=== PATIENT | male | born 1940 | race Caucasian/White ===

== ENCOUNTER → 2020-01-04 08:55 | Outpatient (CLI) | payer MEDICARE, SELFPAY ==
[2019-12-29 08:46] VITALS: BMI 27.0
[2020-01-04 12:45] LABS: Absolute Lymphocyte Count 1.16 X10^3/uL (0.83-4.51); Absolute Neutrophil Count 4.5 X10^3/uL (2.0-7.7); Basophil# 0.03 X10^3/uL; Basophil% 0.5 % (0-1); Eosinophil# 0.12 X10^3/uL; Eosinophils% 1.9 % (0-5); Hematocrit 47.7 % (40-54); Lymphocyte # 1.16 X10^3/ul (4.0); Lymphocyte % 18.2 % (19-41); Mean Corp Hgb Conc 31.4 g/dL (32-36); Mean Corpuscular Hgb 27.9 pg (27.0-32.0); Mean Corpuscular Volume 88.8 fL (80-94); Mean Platelet Vol. 11.7 fl (6.2-12.0); Monocyte# 0.51 X10^3/uL; NRBC Flagged by Analyzer 0 % (0-5); Neutrophil # 4.53 X10^3/uL (2.7-7.7); Neutrophil % 71.1 % (47-70); Platelet Count 256 K/mm3 (150-450); RBC Distribution Width CV 13.6 % (11.6-14.6); RBC Distribution Width SD 44.1 fl (35.1-43.9); Red Blood Count 5.37 M/mm3 (4.6-6.2); White Blood Count 6.4 K/mm3 (4.4-11.0)
[2020-01-04 12:51] LABS: ALB/GLOB Ratio 0.9 RATIO (0.9-2.4); AST(SGOT) 18 U/L (15-37); Alanine Aminotransfer ALT/SGPT 23 U/L (16-61); Albumin, Serum 3.6 g/dL (3.2-5.0); Alkaline Phosphatase 81 U/L (45-117); Anion Gap 5 (5-15); BUN 13 mg/dL (7-18); BUN/Creat Ratio 13.4 RATIO (10-20); Calcium,Total 8.7 mg/dL (8.5-10.1); Chloride 108 mmol/L (98-107); Cholesterol 130 mg/dL (200); Creatinine, Serum 0.97 mg/dL (0.70-1.30); EST Glomerular Filtration Rate 79 mL/min (>60); Est Glom Filt Rate - Afr Amer 95 mL/min (>60); Globulin 3.8 g/dL (2.2-4.2); Glucose 115 mg/dL (74-106); High Density Lipoprotein 47 mg/dL; PSA,Total - Annual Screen 5.97 ng/mL (0.00-4.00); Potassium 4.1 mmol/L (3.5-5.1); Protein, Total 7.4 g/dL (6.4-8.2); Sodium Level 142 mmol/L (136-145); Triglycerides 122 mg/dL; Very Low Density Lipoprotein 24 mg/dL (5-40)
[2020-01-04 13:03] LABS: Hemoglobin A1c 6.4 % (3.8-5.6)
== END ==
PROVIDERS: PCP Internal Medicine; Referring Provider Internal Medicine; Visit Provider Internal Medicine
DX: E11.9 Type 2 diabetes mellitus without complications (principal); K21.9 Gastro-esophageal reflux disease without esophagitis; R06.00 Dyspnea, unspecified; E78.5 Hyperlipidemia, unspecified; R39.9 Unspecified symptoms and signs involving the genitourinary system; Z12.5 Encounter for screening for malignant neoplasm of prostate
CPT/HCPCS: 36415; 80053; 80061; 83036; 84153; 85025; G0103

== ENCOUNTER → 2020-01-26 06:46 | Outpatient (CLI) | payer MEDICARE, SELFPAY ==
[2020-01-19 09:07] VITALS: BMI 31.1
--- NOTE | 2020-01-26 06:48 | CT_ITS ---
STUDY: CT CHEST WITHOUT CONTRAST REASON FOR EXAM: Male, 79 years old. Follow up lung nodule RADIATION DOSAGE (If Supplied By Facility): CTDIvol = ( 12.09 ) mGy, DLP = ( 483.36 ) mGycm TECHNIQUE: Transaxial imaging was performed without the administration of intravenous contrast material. Individualized dose optimization techniques were used for this CT. COMPARISON: None. FINDINGS: There is hyperinflation and emphysema of the lungs consistent with chronic obstructive lung disease (COPD). Irregular opacities are seen in the right upper lobe and right lower lobe are consistent with scarring from old lesions likely old pneumonia. There is no demonstrated pleural abnormality. Normal heart and pericardium. Normal mediastinum. Normal hilar regions. Normal unenhanced pulmonary arteries. Normal aorta arch and descending thoracic aorta. There are multi-level degenerative changes of the thoracic spine. There is no demonstrated abnormality of the visualized upper abdomen. CT/Chest without Contrast IMPRESSION: COPD and emphysema in both lungs more prominent in the upper lobes. Irregular opacities are seen in the right upper lobe and right lower lobe are consistent with scarring. Electronically Signed: Ryan Flores, at 8:12 EST Tel , Service support ,
== END ==
PROVIDERS: PCP Internal Medicine; Referring Provider Internal Medicine Critical Care Medicine; Visit Provider Internal Medicine Critical Care Medicine
DX: R91.1 Solitary pulmonary nodule (principal); R31.29 Other microscopic hematuria
CPT/HCPCS: 71250

== ENCOUNTER → 2020-01-31 09:16 | Outpatient (CLI) | payer MEDICARE, SELFPAY ==
[2020-01-19 09:07] VITALS: BMI 31.1
--- NOTE | 2020-01-31 14:57 | PFTCOMP_ITS ---
COMPLETE PULMONARY FUNCTION TEST INTERPRETATION Brief HPI: Patient is an 79 year old male, currently under the care of myself, who presents to [facility] for complete pulmonary function tests secondary to diagnosis of COPD. Respiratory therapist reports good effort and reproducible results. Interpretation: Forced expiration spirometry shows a mild large airways obstructive ventilatory defect with an FEV1 of 70% predicted. There is no significant bronchodilator response by strict ATS criteria. Spirograms are of good quality and plateau slowly, indicating slowly emptying areas of the lungs. The respiratory flow volume loop shows decreased expiratory flow rates at all lung volumes consistent with airway obstruction. Lung volumes by body plethysmography show an elevated total lung capacity at 8.2 L, 129% predicted. All other lung volumes are increased symmetrically. Diffusion capacity by carbon monoxide is at the lower limit of normal at 71% predicted. The airway resistance is elevated. No previous pulmonary function tests were available for review. Impression: Irreversible mild large airways obstructive ventilatory defect with a symmetric reduction diffusing capacity
== END ==
PROVIDERS: PCP Internal Medicine; Referring Provider Internal Medicine Critical Care Medicine; Visit Provider Internal Medicine Critical Care Medicine
DX: J44.9 Chronic obstructive pulmonary disease, unspecified (principal)
CPT/HCPCS: 94060; 94726; 94729

== ENCOUNTER → 2020-02-03 09:19 | Outpatient (CLI) | payer MEDICARE, SELFPAY ==
[2020-01-19 09:07] VITALS: BMI 31.1
[2020-02-03 09:55] VITALS: PULSE 101; PULSE 107; PULSE 108; PULSE 77; PULSE 82; PULSE 96; PULSE 98; O2SAT 89; O2SAT 91; O2SAT 92; O2SAT 95
--- NOTE | 2020-02-03 10:00 | CPS ---
Mr. Casillas came in with no O2 on but wears 2LPM at home all the time. Starting walking with no O2 on but had to put on at 3 mins and it took 2 mins to return to normal. He wore the oxygen rest of the test.
--- NOTE | 2020-02-04 14:57 | PCM.PSN.6M ---
PSN 6 Minute Walk Test - 6 Minute Walk Test 6 Minute Walk Test: 6 Minute Walk Test PSN:6-Minute Walk Test Start: 02/03/20 09:55 Freq: Status: Active Protocol: [id number].6MINW Document 02/03/20 09:55 FR (Rec: 02/03/20 10:05 FR [id number]) 6 Minute Walk Test Date Performed 02/03/20 Time Performed 09:45 Height 5 ft 11 in Weight: 194 lb Weight in Pounds 194.[address]: Nba Man Assistive device used: None Pre-test Oxygen Delivery Method Room Air Pulse Ox (%) 91 Pulse Rate (60-100 beats/min) 82 Dyspnea Eddy Scale (0-10) 5 Exertion Eddy Scale (6-20) 10 1st minute Oxygen Delivery Method Room Air Pulse Ox (%) 91 Pulse Rate (60-100 beats/min) 101 H 2nd minute Oxygen Delivery Method Room Air Pulse Ox (%) 89 Pulse Rate (60-100 beats/min) 107 H Reported Symptoms Increased Work of Breathing 3rd minute Oxygen Delivery Method Room Air Pulse Ox (%) 95 Pulse Rate (60-100 beats/min) 108 H Number of Rests Taken 1 Reported Symptoms Increased Work of Breathing 4th minute Oxygen Flow Rate (L/min) (L/min) 2 Oxygen Delivery Method Nasal Cannula Pulse Ox (%) 92 Pulse Rate (60-100 beats/min) 96 5th minute Oxygen Flow Rate (L/min) (L/min) 2 Oxygen Delivery Method Nasal Cannula Pulse Ox (%) 91 Pulse Rate (60-100 beats/min) 98 6th minute Oxygen Flow Rate (L/min) (L/min) 2 Oxygen Delivery Method Nasal Cannula Pulse Ox (%) 89 Pulse Rate (60-100 beats/min) 101 H Dyspnea Eddy Scale (0-10) 4 Exertion Eddy Scale (6-20) 10 Post-test Oxygen Flow Rate (L/min) (L/min) 2 Oxygen Delivery Method Nasal Cannula Pulse Ox (%) 92 Pulse Rate (60-100 beats/min) 77 Full Laps Walked 10 Partial Lap, Number of Tiles Walked 28 Total Distance Walked (ft) 618 02/03/20 10:00 Cardiopulmonary Services by Naina Pratt Mr. Casillas came in with no O2 on but wears 2LPM at home all the time. Starting walking with no O2 on but had to put on at 3 mins and it took 2 mins to return to normal. He wore the oxygen rest of the test. Initialized on 02/03/20 10:00 - END OF NOTE - Interpretation Interpretation: The patient ambulated 618 feet over the course of 6 minutes beginning on room air without assistive devices or breaks. Pretesting oxygen saturation was noted to be 91% on room air. With ambulation, the xu oxygen saturation was 85%. 2 L/min of supplemental oxygen was applied and the patient was able to complete the remainder of the test while maintaining appropriate oxygen saturations. - Recommendations Recommendations: 2 L/min of supplemental oxygen should be utilized with exertion.
== END ==
PROVIDERS: PCP Internal Medicine; Referring Provider Internal Medicine Critical Care Medicine; Visit Provider Internal Medicine Critical Care Medicine
DX: J44.9 Chronic obstructive pulmonary disease, unspecified (principal)
CPT/HCPCS: 94618

== ENCOUNTER → 2020-06-28 10:52 | Outpatient (CLI) | payer MEDICARE, SELFPAY ==
[2020-06-28 10:06] VITALS: BMI 27.7
[2020-06-28 12:06] LABS: Absolute Lymphocyte Count 1.56 X10^3/uL (0.83-4.51); Absolute Neutrophil Count 4.8 X10^3/uL (2.0-7.7); Basophil# 0.05 X10^3/uL; Basophil% 0.7 % (0-1); Eosinophil# 0.13 X10^3/uL; Eosinophils% 1.8 % (0-5); Hematocrit 45.8 % (40-54); Hemoglobin 14.5 g/dL (13.0-16.5); Lymphocyte # 1.56 X10^3/ul (0.83-4.51); Lymphocyte % 21.4 % (19-41); Mean Corp Hgb Conc 31.7 g/dL (32-36); Mean Corpuscular Hgb 28.9 pg (27.0-32.0); Mean Corpuscular Volume 91.2 fL (80-94); Mean Platelet Vol. 11.2 fl (6.2-12.0); Monocyte# 0.72 X10^3/uL; Monocyte% 9.9 % (0-10); NRBC Flagged by Analyzer 0 % (0-5); Neutrophil # 4.82 X10^3/uL (2.7-7.7); Neutrophil % 65.9 % (47-70); Platelet Count 291 K/mm3 (150-450); RBC Distribution Width CV 13.6 % (11.6-14.6); RBC Distribution Width SD 45.3 fl (35.1-43.9); Red Blood Count 5.02 M/mm3 (4.6-6.2); White Blood Count 7.3 K/mm3 (4.4-11.0)
[2020-06-28 12:33] LABS: BUN 15 mg/dL (7-18); Creatinine, Serum 0.99 mg/dL (0.70-1.30); Glucose 98 mg/dL (74-106)
[2020-06-28 12:34] LABS: ALB/GLOB Ratio 1.1 RATIO (0.9-2.4); AST(SGOT) 15 U/L (15-37); Alanine Aminotransfer ALT/SGPT 23 U/L (16-61); Albumin, Serum 3.9 g/dL (3.2-5.0); Alkaline Phosphatase 76 U/L (45-117); Anion Gap 3 (5-15); BUN/Creat Ratio 15.1 RATIO (10-20); Calcium,Total 8.9 mg/dL (8.5-10.1); Chloride 108 mmol/L (98-107); EST Glomerular Filtration Rate 77 mL/min (>60); Est Glom Filt Rate - Afr Amer 93 mL/min (>60); Globulin 3.7 g/dL (2.2-4.2); PSA,Total- Diagnostic 4.59 ng/mL (0.0-4.0); Potassium 4.2 mmol/L (3.5-5.1); Protein, Total 7.6 g/dL (6.4-8.2); Sodium Level 140 mmol/L (136-145)
[2020-06-28 13:09] LABS: Vitamin D,25 Hydroxy 38.1 ng/mL
== END ==
PROVIDERS: PCP Internal Medicine; Referring Provider Internal Medicine; Visit Provider Internal Medicine
DX: R97.20 Elevated prostate specific antigen [PSA] (principal); J44.9 Chronic obstructive pulmonary disease, unspecified; R05 Cough; E11.9 Type 2 diabetes mellitus without complications; E55.9 Vitamin D deficiency, unspecified
CPT/HCPCS: 36415; 80053; 82306; 84153; 85025

== ENCOUNTER → 2020-12-08 07:42 | Outpatient (CLI) | payer MEDICARE, SELFPAY ==
--- NOTE | 2020-12-08 07:51 | CT_ITS ---
INDICATION: follow up right lung nodule EXAMINATION: CT CHEST WITHOUT CONTRAST - CT Chest W/O Contrast Injection TECHNIQUE: Helically acquired images were obtained of the chest. A radiation dose optimization technique was used for this scan. IV Contrast dosage and agent: None. COMPARISON: None. FINDINGS: LUNGS, PLEURA AND LARGE AIRWAYS: 1.7 x 1.2 cm soft tissue density visualized along the posterior inferior lateral right upper lobe seen on axial series 4 image 74 demonstrates decrease in size in comparison to the prior study, adjacent 0.5 cm satellite lesions are visualized that was seen on the prior study, however there is significant decrease in the stranding of the adjacent soft tissues most notable along the right middle lobe bronchial level visualized on the prior study on coronal CT is series 602 image 144 and near completely resolved on the current study. 2.7 x 2.2 cm spiculated density visualized along the inferolateral aspect of the right middle lobe demonstrating spiculated margins and irregular contours best visualized on axial series 4 image 98, this was not seen on the prior study. 2.2 x 2.0 cm density visualized in the inferomedial right lower lobe seen on axial series 4 image 2102 demonstrates no significant change in comparison to the prior study, interspersed the bronchioles visualized within this lesion. Thickening of the left pleural reflections/fissures seen. Extensive emphysematous lung disease visualized in bilateral lung douglas with parenchymal lung scarring, irregularity of the bronchioles with bronchial wall thickening is visualized most prominent in the proximity of the above the above-mentioned areas of soft tissue density/masses. No evidence of pneumothorax or pleural effusion. THYROID: No thyroid lesions. HEART AND PERICARDIUM: Heart size is normal. No pericardial effusion. VESSELS: Scattered atherosclerotic calcifications visualized in the aortic arch, no evidence of aneurysmal dilatation or arterial dissection is seen. MEDIASTINUM AND MANUELA: Scattered subtle hilar mediastinal and hilar lymph nodes are seen.. Esophagus is unremarkable. No hiatal hernia. UPPER ABDOMEN: Scattered subtle lymph nodes visualized in the midabdomen. BONES: Degenerative bone changes. No suspicious lytic or blastic abnormality. CT/Chest without Contrast IMPRESSION: Previously visualized soft tissue density/mass in the right upper lobe demonstrate slight decrease in size in comparison to the prior study. Two new soft tissue densities/consolidation/spiculated masses visualized in the right middle and lower lobes that were not seen on the prior study. Electronically Signed: Darnell Paez MD at 10:44 EDT Tel , Service support ,
== END ==
PROVIDERS: PCP Internal Medicine; Referring Provider Internal Medicine Critical Care Medicine; Visit Provider Internal Medicine Critical Care Medicine
DX: R91.1 Solitary pulmonary nodule (principal); J44.9 Chronic obstructive pulmonary disease, unspecified; J96.11 Chronic respiratory failure with hypoxia
CPT/HCPCS: 71250

== ENCOUNTER → 2020-12-13 12:35 | Outpatient (CLI) | payer MEDICARE, SELFPAY ==
[2020-09-11 13:50] VITALS: BMI 27.7
--- NOTE | 2020-12-13 15:07 | PFTCOMP ---
COMPLETE PULMONARY FUNCTION TEST INTERPRETATION Brief HPI: Patient is an 80 year old male, currently under the care of myself, who presents to [facility] for complete pulmonary function tests secondary to diagnosis of COPD. Respiratory therapist reports good effort and reproducible results. Interpretation: Forced expiration spirometry shows a moderate large airways obstructive ventilatory defect with an FEV1 of 66% predicted. There is no significant bronchodilator response by strict ATS criteria. Spirograms are of good quality and plateau slowly, indicating slowly emptying areas of the lungs. The respiratory flow volume loop shows decreased expiratory flow rates at all lung volumes consistent with airway obstruction. Lung volumes by body plethysmography show an elevated total lung capacity at 8.4 L, 133% predicted. All other lung volumes are increased symmetrically. Diffusion capacity by carbon monoxide is decreased at 62% predicted. The airway resistance is normal. Compared to previous pulmonary function tests from 01/31/2020, there has been no significant change. Impression: Irreversible moderate large airways obstructive ventilatory defect with a symmetric reduction in diffusion capacity
== END ==
PROVIDERS: PCP Internal Medicine; Referring Provider Internal Medicine Critical Care Medicine; Visit Provider Internal Medicine Critical Care Medicine
DX: J44.9 Chronic obstructive pulmonary disease, unspecified (principal); R91.1 Solitary pulmonary nodule; J96.11 Chronic respiratory failure with hypoxia
CPT/HCPCS: 94060; 94726; 94729

== ENCOUNTER → 2021-01-01 09:02 | Outpatient (CLI) | payer MEDICARE, SELFPAY ==
[2021-01-01 11:59] LABS: Absolute Lymphocyte Count 1.54 X10^3/uL (0.83-4.51); Absolute Neutrophil Count 6.5 X10^3/uL (2.0-7.7); Basophil# 0.05 X10^3/uL; Basophil% 0.5 % (0-1); Eosinophil# 0.24 X10^3/uL; Eosinophils% 2.6 % (0-5); Hematocrit 45.1 % (40-54); Hemoglobin 14.2 g/dL (13.0-16.5); Lymphocyte # 1.54 X10^3/ul (0.83-4.51); Lymphocyte % 16.9 % (19-41); Mean Corp Hgb Conc 31.5 g/dL (32-36); Mean Corpuscular Hgb 28.2 pg (27.0-32.0); Mean Corpuscular Volume 89.7 fL (80-94); Mean Platelet Vol. 11.7 fl (6.2-12.0); Monocyte# 0.75 X10^3/uL; Monocyte% 8.2 % (0-10); NRBC Flagged by Analyzer 0 % (0-5); Neutrophil # 6.51 X10^3/uL (2.7-7.7); Neutrophil % 71.4 % (47-70); Platelet Count 236 K/mm3 (150-450); RBC Distribution Width CV 13.9 % (11.6-14.6); RBC Distribution Width SD 44.9 fl (35.1-43.9); Red Blood Count 5.03 M/mm3 (4.6-6.2); White Blood Count 9.1 K/mm3 (4.4-11.0)
[2021-01-01 12:11] LABS: Vitamin D,25 Hydroxy 60.1 ng/mL
[2021-01-01 12:16] LABS: Hemoglobin A1c 6.3 % (3.8-5.6)
[2021-01-01 12:22] LABS: ALB/GLOB Ratio 0.9 RATIO (0.9-2.4); AST(SGOT) 18 U/L (15-37); Alanine Aminotransfer ALT/SGPT 25 U/L (16-61); Albumin, Serum 3.5 g/dL (3.2-5.0); Alkaline Phosphatase 74 U/L (45-117); Anion Gap 5 (5-15); BUN 14 mg/dL (7-18); BUN/Creat Ratio 13.3 RATIO (10-20); Calcium,Total 8.6 mg/dL (8.5-10.1); Chloride 107 mmol/L (98-107); Cholesterol 126 mg/dL (200); Creatinine, Serum 1.05 mg/dL (0.70-1.30); EST Glomerular Filtration Rate 72 mL/min (>60); Est Glom Filt Rate - Afr Amer 87 mL/min (>60); Glucose 119 mg/dL (74-106); High Density Lipoprotein 45 mg/dL; PSA,Total- Diagnostic 6.04 ng/mL (0.0-4.0); Potassium 4.2 mmol/L (3.5-5.1); Protein, Total 7.5 g/dL (6.4-8.2); Sodium Level 141 mmol/L (136-145); Thyroid Stim Hormone (TSH) 1.55 uIU/mL (0.358-3.74); Triglycerides 117 mg/dL; Very Low Density Lipoprotein 23 mg/dL (5-40)
== END ==
PROVIDERS: PCP Internal Medicine; Referring Provider Internal Medicine; Visit Provider Internal Medicine
DX: R97.20 Elevated prostate specific antigen [PSA] (principal); K21.9 Gastro-esophageal reflux disease without esophagitis; E11.9 Type 2 diabetes mellitus without complications; J43.9 Emphysema, unspecified; E55.9 Vitamin D deficiency, unspecified
CPT/HCPCS: 36415; 80053; 80061; 82306; 83036; 84153; 84443; 85025

== ENCOUNTER 2021-03-15 14:17 | Outpatient (CLI) | payer MEDICARE, SELFPAY ==
--- NOTE | 2021-03-15 14:26 | CT_ITS ---
STUDY: CT CHEST WITHOUT CONTRAST REASON FOR EXAM: Male, 80 years old. New RML nodule. The patient smoked 1 pack per day for 40 years. RADIATION DOSAGE (If Supplied By Facility): CTDIvol = ( 17.9 ) mGy, DLP = ( 781.38 ) mGycm TECHNIQUE: Transaxial imaging was performed without the administration of intravenous contrast material. Multiplanar coronal and sagittal images were reformatted. Individualized dose optimization techniques were used for this CT. COMPARISON: Comparison is made with prior study dated 12/08/2020. FINDINGS: Small benign-appearing bilateral axillary lymph nodes. There is a 5.8 mm calcified granuloma in the right lower lobe. Hyperinflation. Emphysematous changes. Stable linear scarring in the left upper lobe. Stable scarring in the right lower lobe. The previously seen 2 cm x 1 cm spiculated nodule in the anterior aspect of the right middle lobe has resolved. Minimal residual scarring is seen at that site. The previously seen 1.7 cm x 1.2 cm peripheral based nodule in the right upper lobe adjacent to the minor fissure has cleared. There are calcifications of the coronary arteries. There are multiple small lymph nodes within the mediastinum, which are normal in size and morphology most compatible with reactive lymph hyperplasia. Normal hilar regions. Normal unenhanced pulmonary arteries. There is atherosclerotic calcification of the aortic arch with tortuosity and elongation of the aortic arch and descending thoracic aorta. There are multi-level degenerative changes of the thoracic spine. There is no demonstrated abnormality of the visualized upper abdomen. CT/Chest without Contrast IMPRESSION: Interval clearing of the previously seen nodules in the right upper lobe and right middle lobe with the persistent scarring and emphysematous changes in both lungs. Electronically Signed: Montrell Huddleston MD at 14:59 EST , Service support ,
== END 2021-03-15 23:59 | disposition short-term general hospital (02) ==
LOC: CT 14:19
PROVIDERS: PCP Internal Medicine; Referring Provider Internal Medicine Critical Care Medicine; Visit Provider Internal Medicine Critical Care Medicine
DX: R91.1 Solitary pulmonary nodule (principal)
CPT/HCPCS: 71250

== ENCOUNTER 2021-05-08 11:30 | Outpatient (CLI) | payer MEDICARE, SELFPAY ==
[2021-05-08 12:25] LABS: Absolute Lymphocyte Count 1.23 X10^3/uL (0.83-4.51); Absolute Neutrophil Count 5.7 X10^3/uL (2.0-7.7); Basophil# 0.04 X10^3/uL; Basophil% 0.5 % (0-1); Eosinophil# 0.15 X10^3/uL; Eosinophils% 1.9 % (0-5); Hematocrit 34.6 % (40-54); Hemoglobin 10.8 g/dL (13.0-16.5); Lymphocyte # 1.23 X10^3/ul (0.83-4.51); Lymphocyte % 15.8 % (19-41); Mean Corp Hgb Conc 31.2 g/dL (32-36); Mean Corpuscular Hgb 29.3 pg (27.0-32.0); Mean Corpuscular Volume 93.8 fL (80-94); Mean Platelet Vol. 10.9 fl (6.2-12.0); Monocyte# 0.67 X10^3/uL; Monocyte% 8.6 % (0-10); NRBC Flagged by Analyzer 0 % (0-5); Neutrophil # 5.68 X10^3/uL (2.7-7.7); Neutrophil % 72.8 % (47-70); Platelet Count 280 K/mm3 (150-450); RBC Distribution Width CV 13.9 % (11.6-14.6); RBC Distribution Width SD 47.8 fl (35.1-43.9); Red Blood Count 3.69 M/mm3 (4.6-6.2); White Blood Count 7.8 K/mm3 (4.4-11.0)
[2021-05-08 13:05] LABS: Vitamin D,25 Hydroxy 47.4 ng/mL
[2021-05-08 13:08] LABS: BNP,B-Type NATRIURETIC PEPTIDE 92.1 pg/mL (0-100)
[2021-05-08 13:36] LABS: ALB/GLOB Ratio 1.1 RATIO (0.9-2.4); AST(SGOT) 17 U/L (15-37); Alanine Aminotransfer ALT/SGPT 21 U/L (16-61); Albumin, Serum 3.6 g/dL (3.2-5.0); Alkaline Phosphatase 63 U/L (45-117); Anion Gap 6 (5-15); BUN 14 mg/dL (7-18); BUN/Creat Ratio 13.3 RATIO (10-20); Calcium,Total 8.9 mg/dL (8.5-10.1); Chloride 110 mmol/L (98-107); Cholesterol 113 mg/dL (200); Creatinine, Serum 1.05 mg/dL (0.70-1.30); EST Glomerular Filtration Rate 72 mL/min (>60); Est Glom Filt Rate - Afr Amer 87 mL/min (>60); Globulin 3.4 g/dL (2.2-4.2); Glucose 85 mg/dL (74-106); High Density Lipoprotein 43 mg/dL; Potassium 4.2 mmol/L (3.5-5.1); Sodium Level 142 mmol/L (136-145); Thyroid Stim Hormone (TSH) 1.62 uIU/mL (0.358-3.74); Triglycerides 139 mg/dL; Very Low Density Lipoprotein 28 mg/dL (5-40)
== END 2021-05-08 23:59 | disposition home or self-care (01) ==
LOC: BIMLAB 11:30
PROVIDERS: PCP Internal Medicine; Referring Provider Internal Medicine; Visit Provider Internal Medicine
DX: R06.00 Dyspnea, unspecified (principal); J43.9 Emphysema, unspecified; J96.11 Chronic respiratory failure with hypoxia; E11.9 Type 2 diabetes mellitus without complications; R07.89 Other chest pain; R55 Syncope and collapse; E55.9 Vitamin D deficiency, unspecified
CPT/HCPCS: 36415; 80053; 80061; 82306; 83880; 84443; 85025

== ENCOUNTER 2021-05-09 11:09 | Outpatient (CLI) | payer MEDICARE, SELFPAY ==
--- NOTE | 2021-05-09 11:12 | RAD_ITS ---
HISTORY: Near syncope, chest tightness, history of emphysema. TECHNIQUE: XR Chest 2 Views. # of images incl. paperwork: 3. COMPARISON: CT 03/15/2021. FINDINGS: CARDIOMEDIASTINAL STRUCTURES: Cardiac silhouette not enlarged. Mediastinal contour unremarkable with calcification of the aortic knob. LUNGS: Scattered bilateral scarring with hyperinflation. PLEURA: No pleural effusion or pneumothorax. OSSEOUS STRUCTURES: Degenerative change. RAD/Chest PA and Lateral IMPRESSION: No radiographic evidence of acute cardiopulmonary disease. COPD and scarring. at 1139 Reported and signed by: Yasmeen Singleton MD Electronically Signed: Yasmeen Singleton MD at 11:38 EST ,
== END 2021-05-09 23:59 | disposition home or self-care (01) ==
LOC: RAD 11:11
PROVIDERS: PCP Internal Medicine; Referring Provider Internal Medicine; Visit Provider Internal Medicine
DX: R55 Syncope and collapse (principal); J43.9 Emphysema, unspecified; R07.89 Other chest pain
CPT/HCPCS: 71046

== ENCOUNTER → 2021-05-30 09:35 | Outpatient (CLI) | payer MEDICARE, SELFPAY ==
--- NOTE | 2021-05-30 09:39 | STEWCON_ITS ---
Reason For Study: CHEST PAIN Stress Results Protocol: Dobutamine Stress Echo With Definiity Maximum Predicted HR: 138 bpm Target HR: 117 bpm % Maximum Predicted HR: 91 % DurationHeart Rate Stage (mm:ss) (bpm) BP Dose Comment BASELINE 87 129/86 5 CC DEFINITY FOR TEST STAGE 1 3:20 99 149/7210.00 STAGE 2 2:30 126 125/7720.00 RECOVERY 90 130/88 Stress Duration: 5:50 mm:ss Maximum Stress HR: 126 bpm Baseline Echocardiogram Findings The estimated ejection fraction is 60 %. Ejection fraction at peak dobutamine infusion is 75%. Stress Echo Wall motion Data Resting WM Intermediate WM Stress WM Resting Wall Motion Wall Motion Int. Wall Motion Stress No regional wall motion No regional wall motion No regional wall motion abnormalities noted. abnormalities noted. abnormalities noted. Stress Results The patient did not exhibit any symptoms during drug infusion. EKG Data The baseline ECG displays normal sinus rhythm. During stress, there were no ST or T wave changes noted to suggest ischemia. Symptoms with Stress The patient experinced no chest pain . ECHO/Stress Test Echo W/Contrast Interpretation Summary The estimated ejection fraction is 60 %. Dobutamine stress echocardiogram is negative for dobutamine induced chest pain or EKG or echocardiographic changes of ischemia Ordering Physician: Carmina Zaidi Referring Physician: Carmina Zaidi M.D. Performed By: Luis Beavers RCS
== END ==
PROVIDERS: PCP Internal Medicine; Visit Provider Internal Medicine
DX: R55 Syncope and collapse (principal); J43.9 Emphysema, unspecified; R07.89 Other chest pain
CPT/HCPCS: 93017; 93350; J7040; Q9957; A4216; C8928

== ENCOUNTER 2021-06-20 10:24 | Outpatient (CLI) | payer MEDICARE, SELFPAY ==
[2021-06-20 12:01] LABS: Absolute Lymphocyte Count 0.86 X10^3/uL (0.83-4.51); Absolute Neutrophil Count 4.2 X10^3/uL (2.0-7.7); Basophil# 0.03 X10^3/uL; Basophil% 0.5 % (0-1); Eosinophil# 0.21 X10^3/uL; Eosinophils% 3.5 % (0-5); Hematocrit 37.3 % (40-54); Hemoglobin 11.2 g/dL (13.0-16.5); Lymphocyte # 0.86 X10^3/ul (0.83-4.51); Lymphocyte % 14.4 % (19-41); Mean Corpuscular Hgb 26.7 pg (27.0-32.0); Mean Platelet Vol. 11.6 fl (6.2-12.0); Monocyte# 0.66 X10^3/uL; NRBC Flagged by Analyzer 0 % (0-5); Neutrophil % 70.3 % (47-70); Platelet Count 269 K/mm3 (150-450); RBC Distribution Width CV 13.7 % (11.6-14.6); RBC Distribution Width SD 44.8 fl (35.1-43.9); Red Blood Count 4.19 M/mm3 (4.6-6.2)
[2021-06-20 12:24] LABS: ALB/GLOB Ratio 0.9 RATIO (0.9-2.4); AST(SGOT) 141 U/L (15-37); Alanine Aminotransfer ALT/SGPT 206 U/L (16-61); Albumin, Serum 3.5 g/dL (3.2-5.0); Alkaline Phosphatase 140 U/L (45-117); Anion Gap 7 (5-15); BUN 11 mg/dL (7-18); Calcium,Total 8.3 mg/dL (8.5-10.1); Chloride 105 mmol/L (98-107); Creatinine, Serum 1.22 mg/dL (0.70-1.30); EST Glomerular Filtration Rate 60 mL/min (>60); Est Glom Filt Rate - Afr Amer 73 mL/min (>60); Globulin 3.9 g/dL (2.2-4.2); Glucose 111 mg/dL (74-106); Protein, Total 7.4 g/dL (6.4-8.2); Sodium Level 139 mmol/L (136-145)
== END 2021-06-20 23:59 | disposition home or self-care (01) ==
LOC: BIMLAB 10:25
PROVIDERS: PCP Internal Medicine; Referring Provider Internal Medicine; Visit Provider Internal Medicine
DX: J43.9 Emphysema, unspecified (principal); J44.9 Chronic obstructive pulmonary disease, unspecified; J96.11 Chronic respiratory failure with hypoxia; E11.9 Type 2 diabetes mellitus without complications; Z99.81 Dependence on supplemental oxygen
CPT/HCPCS: 36415; 80053; 85025

== ENCOUNTER → 2021-06-27 | Outpatient (CLI) | payer MEDICARE, SELFPAY ==
--- NOTE | 2021-06-27 09:43 | ECHOD_ITS ---
Reason For Study: CHEST PAINS Procedure This was a 2D Doppler, Color Flow transthoracic echocardiogram. The study was technically difficult. Exam performed in department. Left Ventricle Normal LV size. Left ventricular systolic function is normal. The estimated ejection fraction is 55 %. There is evidence of diastolic dysfunction. No regional wall motion abnormalities noted. Right Ventricle Normal RV size. Normal systolic function. Atria The left atrium is mildly enlarged. Normal right atrium. No doppler evidence for ASD. Mitral Valve There is mild to moderate mitral annular calcification. Tension of the mitral annular calcification onto the mitral valve leaflets. Trivial mitral valve insufficiency. Tricuspid Valve Normal tricuspid valve. Trivial tricuspid valve insufficiency. Right ventricular systolic pressure estimated to be 25 mmHg. Aortic Valve Trisinus/trileaflet aortic valve. Mild diffuse aortic valve calcification. Trivial aortic valve insufficiency. Pulmonic Valve The pulmonic valve is not well visualized. Trivial pulmonic valve insufficiency. Great Vessels Normal sized aortic root. Pericardium/Pleural No pericardial effusion. MMode/2D Measurements & Calculations LVIDd: 3.9 cm IVSd: 1.3 cm Ao root diam: 3.6 cm LVIDs: 2.0 cm LVPWd: 0.90 cm FS: 49.8 % LAV(MOD-sp4): 71.2 ml LVAd ap4: 30.4 cm2 LVAd ap2: 31.8 cm2 LVLd ap4: 7.9 cm LVLd ap2: 8.2 cm EDV(MOD-sp4): 98.5 ml EDV(MOD-sp2): 109.8 ml EDV(sp4-el): 99.3 ml EDV(sp2-el): 104.2 ml LVAs ap4: 17.2 cm2 LVAs ap2: 19.1 cm2 LVLs ap4: 6.1 cm LVLs ap2: 7.2 cm ESV(MOD-sp4): 42.7 ml ESV(MOD-sp2): 48.8 ml ESV(sp4-el): 41.0 ml ESV(sp2-el): 43.0 ml EF(MOD-sp4): 56.7 % EF(MOD-sp2): 55.5 % EF(sp4-el): 58.7 % SV(MOD-sp4): 55.8 ml SV(MOD-sp2): 61.0 ml SV(sp4-el): 58.3 ml LA dimension(2D): 4.1 cm LA A4 area: 21.7 cm2 Doppler Measurements & Calculations MV E max tunde: 105.5 cm/sec Lat Peak E' Tunde: 5.8 cm/sec Med Peak E' Tunde: 6.1 cm/sec MV A max tunde: 117.6 cm/sec E/E' lat: 18.1 E/E' med: 17.2 MV E/A: 0.90 Ao V2 max: 108.4 cm/sec LV V1 max: 86.7 cm/sec PA V2 max: 120.8 cm/sec Ao max P.7 mmHg LV V1 max P.0 mmHg TR max tunde: 233.5 cm/sec TR max P.8 mmHg ECHO/Echo Complete Interpretation Summary The study was technically difficult. Left ventricular systolic function is normal. The estimated ejection fraction is 55 %. The left atrium is mildly enlarged. There is mild to moderate mitral annular calcification. Tension of the mitral annular calcification onto the mitral valve leaflets. Trivial mitral valve insufficiency. Trivial tricuspid valve insufficiency. Mild diffuse aortic valve calcification. Trivial aortic valve insufficiency. Trivial pulmonic valve insufficiency. Right ventricular systolic pressure estimated to be 25 mmHg. There is evidence of diastolic dysfunction. Ordering Physician: Geoffrey Dasilva Referring Physician: Geoffrey Dasilva Performed By: Bessy Solis RCS
--- NOTE | 2021-06-27 09:43 | CDU_ITS ---
Reason For Study: Carotid Bruit Rt. Velocities/BP Lt. Velocities/BP Prox CCA 119/24 cm/sec. Prox CCA 131/24 cm/sec. Mid CCA 85/15 cm/sec. Mid CCA 85/18 cm/sec. Dist CCA 99/11 cm/sec. Dist CCA 64/11 cm/sec. Prox ICA 53/12 cm/sec. Prox ICA 50/10 cm/sec. Mid ICA 45/13 cm/sec. Mid ICA 128/41 cm/sec. Dist ICA 66/20 cm/sec. Dist ICA 120/34 cm/sec. Rt. ICA/CCA = 0.8. Lt. ICA/CCA = 1.5. Prox ECA 76/6 cm/sec. Prox ECA 114/12 cm/sec. Rt. Vert. 47/13 cm/sec. Lt. Vert. 60/15 cm/sec. Right Extracranial There is intimal thickening but no significant atherosclerotic plaque noted in the right common carotid artery. There is heterogeneous, irregular atherosclerotic plaque noted in the right internal carotid artery. There is intimal thickening but no significant atherosclerotic plaque noted in the right external carotid artery. Antegrade flow is noted in the right vertebral artery. Left Extracranial There is heterogeneous, irregular atherosclerotic plaque noted in the left common carotid artery. There is intimal thickening but no significant atherosclerotic plaque noted in the left internal carotid artery. The left internal carotid artery is very tortuous. There is intimal thickening but no significant atherosclerotic plaque noted in the left external carotid artery. Antegrade flow is noted in the left vertebral artery. Procedure Carotid Duplex [id number]. This is a Carotid Duplex examination using B-mode, color flow and specral Doppler. Exam performed in department. VL/Carotid Duplex Ultrasound Interpretation Summary Mild (<50%) stenosis right extracranial internal carotid. Mild (<50%) stenosis left extracranial internal carotid. Flow within the vertebral arteries is antegrade bilaterally. Ordering Physician: Geoffrey Dasilva Referring Physician: Carmina Zaidi Performed By: Radha Loyd, KATHY, RVT
== END | disposition home or self-care (01) ==
LOC: CVS 09:41
PROVIDERS: PCP Internal Medicine; Referring Provider Internal Medicine Cardiovascular Disease; Visit Provider Internal Medicine Cardiovascular Disease
DX: R09.89 Other specified symptoms and signs involving the circulatory and respiratory systems (principal); J44.9 Chronic obstructive pulmonary disease, unspecified; R55 Syncope and collapse; R07.89 Other chest pain
CPT/HCPCS: 93225; 93226; 93306; 93880

== ENCOUNTER → 2021-06-28 | Outpatient (CLI) | payer MEDICARE, SELFPAY ==
--- NOTE | 2021-06-28 09:16 | US_ITS ---
STUDY: ABDOMINAL ULTRASOUND - RIGHT UPPER QUADRANT REASON FOR VISIT: Male, 80 years old Elevated LFTs, alk phos TECHNIQUE: Ultrasound evaluation of the right upper quadrant was performed with real-time and static gonzalez-scale imaging. TECHNICAL QUALITY: Adequate. COMPARISON: None. FINDINGS: Liver: The liver measures 16.7 cm. There is increased echogenicity consistent with fatty infiltration. The bile ducts are within normal limits. There is hepatic color flow. The direction of portal flow is hepatopetal. There is a 1.8 cm x 1.4 cm x 1.8 cm hypoechoic nodule in the dome of the right lobe of the liver. The study typical cyst. Correlation with a CT scan is recommended. Gallbladder: Normal distended gallbladder. The gallbladder wall is slightly thickened and measures 3.3 mm. There is a negative sonographic Peterson''s sign. There is no pericholecystic fluid. There are no gallstones. Common Bile Duct (C.B.D.): The common bile duct measures 3.9 mm. Pancreas: Normal size of the head, body of the pancreas. The tibial portion is obscured due to overlying bowel gas. There is normal echogenicity of the pancreas. There is no demonstrated pancreatic mass or cyst. Right Kidney: Normal size of the right kidney. The right kidney measures 12.4 cm x 4.6 cm x 5.6 cm. Normal renal cortex. The right cortex measures 1.2 cm. There is a 9 mm x 8 mm x 8 mm cyst. There is no right hydronephrosis. US/Abdomen Limited IMPRESSION: Fatty infiltration of the liver. There is a 1.8 cm x 1.4 cm x 1.8 cm hypoechoic nodule in the dome of the right lobe of the liver. Correlation with a CT scan is recommended. Mild thickening of the gallbladder wall. Electronically Signed: Montrell Huddleston MD at 10:20 EDT ,
== END | disposition home or self-care (01) ==
LOC: US 09:16
PROVIDERS: PCP Internal Medicine; Referring Provider Internal Medicine; Visit Provider Internal Medicine
DX: R79.89 Other specified abnormal findings of blood chemistry (principal)
CPT/HCPCS: 76705

== ENCOUNTER → 2021-07-11 | Outpatient (CLI) | payer MEDICARE, SELFPAY ==
--- NOTE | 2021-07-11 13:42 | CT_ITS ---
STUDY: CT ABDOMEN WITH AND WITHOUT CONTRAST REASON FOR EXAM: Male, 80 years old. Abnormal liver ultrasound RADIATION DOSAGE (If Supplied By Facility): CTDIvol = ( 20.30 ) mGy, DLP = ( 1822.57 ) mGycm TECHNIQUE: Transaxial images were obtained pre and post I.V. administration of IV 100mL [id number], and without oral contrast. Sagittal and coronal images were reconstructed. Individualized dose optimization techniques were used for this CT. COMPARISON: Comparison is made with prior sonogram dated 06/28/2021. FINDINGS: There is a 2.2 cm x 2 cm nodular density in the posterior medial segment of the right lower lobe. This is unchanged as compared to prior CT scan dated 03/15/2021. Adjacent increased markings are seen suggestive of atelectasis. Follow-up is recommended. Coronary artery calcification. Normal liver. No abnormal nodule is seen in the liver on the examination. Normal gallbladder and extrahepatic biliary system. Normal spleen. Normal pancreas. Normal bilateral adrenal glands. 1.2 cm cyst in the medial upper pole of the right kidney. Normal left kidney. Normal visualized stomach. Normal small intestine. Normal colon. The appendix is visualized and appears normal. There is scattered atherosclerotic calcification of the abdominal aorta, without a demonstrated aneurysm. Normal inferior vena cava. Normal retroperitoneum. Normal abdominal wall. Normal osseous structures. CT/Abdomen W/WO IV Contrast IMPRESSION: No hepatic abnormality is seen at this time. A repeat sonogram is recommended. Electronically Signed: Montrell Huddleston MD at 14:18 EDT ,
== END | disposition home or self-care (01) ==
LOC: CT 13:40
PROVIDERS: PCP Internal Medicine; Referring Provider Internal Medicine; Visit Provider Internal Medicine
DX: R93.2 Abnormal findings on diagnostic imaging of liver and biliary tract (principal)
CPT/HCPCS: 74170; Q9967

== ENCOUNTER → 2021-08-10 | Outpatient (CLI) | payer MEDICARE, SELFPAY ==
--- NOTE | 2021-08-10 15:25 | RAD_ITS ---
STUDY: XR Chest 2 Views 08/10/2021 3:26 PM REASON FOR EXAM: Male, 80 years old. CHEST PAIN cough, shortness of breath COMPARISON: 3.9.22 TECHNIQUE: XR Chest 2 Views FINDINGS: There is no demonstrated pleural abnormality. The lung douglas are hyperexpanded. Normal heart size. Normal mediastinum. Normal anu. Prominent appearing increased interstitial lung markings. Normal visualized pulmonary arteries. There is atherosclerotic calcification of the aortic arch with tortuosity. There are diffuse degenerative changes of the visualized thoracic spine. There is degenerative osteoarthritis of the bilateral shoulders. There is no demonstrated abnormality of the visualized soft tissue structures of the upper abdomen. RAD/Chest PA and Lateral IMPRESSION: There are no acute findings. Electronically Signed: Palmer Dillon MD at 16:46 EDT ,
== END | disposition home or self-care (01) ==
LOC: RAD 15:20
PROVIDERS: PCP Internal Medicine; Referring Provider Physician Assistant; Visit Provider Physician Assistant
DX: J43.9 Emphysema, unspecified (principal); R05.9 Cough, unspecified
CPT/HCPCS: 71046

== ENCOUNTER → 2021-10-18 | Outpatient (CLI) | payer MEDICARE, SELFPAY ==
--- NOTE | 2021-10-18 08:16 | US_ITS ---
STUDY: ABDOMINAL ULTRASOUND - RIGHT UPPER QUADRANT REASON FOR VISIT: Male, 81 years old abnl findings -- abnl labs TECHNIQUE: Ultrasound evaluation of the right upper quadrant was performed with real-time and static gonzalez-scale imaging. TECHNICAL QUALITY: Adequate. COMPARISON: Comparison is made with prior study dated 06/28/2021. FINDINGS: Liver: The liver measures 15 cm. There is increased echogenicity consistent with fatty infiltration. The bile ducts are within normal limits. There is hepatic color flow. The direction of portal flow is hepatopetal. Persistent 1.6 cm x 1.7 cm x 1.2 cm hypoechoic solid nodule in the right lobe. Gallbladder: Normal distended gallbladder. The gallbladder wall measures 2.5 mm. There is a negative sonographic Peterson''s sign. There is no pericholecystic fluid. There are no gallstones. Common Bile Duct (C.B.D.): The common bile duct measures 5.3 mm. Pancreas: Normal size of the head, body and tail of the pancreas. There is normal echogenicity of the pancreas. There is no demonstrated pancreatic mass or cyst. Right Kidney: Normal size of the right kidney. The right kidney measures 11.3 cm x 4.7 cm x 6.7 cm. Normal renal cortex. The right cortex measures 2.0 cm. There is no demonstrated renal mass or cyst. There is no right hydronephrosis. US/Abdomen Limited IMPRESSION: Stable 1.6 cm x 1.7 cm x 1.2 cm hypoechoic solid nodule in the right lobe of the liver. Electronically Signed: Montrell Huddleston MD at 10:15 EDT ,
[2021-10-18 11:05] LABS: AST(SGOT) 7 U/L (15-37); Alanine Aminotransfer ALT/SGPT 23 U/L (16-61); Albumin, Serum 3.3 g/dL (3.2-5.0); Alkaline Phosphatase 49 U/L (45-117); Bilirubin, Direct 0.12 mg/dL (0.00-0.30); Globulin 3.1 g/dL (2.2-4.2); Protein, Total 6.4 g/dL (6.4-8.2)
[2021-10-18 11:33] LABS: Hepatitis B Surface Antigen Non-Reactive (Nonreactive); Hepatitis C Antibody Non-Reactive (Nonreactive)
[2021-10-19 06:08] LABS: Hepatitis B Core Ab Total Negative (Negative)
[2021-10-19 11:25] LABS: Hepatitis A IgM Antibody Negative (Negative)
== END | disposition home or self-care (01) ==
PROVIDERS: PCP Internal Medicine; Referring Provider Internal Medicine Gastroenterology; Visit Provider Internal Medicine Gastroenterology
DX: R93.3 Abnormal findings on diagnostic imaging of other parts of digestive tract (principal); R74.8 Abnormal levels of other serum enzymes
CPT/HCPCS: 36415; 76705; 80076; 86704; 86709; 86803; 87340

== ENCOUNTER → 2021-10-22 | Outpatient (CLI) | payer MEDICARE, SELFPAY ==
[2021-10-24 13:20] LABS: AFP, Tumor Marker 1.3 ng/mL (0.0-6.4); Carbohydrate AG 19-9 < 2 U/mL (0-35); Carcinoembryonic Antigen 6.3 ng/mL (0.0-4.7)
== END | disposition home or self-care (01) ==
PROVIDERS: PCP Internal Medicine; Referring Provider Internal Medicine Gastroenterology; Visit Provider Internal Medicine Gastroenterology
DX: R93.3 Abnormal findings on diagnostic imaging of other parts of digestive tract (principal); R74.8 Abnormal levels of other serum enzymes
CPT/HCPCS: 36415; 82105; 82378; 86301

== ENCOUNTER → 2021-11-15 | Outpatient (CLI) | payer MEDICARE, SELFPAY ==
--- NOTE | 2021-11-15 11:20 | RAD_ITS ---
STUDY: XR Chest 2 Views 11/15/2021 11:21 AM REASON FOR EXAM: Male, 81 years old. CHEST PAIN copd ex COMPARISON: 05.09.21 TECHNIQUE: XR Chest 2 Views FINDINGS: There is no demonstrated pleural abnormality. The lung douglas are hyperexpanded. Normal heart size. Normal mediastinum. Normal anu. Prominent appearing increased interstitial lung markings. Normal visualized pulmonary arteries. There is atherosclerotic calcification of the aortic arch with tortuosity. There are diffuse degenerative changes of the visualized thoracic spine. There is degenerative osteoarthritis of the bilateral shoulders. There is no demonstrated abnormality of the visualized soft tissue structures of the upper abdomen. RAD/Chest PA and Lateral IMPRESSION: There are no acute findings. Electronically Signed: Palmer Dillon MD at 17:17 EDT ,
== END | disposition home or self-care (01) ==
LOC: RAD 11:13
PROVIDERS: PCP Internal Medicine; Visit Provider Internal Medicine
DX: J44.1 Chronic obstructive pulmonary disease with (acute) exacerbation (principal)
CPT/HCPCS: 71046; 87635; U0003; U0005

== ENCOUNTER → 2022-01-09 | Outpatient (CLI) | payer MEDICARE, SELFPAY ==
[2022-01-11 15:34] LABS: Carcinoembryonic Antigen 5.9 ng/mL (0.0-4.7)
== END | disposition home or self-care (01) ==
LOC: LAB 13:14
PROVIDERS: PCP Internal Medicine; Referring Provider Internal Medicine Gastroenterology; Visit Provider Internal Medicine Gastroenterology
DX: R74.8 Abnormal levels of other serum enzymes (principal); R79.89 Other specified abnormal findings of blood chemistry
CPT/HCPCS: 36415; 82378

== ENCOUNTER 2022-02-12 15:31 | Inpatient (IN) | payer MEDICARE, SELFPAY ==
[2022-02-12] VITALS (14 sets, daily range): BP systolic 103–169; BP diastolic 47–89; PULSE 80–129; RESP 15–30; TEMP 36.6–39.3; O2SAT 93–96; BMI 27.2; BMI 27.3
--- NOTE | 2022-02-12 16:23 | EX.ED.DYSGE1 ---
HPI History of Present Illness Chief Complaint: General Illness Detail of Chief Complaint: Generalized weakness and cough Informant: patient and family Narrative Narrative: Patient presents the emergency department complaint not feeling well today. Patient woke up from a nap and he was making some odd noises while breathing and was too weak to walk. He had chills and sweats. Patient has been coughing for several days and occasionally brings up some yellow phlegm. He denies chest pain. He denies abdominal pain. Patient normally on 3 L of home O2 due to history of COPD. He denies recent travel or surgery. Patient has had the [employer] booster. [facility] Medical History Anemia Arthritis Bruit of left carotid artery COPD (chronic obstructive pulmonary disease) Diabetes mellitus Diverticulitis Dupuytrens contracture GERD (gastroesophageal reflux disease) H/O inguinal hernia H/O: pneumonia History of pulmonary aspiration Neuropathy Type 2 diabetes mellitus Type 2 diabetes mellitus without complications Home Medications OXYGEN CONCENTRATOR inhalation 12/29/19 [History Last Taken Unknown] ferrous sulfate 325 mg (65 mg iron) tablet 325 mg PO DAILY 12/29/19 [History Last Taken Unknown] ipratropium 18 mcg-albuterol 103 mcg/actuation aerosol inhaler spray inhalation 12/29/19 [History Last Taken Unknown] loratadine 10 mg tablet (Claritin) 10 mg PO DAILY 06/28/20 [History Last Taken Unknown] blood sugar diagnostic (Blood Glucose Test strips) #100 ea 07/04/20 [Rx Last Taken Unknown] lancets 28 gauge (FreeStyle Lancets) #100 ea 07/04/20 [Rx Last Taken Unknown] fluticasone furoate 27.5 mcg/actuation nasal spray,suspension (Flonase Sensimist) 2 spray intranasal DAILY 09/11/20 [History Last Taken Unknown] aspirin 81 mg tablet,delayed release (Adult Low Dose Aspirin) 81 mg PO DAILY 06/07/21 [History Last Taken Unknown] cholecalciferol (vitamin D3) 25 mcg (1,000 unit) tablet 25 mcg PO DAILY 06/07/21 [History Last Taken Unknown] pantoprazole 40 mg tablet,delayed release 80 mg PO DAILY 06/07/21 [History Last Taken Unknown] apixaban 5 mg tablet (Eliquis) 5 mg PO BID #60 tabs 07/02/21 [Rx Last Taken Unknown] metoprolol tartrate 25 mg tablet 25 mg PO BID #60 tabs 07/02/21 [Rx Last Taken Unknown] metformin 500 mg tablet 500 mg PO BID #180 tabs 08/29/21 [Rx Last Taken Unknown] gabapentin 100 mg capsule 100 mg PO TID #270 caps 09/20/21 [Rx Last Taken Unknown] doxycycline hyclate 100 mg tablet 100 mg PO BID #20 tabs 10/09/21 [Rx Last Taken Unknown] fluticasone fur. 200 mcg-umeclid 62.5 mcg-vilant 25 mcg inhalat.powder (Trelegy Ellipta) 1 inh inhalation DAILY #3 ea 10/09/21 [Rx Last Taken Unknown] prednisone 10 mg tablet 10 mg PO QDAY #30 tabs 11/15/21 [Rx Last Taken Unknown] simvastatin 40 mg tablet 40 mg PO DAILY #90 tabs 12/13/21 [Rx Last Taken Unknown] prednisone 10 mg tablet 10 mg PO DAILY #30 tabs 01/15/22 [Rx Last Taken Unknown] albuterol sulfate 2.5 mg/3 mL (0.083 %) solution for nebulization 2.5 mg (3 mL) inhalation Q4H PRN shortness of breath or wheezing #180 mL 01/23/22 [Rx Last Taken Unknown] albuterol sulfate 90 mcg/actuation aerosol inhaler 2 puff inhalation Q6H PRN shortness of breath or wheezing #3 device 01/23/22 [Rx Last Taken Unknown] Allergy/AdvReac Type Severity Reaction Status Date / Time erythromycin base Allergy Severe Nausea/Vom/ Verified 02/12/22 15:32 Diarrhea Penicillins Allergy Severe Hives Verified 02/12/22 15:32 Family History Father Cancer Brother Parkinsons disease Mother Diverticulitis Surgical History History of carpal tunnel release Social History Smoking Status: Former smoker Tobacco: How many years used: 40 Electronic Cigarette Use: not used how long ago did patient quit smokin second hand exposure: Yes alcohol intake: never substance use type: does not use caffeine: Yes Type: coffee Number of servings: 1 what type of physical activity do you participate in: none ROS ROS ED Review of Systems ROS Unobtainable: other Constitutional Constitutional ED: Reports fever(s) and lethargy; Denies chills, sweats or weight loss Eyes Eyes: Denies blurry vision, change in vision or diplopia ENT ENT ED: Denies rhinorrhea or sore throat Cardiovascular Cardiovascular: Denies chest pain, orthopnea or racing heartbeat Respiratory/Chest Respiratory/Chest: Reports cough, dyspnea and dyspnea on exertion; Denies orthopnea or sputum Gastrointestinal Gastrointestinal: Denies abdominal pain, diarrhea, nausea or vomiting Genitourinary Genitourinary ED: Denies dysuria, hematuria or urinary frequency Musculoskeletal Musculoskeletal: Denies arthralgias, back pain, myalgias or neck pain Integumentary Denies abscess, Abrasions or rash Neurologic Neurologic: Reports weakness; Denies headache(s) Psychiatric Psychiatric: Denies anxiety, depression or suicidal thoughts Endocrine Endocrinology: Denies polydipsia, polyphagia or polyuria Hematologic/Lymphatic Hematologic/Lymphatic: Denies easy bleeding, easy bruising or lymphadenopathy Allergic/Immunologic Allergic/Immunologic ED: Denies mouth swelling, tongue swelling or urticaria EXAM Physical Exam Const Vital Signs: 02/12/22 15:32 02/12/22 16:37 02/12/22 16:37 Temperature 99.9 F H 102.8 F H Temperature Source Temporal Oral Pulse Rate 80 108 H Respiratory Rate 15 25 H Respiratory Effort Short of Breath Labored Respiratory Pattern Blood Pressure 169/79 H 128/89 H Blood Pressure Mean 109 102 Pulse Ox 94 95 Oxygen Delivery Method Nasal Cannula Nasal Cannula Oxygen Flow Rate (L/min) 4 3 02/12/22 16:30 02/12/22 17:30 02/12/22 18:00 Temperature 102.8 F H 102 F H Temperature Source Oral Temporal Pulse Rate 129 H 109 H 106 H Respiratory Rate 24 H 30 H 18 Respiratory Effort Respiratory Pattern Hyperpnea Blood Pressure 117/71 112/47 L Blood Pressure Mean 86 68 Pulse Ox 94 95 Oxygen Delivery Method Nasal Cannula Nasal Cannula Oxygen Flow Rate (L/min) 3 4 02/12/22 18:00 Temperature Temperature Source Pulse Rate 105 H Respiratory Rate 18 Respiratory Effort Respiratory Pattern Blood Pressure 112/47 L Blood Pressure Mean 68 Pulse Ox 96 Oxygen Delivery Method Nasal Cannula Oxygen Flow Rate (L/min) Positive well nourished and well developed General Appearance ED: well developed and NAD HEENT Reports TM's clear and moist mucous membranes normocephalic and atraumatic; Negative for trauma or tenderness Tympanic Membrane ED: Yes TM's clear Eyes PERRL and EOMs intact bilaterally General Eye ED: Negative for pale conjunctiva or scleral icterus Neck no lymphadenopathy, supple and no JVD General: Negative for tenderness Chest Wall inspection of chest normal and palpation of chest normal Chest: Negative for tenderness Resp clear to auscultation bilaterally Resp Narrative: Mild tachypnea on arrival. Patient has some coarse breath sounds bilaterally with some faint expiratory wheezes. No sensory muscle use or retractions. Effort and Inspection: Negative for respiratory distress or pain with movement Auscultation: Negative for rhonchi, wheezes or diminished lung sounds Cardio regular rate, regular rhythm, S1 normal heart sound, S2 normal heart sound and no murmurs Peripheral Pulses: pulses 2+ throughout GI normal to inspection, nondistended, normoactive bowel sounds, soft to palpation, non-tender, non-distended and no masses Back/Spine no CVA tenderness and no thoracic nor lumbar tenderness Extremity normal to inspection General Extremety ED: Negative for edema General Extremity: Negative for edema Neuro oriented x3, CN's II-XII intact bilaterally, no sensory deficits noted and gait normal Sensorium / Orientation: awake, alert, oriented to person, oriented to place and oriented to time Motor Exam: strength 5/5 throughout and strength abnormal Psych mental status grossly normal Skin no rashes or lesions noted and no wounds MDM MDM MDM Narrative Medical decision making narrative: IV line established. Patient placed on a motor and generator brush cutter. Blood cultures ordered. CBC with differential obtained showed an elevated white count of 15.0. Hemoglobin is 8.4. Chemistries unremarkable. Lactate was normal 1.6. Chest x-ray showed increased markings right lower lobe consistent and concerning for pneumonia. Patient was started on Levaquin IV. COVID and influenza were negative. Case will be discussed with hospitalist evaluate patient for admission. Lab Data Attestation: I reviewed the patient's lab results. Labs: Laboratory Results - last 24 hr 02/12/22 02/12/22 02/12/22 16:45 16:45 16:45 WBC 15.0 H RBC 3.48 L Hgb 8.4 L Hct 30.1 L MCV 86.5 MCH 24.1 L MCHC 27.9 L RDW Std Deviation 51.8 H RDW Coeff of Demetrius 16.5 H Plt Count 274 MPV 11.2 Immature Gran % (Auto) 0.700 Neut % (Auto) 89.0 H Lymph % (Auto) 5.2 L Coffey % (Auto) 4.8 Eos % (Auto) 0.1 Baso % (Auto) 0.2 Absolute Neuts (auto) 13.3 H Absolute Lymphs (auto) 0.78 L Nucleated RBC % 0 Sodium 141 Potassium 3.8 Chloride 108 H Carbon Dioxide 28.0 Anion Gap 5 BUN 15 Creatinine 1.13 Estim Creat Clear Calc 51.14 Est GFR (MDRD) Af Amer 80 Est GFR (MDRD) Non-Af 66 BUN/Creatinine Ratio 13.3 Glucose 143 H Lactic Acid 1.6 Calcium 8.6 Troponin I High Sens 15 Urine Color Urine Clarity Urine pH Ur Specific Lillian Urine Protein Urine Glucose (UA) Urine Ketones Urine Occult Blood Urine Nitrite Urine Bilirubin Urine Urobilinogen Ur Leukocyte Esterase Urine RBC Urine WBC Ur Squamous Epith Cells Urine Bacteria Urine Mucus 02/12/22 17:13 WBC RBC Hgb Hct MCV MCH MCHC RDW Std Deviation RDW Coeff of Demetrius Plt Count MPV Immature Gran % (Auto) Neut % (Auto) Lymph % (Auto) Coffey % (Auto) Eos % (Auto) Baso % (Auto) Absolute Neuts (auto) Absolute Lymphs (auto) Nucleated RBC % Sodium Potassium Chloride Carbon Dioxide Anion Gap BUN Creatinine Estim Creat Clear Calc Est GFR (MDRD) Af Amer Est GFR (MDRD) Non-Af BUN/Creatinine Ratio Glucose Lactic Acid Calcium Troponin I High Sens Urine Color Yellow Urine Clarity Clear Urine pH 6.0 Ur Specific Lillian 1.010 Urine Protein Negative Urine Glucose (UA) Normal Urine Ketones 5 H Urine Occult Blood 10 H Urine Nitrite Negative Urine Bilirubin Negative Urine Urobilinogen Normal Ur Leukocyte Esterase Negative Urine RBC 0 SEEN Urine WBC 0 SEEN Ur Squamous Epith Cells 0 SEEN Urine Bacteria 0 SEEN Urine Mucus 0 SEEN Radiography Chest X-Ray - ED: 1 View Diagnostic Testing: Clinical Impression(s) from Imaging Studies Chest X-Ray 02/12/22 17:00 IMPRESSION: Patchy/streaky opacities in the right lung base with right hilar enlargement, more conspicuous when compared to most recent prior on 11/15/2021. This could represent right lower lobe pneumonia, however, cannot rule out malignancy. No prior CT images are available for comparison. Recommend chest CT with contrast for further evaluation. Electronically Signed: Darian Agustin MD at 18:00 EST , 1 view chest x-ray obtained interpreted by myself as increased markings right lower lobe concerning for pneumonia. Radiology in agreement. Discharge Plan Triage Chief Complaint: General Illness ED Provider: Stevenson Randle Dx/Rx/DC Orders Clinical Impression: Pneumonia, Leukocytosis, Weakness, Inability to walk Prescriptions: No Action ferrous sulfate 325 mg (65 mg iron) tablet 325 mg PO DAILY ipratropium 18 mcg-albuterol 103 mcg/actuation aerosol inhaler 18-103 mcg/actuation aerosol INHALATION OXYGEN CONCENTRATOR INHALATION Rx Instructions: 2 L pantoprazole 40 mg tablet,delayed release (DR/EC) 80 mg PO DAILY loratadine [Claritin] 10 mg tablet 10 mg PO DAILY Flonase Sensimist 27.5 mcg/actuation spray,suspension 2 spray intranasal DAILY Rx Instructions: into each nostril aspirin [Adult Low Dose Aspirin] 81 mg tablet,delayed release (DR/EC) 81 mg PO DAILY cholecalciferol (vitamin D3) 25 mcg (1,000 unit) tablet 25 mcg PO DAILY Trelegy Ellipta 200-62.5-25 mcg blister with device 1 inh inhalation DAILY Qty: 3 3RF doxycycline hyclate 100 mg tablet 100 mg PO BID Qty: 20 0RF prednisone 10 mg tablet 10 mg PO DAILY Qty: 30 0RF Rx Instructions: Take 4 tabs PO daily for 3 days, then 3 tabs daily for 3 days, then 2 tabs daily for 3 days, then 1 tab daily for 3 days prednisone 10 mg tablet 10 mg PO QDAY Qty: 30 0RF Rx Instructions: take 4 tabs for three days, then 3 tabs for three days, then 2 tabs for three days, then 1 tab for 3 days (DME) lancets [FreeStyle Lancets] 28 gauge misc See Rx Instructions .ROUTE .MEDSUPPLY Qty: 100 5RF Rx Instructions: Use to test blood sugar as needed. (DME) Blood Glucose Test Strip See Rx Instructions .ROUTE .MEDSUPPLY Qty: 100 5RF Rx Instructions: Free Style Lite test strips - Use to check blood glucose 3-4 times a day and PRN Eliquis 5 mg tablet 5 mg PO BID Qty: 60 12RF metoprolol tartrate 25 mg tablet 25 mg PO BID Qty: 60 12RF metformin 500 mg tablet 500 mg PO BID Qty: 180 3RF gabapentin 100 mg capsule 100 mg PO TID Qty: 270 1RF simvastatin 40 mg tablet 40 mg PO DAILY Qty: 90 3RF albuterol sulfate 90 mcg/actuation HFA aerosol inhaler 2 puff inhalation Q6H PRN (Reason: shortness of breath or wheezing) Qty: 3 1RF albuterol sulfate 2.5 mg /3 mL (0.083 %) solution for nebulization 2.5 mg inhalation Q4H PRN (Reason: shortness of breath or wheezing) Qty: 180 12RF Primary Care Provider: Carmina Zaidi Referrals: Carmina Zaidi MD [Primary Care Provider] - Disposition Disposition: Acute Care Hospital [facility]
[2022-02-12] MEDS: Ipratropium/Albuterol Sulfate 3 ML AMPUL.NEB INHALATION ×2 (16:30→22:04)
[2022-02-12] MEDS: 0.9% Normal Saline 1,000 ML 150 ML IV (16:47)
--- NOTE | 2022-02-12 17:00 | RAD_ITS ---
INDICATION: dypsnea EXAMINATION/TECHNIQUE: X-RAY - XR Chest 1 View COMPARISON: 11/15/2021. FINDINGS: Patchy/streaky opacities in the right lung base. Tortuous and calcified thoracic aorta. The heart is not enlarged. There is right hilar enlargement. No pleural effusion or pneumothorax. Degenerative changes of the thoracic spine. RAD/Chest 1 View (Portable) IMPRESSION: Patchy/streaky opacities in the right lung base with right hilar enlargement, more conspicuous when compared to most recent prior on 11/15/2021. This could represent right lower lobe pneumonia, however, cannot rule out malignancy. No prior CT images are available for comparison. Recommend chest CT with contrast for further evaluation. Electronically Signed: Darian Agustin MD at 18:00 EST ,
[2022-02-12 17:01] LABS: Absolute Lymphocyte Count 0.78 X10^3/uL (0.83-4.51); Absolute Neutrophil Count 13.3 X10^3/uL (2.0-7.7); Basophil# 0.03 X10^3/uL; Basophil% 0.2 % (0-1); Eosinophil# 0.02 X10^3/uL; Eosinophils% 0.1 % (0-5); Hematocrit 30.1 % (40-54); Hemoglobin 8.4 g/dL (13.0-16.5); Lymphocyte # 0.78 X10^3/ul (0.83-4.51); Lymphocyte % 5.2 % (19-41); Mean Corp Hgb Conc 27.9 g/dL (32-36); Mean Corpuscular Hgb 24.1 pg (27.0-32.0); Mean Corpuscular Volume 86.5 fL (80-94); Mean Platelet Vol. 11.2 fl (6.2-12.0); Monocyte# 0.72 X10^3/uL; Monocyte% 4.8 % (0-10); NRBC Flagged by Analyzer 0 % (0-5); Neutrophil # 13.31 X10^3/uL (2.7-7.7); Platelet Count 274 K/mm3 (150-450); RBC Distribution Width CV 16.5 % (11.6-14.6); RBC Distribution Width SD 51.8 fl (35.1-43.9); Red Blood Count 3.48 M/mm3 (4.6-6.2)
[2022-02-12] MEDS: Acetaminophen 500 MG Tablet 1000 MG PO (17:14)
[2022-02-12 17:26] LABS: Bacteria 0 SEEN /hpf (None Seen); Mucous, Urine 0 SEEN /hpf (<or=2+); Red Blood Cells-Urine 0 SEEN /hpf (0-5); Squamous Epithelial Cells - UA 0 SEEN /hpf (0-5); White Blood Cells 0 SEEN /hpf (0-5)
[2022-02-12 17:31] LABS: Anion Gap 5 (5-15); BUN 15 mg/dL (7-18); BUN/Creat Ratio 13.3 RATIO (10-20); Calcium,Total 8.6 mg/dL (8.5-10.1); Chloride 108 mmol/L (98-107); Creatinine, Serum 1.13 mg/dL (0.70-1.30); EST Glomerular Filtration Rate 66 mL/min (>60); Est Glom Filt Rate - Afr Amer 80 mL/min (>60); Estimated Creatinine Clearance 51.14 ml/min; Glucose 143 mg/dL (74-106); Potassium 3.8 mmol/L (3.5-5.1); Sodium Level 141 mmol/L (136-145); Troponin-I HS 15 pg/mL (3.0-78.0)
[2022-02-12 17:36] LABS: Color, Urine Yellow (Yellow); Glucose, Dipstick Normal (Normal); Ketone-Dipstick 5 mg/dl (Negative); Leukocyte Esterase-Dipstick Negative /ul (Negative); Nitrite-Dipstick Negative (Negative); Occult Blood-Urine 10 /ul (Negative); Protein-Dipstick Negative (Negative); Urine Bilirubin Dipstick Negative (Negative); Urine Clarity Clear (Clear); Urine Urobilinogen Normal (Normal)
[2022-02-12 17:39] LABS: Lactic Acid 1.6 mmol/L (0.4-1.9)
--- NOTE | 2022-02-12 18:22 | CT_ITS ---
ACR Level 3 findings have been noted. An addendum which confirms receipt of the report will follow. EXAM: CT CHEST WITHOUT INTRAVENOUS CONTRAST CLINICAL INDICATION: abnormal cxr TECHNIQUE: Helically acquired images were obtained of the chest without intravenous contrast. This CT exam was performed using one or more of the following dose reduction techniques: automated exposure control, adjustment of the mA and/or kV according to patient size, and/or use of iterative reconstruction technique. This report was created using [employer] report generation technology. COMPARISON: 03/15/2021. FINDINGS: LUNGS AND PLEURAL SPACES: Calcified granuloma in the right lower lobe. Masslike consolidation in the right lower lobe, significantly increased compared to the prior study. 1.1 cm spiculated nodule in the left lower lobe, new compared to the prior study. Moderate and centrilobular emphysema, greatest in the upper lobes. No pleural effusion or thickening. No pneumothorax. HEART: Unremarkable. Heart size is normal. No pericardial effusion. No significant coronary artery calcifications. MEDIASTINUM: Shotty mediastinal adenopathy. Prevascular node measures up to 0.7 cm in short axis. Precarinal node measures 1.1 cm in short axis. Subcarinal adenopathy measures 1 cm in short axis. No hilar adenopathy. THYROID: Unremarkable. No thyroid lesions. BONES/JOINTS: Unremarkable. No suspicious lytic or blastic abnormality. VASCULATURE: Unremarkable. Thoracic aorta is non-dilated. CT/Chest without Contrast IMPRESSION: 1. Spiculated left lower lobe nodule suspicious for malignancy. 2. Masslike consolidation in the right lower lobe. If there is clinical evidence for pneumonia, follow-up is recommended after acute symptoms have resolved. Otherwise, consider PET scan or tissue diagnosis. 3. COPD. Electronically Signed: Isabel Hernández MD at 19:25 EST Reading Location ID and State: [id number] / Tel , Service support ,
[2022-02-12] MEDS: levoFLOXacin IV 750 MG/150 ML BAG 100 MG IV (18:59)
--- NOTE | 2022-02-12 19:36 | PCM.HP.STD ---
HPI - General General Date of Admission: 02/12/22 Date of Service: 02/12/22 Chief Complaint: His weakness/cough HPI Narrative ANDREA DELUCA, is a 81 M who presented to the emergency department at [facility] on 01/13/2022 with a chief complaint of generalized weakness and cough. Patient reports that he woke up from a nap earlier today and heard some adventitious respiratory sounds and was way too weak to walk. He reports that he had some chills and sweating but no documented fever. The patient indicates he had had some nasal congestion and coughing for several days and brings up some intermittent yellow phlegm. He states that there is sputum production is no different than his baseline. He does wear oxygen for COPD and is on 2 to 3 L at home. He follows with Dr. Man as an outpatient for pulmonary medicine. He has been compliant with his inhalers. His indicates she is also been ill recently and has nasal congestion. The patient really denies any other associated complaints including headache, nasal congestion or drainage, pharyngitis, or sneezing. He no longer smokes and does not drink heavily any longer. Vital signs on presentation the emergency department show a temperature of 99.9 with a T-max of 102.8, heart rate of 10 1-1 29, blood pressure of 169/79, respiratory rate of 15, oxygen saturations were 94% on 4 L nasal cannula. He was weaned to 3 L nasal cannula while I was in the emergency department and his sats were maintained at 95% on 3 L. CBC shows a leukocytosis with a white count of 15 and a left shift with an 89% neutrophilia. He has a chronic anemia and it appears his baseline is around 10 however he is currently 8.4 with no signs of bleeding and his platelet count was normal. Chemistry was overall unremarkable. His lactic acid was 1.6. High-sensitivity troponin was 15. EKG shows normal sinus rhythm with right bundle branch block and no ST-T wave changes consistent with acute ischemia. His chest x-ray demonstrated a patchy/streaky opacities in the right lung base with right hilar fullness. Given these abnormal findings I ordered a CT of his chest which demonstrated a spiculated left lower lobe lesion suspicious for malignancy as well as a masslike consolidation in the right lower lobe. In the emergency department he was started on antibiotics with Levaquin given nebulizers and IV fluids. Request for admission was made. [facility] Medical History Anemia Arthritis Bruit of left carotid artery COPD (chronic obstructive pulmonary disease) Diabetes mellitus Diverticulitis Dupuytrens contracture GERD (gastroesophageal reflux disease) H/O inguinal hernia H/O: pneumonia History of pulmonary aspiration Neuropathy Type 2 diabetes mellitus Type 2 diabetes mellitus without complications Home Medications OXYGEN CONCENTRATOR inhalation 12/29/19 [History Last Taken Unknown] ferrous sulfate 325 mg (65 mg iron) tablet 325 mg PO DAILY 12/29/19 [History Last Taken Unknown] ipratropium 18 mcg-albuterol 103 mcg/actuation aerosol inhaler spray inhalation 12/29/19 [History Last Taken Unknown] loratadine 10 mg tablet (Claritin) 10 mg PO DAILY 06/28/20 [History Last Taken Unknown] blood sugar diagnostic (Blood Glucose Test strips) #100 ea 07/04/20 [Rx Last Taken Unknown] lancets 28 gauge (FreeStyle Lancets) #100 ea 07/04/20 [Rx Last Taken Unknown] fluticasone furoate 27.5 mcg/actuation nasal spray,suspension (Flonase Sensimist) 2 spray intranasal DAILY 09/11/20 [History Last Taken Unknown] cholecalciferol (vitamin D3) 25 mcg (1,000 unit) tablet 25 mcg PO DAILY 06/07/21 [History Last Taken Unknown] pantoprazole 40 mg tablet,delayed release 80 mg PO DAILY 06/07/21 [History Last Taken Unknown] apixaban 5 mg tablet (Eliquis) 5 mg PO BID #60 tabs 07/02/21 [Rx Last Taken Unknown] metoprolol tartrate 25 mg tablet 25 mg PO BID #60 tabs 07/02/21 [Rx Last Taken Unknown] metformin 500 mg tablet 500 mg PO BID #180 tabs 08/29/21 [Rx Last Taken Unknown] gabapentin 100 mg capsule 100 mg PO TID #270 caps 09/20/21 [Rx Last Taken Unknown] doxycycline hyclate 100 mg tablet 100 mg PO BID #20 tabs 10/09/21 [Rx Last Taken Unknown] fluticasone fur. 200 mcg-umeclid 62.5 mcg-vilant 25 mcg inhalat.powder (Trelegy Ellipta) 1 inh inhalation DAILY #3 ea 10/09/21 [Rx Last Taken Unknown] prednisone 10 mg tablet 10 mg PO QDAY #30 tabs 11/15/21 [Rx Last Taken Unknown] simvastatin 40 mg tablet 40 mg PO DAILY #90 tabs 12/13/21 [Rx Last Taken Unknown] prednisone 10 mg tablet 10 mg PO DAILY #30 tabs 01/15/22 [Rx Last Taken Unknown] albuterol sulfate 2.5 mg/3 mL (0.083 %) solution for nebulization 2.5 mg (3 mL) inhalation Q4H PRN shortness of breath or wheezing #180 mL 01/23/22 [Rx Last Taken Unknown] albuterol sulfate 90 mcg/actuation aerosol inhaler 2 puff inhalation Q6H PRN shortness of breath or wheezing #3 device 01/23/22 [Rx Last Taken Unknown] Allergy/AdvReac Type Severity Reaction Status Date / Time erythromycin base Allergy Severe Nausea/Vom/ Verified 02/12/22 15:32 Diarrhea Penicillins Allergy Severe Hives Verified 02/12/22 15:32 Family History Father Cancer Brother Parkinsons disease Mother Diverticulitis Surgical History History of carpal tunnel release Social History Smoking Status: Former smoker Tobacco: How many years used: 40 Electronic Cigarette Use: not used how long ago did patient quit smokin second hand exposure: Yes alcohol intake: never substance use type: does not use caffeine: Yes Type: coffee Number of servings: 1 what type of physical activity do you participate in: none ROS Constitutional Constitutional: Reports chills, fatigue, malaise and weakness; Denies anorexia, change in weight, fever(s), night sweats or other Eyes Eyes: Denies blurry vision, change in eye color, change in vision, discharge from eye(s), double vision, erythema, eye pain, loss of vision or other ENT HEENT: Reports abnormal hearing and hearing loss; Denies dysphagia, ear pain, epistaxis, headache(s), nasal congestion, nasal discharge, post nasal drip, sinus pressure, sore throat or other Cardiovascular Cardiovascular: Reports dyspnea on exertion; Denies chest pain, claudication, edema, lightheadedness, orthopnea, palpitations, paroxysmal nocturnal dyspnea, rapid heart rate, syncope or other Respiratory/Chest Respiratory/Chest: Reports cough, productive cough, shortness of breath at rest and shortness of breath with exertion; Denies dyspnea, excessive phlegm production, hemoptysis, wheezing or other Gastrointestinal Gastrointestinal: Denies abdominal pain, coffee ground emesis, constipation, diarrhea, dyspepsia, hematemesis, hematochezia, loose stools, melena, nausea, vomiting or other Genitourinary Genitourinary: Denies burning urination, difficulty urinating, dysuria, hematuria, nocturia, urinary frequency, urinary hesitancy, urinary incontinence, urinary urgency or other Musculoskeletal Musculoskeletal: Denies arthralgias, back pain, joint pain, joint stiffness, joint swelling, myalgias, neck pain or other Neurologic Neurologic: Reports confusion; Denies abnormal gait, abnormal speech, disequilibrium, dizziness, focal weakness, headache(s), numbness, paresthesias, seizure-like activity, seizures, syncope, tingling, tremor(s) or other Psychiatric Psychiatric: Denies anxiety, depression, homicidal ideation, suicidal ideation or other Endocrine Endocrinology: Denies change in body appearance, cold intolerance, excessive sweating, heat intolerance, polydipsia, polyuria or other Hematologic/Lymphatic Hematologic/Lymphatic: Denies anemia, easy bleeding, easy bruising, lymphadenopathy or other Allergic/Immunologic Allergic/Immunologic: Denies rhinitis, hives, eczemia, asthma or other Vital Signs Vital Signs Vital Signs: 02/12/22 15:32 02/12/22 16:37 02/12/22 16:37 Temperature 99.9 F H 102.8 F H Temperature Source Temporal Oral Pulse Rate 80 108 H Respiratory Rate 15 25 H Respiratory Effort Short of Breath Labored Respiratory Pattern Blood Pressure 169/79 H 128/89 H Blood Pressure Mean 109 102 Pulse Ox 94 95 Oxygen Delivery Method Nasal Cannula Nasal Cannula Oxygen Flow Rate (L/min) 4 3 02/12/22 16:30 02/12/22 17:30 02/12/22 18:00 Temperature 102.8 F H 102 F H Temperature Source Oral Temporal Pulse Rate 129 H 109 H 106 H Respiratory Rate 24 H 30 H 18 Respiratory Effort Respiratory Pattern Hyperpnea Blood Pressure 117/71 112/47 L Blood Pressure Mean 86 68 Pulse Ox 94 95 Oxygen Delivery Method Nasal Cannula Nasal Cannula Oxygen Flow Rate (L/min) 3 4 02/12/22 18:00 02/12/22 18:21 02/12/22 18:21 Temperature 101.8 F H Temperature Source Temporal Pulse Rate 105 H 101 H 104 H Respiratory Rate 18 22 H 22 H Respiratory Effort Respiratory Pattern Blood Pressure 112/47 L 126/49 H 126/49 H Blood Pressure Mean 68 74 74 Pulse Ox 96 96 95 Oxygen Delivery Method Nasal Cannula Nasal Cannula Nasal Cannula Oxygen Flow Rate (L/min) 4 02/12/22 18:41 02/12/22 18:41 02/12/22 19:00 Temperature 101.8 F H 100.2 F H Temperature Source Temporal Temporal Pulse Rate 100 100 100 Respiratory Rate 22 H 22 H 22 H Respiratory Effort Respiratory Pattern Blood Pressure 120/50 L 120/50 L 120/68 Blood Pressure Mean 73 73 85 Pulse Ox 96 95 95 Oxygen Delivery Method Nasal Cannula Nasal Cannula Nasal Cannula Oxygen Flow Rate (L/min) 4 3 Weight Weight: 86.183 kg Body Mass Index (BMI) 27.2 Physical Exam Const alert, oriented x3 and no apparent distress Constitutional Narrative: Elderly white male sitting up in bed, family at bedside, patient feels ill but nontoxic, no dyspnea with conversation, currently on 4 L nasal cannula but weaned 3 L and maintaining oxygen saturations General Appearance: cooperative HEENT normocephalic, head/scalp atraumatic and moist oral mucous membranes HEENT Narrative: Moderate hearing loss, Mallampati is 2, dentures in place, no thrush Eyes PERRL and EOMs intact bilaterally Eyes Narrative: Pale conjunctiva bilaterally, no scleral icterus Neck no lymphadenopathy, supple and No no carotid bruits Neck Narrative: Trachea midline, no thyroid enlargement, left carotid bruit Resp No normal respiratory effort, no retractions, no use of accessory muscles and No clear to auscultation bilaterally Resp Narrative: Adventitious sounds with crackles in the right base and right middle lobe, left side diminished but clear, slight tachypnea Auscultation: crackles; Negative for rhonchi or wheezes Cardio regular rate, regular rhythm, S2 normal heart sound, no murmurs, no rub, no gallops and no clicks GI normal to inspection, nondistended, normoactive bowel sounds, soft to palpation and non-tender Extremity no clubbing, cyanosis or edema Extremity Narrative: 2+ pedal pulses Skin no rashes or lesions noted, no wounds, skin turgor normal, no jaundice, no petechiae and no mottling Neuro oriented x3, CN's II-XII intact bilaterally, moves all extremities and no focal motor deficits Neuro Narrative: Marked generalized weakness Speech: speech normal Psych affect normal Psych Narrative: Very pleasant and poorly interactive Results Lab / Micro Data Attestation: I reviewed the patient's lab results. Result Diagrams: 02/12/22 16:45 02/12/22 16:45 Labs: Laboratory Results - last 24 hr 02/12/22 16:45: WBC 15.0 H, RBC 3.48 L, Hgb 8.4 L, Hct 30.1 L, MCV 86.5, MCH 24.1 L, MCHC 27.9 L, RDW Std Deviation 51.8 H, RDW Coeff of Demetrius 16.5 H, Plt Count 274, MPV 11.2, Immature Gran % (Auto) 0.700, Neut % (Auto) 89.0 H, Lymph % (Auto) 5.2 L, [place] % (Auto) 4.8, Eos % (Auto) 0.1, Baso % (Auto) 0.2, Absolute Neuts (auto) 13.3 H, Absolute Lymphs (auto) 0.78 L, Nucleated RBC % 0 02/12/22 16:45: Sodium 141, Potassium 3.8, Chloride 108 H, Carbon Dioxide 28.0, Anion Gap 5, BUN 15, Creatinine 1.13, Estim Creat Clear Calc 51.14, Est GFR (MDRD) Af Amer 80, Est GFR (MDRD) Non-Af 66, BUN/Creatinine Ratio 13.3, Glucose 143 H, Calcium 8.6, Troponin I High Sens 15 02/12/22 16:45: Lactic Acid 1.6 02/12/22 17:13: Urine Color Yellow, Urine Clarity Clear, Urine pH 6.0, Ur Specific [place] 1.010, Urine Protein Negative, Urine Glucose (UA) Normal, Urine Ketones 5 H, Urine Occult Blood 10 H, Urine Nitrite Negative, Urine Bilirubin Negative, Urine Urobilinogen Normal, Ur Leukocyte Esterase Negative, Urine RBC 0 SEEN, Urine WBC 0 SEEN, Ur Squamous Epith Cells 0 SEEN, Urine Bacteria 0 SEEN, Urine Mucus 0 SEEN Micro: Microbiology 02/12/22 16:35 Nasal Secretion SARS-CoV-2 & FLU Antigen (Rapid) - Final Radiology Impression Chest X-Ray 02/12/22 17:00 IMPRESSION: Patchy/streaky opacities in the right lung base with right hilar enlargement, more conspicuous when compared to most recent prior on 11/15/2021. This could represent right lower lobe pneumonia, however, cannot rule out malignancy. No prior CT images are available for comparison. Recommend chest CT with contrast for further evaluation. Electronically Signed: Darian Agustin MD at 18:00 EST , Chest CT 02/12/22 18:22 IMPRESSION: 1. Spiculated left lower lobe nodule suspicious for malignancy. 2. Masslike consolidation in the right lower lobe. If there is clinical evidence for pneumonia, follow-up is recommended after acute symptoms have resolved. Otherwise, consider PET scan or tissue diagnosis. 3. COPD. Electronically Signed: Isabel Hernández MD at 19:25 EST Reading Location ID and State: [id number] / Tel , Service support , Assessment & Plan Assessment/Plan (1) Pneumonia: (2) Leukocytosis: (3) Weakness: (4) Inability to walk: (5) Lung mass: (6) Fever: PLAN: Plan Acute pneumonia -No recent hospitalizations or ECF stays -May be postobstructive -We will treat with Levaquin right now -Chest x-ray showed patchy/streaky opacities in the right lung base with hilar enlargement -CT ordered secondary to hilar enlargement CT demonstrates a spiculated left lower lobe nodule as well as a masslike consolidation in the right lower lobe -Sputum culture -Respiratory viral PCR -Mucinex -I-S -Acapella 10 times every 2 hours while awake -Nebulizers -Prednisone 40 mg daily Right lung mass -Hold Eliquis -Consult pulmonary medicine--> patient follows with Dr. Man as an outpatient -May be able biopsy through CT-guided biopsy versus EBUS -Highly suspicious for lung malignancy Generalized weakness/inability to walk -PT/OT consultation -Doubt require placement but suspect may need home health at discharge depending on progress -Likely related to acute illness Leukocytosis -Secondary to the above -See above work-up Chronic hypoxic respiratory failure secondary to COPD stage III -FEV1 was 65% of predicted -Baseline oxygen is 2 to 3 L per family -Has been stable on 3 to 4 L in the emergency department -Wean to baseline as able -Aerosols as above -We will utilize prednisone -Hold home inhalers Chronic anemia -Counts are slightly lower than previous -Watch for stability -If drops further may need to consider further work-up DM-2 -Hold home metformin -Sliding scale insulin -Accu-Cheks -Cardiac carb controlled diet GERD -Continue home PPI once dosing is verified Hyperlipidemia -Continue home simvastatin Paroxysmal atrial fibrillation -currently in normal sinus rhythm -Home Eliquis is on hold secondary to need for biopsy -Continue home metoprolol Diabetic neuropathy -Continue home gabapentin DVT prophylaxis -Lovenox 40 daily -SCDs -Home Eliquis on hold CODE STATUS -Full code is verified prior to admission Charges/Coding Visit Charges Inpatient E&M: 88476 Init Hosp L3
[2022-02-12] MEDS: Metoprolol Tartrate 25 MG Tablet PO (21:50)
[2022-02-12] MEDS: guaiFENesin 1,200 MG Tablet 1200 MG PO (21:51)
[2022-02-12 22:00] LABS: Bedside Glucose 141 mg/dL (74-106)
[2022-02-12 23:32] LABS: M R Staph aureus DNA By PCR Negative (Negative); Probe Check PASS; Specimen Processing Control PASS
[2022-02-13] VITALS (12 sets, daily range): BP systolic 110–124; BP diastolic 56–62; PULSE 81–103; RESP 18–22; TEMP 36.4–37.8; O2SAT 94–97
[2022-02-13 06:26] LABS: Bedside Glucose 112 mg/dL (74-106)
[2022-02-13] MEDS: Ipratropium/Albuterol Sulfate 3 ML AMPUL.NEB INHALATION ×3 (07:30→19:50)
[2022-02-13 07:51] LABS: Absolute Lymphocyte Count 0.98 X10^3/uL (0.83-4.51); Absolute Neutrophil Count 12.9 X10^3/uL (2.0-7.7); Basophil# 0.03 X10^3/uL; Basophil% 0.2 % (0-1); Eosinophil# 0.02 X10^3/uL; Eosinophils% 0.1 % (0-5); Hematocrit 28.2 % (40-54); Lymphocyte # 0.98 X10^3/ul (0.83-4.51); Lymphocyte % 6.5 % (19-41); Mean Corp Hgb Conc 28.4 g/dL (32-36); Mean Corpuscular Volume 84.4 fL (80-94); Mean Platelet Vol. 11.8 fl (6.2-12.0); Monocyte# 0.92 X10^3/uL; Monocyte% 6.1 % (0-10); NRBC Flagged by Analyzer 0 % (0-5); Neutrophil # 12.88 X10^3/uL (2.7-7.7); Neutrophil % 86.2 % (47-70); Platelet Count 264 K/mm3 (150-450); RBC Distribution Width CV 16.4 % (11.6-14.6); Red Blood Count 3.34 M/mm3 (4.6-6.2)
[2022-02-13] MEDS: Aspirin E.C. 81 MG Tablet PO (08:30)
[2022-02-13] MEDS: guaiFENesin 1,200 MG Tablet 1200 MG PO ×2 (08:30→21:09)
[2022-02-13] MEDS: Metoprolol Tartrate 25 MG Tablet PO ×2 (08:30→21:09)
[2022-02-13] MEDS: predniSONE 20 MG Tablet 40 MG PO (08:30)
[2022-02-13] MEDS: Cholecalciferol (VIT D3) 25 MCG TABLET (1,000 UNITS) PO (08:30)
[2022-02-13] MEDS: Atorvastatin Calcium 20 MG Tablet PO (08:30)
[2022-02-13] MEDS: Enoxaparin 40 MG/0.4 ML Syringe SC (08:30)
[2022-02-13 08:32] LABS: AST(SGOT) 17 U/L (15-37); Alanine Aminotransfer ALT/SGPT 16 U/L (16-61); Albumin, Serum 3.1 g/dL (3.2-5.0); Alkaline Phosphatase 53 U/L (45-117); Anion Gap 8 (5-15); BUN 11 mg/dL (7-18); BUN/Creat Ratio 11.1 RATIO (10-20); Calcium,Total 8.5 mg/dL (8.5-10.1); Chloride 109 mmol/L (98-107); Creatinine, Serum 0.99 mg/dL (0.70-1.30); EST Glomerular Filtration Rate 76 mL/min (>60); Est Glom Filt Rate - Afr Amer 92 mL/min (>60); Estimated Creatinine Clearance 58.38 ml/min; Globulin 3.1 g/dL (2.2-4.2); Glucose 114 mg/dL (74-106); Magnesium 1.7 mg/dL (1.6-2.6); Potassium 3.7 mmol/L (3.5-5.1); Protein, Total 6.2 g/dL (6.4-8.2); Sodium Level 139 mmol/L (136-145); Thyroid Stim Hormone (TSH) 0.61 uIU/mL (0.358-3.74)
--- NOTE | 2022-02-13 09:40 | EX.PCM.CONCC ---
Assessment & Plan Assessment/Plan (1) Stage 3 severe COPD by GOLD classification: PLAN: Plan RECOMMENDATIONS: 1. Supplemental oxygen to maintain saturations at or above 90%. 2. Continue antimicrobials to complete 7-day treatment course. 3. Continue scheduled bronchodilators and steroids. 4. Encourage incentive spirometer use and mobilize patient as tolerated. 5. Recommend follow-up CT chest in 6 to 8 weeks after completion of antibiotic treatment course. IMPRESSIONS: 1. COPD with exacerbation secondary to continued acquired pneumonia The patient appears to be in a state of exacerbation related to underlying pneumonia. He is on appropriate antimicrobial therapy along with bronchodilators and prednisone. Oxygenation status is stable. The patient does have a baseline requirement of 2 to 3 L/min. Recommend continuing to wean supplemental oxygen as tolerated. Encourage incentive spirometer use and mobilize patient as tolerated. 2. Abnormal CT imaging of the chest CT imaging of the chest did reveal a masslike consolidation in the right lower lobe along with a left lower lobe nodule, which was not present on prior chest imaging. At this particular time, I would recommend that the patient complete an antibiotic treatment course of 7 days, with tentative plans to obtain follow-up chest imaging 6 weeks after his completion of his treatment course. The patient should follow-up with Dr. Man in the pulmonary medicine clinic, at that time, to review his chest imaging and formulate a plan, depending on what residual radiographic findings are still present. Ultimately, the patient may require a percutaneous CT-guided lung biopsy. 3. Chronic anemia/GERD/paroxysmal atrial fibrillation/hyperlipidemia Complicates care, management, recovery and prognosis. Continue home medications as indicated. This note was generated with [employer] dictation software. It may contain incorrect words, spelling, and punctuation that were not noted in checking the note before signing. HPI Consult Data Date of Consult: 02/13/22 HPI Narrative Reason for Consultation: Lung mass HPI Narrative: The patient is an 81-year-old male, with a history as outlined below, who presented to the emergency department via EMS on February 12 with generalized weakness and cough. The patient has a known history of advanced stage COPD and chronic hypoxemic respiratory failure. He is currently followed by Dr. Man in the pulmonary medicine clinic, having last been seen in January 2022. The patient does have a baseline 2 L/min supplemental oxygen requirement. On presentation to the emergency department, the patient was noted to be febrile, tachycardic and tachypneic. Initial laboratory evaluation revealed a white blood cell count of 15,000. Chemistry profile was unrevealing. Lactate was within normal limits. Urine analysis was unremarkable. MRSA screen was negative. Rapid COVID and influenza testing was negative. Respiratory viral panel was unremarkable. Chest x-ray demonstrated findings concerning for right hilar enlargement. Therefore, a dedicated chest CT was obtained. That imaging study demonstrated a masslike consolidation of the right lower lobe, along with a 1.1 cm spiculated nodule in the left lower lobe upon a background of emphysema. This morning, the patient remains on Levaquin, along with scheduled bronchodilators and prednisone. The patient does continue to report a great deal of generalized weakness and exertional shortness of breath. FORMERLY [facility], [facility] Medical History Anemia Arthritis Bruit of left carotid artery COPD (chronic obstructive pulmonary disease) Diabetes mellitus Diverticulitis Dupuytrens contracture GERD (gastroesophageal reflux disease) H/O inguinal hernia H/O: pneumonia History of pulmonary aspiration Neuropathy Type 2 diabetes mellitus Type 2 diabetes mellitus without complications Home Medications OXYGEN CONCENTRATOR inhalation 12/29/19 [History Last Taken Unknown] ferrous sulfate 325 mg (65 mg iron) tablet 325 mg PO DAILY 12/29/19 [History Last Taken Unknown] ipratropium 18 mcg-albuterol 103 mcg/actuation aerosol inhaler spray inhalation 12/29/19 [History Last Taken Unknown] loratadine 10 mg tablet (Claritin) 10 mg PO DAILY 06/28/20 [History Last Taken Unknown] blood sugar diagnostic (Blood Glucose Test strips) #100 ea 07/04/20 [Rx Last Taken Unknown] lancets 28 gauge (FreeStyle Lancets) #100 ea 07/04/20 [Rx Last Taken Unknown] fluticasone furoate 27.5 mcg/actuation nasal spray,suspension (Flonase Sensimist) 2 spray intranasal DAILY 09/11/20 [History Last Taken Unknown] cholecalciferol (vitamin D3) 25 mcg (1,000 unit) tablet 25 mcg PO DAILY 06/07/21 [History Last Taken Unknown] pantoprazole 40 mg tablet,delayed release 80 mg PO DAILY 06/07/21 [History Last Taken Unknown] apixaban 5 mg tablet (Eliquis) 5 mg PO BID #60 tabs 07/02/21 [Rx Last Taken 02/12/22] metoprolol tartrate 25 mg tablet 25 mg PO BID #60 tabs 07/02/21 [Rx Last Taken Unknown] metformin 500 mg tablet 500 mg PO BID #180 tabs 08/29/21 [Rx Last Taken Unknown] gabapentin 100 mg capsule 100 mg PO TID #270 caps 09/20/21 [Rx Last Taken Unknown] doxycycline hyclate 100 mg tablet 100 mg PO BID #20 tabs 10/09/21 [Rx Last Taken Unknown] fluticasone fur. 200 mcg-umeclid 62.5 mcg-vilant 25 mcg inhalat.powder (Trelegy Ellipta) 1 inh inhalation DAILY #3 ea 10/09/21 [Rx Last Taken Unknown] prednisone 10 mg tablet 10 mg PO QDAY #30 tabs 11/15/21 [Rx Last Taken Unknown] simvastatin 40 mg tablet 40 mg PO DAILY #90 tabs 12/13/21 [Rx Last Taken Unknown] prednisone 10 mg tablet 10 mg PO DAILY #30 tabs 01/15/22 [Rx Last Taken Unknown] albuterol sulfate 2.5 mg/3 mL (0.083 %) solution for nebulization 2.5 mg (3 mL) inhalation Q4H PRN shortness of breath or wheezing #180 mL 01/23/22 [Rx Last Taken 02/11/22] albuterol sulfate 90 mcg/actuation aerosol inhaler 2 puff inhalation Q6H PRN shortness of breath or wheezing #3 device 01/23/22 [Rx Last Taken 02/11/22] Allergy/AdvReac Type Severity Reaction Status Date / Time Penicillins Allergy Severe Hives Verified 02/12/22 15:32 erythromycin base AdvReac Severe Nausea/Vom/ Verified 02/13/22 12:07 Diarrhea Family History Father Cancer Brother Parkinsons disease Mother Diverticulitis Surgical History History of carpal tunnel release Social History Smoking Status: Former smoker Tobacco: How many years used: 40 Electronic Cigarette Use: not used how long ago did patient quit smokin second hand exposure: Yes alcohol intake: never substance use type: does not use caffeine: Yes Type: coffee Number of servings: 1 what type of physical activity do you participate in: none ROS ROS Narrative 10 systems were reviewed with pertinent positives as noted in the HPI above. Physical Exam Const alert and no apparent distress Constitutional Narrative: Fatigued in appearance. General Appearance: cooperative HEENT normocephalic, head/scalp atraumatic and moist oral mucous membranes Eyes PERRL, EOMs intact bilaterally and conjunctivae normal Neck supple General: trachea midline Chest inspection of chest normal Resp no use of accessory muscles Auscultation: rales and diminished lung sounds Cardio regular rate and regular rhythm GI normal to inspection, nondistended, normoactive bowel sounds Extremity no clubbing, cyanosis or edema Skin no rashes or lesions noted Neuro oriented x3, CN's II-XII intact bilaterally and moves all extremities Psych cooperative and affect normal Lab / Micro Data Result Diagrams: 02/13/22 06:40 02/13/22 06:40 Labs: Laboratory Results - last 24 hr 02/12/22 16:45: WBC 15.0 H, RBC 3.48 L, Hgb 8.4 L, Hct 30.1 L, MCV 86.5, MCH 24.1 L, MCHC 27.9 L, RDW Std Deviation 51.8 H, RDW Coeff of Demetrius 16.5 H, Plt Count 274, MPV 11.2, Immature Gran % (Auto) 0.700, Neut % (Auto) 89.0 H, Lymph % (Auto) 5.2 L, Ogle % (Auto) 4.8, Eos % (Auto) 0.1, Baso % (Auto) 0.2, Absolute Neuts (auto) 13.3 H, Absolute Lymphs (auto) 0.78 L, Nucleated RBC % 0 02/12/22 16:45: Sodium 141, Potassium 3.8, Chloride 108 H, Carbon Dioxide 28.0, Anion Gap 5, BUN 15, Creatinine 1.13, Estim Creat Clear Calc 51.14, Est GFR (MDRD) Af Amer 80, Est GFR (MDRD) Non-Af 66, BUN/Creatinine Ratio 13.3, Glucose 143 H, Calcium 8.6, Troponin I High Sens 15 02/12/22 16:45: Lactic Acid 1.6 02/12/22 17:13: Urine Color Yellow, Urine Clarity Clear, Urine pH 6.0, Ur Specific [place] 1.010, Urine Protein Negative, Urine Glucose (UA) Normal, Urine Ketones 5 H, Urine Occult Blood 10 H, Urine Nitrite Negative, Urine Bilirubin Negative, Urine Urobilinogen Normal, Ur Leukocyte Esterase Negative, Urine RBC 0 SEEN, Urine WBC 0 SEEN, Ur Squamous Epith Cells 0 SEEN, Urine Bacteria 0 SEEN, Urine Mucus 0 SEEN 02/12/22 21:30: MRSA (PCR) Negative 02/12/22 21:38: POC Glucose 141 H 02/13/22 05:50: POC Glucose 112 H 02/13/22 06:40: WBC 15.0 H, RBC 3.34 L, Hgb 8.0 L, Hct 28.2 L, MCV 84.4, MCH 24.0 L, MCHC 28.4 L, RDW Std Deviation 50.0 H, RDW Coeff of Demetrius 16.4 H, Plt Count 264, MPV 11.8, Immature Gran % (Auto) 0.900, Neut % (Auto) 86.2 H, Lymph % (Auto) 6.5 L, Ogle % (Auto) 6.1, Eos % (Auto) 0.1, Baso % (Auto) 0.2, Absolute Neuts (auto) 12.9 H, Absolute Lymphs (auto) 0.98, Nucleated RBC % 0 02/13/22 06:40: Sodium 139, Potassium 3.7, Chloride 109 H, Carbon Dioxide 22.0, Anion Gap 8, BUN 11, Creatinine 0.99, Estim Creat Clear Calc 58.38, Est GFR (MDRD) Af Amer 92, Est GFR (MDRD) Non-Af 76, BUN/Creatinine Ratio 11.1, Glucose 114 H, Calcium 8.5, Phosphorus 3.0, Magnesium 1.7, Total Bilirubin 0.60, AST 17, ALT 16, Alkaline Phosphatase 53, Total Protein 6.2 L, Albumin 3.1 L, Globulin 3.1, Albumin/Globulin Ratio 1.0, TSH 0.61 Micro: Microbiology 02/12/22 21:59 Mucosa - Nasopharyngeal Respiratory Panel (PCR) - Final 02/12/22 16:35 Nasal Secretion SARS-CoV-2 & FLU Antigen (Rapid) - Final Radiology Impression Chest X-Ray 02/12/22 17:00 IMPRESSION: Patchy/streaky opacities in the right lung base with right hilar enlargement, more conspicuous when compared to most recent prior on 11/15/2021. This could represent right lower lobe pneumonia, however, cannot rule out malignancy. No prior CT images are available for comparison. Recommend chest CT with contrast for further evaluation. Electronically Signed: Darian Agustin MD at 18:00 EST , Chest CT 02/12/22 18:22 IMPRESSION: 1. Spiculated left lower lobe nodule suspicious for malignancy. 2. Masslike consolidation in the right lower lobe. If there is clinical evidence for pneumonia, follow-up is recommended after acute symptoms have resolved. Otherwise, consider PET scan or tissue diagnosis. 3. COPD. Electronically Signed: Isabel Hernández MD at 19:25 EST Reading Location ID and State: [id number] / Tel , Service support , ADDENDUM: 02/12/22 193 IMPRESSION: 1. Spiculated left lower lobe nodule suspicious for malignancy. 2. Masslike consolidation in the right lower lobe. If there is clinical evidence for pneumonia, follow-up is recommended after acute symptoms have resolved. Otherwise, consider PET scan or tissue diagnosis. 3. COPD. N.B. : Maria Luisa Dailey RN, confirmed on 02/12/2022 19:32:31 (ET) that the healthcare facility has received the radiology report. Electronically Signed: Isabel Hernández MD at 19:25 EST Reading Location ID and State: [place] / Tel , Service support , Charges/Coding Visit Charges Inpatient E&M: 85317 Init Hosp L3
[2022-02-13] MEDS: Ferrous Sulfate 325 MG Tablet PO (11:39)
--- NOTE | 2022-02-13 11:40 | CASEMGMT ---
Addendum entered by Miley Galeano 02/13/22 12:01: TC to pt dtr Lulu Parra, she states she is staying with pt and they will never leave her alone. She states her son is on his way to pick them up and they will be in to visit. Original Note: REINA BENTLEY Assessment: Face to Face with pt for initial transition planning/care coordination assessment. REINA BENTLEY introduced self and role at [facility], pt voices understanding and consents to assessment. Pt is A/O x4 and answers all questions appropriately at this time. Pt sitting up in chair with oxygen on in no distress. Care providers, pharmacy, and demographics verified/updated. Admitting Dx: pneumonia PCP:Dyan Specialists:dalton Man; JAMIA, cardio Preferred Pharmacy:[facility] Insurance: [facility] [facility] Prescription Benefit: yes LNOK: Catrina Casillas, ; Fernie Casillas, son Living Arrangements: Pt lives with in a single story house with no steps to enter. Pt reports he is typically I in ADL's. Pt states for the last 2 days he has had weakness. Pt reports has dementia at home and he hopes she is doing ok. He is not sure if his dtr is staying with her. Transportation: Pt drives self and denies concerns with transportation. DME/HHC/SNF: Pt has oxygen through [facility]. He states he wears 2-3 L cont and has a portable tank that family can bring in at dc. Pt does not check blood sugars. He has a cane and walker but states he does not use. Pt denies hx of HHC or SNF stays. Pt states no concerns with going home at time of dc. Pt denies need for any therapy currently stating he is feeling much better than when he came in. Pt states no further concerns/needs. CM to follow. Advised pt to ask CM if any further question/concerns/needs arise, voices understanding. Pt Goal: Home Plan: Home
[2022-02-13 12:00] LABS: Bedside Glucose 166 mg/dL (74-106)
--- NOTE | 2022-02-13 12:29 | PN.HOSP_ITS ---
Subjective Subjective Patient seen and examined. He is complaining of feeling very weak and tired. He denies feeling short of breath, though he wears 2L of oxygen. He admits to an occasional cough, but denies any fever, chills, chest pain, palpitations, dizziness, nausea, vomiting or diarrhea. Review of systems is otherwise negative. Objective Data Objective Data Vital Signs: Vital Signs Temp Pulse Resp BP Pulse Ox O2 Del Method O2 Flow Rate 98.3 F 103 H 18 124/57 H 94 Nasal Cannula 3 02/13/22 11:44 02/13/22 11:44 02/13/22 11:44 02/13/22 11:44 02/13/22 11:44 02/13/22 11:44 02/13/22 11:44 Oxygen Flow Rate (L/min) 3 Oxygen Delivery Method Nasal Cannula Weight: 190 lb 14.725 oz Body Mass Index (BMI) 27.3 Intake & Output: Intake and Output for Last 24 Hours 02/11/22 02/12/22 02/13/22 23:59 23:59 23:59 Intake Total 837.5 / 837.5 Output Total 875 / 875 Balance 837.5 / 837.5 -875 / -875 Lab / Micro Data Result Diagrams: 02/13/22 06:40 02/13/22 06:40 Labs: Laboratory Results - last 24 hr 02/12/22 16:45: WBC 15.0 H, RBC 3.48 L, Hgb 8.4 L, Hct 30.1 L, MCV 86.5, MCH 24.1 L, MCHC 27.9 L, RDW Std Deviation 51.8 H, RDW Coeff of Demetrius 16.5 H, Plt Count 274, MPV 11.2, Immature Gran % (Auto) 0.700, Neut % (Auto) 89.0 H, Lymph % (Auto) 5.2 L, [place] % (Auto) 4.8, Eos % (Auto) 0.1, Baso % (Auto) 0.2, Absolute Neuts (auto) 13.3 H, Absolute Lymphs (auto) 0.78 L, Nucleated RBC % 0 02/12/22 16:45: Sodium 141, Potassium 3.8, Chloride 108 H, Carbon Dioxide 28.0, Anion Gap 5, BUN 15, Creatinine 1.13, Estim Creat Clear Calc 51.14, Est GFR (MDRD) Af Amer 80, Est GFR (MDRD) Non-Af 66, BUN/Creatinine Ratio 13.3, Glucose 143 H, Calcium 8.6, Troponin I High Sens 15 02/12/22 16:45: Lactic Acid 1.6 02/12/22 17:13: Urine Color Yellow, Urine Clarity Clear, Urine pH 6.0, Ur Specific [place] 1.010, Urine Protein Negative, Urine Glucose (UA) Normal, Urine Ketones 5 H, Urine Occult Blood 10 H, Urine Nitrite Negative, Urine Bilirubin Negative, Urine Urobilinogen Normal, Ur Leukocyte Esterase Negative, Urine RBC 0 SEEN, Urine WBC 0 SEEN, Ur Squamous Epith Cells 0 SEEN, Urine Bacteria 0 SEEN, Urine Mucus 0 SEEN 02/12/22 21:30: MRSA (PCR) Negative 02/12/22 21:38: POC Glucose 141 H 02/13/22 05:50: POC Glucose 112 H 02/13/22 06:40: WBC 15.0 H, RBC 3.34 L, Hgb 8.0 L, Hct 28.2 L, MCV 84.4, MCH 24.0 L, MCHC 28.4 L, RDW Std Deviation 50.0 H, RDW Coeff of Demetrius 16.4 H, Plt Count 264, MPV 11.8, Immature Gran % (Auto) 0.900, Neut % (Auto) 86.2 H, Lymph % (Auto) 6.5 L, Ramsey % (Auto) 6.1, Eos % (Auto) 0.1, Baso % (Auto) 0.2, Absolute Neuts (auto) 12.9 H, Absolute Lymphs (auto) 0.98, Nucleated RBC % 0 02/13/22 06:40: Sodium 139, Potassium 3.7, Chloride 109 H, Carbon Dioxide 22.0, Anion Gap 8, BUN 11, Creatinine 0.99, Estim Creat Clear Calc 58.38, Est GFR (MDRD) Af Amer 92, Est GFR (MDRD) Non-Af 76, BUN/Creatinine Ratio 11.1, Glucose 114 H, Calcium 8.5, Phosphorus 3.0, Magnesium 1.7, Total Bilirubin 0.60, AST 17, ALT 16, Alkaline Phosphatase 53, Total Protein 6.2 L, Albumin 3.1 L, Globulin 3.1, Albumin/Globulin Ratio 1.0, TSH 0.61 02/13/22 11:35: POC Glucose 166 H Micro: Microbiology 02/12/22 17:13 Urine, Clean Catch Legionella Antigen - Final 02/12/22 17:13 Urine, Clean Catch Streptococcus pneumoniae Antigen (M - Final 02/12/22 21:59 Mucosa - Nasopharyngeal Respiratory Panel (PCR) - Final 02/12/22 16:35 Nasal Secretion SARS-CoV-2 & FLU Antigen (Rapid) - Final Radiography Diagnostic Testing: Radiology Impression Chest X-Ray 02/12/22 17:00 IMPRESSION: Patchy/streaky opacities in the right lung base with right hilar enlargement, more conspicuous when compared to most recent prior on 11/15/2021. This could represent right lower lobe pneumonia, however, cannot rule out malignancy. No prior CT images are available for comparison. Recommend chest CT with contrast for further evaluation. Electronically Signed: Darian Agustin MD at 18:00 EST , Chest CT 02/12/22 18:22 IMPRESSION: 1. Spiculated left lower lobe nodule suspicious for malignancy. 2. Masslike consolidation in the right lower lobe. If there is clinical evidence for pneumonia, follow-up is recommended after acute symptoms have resolved. Otherwise, consider PET scan or tissue diagnosis. 3. COPD. Electronically Signed: Isabel Hernández MD at 19:25 EST Reading Location ID and State: [id number] / Tel , Service support , ADDENDUM: 02/12/22 1939 IMPRESSION: 1. Spiculated left lower lobe nodule suspicious for malignancy. 2. Masslike consolidation in the right lower lobe. If there is clinical evidence for pneumonia, follow-up is recommended after acute symptoms have resolved. Otherwise, consider PET scan or tissue diagnosis. 3. COPD. N.B. : Maria Luisa Dailey RN, confirmed on 02/12/2022 19:32:31 (ET) that the healthcare facility has received the radiology report. Electronically Signed: Isabel Hernández MD at 19:25 EST Reading Location ID and State: [id number] / Tel , Service support , Physical Exam Const alert, oriented x3 and no apparent distress HEENT head/scalp atraumatic and oropharynx normal Head and Scalp: normocephalic Eyes PERRL, EOMs intact bilaterally and conjunctivae normal Neck no lymphadenopathy and supple Resp Resp Narrative: mildly diminished breath sounds bibasally, no wheezes or crackles. On 3L of oxygen, which is his baseline. Cardio regular rate, regular rhythm, S1 normal heart sound, S2 normal heart sound and no murmurs GI normal to inspection, nondistended, normoactive bowel sounds, soft to palpation, non-tender and non-distended Extremity normal to inspection, full ROM and no clubbing, cyanosis or edema Neuro oriented x3, CN's II-XII intact bilaterally, moves all extremities and no focal motor deficits Sensorium / Orientation: awake and alert Motor Exam: strength 5/5 throughout Psych affect normal Assessment & Plan Assessment/Plan (1) Fever: (2) Lung mass: (3) Pneumonia: PLAN: Plan #Community acquired pneumonia * still complains of feeling weak * CT chest showed left lower lobe spiculated nodule and mass like consolidation in right lower lobe * on IV levaquin * sputum culture pending; respiratory panel pending * on prednisone PO * breathing treatment with bronchodilators * titrate oxygen to maintain sats >90% * #Right lung mass * as per CT * pulmonology consulted * suspicious for lung malignancy. may need biopsy * pumnology recommends follow up CT chest in 6-8 weeks to evaluate lung mass after completion of antibiotic treatment course. * #Debility due to generalised weakness * PT/OT on board * fall precautions * #Chronic hypoxic respiratory failure due to COPD * wears 3-4L of oxygen * titrate oxygen to maintain sats >90% * breathing treatment with bronchodilators * #Type 2 diabetes mellitus: on ISS. accuchecks ACHS. metformin on hold. #GERD; on PPI #Hyperlipidemia: on sattin #Paroxysmal afib: on metoprolol. Eliquis held due to possibility of biopsy. resume eliquis as he wont have biopsy DVT prophylaxis; lovenox; dc and resume eliquis Charges/Coding Visit Charges Inpatient E&M: 85697 Subs Hosp L2
--- NOTE | 2022-02-13 13:26 | CASEMGMT ---
Social Work? ? SW in to pt room to verify advance directives. Pt confirmed has AD and named Catrina Casillas, , as agent. SW made pt aware documents are not on file and if pt would like to bring these documents in the documents can be dropped off at the Medical Records department. Pt voiced understanding.?? ? KVNG James?
[2022-02-13 17:05] LABS: Bedside Glucose 215 mg/dL (74-106)
[2022-02-13] MEDS: APIXABAN 5 MG TABLET PO (21:09)
[2022-02-13] MEDS: 0.9% Saline Lock 10 ML Syringe IV (21:16)
[2022-02-13] MEDS: levoFLOXacin IV 750 MG/150 ML BAG 100 MG IV (21:16)
[2022-02-14] VITALS (9 sets, daily range): BP systolic 125–136; BP diastolic 66–69; PULSE 68–93; RESP 18–20; TEMP 36.8–37.1; O2SAT 92–98
[2022-02-14 06:31] LABS: Bedside Glucose 124 mg/dL (74-106)
[2022-02-14] MEDS: Ipratropium/Albuterol Sulfate 3 ML AMPUL.NEB INHALATION ×2 (06:40→11:51)
[2022-02-14 07:17] LABS: Absolute Lymphocyte Count 1.11 X10^3/uL (0.83-4.51); Absolute Neutrophil Count 7.1 X10^3/uL (2.0-7.7); Basophil# 0.02 X10^3/uL; Basophil% 0.2 % (0-1); Eosinophil# 0.03 X10^3/uL; Eosinophils% 0.3 % (0-5); Hematocrit 27.2 % (40-54); Hemoglobin 7.7 g/dL (13.0-16.5); Lymphocyte # 1.11 X10^3/ul (0.83-4.51); Lymphocyte % 12.4 % (19-41); Mean Corp Hgb Conc 28.3 g/dL (32-36); Mean Corpuscular Hgb 23.9 pg (27.0-32.0); Mean Corpuscular Volume 84.5 fL (80-94); Monocyte# 0.64 X10^3/uL; Monocyte% 7.2 % (0-10); NRBC Flagged by Analyzer 0 % (0-5); Neutrophil # 7.07 X10^3/uL (2.7-7.7); Platelet Count 251 K/mm3 (150-450); RBC Distribution Width CV 16.3 % (11.6-14.6); RBC Distribution Width SD 49.7 fl (35.1-43.9); Red Blood Count 3.22 M/mm3 (4.6-6.2)
[2022-02-14 07:52] LABS: Anion Gap 8 (5-15); BUN 18 mg/dL (7-18); BUN/Creat Ratio 18.7 RATIO (10-20); Calcium,Total 8.8 mg/dL (8.5-10.1); Chloride 111 mmol/L (98-107); Creatinine, Serum 0.96 mg/dL (0.70-1.30); EST Glomerular Filtration Rate 79 mL/min (>60); Est Glom Filt Rate - Afr Amer 96 mL/min (>60); Glucose 155 mg/dL (74-106); Potassium 3.4 mmol/L (3.5-5.1); Sodium Level 141 mmol/L (136-145)
[2022-02-14 08:01] LABS: Ferritin 38 ng/mL (26-388); Iron 11 ug/dL (65-175); Iron Binding Capacity,Total 426 ug/dL (250-450); PERCENT IRON SATURATION 2.6 % (15.0-55.0)
[2022-02-14] MEDS: predniSONE 20 MG Tablet 40 MG PO (08:12)
[2022-02-14] MEDS: Aspirin E.C. 81 MG Tablet PO (08:12)
[2022-02-14] MEDS: guaiFENesin 1,200 MG Tablet 1200 MG PO (08:12)
[2022-02-14] MEDS: APIXABAN 5 MG TABLET PO (08:13)
[2022-02-14] MEDS: Metoprolol Tartrate 25 MG Tablet PO (08:13)
[2022-02-14] MEDS: Cholecalciferol (VIT D3) 25 MCG TABLET (1,000 UNITS) PO (08:13)
[2022-02-14] MEDS: Atorvastatin Calcium 20 MG Tablet PO (08:17)
[2022-02-14] MEDS: Ferrous Sulfate 325 MG Tablet PO (11:28)
[2022-02-14 12:06] LABS: Bedside Glucose 138 mg/dL (74-106)
--- NOTE | 2022-02-14 12:24 | PN.HOSP_ITS ---
Subjective Subjective Patient seen and examined. He has GlucoBoost review feels he is feeling a bit better. He is wondering when he can be discharged because he is worried about his who has dementia and he wants to go back home and take care of her. Review of systems otherwise negative. He has remained hemodynamically stable an d remains on his baseline 2 L of oxygen. Objective Data Objective Data Vital Signs: Vital Signs Temp Pulse Resp BP Pulse Ox O2 Del Method O2 Flow Rate 98.8 F 77 20 H 136/66 H 94 Room Air 3 02/14/22 09:47 02/14/22 11:51 02/14/22 11:51 02/14/22 09:47 02/14/22 09:47 02/14/22 09:47 02/14/22 09:16 Oxygen Flow Rate (L/min) 3 Oxygen Delivery Method Room Air Weight: 190 lb 14.725 oz Body Mass Index (BMI) 27.3 Intake & Output: Intake and Output for Last 24 Hours 02/12/22 02/13/22 02/14/22 23:59 23:59 23:59 Intake Total 837.5 / 837.5 150 / 150 Output Total 875 / 875 Balance 837.5 / 837.5 -725 / -725 Lab / Micro Data Result Diagrams: 02/14/22 06:50 02/14/22 06:50 Labs: Laboratory Results - last 24 hr 02/13/22 16:41: POC Glucose 215 H 02/14/22 06:12: POC Glucose 124 H 02/14/22 06:50: WBC 9.0, RBC 3.22 L, Hgb 7.7 L, Hct 27.2 L, MCV 84.5, MCH 23.9 L , MCHC 28.3 L, RDW Std Deviation 49.7 H, RDW Coeff of Demetrius 16.3 H, Plt Count 251, MPV 11.0, Immature Gran % (Auto) 0.900, Neut % (Auto) 79.0 H, Lymph % (Auto) 12.4 L, [place] % (Auto) 7.2, Eos % (Auto) 0.3, Baso % (Auto) 0.2, Absolute Neuts (auto) 7.1, Absolute Lymphs (auto) 1.11, Nucleated RBC % 0 02/14/22 06:50: Sodium 141, Potassium 3.4 L, Chloride 111 H, Carbon Dioxide 22.0, Anion Gap 8, BUN 18, Creatinine 0.96, Estim Creat Clear Calc 60.20, Est GF R (MDRD) Af Amer 96, Est GFR (MDRD) Non-Af 79, BUN/Creatinine Ratio 18.7, Glucose 155 H, Calcium 8.8 02/14/22 06:50: Iron 11 L, TIBC 426, Iron Saturation 2.6 L, Ferritin 38 02/14/22 11:22: POC Glucose 138 H Micro: Microbiology 02/12/22 17:13 Urine, Clean Catch Legionella Antigen - Final 02/12/22 17:13 Urine, Clean Catch Streptococcus pneumoniae Antigen (M - Final 02/12/22 21:59 Mucosa - Nasopharyngeal Respiratory Panel (PCR) - Final 02/12/22 16:35 Nasal Secretion SARS-CoV-2 & FLU Antigen (Rapid) - Final Physical Exam Const alert, oriented x3 and no apparent distress General Appearance: cooperative HEENT normocephalic, head/scalp atraumatic, moist oral mucous membranes and oropharynx normal Head and Scalp: normocephalic Mouth: oral and palatal mucosa normal Eyes PERRL, EOMs intact bilaterally and conjunctivae normal Neck no lymphadenopathy, supple and No no carotid bruits Resp No normal respiratory effort, no retractions, no use of accessory muscles and No clear to auscultation bilaterally Resp Narrative: mildly diminished breath sounds bibasally, no wheezes or crackles. On 3L of oxygen, which is his baseline. Auscultation: crackles; Negative for rhonchi or wheezes Cardio regular rate, regular rhythm, S1 normal heart sound, S2 normal heart sound, no murmurs, no rub, no gallops and no clicks GI normal to inspection, nondistended, normoactive bowel sounds, soft to palpation, non-tender and non-distended Extremity normal to inspection, full ROM and no clubbing, cyanosis or edema Extremity Narrative: 2+ pedal pulses Skin no rashes or lesions noted, no wounds, skin turgor normal, no jaundice, no pet echiae and no mottling Neuro oriented x3, CN's II-XII intact bilaterally, moves all extremities and no focal motor deficits Neuro Narrative: Marked generalized weakness Sensorium / Orientation: awake and alert Speech: speech normal Motor Exam: strength 5/5 throughout Psych affect normal Assessment & Plan Assessment/Plan (1) Fever: (2) Lung mass: (3) Pneumonia: PLAN: Plan #Community acquired pneumonia * feeling a bit better toay * CT chest showed left lower lobe spiculated nodule and mass like consolidation in right lower lobe * on IV levaquin * sputum culture pending; respiratory panel negative * on prednisone PO * breathing treatment with bronchodilators * titrate oxygen to maintain sats >90% * #Right lung mass * as per CT * pulmonology on board * suspicious for lung malignancy. * pulmonology recommends follow up CT chest in 6-8 weeks to evaluate lung mass after completion of antibiotic treatment course. * #Debility due to generalised weakness * PT/OT on board * fall precautions * #Chronic hypoxic respiratory failure due to COPD * wears 3-4L of oxygen * titrate oxygen to maintain sats >90% * breathing treatment with bronchodilators * #Type 2 diabetes mellitus: on ISS. accuchecks ACHS. metformin on hold. #GERD; on PPI #Hyperlipidemia: on statin #Paroxysmal afib: on metoprolol. on eliquis DVT prophylaxis;on eliquis Charges/Coding Visit Charges Inpatient E&M: 71820 Subs Hosp L2
--- NOTE | 2022-02-14 12:40 | PCM.PN.INT ---
Assessment & Plan Assessment/Plan (1) Stage 3 severe COPD by GOLD classification: PLAN: Plan RECOMMENDATIONS: 1. Supplemental oxygen, if needed, to maintain saturations at or above 90%. 2. Continue antimicrobials to complete 7-day treatment course. 3. Continue scheduled bronchodilators and steroids. 4. Encourage incentive spirometer use and mobilize patient as tolerated. 5. Recommend follow-up CT chest in 6 to 8 weeks after completion of antibiotic treatment course. 6. The patient should follow-up in the pulmonary medicine clinic 2 weeks after discharge. IMPRESSIONS: 1. COPD with exacerbation secondary to continued acquired pneumonia The patient appears to be in a state of exacerbation related to underlying pneumonia. He is on appropriate antimicrobial therapy along with bronchodilators and prednisone. Oxygenation status is stable. The patient does have a baseline requirement of 2 to 3 L/min. Recommend continuing to wean supplemental oxygen as tolerated. Encourage incentive spirometer use and mobilize patient as tolerated. 2. Abnormal CT imaging of the chest CT imaging of the chest did reveal a masslike consolidation in the right lower lobe along with a left lower lobe nodule, which was not present on prior chest imaging. At this particular time, I would recommend that the patient complete an antibiotic treatment course of 7 days, with tentative plans to obtain follow-up chest imaging 6 weeks after his completion of his treatment course. The patient should follow-up with Dr. Man in the pulmonary medicine clinic, at that time, to review his chest imaging and formulate a plan, depending on what residual radiographic findings are still present. Ultimately, the patient may require a percutaneous CT-guided lung biopsy. 3. Chronic anemia/GERD/paroxysmal atrial fibrillation/hyperlipidemia Complicates care, management, recovery and prognosis. Continue home medications as indicated. This note was generated with [employer] dictation software. It may contain incorrect words, spelling, and punctuation that were not noted in checking the note before signing. Subjective Subjective The patient was seen and examined at the bedside this morning. Events from the last 24 hours have been reviewed. The patient is currently afebrile, hemodynamically stable and maintaining appropriate oxygen saturations on room air. Potassium is low at 3.4. The patient reports that he feels well overall and is anxious to be discharged home. Objective Data Objective Data The patient's most recent lab work, culture data and imaging studies have all been personally reviewed. Infectious work-up has been unrevealing to date. Vital Signs: Vital Signs Temp Pulse Resp BP Pulse Ox O2 Del Method O2 Flow Rate 98.8 F 77 20 H 136/66 H 94 Room Air 3 02/14/22 09:47 02/14/22 11:51 02/14/22 11:51 02/14/22 09:47 02/14/22 09:47 02/14/22 09:47 02/14/22 09:16 Oxygen Flow Rate (L/min) 3 Oxygen Delivery Method Room Air Weight: 190 lb 14.725 oz Body Mass Index (BMI) 27.3 Intake & Output: Intake and Output for Last 24 Hours 02/12/22 02/13/22 02/14/22 23:59 23:59 23:59 Intake Total 837.5 / 837.5 150 / 150 Output Total 875 / 875 Balance 837.5 / 837.5 -725 / -725 Lab / Micro Data Attestation: I reviewed the patient's lab results. Result Diagrams: 02/14/22 06:50 02/14/22 06:50 Labs: Laboratory Results - last 24 hr 02/13/22 16:41: POC Glucose 215 H 02/14/22 06:12: POC Glucose 124 H 02/14/22 06:50: WBC 9.0, RBC 3.22 L, Hgb 7.7 L, Hct 27.2 L, MCV 84.5, MCH 23.9 L, MCHC 28.3 L, RDW Std Deviation 49.7 H, RDW Coeff of Demetrius 16.3 H, Plt Count 251, MPV 11.0, Immature Gran % (Auto) 0.900, Neut % (Auto) 79.0 H, Lymph % (Auto) 12.4 L, [place] % (Auto) 7.2, Eos % (Auto) 0.3, Baso % (Auto) 0.2, Absolute Neuts (auto) 7.1, Absolute Lymphs (auto) 1.11, Nucleated RBC % 0 02/14/22 06:50: Sodium 141, Potassium 3.4 L, Chloride 111 H, Carbon Dioxide 22.0, Anion Gap 8, BUN 18, Creatinine 0.96, Estim Creat Clear Calc 60.20, Est GFR (MDRD) Af Amer 96, Est GFR (MDRD) Non-Af 79, BUN/Creatinine Ratio 18.7, Glucose 155 H, Calcium 8.8 02/14/22 06:50: Iron 11 L, TIBC 426, Iron Saturation 2.6 L, Ferritin 38 02/14/22 11:22: POC Glucose 138 H Micro: Microbiology 02/12/22 17:13 Urine, Clean Catch Legionella Antigen - Final 02/12/22 17:13 Urine, Clean Catch Streptococcus pneumoniae Antigen (M - Final 02/12/22 21:59 Mucosa - Nasopharyngeal Respiratory Panel (PCR) - Final 02/12/22 16:35 Nasal Secretion SARS-CoV-2 & FLU Antigen (Rapid) - Final Physical Exam Const alert and no apparent distress Constitutional Narrative: Upright ambulating in room with family at the bedside. General Appearance: cooperative HEENT normocephalic, head/scalp atraumatic and moist oral mucous membranes Eyes PERRL, EOMs intact bilaterally and conjunctivae normal Neck supple General: trachea midline Chest inspection of chest normal Resp no use of accessory muscles Auscultation: rales and diminished lung sounds Cardio regular rate and regular rhythm GI normal to inspection, nondistended, normoactive bowel sounds Extremity no clubbing, cyanosis or edema Skin no rashes or lesions noted Neuro oriented x3, CN's II-XII intact bilaterally and moves all extremities Psych cooperative and affect normal Charges/Coding Visit Charges Inpatient E&M: 76886 Subs Hosp L2
--- NOTE | 2022-02-14 14:13 | DS.PCM_ITS ---
Providers Date of Admission: 02/12/22 Date of Discharge: 02/14/22 Primary Care Physician: Dr. Carmina Zaidi MD Consultations 02/12/22 21:06 Consult: Catalyst Operator Chief / Pulmonary Medicine Routine Consulting Provider: Kurt Thacker Reason for Consult: Lung mass EMERGENT Consult: No MD Notified: Yes Date Notified: 02/13/22 Time Notified: 06:19 Method of Notification: Text Reason For Visit: PNEUMONIA Diagnosis Discharge Diagnosis (1) Stage 3 severe COPD by GOLD classification: Status: Chronic Code(s): J44.9 - Chronic obstructive pulmonary disease, unspecified Plan #Community acquired pneumonia * feeling a bit better toay * CT chest showed left lower lobe spiculated nodule and mass like consolidation in right lower lobe * on IV levaquin * sputum culture pending; respiratory panel negative * on prednisone PO * breathing treatment with bronchodilators * titrate oxygen to maintain sats >90% * #Right lung mass * as per CT * pulmonology on board * suspicious for lung malignancy. * pulmonology recommends follow up CT chest in 6-8 weeks to evaluate lung mass after completion of antibiotic treatment course. * #Debility due to generalised weakness * PT/OT on board * fall precautions * #Chronic hypoxic respiratory failure due to COPD * wears 3-4L of oxygen * titrate oxygen to maintain sats >90% * breathing treatment with bronchodilators * #Type 2 diabetes mellitus: on ISS. accuchecks ACHS. metformin on hold. #GERD; on PPI #Hyperlipidemia: on statin #Paroxysmal afib: on metoprolol. on eliquis DVT prophylaxis;on eliquis Medications at Discharge Home Medications OXYGEN CONCENTRATOR inhalation 12/29/19 ferrous sulfate 325 mg (65 mg iron) tablet 325 mg PO DAILY 12/29/19 ipratropium 18 mcg-albuterol 103 mcg/actuation aerosol inhaler spray inhalation 12/29/19 loratadine 10 mg tablet (Claritin) 10 mg PO DAILY 06/28/20 blood sugar diagnostic (Blood Glucose Test strips) #100 ea 07/04/20 lancets 28 gauge (FreeStyle Lancets) #100 ea 07/04/20 fluticasone furoate 27.5 mcg/actuation nasal spray,suspension (Flonase Sensimist) 2 spray intranasal DAILY 09/11/20 cholecalciferol (vitamin D3) 25 mcg (1,000 unit) tablet 25 mcg PO DAILY 06/07/21 metoprolol tartrate 25 mg tablet 25 mg PO BID #60 tabs 07/02/21 metformin 500 mg tablet 500 mg PO BID #180 tabs 08/29/21 gabapentin 100 mg capsule 100 mg PO TID #270 caps 09/20/21 fluticasone fur. 200 mcg-umeclid 62.5 mcg-vilant 25 mcg inhalat.powder (Trelegy Ellipta) 1 inh inhalation DAILY #3 ea 10/09/21 simvastatin 40 mg tablet 40 mg PO DAILY #90 tabs 12/13/21 albuterol sulfate 2.5 mg/3 mL (0.083 %) solution for nebulization 2.5 mg (3 mL) inhalation Q4H PRN shortness of breath or wheezing #180 mL 01/23/22 albuterol sulfate 90 mcg/actuation aerosol inhaler 2 puff inhalation Q6H PRN shortness of breath or wheezing #3 device 01/23/22 apixaban 5 mg tablet (Eliquis) 5 mg PO BID #60 tabs 02/14/22 levofloxacin 500 mg tablet 500 mg PO DAILY #5 tabs 02/14/22 pantoprazole 40 mg tablet,delayed release 80 mg PO DAILY #30 tabs 02/14/22 Hospital Course Operations None Procedures None Summary of Care Provided Minutes Spent on Discharge: 42 Hospital Course: Patient is an 81-year-old male with a past medical history as outlined including chronic respiratory failure due to COPD, on 2 L of oxygen. He was admitted through the ED on 01/13/2022 with complaint of generalized weakness and cough with assisted chills and sweating but no fever. He also has some nasal congestion and coughing for several days prior to admission. Cough was productive of some yellowish phlegm. He had been following up with pulmonology on outpatient basis and has been compliant with his medication. On admission patient had a fever with temperature maximum of 102.8 as well as elevated heart rate. He was saturating at 94% on 4 L of oxygen but was weaned down to his baseline 3 L of oxygen. WBC was elevated at 15. Chest x-ray showed patchy versus streaky opacities in the right lung base with right hilar fullness. Chest CT showed a spiculated left lower lobe lesion suspicious for malignancy as well as masslike consolidation of the right lower lobe. Was admitted and managed for community-acquired pneumonia. He was started on IV Levaquin. Patient's symptoms resolved and he felt much better. Pulmonology was consulted. Pulmonology recommended follow-up on outpatient basis in 4 to [address] scan to evaluate the spiculated lung lesion to see if its possible malignancy. Patient felt much better he was discharged home on 02/14/2022 on p.o. Levaquin for 5 days. He is follow-up with his primary care doctor and follow-up with pulmonology on outpatient basis. Patient seen and examined prior to discharge. He had no complaints and felt much better and was willing to be discharged home. Review of stems otherwise negative. Labs and vitals reviewed. Home medication reviewed and reconciled. Physical Exam Const alert, oriented x3 and no apparent distress General Appearance: cooperative, comfortable and well kempt Orientation / Consciousness: awake Exam Limitations: no limitations HEENT normocephalic, head/scalp atraumatic, hearing grossly normal bilaterally, moist oral mucous membranes and oropharynx normal Mouth: oral and palatal mucosa normal Eyes PERRL, EOMs intact bilaterally and conjunctivae normal Neck no lymphadenopathy, supple and No no carotid bruits Resp No normal respiratory effort, no retractions, no use of accessory muscles and No clear to auscultation bilaterally Resp Narrative: mildly diminished breath sounds bibasally, no wheezes or crackles. On 3L of oxygen, which is his baseline. Auscultation: Negative for rhonchi or wheezes Cardio regular rate, regular rhythm, S1 normal heart sound, S2 normal heart sound, no murmurs, no rub, no gallops and no clicks GI normal to inspection, nondistended, normoactive bowel sounds, soft to palpation, non-tender and non-distended Extremity normal to inspection, full ROM and no clubbing, cyanosis or edema Skin no rashes or lesions noted, no wounds, skin turgor normal, no jaundice, no petechiae and no mottling Neuro oriented x3, CN's II-XII intact bilaterally, moves all extremities and no focal motor deficits Sensorium / Orientation: awake and alert Speech: speech normal Motor Exam: strength 5/5 throughout Psych affect normal Weight / BMI Weight Weight: 190 lb 14.725 oz Body Mass Index (BMI) 27.3 ABG / Lab / Microbiology Data Result Diagrams: 02/14/22 06:50 02/14/22 06:50 Laboratory: Laboratory Results - last 24 hr 02/13/22 16:41: POC Glucose 215 H 02/14/22 06:12: POC Glucose 124 H 02/14/22 06:50: WBC 9.0, RBC 3.22 L, Hgb 7.7 L, Hct 27.2 L, MCV 84.5, MCH 23.9 L , MCHC 28.3 L, RDW Std Deviation 49.7 H, RDW Coeff of Demetrius 16.3 H, Plt Count 251, MPV 11.0, Immature Gran % (Auto) 0.900, Neut % (Auto) 79.0 H, Lymph % (Auto) 12.4 L, [place] % (Auto) 7.2, Eos % (Auto) 0.3, Baso % (Auto) 0.2, Absolute Neuts (auto) 7.1, Absolute Lymphs (auto) 1.11, Nucleated RBC % 0 02/14/22 06:50: Sodium 141, Potassium 3.4 L, Chloride 111 H, Carbon Dioxide 22.0, Anion Gap 8, BUN 18, Creatinine 0.96, Estim Creat Clear Calc 60.20, Est GFR (MDRD) Af Amer 96, Est GFR (MDRD) Non-Af 79, BUN/Creatinine Ratio 18.7, Glucose 155 H, Calcium 8.8 02/14/22 06:50: Iron 11 L, TIBC 426, Iron Saturation 2.6 L, Ferritin 38 02/14/22 11:22: POC Glucose 138 H Microbiology: Microbiology 02/12/22 17:13 Urine, Clean Catch Legionella Antigen - Final 02/12/22 17:13 Urine, Clean Catch Streptococcus pneumoniae Antigen (M - Final 02/12/22 21:59 Mucosa - Nasopharyngeal Respiratory Panel (PCR) - Final 02/12/22 16:35 Nasal Secretion SARS-CoV-2 & FLU Antigen (Rapid) - Final D/C Instructions Discharge Diet: Low fat / Low cholesterol Discharge Activity: Return to Normal Activity Weight Bearing Status: Weight bearing as tolerated Call your doctor if you observe: Fever of 101 or Higher, Shortness of breath, Dizziness and Increased palpitations (irregular heartbeat) Meaningful Use Info Meaningful Use Diagnoses (Choose all that apply): None applicable Discharge Plan Admission Admit Date/Time: 02/12/22 18:25 Primary Reason for Your Visit: pneumonia Attending Provider: Sharri Zamudio Primary Care Provider: Carmina Zaidi Consulting Providers: Kurt Thacker ; Susan Guzman Instructions Patient Instructions: Pneumonia Discharge Orders/Prescriptions Prescriptions: New levofloxacin 500 mg tablet 500 mg PO DAILY Qty: 5 0RF Eliquis 5 mg Tablet 5 mg PO BID Qty: 60 1RF Continued ferrous sulfate 325 mg (65 mg iron) tablet 325 mg PO DAILY ipratropium 18 mcg-albuterol 103 mcg/actuation aerosol inhaler 18-103 mcg/actuation aerosol INHALATION OXYGEN CONCENTRATOR INHALATION Rx Instructions: 2 L loratadine [Claritin] 10 mg tablet 10 mg PO DAILY Flonase Sensimist 27.5 mcg/actuation spray,suspension 2 spray intranasal DAILY Rx Instructions: into each nostril cholecalciferol (vitamin D3) 25 mcg (1,000 unit) tablet 25 mcg PO DAILY Trelegy Ellipta 200-62.5-25 mcg blister with device 1 inh inhalation DAILY Qty: 3 3RF pantoprazole 40 mg tablet,delayed release (DR/EC) 80 mg PO DAILY Qty: 30 1RF (DME) lancets [FreeStyle Lancets] 28 gauge misc See Rx Instructions .ROUTE .MEDSUPPLY Qty: 100 5RF Rx Instructions: Use to test blood sugar as needed. (DME) Blood Glucose Test Strip See Rx Instructions .ROUTE .MEDSUPPLY Qty: 100 5RF Rx Instructions: Free Style Lite test strips - Use to check blood glucose 3-4 times a day and PRN metoprolol tartrate 25 mg tablet 25 mg PO BID Qty: 60 12RF metformin 500 mg tablet 500 mg PO BID Qty: 180 3RF gabapentin 100 mg capsule 100 mg PO TID Qty: 270 1RF simvastatin 40 mg tablet 40 mg PO DAILY Qty: 90 3RF albuterol sulfate 90 mcg/actuation HFA aerosol inhaler 2 puff inhalation Q6H PRN (Reason: shortness of breath or wheezing) Qty: 3 1RF albuterol sulfate 2.5 mg /3 mL (0.083 %) solution for nebulization 2.5 mg inhalation Q4H PRN (Reason: shortness of breath or wheezing) Qty: 180 12RF Discontinued doxycycline hyclate 100 mg tablet 100 mg PO BID Qty: 20 0RF prednisone 10 mg tablet 10 mg PO DAILY Qty: 30 0RF Rx Instructions: Take 4 tabs PO daily for 3 days, then 3 tabs daily for 3 days, then 2 tabs daily for 3 days, then 1 tab daily for 3 days prednisone 10 mg tablet 10 mg PO QDAY Qty: 30 0RF Rx Instructions: take 4 tabs for three days, then 3 tabs for three days, then 2 tabs for three days, then 1 tab for 3 days Eliquis 5 mg tablet 5 mg PO BID Qty: 60 12RF Referrals / Follow Up: Kurt Thacker DO [Med Staff - Active Staff] - Within 1 Month Carmina Zaidi MD [Primary Care Provider] - Within 2 Weeks Disposition Disposition (needs filled in before D/C Order can be placed): Home, Self Care Charges/Coding Visit Charges Inpatient E&M: 54288 Disch Hosp
--- NOTE | 2022-02-14 14:30 | CASEMGMT ---
Addendum entered by Miley Galeano 02/14/22 14:38: Pt did not qualify for increased oxygen rx. Original Note: RN CM in to pt room, pt and dtr present at well. Pt denies any homegoing needs. Pt does not want any therapy services.
== END 2022-02-14 16:10 | disposition home or self-care (01) | DRG 194 ==
LOC: ED 18:31 → MS3 19:23
PROVIDERS: Admitting Provider Internal Medicine; Emergency Provider Emergency Medicine; PCP Internal Medicine; Visit Provider Student in an Organized Health Care Education/Training Program
DX: J18.9 Pneumonia, unspecified organism (principal); J44.0 Chronic obstructive pulmonary disease with (acute) lower respiratory infection; J96.11 Chronic respiratory failure with hypoxia; J44.1 Chronic obstructive pulmonary disease with (acute) exacerbation; E11.40 Type 2 diabetes mellitus with diabetic neuropathy, unspecified; E78.5 Hyperlipidemia, unspecified; D64.9 Anemia, unspecified; I48.0 Paroxysmal atrial fibrillation; K21.9 Gastro-esophageal reflux disease without esophagitis; R26.2 Difficulty in walking, not elsewhere classified; Z87.891 Personal history of nicotine dependence; R53.1 Weakness; R91.8 Other nonspecific abnormal finding of lung field; Z79.01 Long term (current) use of anticoagulants; R53.81 Other malaise
CPT/HCPCS: 36415; 71045; 71250; 80048; 80053; 81001; 82728; 82962; 83540; 83550; 83605; 83735; 84100; 84443; 84484; 85025; 87040; 87070; 87205; 87428; 87449; 87633; 87641; 94640; 94667; 94668; 97162; 97530; 99251; 99285; J7030; A4216; G0463

== ENCOUNTER 2022-03-07 13:38 | Emergency (ER) | payer MEDICARE, SELFPAY ==
[2022-03-07 13:39] VITALS: BP 132/56; PULSE 77; RESP 16; RESP 18; TEMP 36.3; O2SAT 96; BMI 28.4
--- NOTE | 2022-03-07 14:30 | RAD_ITS ---
STUDY: X-RAY - UNILATERAL RIBS ( RIGHT ) WITH CHEST REASON FOR EXAM: Male, 81 years old. INJURY TECHNIQUE - RIBS: 4 view(s) of the ribs. TECHNIQUE - CHEST: Single PA view of the chest. COMPARISON: Comparison is made with prior chest radiograph dated 02/12/2022. FINDINGS - RIBS: Normal visualized ribs without a demonstrated fracture. FINDINGS - CHEST: There is hyperinflation of the lungs consistent with chronic obstructive lung disease (COPD). Stable scarring at the lung bases worse on the right side. There is no demonstrated pleural abnormality. Normal size heart. Normal mediastinum and anu. Normal visualized pulmonary arteries. There is atherosclerotic calcification of the aortic arch with tortuosity. There are diffuse degenerative changes of the visualized thoracic spine. Normal visualized ribs, clavicles, and shoulders. There is no demonstrated abnormality of the visualized soft tissue structures of the upper abdomen. RAD/Ribs Uni Min 3V w/PA Chest IMPRESSION: RIBS: Normal x-ray examination of the ribs. CHEST: Hyperinflation. Stable bibasilar scarring worse on the right side. Electronically Signed: Montrell Huddleston MD at 14:47 EST ,
--- NOTE | 2022-03-07 14:48 | EDS_ITS ---
HPI History of Present Illness Chief Complaint: Chest Other Detail of Chief Complaint: Right lower rib cage and right upper quadrant abdominal pain status post fa Informant: patient and spouse/S.O. Onset/Context/Timing Onset: Days Mechanism/Context: Blunt Injury and Fall (From standing position) Location: Midclavicular line to posterior axillary line right side ribs 7 10/09/09 & RU Current Severity: Mild Maximum Severity: Severe Worsened by: Movement Relieved by: Nothing Associated Symptoms Associated Symptoms: Negative for Parasthesias, Weakness, Loss of function, Inability to ambulate, Loss of consciousness or Amnesia Narrative Narrative: Patient is a 81-year-old male who tripped several days ago. He landed on his oxygen concentrator. He was then was pinned between furniture. He presents because of right sided chest/upper abdominal pain. He is on anticoagulant. He is on anticoagulant for paroxysmal atrial fibrillation. He denies pain referred to his right shoulder. He denies orthostatic symptoms. He denies hemoptysis. He does report pain with movement and breathing. He denies blood in his urine. He denies urologic symptoms. He denied head trauma, amnesia or loss conscious. He denies neck pain. He denies paresthesia, or motor weakness presently or time of injury. Tetanus Immunization: 5-10 years Prior similar symptoms: No Recent Illness/Hospitalization: [facility] Medical History Anemia Arthritis Bruit of left carotid artery COPD (chronic obstructive pulmonary disease) Diabetes mellitus Diverticulitis Dupuytrens contracture GERD (gastroesophageal reflux disease) H/O inguinal hernia H/O: pneumonia History of pulmonary aspiration Lung mass Neuropathy Stage 3 severe COPD by GOLD classification Type 2 diabetes mellitus Type 2 diabetes mellitus without complications Home Medications OXYGEN CONCENTRATOR inhalation 12/29/19 [History Last Taken Unknown] ferrous sulfate 325 mg (65 mg iron) tablet 325 mg PO DAILY 12/29/19 [History Last Taken Unknown] ipratropium 18 mcg-albuterol 103 mcg/actuation aerosol inhaler spray inhalation 12/29/19 [History Last Taken Unknown] loratadine 10 mg tablet (Claritin) 10 mg PO DAILY 06/28/20 [History Last Taken Unknown] blood sugar diagnostic (Blood Glucose Test strips) #100 ea 07/04/20 [Rx Last Taken Unknown] lancets 28 gauge (FreeStyle Lancets) #100 ea 07/04/20 [Rx Last Taken Unknown] fluticasone furoate 27.5 mcg/actuation nasal spray,suspension (Flonase Sensimist) 2 spray intranasal DAILY 09/11/20 [History Last Taken Unknown] cholecalciferol (vitamin D3) 25 mcg (1,000 unit) tablet 25 mcg PO DAILY 06/07/21 [History Last Taken Unknown] metoprolol tartrate 25 mg tablet 25 mg PO BID #60 tabs 07/02/21 [Rx Last Taken Unknown] metformin 500 mg tablet 500 mg PO BID #180 tabs 08/29/21 [Rx Last Taken Unknown] gabapentin 100 mg capsule 100 mg PO TID #270 caps 09/20/21 [Rx Last Taken Unknown] simvastatin 40 mg tablet 40 mg PO DAILY #90 tabs 12/13/21 [Rx Last Taken Unknown] albuterol sulfate 2.5 mg/3 mL (0.083 %) solution for nebulization 2.5 mg (3 mL) inhalation Q4H PRN shortness of breath or wheezing #180 mL 01/23/22 [Rx Last Taken 02/11/22] albuterol sulfate 90 mcg/actuation aerosol inhaler 2 puff inhalation Q6H PRN shortness of breath or wheezing #3 device 01/23/22 [Rx Last Taken 02/11/22] apixaban 5 mg tablet (Eliquis) 5 mg PO BID #60 tabs 02/14/22 [Rx Last Taken Unknown] pantoprazole 40 mg tablet,delayed release 80 mg PO DAILY #30 tabs 02/14/22 [Rx Last Taken Unknown] Handicap placard #1 ea 02/21/22 [Rx Last Taken Unknown] fluticasone fur. 200 mcg-umeclid 62.5 mcg-vilant 25 mcg inhalat.powder (Trelegy Ellipta) 1 inh inhalation DAILY #3 ea 02/21/22 [Rx Last Taken Unknown] levofloxacin 500 mg tablet 500 mg PO DAILY #7 tabs 03/07/22 [Rx Last Taken Unknown] Allergy/AdvReac Type Severity Reaction Status Date / Time Penicillins Allergy Severe Hives Verified 03/07/22 13:43 erythromycin base AdvReac Severe Nausea/Vom/ Verified 03/07/22 13:43 Diarrhea Family History Father Cancer Brother Parkinsons disease Mother Diverticulitis Surgical History History of carpal tunnel release Social History (Updated 03/07/22 @ 15:[address] Gerry Allan MD) household members: spouse Smoking Status: Former smoker Tobacco: How many years used: 40 Electronic Cigarette Use: not used how long ago did patient quit smokin second hand exposure: Yes alcohol intake: never substance use type: does not use caffeine: Yes Type: coffee Number of servings: 1 what type of physical activity do you participate in: none ROS ROS ED Constitutional Constitutional ED: Denies chills, fever(s), subjective, sweats or weight loss Eyes Eyes: Denies blurry vision or change in vision ENT ENT ED: Denies ear pain, rhinorrhea or sore throat Cardiovascular Cardiovascular: Reports chest pain; Denies palpitations or racing heartbeat Respiratory/Chest Respiratory/Chest: Denies cough, dyspnea or dyspnea on exertion Gastrointestinal Gastrointestinal: Reports abdominal pain; Denies constipation, diarrhea, melena, nausea or vomiting Genitourinary Genitourinary ED: Denies dysuria, hematuria or urinary frequency Musculoskeletal Musculoskeletal: Denies arthralgias, back pain, myalgias or neck pain Integumentary Denies Abrasions or rash Neurologic Neurologic: Denies headache(s) Hematologic/Lymphatic Hematologic/Lymphatic: Reports easy bruising; Denies easy bleeding EXAM Physical Exam Const Vital Signs: 03/07/22 13:39 03/07/22 13:39 Temperature 97.4 F L Temperature Source Temporal Pulse Rate 77 77 Respiratory Rate 18 16 Blood Pressure 132/56 H 132/56 H Blood Pressure Mean 81 81 Pulse Ox 96 96 Oxygen Delivery Method Nasal Cannula Nasal Cannula Positive well nourished and well developed Constitutional Narrative: Patient is on continuous oxygen. He appears in no respiratory distress. General Appearance ED: well developed HEENT HEENT Narrative: Head is normocephalic. Ears normal. Nares patent. No septal deviation hematoma. No dental trauma. Mucosas moist. atraumatic Eyes PERRL and EOMs intact bilaterally Neck full ROM Neck Narrative: There is no pain the patient of the cervical spine. Chest Wall inspection of chest normal and palpation of chest normal Chest Narrative: Patient has tenderness over the right eighth, ninth and 10th rib. There is no crepitus or subcutaneous air. Resp normal respiratory effort and clear to auscultation bilaterally Effort and Inspection: pain with movement RUE Auscultation: rales bilateral base Cardio regular rhythm, S1 normal heart sound, S2 normal heart sound and no murmurs Rate: regular rate GI normal to inspection, nondistended, normoactive bowel sounds, non-distended and no masses; Negative for non-tender GI Narrative: Patient has significant tenderness to the right costal margin and over the liver. There is no bruising noted. Palpation: tender RUQ and guarding RUQ Back/Spine normal to inspection and no thoracic nor lumbar tenderness Extremity normal to inspection and full ROM Neuro oriented x3, CN's II-XII intact bilaterally and moves all extremities Psych mental status grossly normal and thought process normal Skin no rashes or lesions noted, no wounds, skin turgor normal and No no jaundice MDM MDM MDM Narrative Medical decision making narrative: X-ray was obtained per nurse protocol. There was no evidence of fracture. How after evaluating patient and the fact that he is on anticoagulant with significant right upper quadrant pain need to rule out hepatic injury. CT of the abdomen with IV contrast was ordered. Since patient had creatinine obtained February 14, 2022 and normal this was not repeated. Patient was medicated for his pain. C-spine was cleared per Nexus criteria. Since there is no evidence of head trauma and he denies head trauma even though he is on Eliquis based on the [place] CT head rule imaging is not required. Patient has evidence of a right lower lobe infiltrate. Will place on course of levofloxacin. Patient and family been made aware of results. Radiography Diagnostic Testing: Clinical Impression(s) from Imaging Studies Ribs w/Chest X-Ray 03/07/22 14:30 IMPRESSION: RIBS: Normal x-ray examination of the ribs. CHEST: Hyperinflation. Stable bibasilar scarring worse on the right side. Electronically Signed: Montrell Huddleston MD at 14:47 EST , Abdomen CT 03/07/22 14:56 IMPRESSION: Right lower lobe atelectasis or infiltrate and old granulomatous disease. Bilateral renal cysts which will not require additional imaging.. Electronically Signed: Chun Hall MD at 16:14 EST Reading Location ID and State: [address] [place] [address] , Service support , 4 view rib details were obtained and interpreted by me as negative for fracture, pneumothorax or hemothorax. There is chronic changes due to pulmonary fibrosis in all likelihood. Cardiac silhouette and size normal. Perihilar region normal . This is independent reviewed interpreted by me at 1448 CT reveals no evidence of hepatic injury. There appears to be an infiltrate right lower lobe. Will wait for formal read by radiologist. Discharge Plan Triage Chief Complaint: Chest Other ED Provider: Gerry Allan Dx/Rx/DC Orders Clinical Impression: Right lower lobe pneumonia, Oxygen dependent, Contusion of ribs, Contusion of abdominal wall, initial encounter, COPD (chronic obstructive pulmonary disease), Anticoagulant long-term use Instructions: ED Pneumonia (Adult), ED Bruise, Rib Prescriptions: New levofloxacin [levofloxacin] 500 mg tablet 500 mg PO DAILY Qty: 7 0RF No Action ferrous sulfate 325 mg (65 mg iron) tablet 325 mg PO DAILY ipratropium 18 mcg-albuterol 103 mcg/actuation aerosol inhaler 18-103 mcg/actuation aerosol INHALATION OXYGEN CONCENTRATOR INHALATION Rx Instructions: 2 L loratadine [Claritin] 10 mg tablet 10 mg PO DAILY Flonase Sensimist 27.5 mcg/actuation spray,suspension 2 spray intranasal DAILY Rx Instructions: into each nostril cholecalciferol (vitamin D3) 25 mcg (1,000 unit) tablet 25 mcg PO DAILY (DME) Handicap placard See Rx Instructions .Route .MEDSUPPLY Qty: 1 0RF Rx Instructions: 5 year RX 02/21/22-02/21/27 Trelegy Ellipta 200-62.5-25 mcg blister with device 1 inh inhalation DAILY Qty: 3 3RF Eliquis 5 mg Tablet 5 mg PO BID Qty: 60 1RF pantoprazole 40 mg tablet,delayed release (DR/EC) 80 mg PO DAILY Qty: 30 1RF (DME) lancets [FreeStyle Lancets] 28 gauge misc See Rx Instructions .ROUTE .MEDSUPPLY Qty: 100 5RF Rx Instructions: Use to test blood sugar as needed. (DME) Blood Glucose Test Strip See Rx Instructions .ROUTE .MEDSUPPLY Qty: 100 5RF Rx Instructions: Free Style Lite test strips - Use to check blood glucose 3-4 times a day and PRN metoprolol tartrate 25 mg tablet 25 mg PO BID Qty: 60 12RF metformin 500 mg tablet 500 mg PO BID Qty: 180 3RF gabapentin 100 mg capsule 100 mg PO TID Qty: 270 1RF simvastatin 40 mg tablet 40 mg PO DAILY Qty: 90 3RF albuterol sulfate 90 mcg/actuation HFA aerosol inhaler 2 puff inhalation Q6H PRN (Reason: shortness of breath or wheezing) Qty: 3 1RF albuterol sulfate 2.5 mg /3 mL (0.083 %) solution for nebulization 2.5 mg inhalation Q4H PRN (Reason: shortness of breath or wheezing) Qty: 180 12RF Primary Care Provider: Carmina Zaidi Referrals: Carmina Zaidi MD [Primary Care Provider] - 3-5 Days Disposition Disposition: Home, Self Care
--- NOTE | 2022-03-07 14:56 | CT_ITS ---
INDICATION: Evaluate hepatic injury, on Eliquis EXAMINATION: CT ABDOMEN WITH IV CONTRAST CT Abdomen W/ Contrast Injection TECHNIQUE: Helically acquired images were obtained of the abdomen following IV contrast. A radiation dose optimization technique was used for this scan. IV Contrast dosage and agent: Oral contrast: None. COMPARISON: None. FINDINGS: LOWER CHEST: There is subsegmental atelectasis or infiltrate in the right lower lobe. There is small calcified granuloma in the right lung base. No cardiomegaly or pericardial effusion. LIVER: Homogeneous. No focal mass. GALLBLADDER AND BILIARY TREE: No calcified gallstones. No gallbladder distension or wall edema. No intra- or extrahepatic biliary ductal dilation. PANCREAS: No focal cystic or solid mass. SPLEEN: Normal size without focal cystic or solid mass. ADRENAL GLANDS: No nodules. KIDNEYS AND URETERS: Normal renal size and position. No hydronephrosis. There are 2 simple cysts in the left kidney one in the right which will not require additional imaging PERITONEUM: No ascites or free air. No other fluid collection. BOWEL: No evidence of acute appendicitis. No stomach or bowel distension. No focal inflammatory change. LYMPH NODES: No enlarged mesenteric or retroperitoneal lymph nodes. VESSELS: Atherosclerotic changes of the aorta without evidence for aneurysm ABDOMINAL WALL: No discrete abdominal wall hernia. BONES: Bony structures are severely osteopenic. Cannot definitively exclude pathologic lytic lesions. No evidence for acute fracture CT/Abdomen WITH IV Contrast IMPRESSION: Right lower lobe atelectasis or infiltrate and old granulomatous disease. Bilateral renal cysts which will not require additional imaging.. Electronically Signed: Chun Hall MD at 16:14 EST ,
[2022-03-07] MEDS: Morphine 4 MG/ML Syringe IV (15:10)
[2022-03-07] MEDS: Ondansetron 4 MG/2 ML Vial IV (15:10)
[2022-03-07] MEDS: levoFLOXacin 750 MG Tablet PO (17:01)
[2022-03-07 17:05] VITALS: PULSE 78; RESP 18; O2SAT 98
== END 2022-03-07 17:06 | disposition home or self-care (01) ==
PROVIDERS: Emergency Provider Emergency Medicine; PCP Internal Medicine; Visit Provider Emergency Medicine
DX: J18.9 Pneumonia, unspecified organism (principal); J44.0 Chronic obstructive pulmonary disease with (acute) lower respiratory infection; E11.40 Type 2 diabetes mellitus with diabetic neuropathy, unspecified; I48.0 Paroxysmal atrial fibrillation; S30.1XXA Contusion of abdominal wall, initial encounter; S20.219A Contusion of unspecified front wall of thorax, initial encounter; Z87.891 Personal history of nicotine dependence; Z99.81 Dependence on supplemental oxygen; Z79.01 Long term (current) use of anticoagulants; W01.198A Fall on same level from slipping, tripping and stumbling with subsequent striking against other object, initial encounter
CPT/HCPCS: 71101; 74160; 96374; 96375; 99283; J7030; Q9967; A4216; J2405

== ENCOUNTER → 2022-04-16 | Outpatient (CLI) | payer MEDICARE, SELFPAY ==
--- NOTE | 2022-04-16 07:16 | CT_ITS ---
STUDY: CT CHEST WITH CONTRAST REASON FOR EXAM: Male, 81 years old. New left lung nodule RADIATION DOSAGE (If Supplied By Facility): CTDIvol = ( 11.25 ) mGy, DLP = ( 365.29 ) mGycm TECHNIQUE: Transaxial imaging was performed following intravenous administration of IV 100mL Isovue-300. Multiplanar coronal and sagittal images were reformatted. Individualized dose optimization techniques were used for this CT. COMPARISON: Comparison is made with prior study dated 02/12/2022. FINDINGS: CHEST Small benign-appearing bilateral axillary lymph nodes. Mild degree of emphysematous changes. Stable linear scarring in the lingular segment of the left upper lobe. Irregular infiltrate in the posterior medial segment of the right lower lobe. There is been mild improvement as compared to prior study. There is a persistent 2.4 cm x 1.8 cm mass. Correlation with a PET scan is recommended. The previously seen spiculated nodule in the posterior aspect of the left lower lobe is not visualized at this time. There are calcifications of the coronary arteries. Normal mediastinum. Normal hilar regions. Normal unenhanced pulmonary arteries. There is atherosclerotic calcification of the aortic arch with tortuosity and elongation of the aortic arch and descending thoracic aorta. There are multi-level degenerative changes of the thoracic spine. There is no demonstrated abnormality of the visualized upper abdomen. CT/Chest WITH Contrast IMPRESSION: Persistent nodular density posterior segment of the right lower lobe suggestive of possible carcinoma. Correlation with PET scan is recommended. The previously seen spiculated nodule in the left lower lobe has cleared. Electronically Signed: Montrell Huddleston MD at 14:42 EST ,
--- NOTE | 2022-04-16 07:17 | US_ITS ---
STUDY: ABDOMINAL ULTRASOUND - RIGHT UPPER QUADRANT REASON FOR VISIT: Male, 81 years old ruq pain TECHNIQUE: Ultrasound evaluation of the right upper quadrant was performed with real-time and static gonzalez-scale imaging. TECHNICAL QUALITY: Adequate. COMPARISON: Comparison is made with prior study dated 10/18/2021. FINDINGS: Liver: The liver measures 14.6 cm. There is increased echogenicity consistent with fatty infiltration. The bile ducts are within normal limits. There is hepatic color flow. The direction of portal flow is hepatopetal. There is no demonstrated mass lesion. Gallbladder: Normal distended gallbladder. The gallbladder wall measures 1.5 mm. There is a negative sonographic Peterson''s sign. There is no pericholecystic fluid. There are no gallstones. Common Bile Duct (C.B.D.): The common bile duct measures 2 mm. Pancreas: Normal size of the head, body of the pancreas. The tail portion is obscured due to overlying bowel gas. There is normal echogenicity of the pancreas. There is no demonstrated pancreatic mass or cyst. Right Kidney: Normal size of the right kidney. The right kidney measures 10.8 cm x 5.5 cm x 6 cm. Normal renal cortex. The right cortex measures 1.6 cm. There is no demonstrated renal mass or cyst. There is no right hydronephrosis. US/Abdomen Limited IMPRESSION: Fatty infiltration of the liver. Electronically Signed: Montrell Huddleston MD at 13:43 EST ,
[2022-04-16 13:55] LABS: CREATININE FINGERSTICK < 0.9 mg/dL (0.70-1.30); EGFR FINGERSTICK > 60.0000 mL/min (>60)
== END | disposition home or self-care (01) ==
LOC: US 07:11
PROVIDERS: PCP Internal Medicine; Referring Provider Internal Medicine Gastroenterology; Visit Provider Internal Medicine Gastroenterology
DX: R93.3 Abnormal findings on diagnostic imaging of other parts of digestive tract (principal)
CPT/HCPCS: 71260; 76705; Q9967

== ENCOUNTER → 2022-05-09 | Outpatient (CLI) | payer MEDICARE, SELFPAY ==
[2022-05-09] VITALS (11 sets, daily range): BP systolic 115–159; BP diastolic 56–87; PULSE 56–87; RESP 12–19; TEMP 36.6; O2SAT 92–99; BMI 27.8
--- NOTE | 2022-05-09 07:58 | CT_ITS ---
PROCEDURE: CT GUIDED CORE NEEDLE BIOPSY OF A right lower lobe LUNG LESION INDICATION: Male, 81 years old. Right lower lobe mass -- on [facility] PHYSICIAN: Dr. Karo Trinidad CONSENT: Written informed consent was obtained having explained the risks, benefits and alternatives in detail with the patient who accepted the risks and agreed to proceed. Laboratory review and clinical assessment was performed. CONSCIOUS SEDATION PROTOCOL: The Drugs used were: 2 mg Versed, IV., and 50 mcg Fentanyl, IV. The sedation time was: 24 minutes. Conscious sedation was started at 8:59 AM and terminated at 9:23 AM. The conscious sedation protocol was independently monitored. RADIATION DOSAGE (If Supplied By Facility): CTDIvol = ( 16 ) mGy, DLP = ( 655.05 ) mGycm Individualized dose optimization techniques were used for this CT. TECHNIQUE: The patient was placed in the prone position. A noncontrast CT was performed to localize the lesion in the posterior medial segment of the right lower lobe . The skin surface was prepped and draped in a sterile fashion. 1% lidocaine was used for local anesthesia. Using CT guidance, a 20-gauge coaxial biopsy device was advanced to the periphery of the lesion. A total of 5 core specimens were obtained. The specimens were placed in a formalin solution. A post procedure CT demonstrated no adverse sequelae or pneumothorax. The patient tolerated the procedure well without adverse event. A negative biopsy does not exclude malignancy. Further imaging or clinical followup based on patient condition and degree of clinical suspicion for malignancy. Suggest rebiopsy, if biopsy results do not match with clinical scenario. CT/Biopsy/Inj or Needle Placement IMPRESSION: 1. CT directed core needle biopsy of the nodular density in the posterior medial segment of the right lower lobe using CT image guidance with image documentation as described. Pathology results are pending. 2. Conscious Sedation protocol utilized with independent monitoring. Electronically Signed: Montrell Huddleston MD at 9:53 EST ,
[2022-05-09 07:59] LABS: Platelet Count 382 K/mm3 (150-450)
[2022-05-09 08:23] LABS: International Normalized Ratio 1.1; Prothrombin Time (Protime)PT. 13.9 SECONDS (11.7-14.9)
[2022-05-09 08:24] LABS: Partial Thromboplast Time 36.9 Seconds (24.1-36.2)
[2022-05-09] MEDS: Midazolam 2 MG/2 ML Syringe IV (08:58)
[2022-05-09] MEDS: fentaNYL 100 MCG/2 ML Ampul IV (08:59)
--- NOTE | 2022-05-09 09:00 | ASPIGT_PTH ---
PATIENT: ANDREA DELUCA LOC: CT U#:[id number] AGE/SX: 81/M ROOM: RE05/09/[address]: STACEY Arce : 1940 BED: DIS: 05/09/2022 SPEC #: [id number] RECD: 05/09/22 09:58 STATUS: MARSHALL REMadi #: [id number] MONIQUE: 05/09/22 09:[address]: Park Ng NP DEPT: SURGICAL PATHOLOGY RECD BY: Saige Dickinson ENTERED: 05/09/22 09:58 SP TYPE: ASP RAD OT DR: Dr. Carmina Zaidi MD Tissues: Lung, NOS Procedures: FNA Specimen Adequacy Special Stain Group II Surgery Specimen Level IV Imprint (control) HEADER OPERATION: CT-guided right lung biopsy PRE-OP DIAGNOSIS: Right lung mass TISSUE SUBMITTED: Right lung mass 20-gauge x5 MICROSCOPIC DIAGNOSIS Right lung mass, CT-guided core biopsy: Lung parenchymal and bronchial tissue with interstitial fibrosis, acute and chronic inflammation and marked pneumocyte-2 hyperplasia. Negative for malignancy. See comment. SHANTA:shelbi 05/10/2022 COMMENT The specimen is evaluated at the time of biopsy by Dr. Dillon. Immediate Evaluation = Negative for malignant cells. Correlation with clinical, radiologic findings and appropriate follow up are necessary. MICROSCOPIC DESCRIPTION Slides are reviewed. GROSS DESCRIPTION Received in fixative is one container labeled with the patient's name and designated right lung biopsy. The specimen consists of multiple irregular fragments of whiting soft tissue that in aggregate measure 1.5 x 0.1 x <0.1 cm. The specimen is totally submitted in one cassette. Three touch imprints are prepared at the time of core biopsy. / SHANTA:shelbi 05/09/2022 TC:3 CPT: 50414, 57949
[2022-05-09] MEDS: Lidocaine 2% (20 ml mdv) 20 ML Vial INFILT (09:25)
--- NOTE | 2022-05-09 09:33 | RAD_ITS ---
STUDY: X-RAY CHEST REASON FOR EXAM: Male, 81 years old. Lung biopsy -- Immediately post lung biopsy TECHNIQUE: AP inspiration and expiration views. COMPARISON: Comparison is made with prior study dated February 12, 2022. FINDINGS: Immediate post left lung biopsy radiographs. No evidence of pneumothorax. RAD/Chest Insp/Exp 2 View IMPRESSION: No evidence of pneumothorax on the immediate post left lung biopsy radiographs. Electronically Signed: Monterll Huddleston MD at 10:47 EST ,
--- NOTE | 2022-05-09 11:20 | RAD_ITS ---
STUDY: X-RAY CHEST REASON FOR EXAM: Male, 81 years old. Lung biopsy -- 2 hours post lung biopsy TECHNIQUE: AP inspiration and expiration views 2 hours following the left lung biopsy. COMPARISON: Comparison is made with prior study done earlier today. FINDINGS: No evidence of pneumothorax on the 2 hour post left lung biopsy radiographs. RAD/Chest Insp/Exp 2 View IMPRESSION: No evidence of pneumothorax on the 2 hour post left lung biopsy radiographs. Electronically Signed: Montrell Huddleston MD at 12:19 EST ,
== END | disposition home or self-care (01) ==
LOC: CT 07:47
PROVIDERS: PCP Internal Medicine; Referring Provider Nurse Practitioner Acute Care; Visit Provider Nurse Practitioner Acute Care
DX: R06.00 Dyspnea, unspecified (principal); I48.91 Unspecified atrial fibrillation; R91.8 Other nonspecific abnormal finding of lung field
CPT/HCPCS: 32408; 36415; 71046; 77012; 85049; 85610; 85730; 88172; 88305; 88313; 99156; J7050; A4216; C2613

== ENCOUNTER 2022-05-11 10:10 | Emergency (ER) | payer MEDICARE, SELFPAY ==
[2022-05-11 10:10] VITALS: BP 153/71; PULSE 78; RESP 17; TEMP 36.3; O2SAT 95; BMI 26.5
[2022-05-11 10:18] VITALS: O2SAT 94
--- NOTE | 2022-05-11 10:39 | RAD_ITS ---
INDICATION: [Of breath EXAMINATION/TECHNIQUE: X-RAY - XR Chest 1 View COMPARISON: 05/09/2022. FINDINGS: LINES/DEVICES: None. LUNGS: Increased atelectatic changes in the right lung base. Small right pleural effusion. No evidence of pneumothorax. MEDIASTINUM AND CARDIOVASCULAR STRUCTURES: Cardiac silhouette not enlarged. Central airways and mediastinal contour are unremarkable. BONES AND SOFT TISSUES: Stable osseous structures. RAD/Chest 1 View (Portable) IMPRESSION: Atelectatic changes in the right lung base. No evidence of pneumothorax. Electronically Signed: Frandy Augustine MD at 11:29 EST ,
--- NOTE | 2022-05-11 10:45 | EDS_ITS ---
HPI History of Present Illness Chief Complaint: Cough Informant: patient, spouse/S.O. and family Narrative Narrative: Presents by EMS from home increasing hemoptysis since his lung biopsy 2 days ago. History of COPD chronic 2 L of oxygen. States mild increasing shortness of breath when he coughs, spouse turn up his oxygen 3 L. Biopsy for enlarging nodule right lower lung. He is followed by Dr. Man. He does have history of paroxysmal atrial fibrillation on Eliquis, this was held prebiopsy, it was restarted yesterday evening, none taken today. Reporting intermittent clots. Reports pain into his shoulder at times with chest discomfort. From instruc tions postprocedure if worsening symptoms to go to the ED. He has not contacted his pulmonary team. Prior similar symptoms: No PFSH PFSH Medical History Anemia Arthritis Bruit of left carotid artery COPD (chronic obstructive pulmonary disease) Diabetes mellitus Diverticulitis Dupuytrens contracture GERD (gastroesophageal reflux disease) H/O inguinal hernia H/O: pneumonia History of pulmonary aspiration Lung mass Neuropathy Stage 3 severe COPD by GOLD classification Type 2 diabetes mellitus Type 2 diabetes mellitus without complications Home Medications OXYGEN CONCENTRATOR inhalation 12/29/19 [History Last Taken Unknown] ferrous sulfate 325 mg (65 mg iron) tablet 325 mg PO DAILY 12/29/19 [History Last Taken Unknown] ipratropium 18 mcg-albuterol 103 mcg/actuation aerosol inhaler spray inhalation 12/29/19 [History Last Taken Unknown] blood sugar diagnostic (Blood Glucose Test strips) #100 ea 07/04/20 [Rx Last Taken Unknown] lancets 28 gauge (FreeStyle Lancets) #100 ea 07/04/20 [Rx Last Taken Unknown] metformin 500 mg tablet 500 mg PO BID #180 tabs 08/29/21 [Rx Last Taken Unknown] gabapentin 100 mg capsule 100 mg PO TID #270 caps 09/20/21 [Rx Last Taken Unknown] simvastatin 40 mg tablet 40 mg PO DAILY #90 tabs 12/13/21 [Rx Last Taken Unknown] albuterol sulfate 2.5 mg/3 mL (0.083 %) solution for nebulization 2.5 mg (3 mL) inhalation Q4H PRN shortness of breath or wheezing #180 mL 11/23/22 [Rx Last Taken 02/11/22] albuterol sulfate 90 mcg/actuation aerosol inhaler 2 puff inhalation Q6H PRN shortness of breath or wheezing #3 device 01/23/22 [Rx Last Taken 02/11/22] pantoprazole 40 mg tablet,delayed release 80 mg PO DAILY #30 tabs 02/14/22 [Rx Last Taken Unknown] Handicap placard #1 ea 02/21/22 [Rx Last Taken Unknown] fluticasone fur. 200 mcg-umeclid 62.5 mcg-vilant 25 mcg inhalat.powder (Trelegy Ellipta) 1 inh inhalation DAILY #3 ea 02/21/22 [Rx Last Taken Unknown] metoprolol tartrate 25 mg tablet 12.5 mg PO BID #60 tabs 03/14/22 [Rx Last Taken Unknown] guaifenesin 1,200 mg tablet, extended release 12 hr 1,200 mg PO Q12H #60 tabs 04/24/22 [Rx Last Taken Unknown] apixaban 5 mg tablet (Eliquis) 5 mg PO BID #180 tabs 04/25/22 [Rx Last Taken 05/07/22 09:00] nirmatrelvir 300 mg (150 mg x2)-ritonavir 100 mg tablet,dose pack(EUA) (Paxlovid) See Rx Instructions PO .COMPLEX #30 tabs 05/11/22 [Rx Last Taken Unknown] ondansetron 4 mg disintegrating tablet 4 mg PO Q8H PRN PRN Nausea #10 tabs 05/11/22 [Rx Last Taken Unknown] Allergy/AdvReac Type Severity Reaction Status Date / Time Penicillins Allergy Severe Hives Verified 05/11/22 10:15 erythromycin base AdvReac Severe Nausea/Vom/ Verified 05/11/22 10:15 Diarrhea Family History Father Cancer Brother Parkinsons disease Mother Diverticulitis Surgical History History of carpal tunnel release Social History household members: spouse Smoking Status: Former smoker Tobacco: How many years used: 40 Electronic Cigarette Use: not used how long ago did patient quit smokin second hand exposure: Yes alcohol intake: never substance use type: does not use caffeine: Yes Type: coffee Number of servings: 1 what type of physical activity do you participate in: none ROS ROS ED Constitutional Constitutional ED: Denies chills, fever(s) or sweats Eyes Eyes: Denies change in vision ENT ENT ED: Denies dysphagia or sore throat Cardiovascular Cardiovascular: Denies chest pain, leg edema, palpitations or racing heartbeat Respiratory/Chest Respiratory/Chest: Reports cough, dyspnea and other Details: Hemoptysis ; Denies dyspnea on exertion Gastrointestinal Gastrointestinal: Denies abdominal pain, diarrhea, nausea or vomiting Genitourinary Genitourinary ED: Denies dysuria, hematuria or urinary frequency Musculoskeletal Musculoskeletal: Denies back pain, extremity pain or neck pain Integumentary Denies rash or wounds Neurologic Neurologic: Denies headache(s), paresthesias or weakness EXAM Physical Exam Const Vital Signs: 05/11/22 10:10 05/11/22 10:18 05/11/22 10:48 Temperature 97.4 F L Temperature Source Temporal Pulse Rate 78 Respiratory Rate 17 Respiratory Effort Short of Breath Respiratory Pattern Tachypnea Blood Pressure 153/71 H Blood Pressure Mean 98 Pulse Ox 95 95 Oxygen Delivery Method Nasal Cannula Nasal Cannula Nasal Cannula Oxygen Flow Rate (L/min) 2 2 2 05/11/22 12:27 Temperature Temperature Source Pulse Rate 88 Respiratory Rate 18 Respiratory Effort Respiratory Pattern Blood Pressure Blood Pressure Mean Pulse Ox 96 Oxygen Delivery Method Oxygen Flow Rate (L/min) Positive well nourished and well developed Constitutional Narrative: 2 L nasal cannula, no respiratory distress General Appearance ED: well developed and NAD HEENT Reports moist mucous membranes normocephalic and atraumatic Eyes PERRL, EOMs intact bilaterally and conjunctivae normal General Eye ED: Yes normal appearance of both eyes Neck no lymphadenopathy and supple General: Negative for tenderness Chest Wall Chest: Negative for tenderness Resp normal respiratory effort and normal air movement Resp Narrative: Symmetric breath sounds Effort and Inspection: symmetric chest movement; Negative for respiratory distress Cardio regular rate, regular rhythm and no murmurs Peripheral Pulses: pulses 2+ throughout GI normal to inspection, nondistended, normoactive bowel sounds and non-tender Palpation: Negative for guarding or rebound tenderness present Back/Spine no CVA tenderness and no thoracic nor lumbar tenderness Back/Spine Narrative: Small dressing right lower thoracic with dry blood. Extremity normal to inspection General Extremety ED: Negative for edema or tenderness General Extremity: Negative for edema Neuro oriented x3, CN's II-XII intact bilaterally and no sensory deficits noted Sensorium / Orientation: awake and alert Skin no rashes or lesions noted and no wounds MDM MDM MDM Narrative Medical decision making narrative: Interventions / MDM: Differential diagnosis: Postbiopsy hemoptysis, pulmonary embolism Diagnosis considered but do not suspect: Pneumothorax, however symmetric breath sounds bilaterally. My EKG interpretation: Sinus rhythm first-degree AV block rate of 67, no ST or T wave changes. Imaging independently reviewed and interpreted by myself: 1 view chest x-ray no pneumothorax External documents reviewed: Reviewed the patient's CT biopsy report, noted there was 5 core biopsies obtained right lower lobe. There was 2 chest x-rays postprocedure negative for pneumothorax. Test considered but not ordered:N/A ED course: Patient currently has 2 L oxygen no respiratory distress. Reporting hemoptysis post biopsy of his lungs he restarted his Eliquis yesterday with increasing hemoptysis. Chest x-ray negative for any pneumothorax with his dyspnea, hemoglobin 7.8 however was 7.73 months ago this is stable. With his dyspnea complaints COVID testing returned positive. He is vaccinated with the booster no COVID infections in the past no other symptoms of for slight dyspnea currently on day 2 since his biopsy. He is followed by pulmonology reached out to Dr. Thacker covering for Dr. Man, discussed patient's presentation and history. Agrees that he needs to hold his Eliquis. He will monitor symptoms. Discussed does not need monitor in the hospital as he would just be monitored, patient agrees with offering treatment for COVID. I discussed this with patient and family with side effects agree with starting medications. Meds to bed with Paxlovid along with Zofran for potential side effects. He will hold his Eliquis. He will call the office on Friday to get rechecked blood work if needed and symptoms to restart his Eliquis. Return precautions discussed. All questions were answered. Re-evaluation: stable Disposition discussed with patient/family/significant other: Patient and family Case discussed with consulting clinician: Pulmonology Dr. Thacker Lab Data Attestation: I reviewed the patient's lab results. Labs: Laboratory Results - last 24 hr 05/11/22 05/11/22 05/11/22 10:35 10:35 10:35 WBC 6.5 RBC 3.65 L Hgb 7.8 L Hct 28.9 L MCV 79.2 L MCH 21.4 L MCHC 27.0 L RDW Std Deviation 44.7 H RDW Coeff of Demetrius 15.6 H Plt Count 359 MPV 11.5 Immature Gran % (Auto) 0.300 Neut % (Auto) 73.6 H Lymph % (Auto) 14.9 L Ceiba % (Auto) 8.2 Eos % (Auto) 2.5 Baso % (Auto) 0.5 Absolute Neuts (auto) 4.8 Absolute Lymphs (auto) 0.97 Nucleated RBC % 0 PT 16.4 H INR 1.4 APTT 41.5 H Sodium 143 Potassium 4.0 Chloride 110 H Carbon Dioxide 26.0 Anion Gap 7 BUN 10 Creatinine 0.86 Estim Creat Clear Calc 67.20 Est GFR (MDRD) Af Amer 109 Est GFR (MDRD) Non-Af 90 BUN/Creatinine Ratio 11.6 Glucose 117 H Calcium 8.7 Troponin I High Sens 10 Radiography Diagnostic Testing: Clinical Impression(s) from Imaging Studies Chest X-Ray 05/11/22 10:39 IMPRESSION: Atelectatic changes in the right lung base. No evidence of pneumothorax. Electronically Signed: Frandy Augustine MD at 11:29 EST , Discharge Plan Triage Chief Complaint: Cough Other Complaint: Shortness of Breath ED Provider: Aki Ambrocio Dx/Rx/DC Orders Clinical Impression: Cough with hemoptysis, Stage 3 severe COPD by GOLD classification, Paroxysmal atrial fibrillation, COVID-19, Anemia Instructions: Coronavirus Disease 2019 (COVID-19): Caring for Yourself or Oth ers, ED Hemoptysis Prescriptions: New Paxlovid (EUA) 300 mg (150 mg x 2)-100 mg tablets,dose pack See Rx Instructions .ROUTE .COMPLEX Qty: 30 0RF Rx Instructions: take TWO 150 mg tablets of nirmatrelvir with ONE 100 mg tablet of ritonavir twice daily for 5 days ondansetron [ondansetron] 4 mg tablet,disintegrating 4 mg PO Q8H PRN PRN (Reason: Nausea) Qty: 10 0RF No Action ferrous sulfate 325 mg (65 mg iron) tablet 325 mg PO DAILY ipratropium 18 mcg-albuterol 103 mcg/actuation aerosol inhaler 18-103 mcg/actuation aerosol INHALATION OXYGEN CONCENTRATOR INHALATION Rx Instructions: 2 L guaifenesin 1,200 mg tablet extended release 12hr 1,200 mg PO Q12H Qty: 60 6RF (DME) Handicap placard See Rx Instructions .Route .MEDSUPPLY Qty: 1 0RF Rx Instructions: 5 year RX 02/21/22-02/21/27 Trelegy Ellipta 200-62.5-25 mcg blister with device 1 inh inhalation DAILY Qty: 3 3RF metoprolol tartrate 25 mg tablet 12.5 mg PO BID Qty: 60 12RF pantoprazole 40 mg tablet,delayed release (DR/EC) 80 mg PO DAILY Qty: 30 1RF (DME) lancets [FreeStyle Lancets] 28 gauge misc See Rx Instructions .ROUTE .MEDSUPPLY Qty: 100 5RF Rx Instructions: Use to test blood sugar as needed. (DME) Blood Glucose Test Strip See Rx Instructions .ROUTE .MEDSUPPLY Qty: 100 5RF Rx Instructions: Free Style Lite test strips - Use to check blood glucose 3-4 times a day and PRN metformin 500 mg tablet 500 mg PO BID Qty: 180 3RF gabapentin 100 mg capsule 100 mg PO TID Qty: 270 1RF simvastatin 40 mg tablet 40 mg PO DAILY Qty: 90 3RF albuterol sulfate 90 mcg/actuation HFA aerosol inhaler 2 puff inhalation Q6H PRN (Reason: shortness of breath or wheezing) Qty: 3 1RF albuterol sulfate 2.5 mg /3 mL (0.083 %) solution for nebulization 2.5 mg inhalation Q4H PRN (Reason: shortness of breath or wheezing) Qty: 180 12RF Eliquis 5 mg tablet 5 mg PO BID Qty: 180 3RF Primary Care Provider: Carmina Zaidi Referrals: Nba Man MD [Med Staff - Active Staff] - 2 Days Carmina Zaidi MD [Primary Care Provider] - Activity Restrictions/Additional Instructions: Hold your Eliquis until hemoptysis resolved. Likely from postbiopsy causes. You had [address] Man's office on Friday to get rechecked blood work and symptoms. I discussed with Dr. Thacker. Take Paxlovid as prescribed. If you are on simvastatin at home please hold this while you are on this medication. Monitor symptoms. Return if anything worsens. Disposition Disposition: Home, Self Care Discharge Date/Time: 05/11/22 12:28
[2022-05-11 10:48] VITALS: O2SAT 95
[2022-05-11 11:08] LABS: Absolute Lymphocyte Count 0.97 X10^3/uL (0.83-4.51); Absolute Neutrophil Count 4.8 X10^3/uL (2.0-7.7); Basophil# 0.03 X10^3/uL; Basophil% 0.5 % (0-1); Eosinophil# 0.16 X10^3/uL; Eosinophils% 2.5 % (0-5); Hematocrit 28.9 % (40-54); Hemoglobin 7.8 g/dL (13.0-16.5); Lymphocyte # 0.97 X10^3/ul (0.83-4.51); Lymphocyte % 14.9 % (19-41); Mean Corpuscular Hgb 21.4 pg (27.0-32.0); Mean Corpuscular Volume 79.2 fL (80-94); Mean Platelet Vol. 11.5 fl (6.2-12.0); Monocyte# 0.53 X10^3/uL; Monocyte% 8.2 % (0-10); NRBC Flagged by Analyzer 0 % (0-5); Neutrophil # 4.78 X10^3/uL (2.7-7.7); Neutrophil % 73.6 % (47-70); Platelet Count 359 K/mm3 (150-450); RBC Distribution Width CV 15.6 % (11.6-14.6); RBC Distribution Width SD 44.7 fl (35.1-43.9); Red Blood Count 3.65 M/mm3 (4.6-6.2); White Blood Count 6.5 K/mm3 (4.4-11.0)
[2022-05-11 11:18] LABS: International Normalized Ratio 1.4; Prothrombin Time (Protime)PT. 16.4 SECONDS (11.7-14.9)
[2022-05-11 11:20] LABS: Anion Gap 7 (5-15); BUN 10 mg/dL (7-18); BUN/Creat Ratio 11.6 RATIO (10-20); Calcium,Total 8.7 mg/dL (8.5-10.1); Chloride 110 mmol/L (98-107); Creatinine, Serum 0.86 mg/dL (0.70-1.30); EST Glomerular Filtration Rate 90 mL/min (>60); Est Glom Filt Rate - Afr Amer 109 mL/min (>60); Glucose 117 mg/dL (74-106); Partial Thromboplast Time 41.5 Seconds (24.1-36.2); Sodium Level 143 mmol/L (136-145); Troponin-I HS 10 pg/mL (3.0-78.0)
[2022-05-11 12:27] VITALS: PULSE 88; RESP 18; O2SAT 96
== END 2022-05-11 12:28 | disposition home or self-care (01) ==
PROVIDERS: Emergency Provider Emergency Medicine; PCP Internal Medicine; Visit Provider Emergency Medicine
DX: R05.9 Cough, unspecified (principal); J44.9 Chronic obstructive pulmonary disease, unspecified; E11.40 Type 2 diabetes mellitus with diabetic neuropathy, unspecified; I48.0 Paroxysmal atrial fibrillation; R04.2 Hemoptysis; K21.9 Gastro-esophageal reflux disease without esophagitis; Z79.01 Long term (current) use of anticoagulants; Z79.899 Other long term (current) drug therapy; Z79.84 Long term (current) use of oral hypoglycemic drugs; Z99.81 Dependence on supplemental oxygen; Z87.891 Personal history of nicotine dependence
CPT/HCPCS: 71045; 80048; 84484; 85025; 85610; 85730; 87811; 93005; 99285; A4216

== ENCOUNTER → 2022-05-24 | Outpatient (CLI) | payer MEDICARE, SELFPAY ==
[2022-05-24 15:54] LABS: Hemoglobin 9.3 g/dL (13.0-16.5); Mean Corp Hgb Conc 26.6 g/dL (32-36); Mean Corpuscular Hgb 21.2 pg (27.0-32.0); Mean Corpuscular Volume 79.7 fL (80-94); Mean Platelet Vol. 9.8 fl (6.2-12.0); Platelet Count 529 K/mm3 (150-450); RBC Distribution Width SD 48.7 fl (35.1-43.9); Red Blood Count 4.39 M/mm3 (4.6-6.2); White Blood Count 9.9 K/mm3 (4.4-11.0)
== END | disposition home or self-care (01) ==
LOC: LAB 15:26
PROVIDERS: PCP Internal Medicine; Referring Provider Nurse Practitioner Acute Care; Visit Provider Nurse Practitioner Acute Care
DX: R06.00 Dyspnea, unspecified (principal)
CPT/HCPCS: 36415; 85027

== ENCOUNTER → 2022-09-11 | Outpatient (CLI) | payer MEDICARE, SELFPAY ==
[2022-09-11 12:51] LABS: Absolute Lymphocyte Count 1.52 X10^3/uL (0.83-4.51); Absolute Neutrophil Count 6.6 X10^3/uL (2.0-7.7); Basophil# 0.06 X10^3/uL; Basophil% 0.7 % (0-1); Eosinophil# 0.14 X10^3/uL; Eosinophils% 1.5 % (0-5); Hematocrit 28.7 % (40-54); Lymphocyte # 1.52 X10^3/ul (0.83-4.51); Lymphocyte % 16.7 % (19-41); Mean Corp Hgb Conc 27.9 g/dL (32-36); Mean Corpuscular Hgb 22.2 pg (27.0-32.0); Mean Corpuscular Volume 79.7 fL (80-94); Mean Platelet Vol. 10.8 fl (6.2-12.0); Monocyte# 0.74 X10^3/uL; Monocyte% 8.1 % (0-10); NRBC Flagged by Analyzer 0 % (0-5); Neutrophil # 6.62 X10^3/uL (2.7-7.7); Neutrophil % 72.6 % (47-70); Platelet Count 356 K/mm3 (150-450); RBC Distribution Width CV 14.9 % (11.6-14.6); White Blood Count 9.1 K/mm3 (4.4-11.0)
[2022-09-11 13:17] LABS: Vitamin D,25 Hydroxy 67.8 ng/mL
[2022-09-11 13:45] LABS: ALB/GLOB Ratio 0.9 RATIO (0.9-2.4); AST(SGOT) 13 U/L (15-37); Alanine Aminotransfer ALT/SGPT 13 U/L (16-61); Albumin, Serum 3.3 g/dL (3.2-5.0); Alkaline Phosphatase 69 U/L (45-117); Anion Gap 5 (5-15); BUN 13 mg/dL (7-18); BUN/Creat Ratio 14.3 RATIO (10-20); Calcium,Total 8.4 mg/dL (8.5-10.1); Chloride 112 mmol/L (98-107); Cholesterol 101 mg/dL (200); Creatinine, Serum 0.91 mg/dL (0.70-1.30); EST Glomerular Filtration Rate 84 mL/min (>60); Est Glom Filt Rate - Afr Amer 102 mL/min (>60); Globulin 3.5 g/dL (2.2-4.2); Glucose 85 mg/dL (74-106); High Density Lipoprotein 45 mg/dL; Iron 194 ug/dL (65-175); Iron Binding Capacity,Total 482 ug/dL (250-450); PERCENT IRON SATURATION 40.2 % (15.0-55.0); PSA,Total - Annual Screen 5.05 ng/mL (0.00-4.00); Potassium 3.9 mmol/L (3.5-5.1); Protein, Total 6.8 g/dL (6.4-8.2); Sodium Level 144 mmol/L (136-145); Thyroid Stim Hormone (TSH) 1.58 uIU/mL (0.358-3.74); Triglycerides 92 mg/dL; Very Low Density Lipoprotein 18 mg/dL (5-40)
[2022-09-12 08:59] LABS: Platelet Count 379 K/mm3 (150-450); RET-HE 18.8 pg (30-35); Reticulocyte Count 2.71 % (0.5-1.5)
== END | disposition home or self-care (01) ==
PROVIDERS: PCP Internal Medicine; Referring Provider Internal Medicine; Visit Provider Internal Medicine
DX: R55 Syncope and collapse (principal); J44.9 Chronic obstructive pulmonary disease, unspecified; I48.0 Paroxysmal atrial fibrillation; E11.9 Type 2 diabetes mellitus without complications; R39.9 Unspecified symptoms and signs involving the genitourinary system; R79.89 Other specified abnormal findings of blood chemistry; E55.9 Vitamin D deficiency, unspecified; Z12.5 Encounter for screening for malignant neoplasm of prostate
CPT/HCPCS: 36415; 80053; 80061; 82306; 83540; 83550; 84153; 84443; 85025; 85045; G0103

== ENCOUNTER → 2022-10-15 | Outpatient (CLI) | payer MEDICARE, SELFPAY ==
[2022-10-15 08:46] VITALS: PULSE 111; PULSE 119; PULSE 125; PULSE 129; PULSE 89; PULSE 97; PULSE 98; O2SAT 86; O2SAT 90; O2SAT 92; O2SAT 93; O2SAT 94; O2SAT 95; O2SAT 96
--- NOTE | 2022-10-16 08:22 | PCM.PSN.6M ---
PSN 6 Minute Walk Test 6 Minute Walk Test 6 Minute Walk Test: 6 Minute Walk Test PSN:6-Minute Walk Test Start: 10/15/22 08:46 Freq: Status: Active Protocol: [id number] Document 10/15/22 08:46 EW (Rec: 10/15/22 08:52 EW [id number]) 6 Minute Walk Test Date Performed 10/15/22 Time Performed 08:15 Height 5 ft 11 in Weight: 182 lb Weight in Pounds 182.[address]: Nba Man Assistive device used: None Pre-test Oxygen Delivery Method Room Air Pulse Ox 92 Pulse Rate (60-100) 89 Dyspnea Eddy Scale (0-10) 2 Exertion Eddy Scale (6-20) 13 1st minute Oxygen Delivery Method Room Air Pulse Ox 86 Pulse Rate (60-100) 119 H 2nd minute Oxygen Flow Rate (L/min) 3 Oxygen Delivery Method Nasal Cannula Pulse Ox 94 Pulse Rate (60-100) 97 3rd minute Oxygen Flow Rate (L/min) 3 Oxygen Delivery Method Nasal Cannula Pulse Ox 90 Pulse Rate (60-100) 119 H 4th minute Oxygen Flow Rate (L/min) 3 Oxygen Delivery Method Nasal Cannula Pulse Ox 90 Pulse Rate (60-100) 129 H Number of Rests Taken 1 Reported Symptoms Increased Work of Breathing 5th minute Oxygen Flow Rate (L/min) 3 Oxygen Delivery Method Nasal Cannula Pulse Ox 93 Pulse Rate (60-100) 125 H Number of Rests Taken 1 Reported Symptoms Increased Work of Breathing 6th minute Oxygen Flow Rate (L/min) 3 Oxygen Delivery Method Nasal Cannula Pulse Ox 96 Pulse Rate (60-100) 98 Post-test Oxygen Flow Rate (L/min) 3 Oxygen Delivery Method Nasal Cannula Pulse Ox 95 Pulse Rate (60-100) 111 H Dyspnea Eddy Scale (0-10) 4 Exertion Eddy Scale (6-20) 15 Reported Symptoms Increased Work of Breathing Full Laps Walked 9 Partial Lap, Number of Tiles Walked 0 Total Distance Walked (ft) 531 Interpretation Interpretation: The patient ambulated 531 feet over the course of 6 minutes beginning on room air without assistive devices. Pretesting oxygen saturation was noted to be 92% on room air. With ambulation, the xu oxygen saturation was 86%. 3 L/min of supplemental oxygen was applied, and the patient was able to complete the remainder of the test while maintaining appropriate oxygen saturations. Recommendations Recommendations: 3 L/min of supplemental oxygen should be utilized with exertion.
== END | disposition home or self-care (01) ==
LOC: PSN 07:47
PROVIDERS: PCP Internal Medicine; Referring Provider Internal Medicine Critical Care Medicine; Visit Provider Internal Medicine Critical Care Medicine
DX: J44.9 Chronic obstructive pulmonary disease, unspecified (principal)
CPT/HCPCS: 94618

== ENCOUNTER 2022-11-12 19:20 | Inpatient (IN) | payer MEDICARE, SELFPAY ==
[2022-11-12] VITALS (11 sets, daily range): BP systolic 100–163; BP diastolic 39–111; PULSE 87–166; RESP 17–32; TEMP 36.5–39.2; O2SAT 93–97; BMI 27.1
--- NOTE | 2022-11-12 19:57 | EX.ED.DYSGE1 ---
HPI History of Present Illness Chief Complaint: Weakness Informant: patient, spouse/S.O. and family Narrative Narrative: 82-year-old male with a history of COPD requiring supplemental oxygen and atrial fibrillation presenting to the emergency room with fever and confusion. Patient notes a chronic cough which family states is unchanged but he states is worse. He notes occasional sputum production which is not abnormal. He notes shortness of breath but family states that is chronic. Family notes that he has had more frequent urination recently. They note the occasional emesis. They do report fever over the last 4 days. Today they noticed confusion exhibited by speaking to himself incoherently. Patient states he has been eating and drinking. He has been taking Tylenol twice a day today he did have a dose but is unclear of exactly when his there is a discrepancy between what he states in the family. No reported syncope. He is on apixaban reportedly for atrial fibrillation. [facility] Medical History Anemia Arthritis Bruit of left carotid artery COPD (chronic obstructive pulmonary disease) Diabetes mellitus Diverticulitis Dupuytrens contracture GERD (gastroesophageal reflux disease) H/O inguinal hernia H/O: pneumonia History of pulmonary aspiration Lung mass Neuropathy Stage 3 severe COPD by GOLD classification Type 2 diabetes mellitus without complications Home Medications ferrous sulfate 325 mg (65 mg iron) tablet 325 mg PO DAILY 12/29/19 [History Last Taken Unknown] ipratropium 18 mcg-albuterol 103 mcg/actuation aerosol inhaler 1 spray inhalation DAILY PRN 12/29/19 [History Last Taken Unknown] blood sugar diagnostic (Blood Glucose Test strips) #100 ea 07/04/20 [Rx Last Taken Unknown] lancets 28 gauge (FreeStyle Lancets) #100 ea 07/04/20 [Rx Last Taken Unknown] albuterol sulfate 2.5 mg/3 mL (0.083 %) solution for nebulization 2.5 mg (3 mL) inhalation Q4H PRN shortness of breath or wheezing #180 mL 01/23/22 [Rx Last Taken 02/11/22] albuterol sulfate 90 mcg/actuation aerosol inhaler 2 puff inhalation Q6H PRN shortness of breath or wheezing #3 device 01/23/22 [Rx Last Taken 02/11/22] pantoprazole 40 mg tablet,delayed release 80 mg (2 x 40 mg) PO DAILY #30 tabs 02/14/22 [Rx Last Taken Unknown] gabapentin 100 mg capsule 100 mg PO TID #270 caps 05/15/22 [Rx Last Taken Unknown] simvastatin 40 mg tablet 40 mg PO DAILY #90 tabs 06/27/22 [Rx Last Taken Unknown] fluticasone fur. 200 mcg-umeclid 62.5 mcg-vilant 25 mcg inhalat.powder (Trelegy Ellipta) 1 inh inhalation DAILY #3 ea 07/15/22 [Rx Last Taken Unknown] tamsulosin 0.4 mg capsule 0.4 mg PO QHS #90 caps 09/11/22 [Rx Last Taken Unknown] Handicap placard #1 ea 10/24/22 [Rx Last Taken Unknown] apixaban 5 mg tablet (Eliquis) 5 mg PO BID #180 tabs 10/31/22 [Rx Last Taken Unknown] metformin 500 mg tablet See Rx Instructions .Route .COMPLEX #180 tabs 10/31/22 [Rx Last Taken Unknown] metoprolol tartrate 25 mg tablet 12.5 mg (1/2 x 25 mg) PO BID #90 tabs 10/31/22 [Rx Last Taken Unknown] oxycodone 10 mg tablet 10 mg PO DAILY PRN 11/12/22 [History Last Taken Unknown] Allergy/AdvReac Type Severity Reaction Status Date / Time Penicillins Allergy Severe Hives Verified 11/12/22 20:42 erythromycin base AdvReac Severe Nausea/Vom/ Verified 11/12/22 20:42 Diarrhea Family History Father Cancer Brother Parkinsons disease Mother Diverticulitis Surgical History History of carpal tunnel release Social History household members: spouse Smoking Status: Former smoker Tobacco: How many years used: 40 Electronic Cigarette Use: not used how long ago did patient quit smokin second hand exposure: Yes alcohol intake: never substance use type: does not use caffeine: Yes Type: coffee Number of servings: 1 what type of physical activity do you participate in: none ROS ROS ED Constitutional Constitutional ED: Reports chills, fever(s) and sweats; Denies weight loss Eyes Eyes: Denies blurry vision, change in vision or diplopia ENT ENT ED: Denies ear pain, rhinorrhea or sore throat Cardiovascular Cardiovascular: Denies chest pain, orthopnea, palpitations or racing heartbeat Respiratory/Chest Respiratory/Chest: Reports cough, dyspnea and dyspnea on exertion; Denies orthopnea Gastrointestinal Gastrointestinal: Reports nausea and vomiting; Denies abdominal pain or diarrhea Genitourinary Genitourinary ED: Reports urinary frequency; Denies dysuria or hematuria Musculoskeletal Musculoskeletal: Denies arthralgias, back pain, myalgias or neck pain Integumentary Denies abscess or rash Neurologic Neurologic: Reports headache(s); Denies weakness Psychiatric Psychiatric: Denies anxiety, depression, suicidal ideation or suicidal thoughts Endocrine Endocrinology: Denies polydipsia, polyphagia or polyuria Allergic/Immunologic Allergic/Immunologic ED: Denies mouth swelling, tongue swelling or urticaria EXAM Physical Exam Const Vital Signs: 11/12/22 19:21 11/12/22 19:26 11/12/22 19:26 Temperature 98.7 F 98.5 F Temperature Source Oral Oral Pulse Rate 105 H 105 H Respiratory Rate 20 H 20 H Respiratory Effort Normal Respiratory Pattern Normal Blood Pressure 156/106 H 156/106 H Blood Pressure Mean 122 122 Pulse Ox 94 95 Oxygen Delivery Method Nasal Cannula Nasal Cannula Oxygen Flow Rate (L/min) 4 4 11/12/22 20:26 11/12/22 20:26 11/12/22 20:26 Temperature 102.6 F H 102.6 F H Temperature Source Oral Oral Pulse Rate 166 H 157 H Respiratory Rate 28 H 24 H Respiratory Effort Respiratory Pattern Blood Pressure 148/111 H 163/89 H Blood Pressure Mean 123 113 Pulse Ox 94 95 Oxygen Delivery Method Nasal Cannula Nasal Cannula Nasal Cannula Oxygen Flow Rate (L/min) 4 4 4 11/12/22 20:38 Temperature Temperature Source Pulse Rate 144 H Respiratory Rate 32 H Respiratory Effort Respiratory Pattern Tachypnea Blood Pressure Blood Pressure Mean Pulse Ox Oxygen Delivery Method Oxygen Flow Rate (L/min) Positive well nourished and well developed General Appearance ED: well developed HEENT Reports normocephalic, head/scalp atraumatic and moist mucous membranes Eyes PERRL and EOMs intact bilaterally Neck no lymphadenopathy, supple and no JVD Resp Resp Narrative: Patient appears to Neck Auscultation: rhonchi Cardio regular rate, regular rhythm and no murmurs Rate: tachycardic GI normal to inspection, nondistended, normoactive bowel sounds and non-tender Palpation: soft Back/Spine no CVA tenderness and normal ROM Extremity normal to inspection General Extremety ED: Negative for edema General Extremity: Negative for edema Neuro CN's II-XII intact bilaterally Neuro Narrative: Patient is confused and has difficulty with fine motor skills. Sensorium / Orientation: alert and orientation impaired Motor Exam: general weakness Psych Psych Narrative: Patient appears confused with poor coordination. Requires assistance to walk from end of bed to the middle of bed. Mood & Affect: Negative for depressed or tearful Skin no rashes or lesions noted and no wounds Skin Narrative: Patient's skin appears mottled of the lower extremities. Nailbeds appear a slight dusky blue. Sepsis Attestation Sepsis Attestation: Agree w/Sepsis Date exam was performed: 11/12/22 Time exam was performed: 21:22 Possible Source of Sepsis: Pulmonary Sepsis Organ Dysfunction Criteria Present: New/Unexplained change in mental status Sepsis Note Date exam was performed: 11/12/22 Time exam was performed: 21:24 Sepsis Attestation: Sepsis re-evaluation was performed MDM MDM MDM Narrative Medical decision making narrative: In sitting across from the patient's room I do hear quite a bit of coughing and labored breathing. Interpretation of the chest x-ray is right lower lobe right middle lobe infiltrate. White count returns at 12.2 with a hemoglobin of 6.7. The patient has a history of anemia and has not had an obvious source found for it. He has been taking iron supplementation and he has declined colonoscopy. He has not had to have blood transfusions in the past. His EKG shows A-fib with RVR. He is acutely febrile at 102.6. He received Tylenol IV fluids as well as Levaquin due to allergies. The patient received a DuoNeb and supplemental oxygen increased from 2 L to 4 L. Urinalysis does not show any overt infection. His lactic acid is normal. I did speak with the and daughter regarding transfusion risk benefits. They are in agreement that this would benefit him. Our plan will be hospitalization. Lab Data Attestation: I reviewed the patient's lab results. Labs: Laboratory Results - last 24 hr 11/12/22 11/12/22 11/12/22 19:25 20:15 20:24 WBC 12.2 H RBC 3.24 L Hgb 6.7 L Hct 25.5 L MCV 78.7 L MCH 20.7 L MCHC 26.3 L RDW Std Deviation 45.2 H RDW Coeff of Demetrius 16.2 H Plt Count 432 MPV 11.4 Immature Gran % (Auto) 0.700 Neut % (Auto) 84.2 H Lymph % (Auto) 6.8 L [place] % (Auto) 7.0 Eos % (Auto) 0.7 Baso % (Auto) 0.6 Absolute Neuts (auto) 10.2 H Absolute Lymphs (auto) 0.83 Nucleated RBC % 0 PT 18.2 H INR 1.5 APTT 53.1 H Sodium 143 Potassium 3.6 Chloride 112 H Carbon Dioxide 26.0 Anion Gap 5 BUN 12 Creatinine 0.91 Estim Creat Clear Calc 60.43 Est GFR (MDRD) Af Amer 102 Est GFR (MDRD) Non-Af 84 BUN/Creatinine Ratio 13.2 Glucose 145 H Lactic Acid 1.5 Calcium 7.9 L Total Bilirubin 0.30 AST 9 L ALT 12 L Alkaline Phosphatase 71 Troponin I High Sens 14 Total Protein 6.5 Albumin 3.0 L Globulin 3.5 Albumin/Globulin Ratio 0.9 Urine Color Yellow Urine Clarity Sl. Cloudy Urine pH 5.0 Ur Specific [place] 1.015 Urine Protein 15 H Urine Glucose (UA) Normal Urine Ketones Negative Urine Occult Blood 25 H Urine Nitrite Negative Urine Bilirubin Negative Urine Urobilinogen 1 H Ur Leukocyte Esterase Negative Urine RBC 0-5 SEEN Urine WBC 0 SEEN Ur Squamous Epith Cells 0-5 SEEN Amorphous Sediment 1+ URATE Urine Bacteria 0 SEEN Urine Mucus 0 SEEN Blood Type A POSITIVE Antibody Screen NEGATIVE Radiography Diagnostic Testing: Clinical Impression(s) from Imaging Studies Chest X-Ray 11/12/22 20:12 IMPRESSION: 1. Consolidative pulmonary opacities in the right lower lobe and perhaps the right middle lobe indicating pneumonia, new when compared to the prior examination. 2. COPD. Electronically Signed: Gurmeet Amaral DO at 20:25 EDT , EKG Initial EKG: Attestation: I personally reviewed and interpreted this EKG as follows: Comments: Atrial fibrillation with rapid ventricular response. Ventricular rate of 161 bpm. Baseline is making interpretation difficult due to the patient's shaking. Management Discussion w/another healthcare provider: Hospitalist Discharge Plan Dx/Rx/DC Orders Clinical Impression: Type 2 diabetes mellitus, Paroxysmal atrial fibrillation, Stage 3 severe COPD by GOLD classification, Anemia requiring transfusions, Acute encephalopathy, Pneumonia, Sepsis Disposition Disposition: Acute Care Hospital [facility]
[2022-11-12 20:05] LABS: Absolute Lymphocyte Count 0.83 X10^3/uL (0.83-4.51); Absolute Neutrophil Count 10.2 X10^3/uL (2.0-7.7); Basophil# 0.07 X10^3/uL; Basophil% 0.6 % (0-1); Eosinophil# 0.09 X10^3/uL; Eosinophils% 0.7 % (0-5); Hematocrit 25.5 % (40-54); Hemoglobin 6.7 g/dL (13.0-16.5); Lymphocyte # 0.83 X10^3/ul (0.83-4.51); Lymphocyte % 6.8 % (19-41); Mean Corp Hgb Conc 26.3 g/dL (32-36); Mean Corpuscular Hgb 20.7 pg (27.0-32.0); Mean Corpuscular Volume 78.7 fL (80-94); Mean Platelet Vol. 11.4 fl (6.2-12.0); Monocyte# 0.85 X10^3/uL; NRBC Flagged by Analyzer 0 % (0-5); Neutrophil # 10.24 X10^3/uL (2.7-7.7); Neutrophil % 84.2 % (47-70); Platelet Count 432 K/mm3 (150-450); RBC Distribution Width CV 16.2 % (11.6-14.6); RBC Distribution Width SD 45.2 fl (35.1-43.9); Red Blood Count 3.24 M/mm3 (4.6-6.2); White Blood Count 12.2 K/mm3 (4.4-11.0)
[2022-11-12] MEDS: Acetaminophen 500 MG Tablet 1000 MG PO (20:06)
[2022-11-12] MEDS: 0.9% Normal Saline (1000mL) 1,000 ML 999 ML IV (20:06)
--- NOTE | 2022-11-12 20:12 | RAD_ITS ---
EXAM: XR CHEST, 1 VIEW CLINICAL INDICATION: fever cough copd TECHNIQUE: Frontal view of the chest. COMPARISON: 05/11/2022 FINDINGS: LUNGS AND PLEURAL SPACES: Consolidative pulmonary opacities in the right lower lobe and perhaps the right middle lobe indicating pneumonia, new when compared to the prior examination. Hyperinflated lungs with diffuse interstitial prominence secondary to COPD. No pneumothorax. No effusion. HEART: No significant abnormality. Cardiac silhouette not enlarged. MEDIASTINUM: Central airways and mediastinal contour are unremarkable. BONES/JOINTS: No significant abnormality. SOFT TISSUES: No significant abnormality. VASCULATURE: Atherosclerosis. RAD/Chest 1 View (Portable) IMPRESSION: 1. Consolidative pulmonary opacities in the right lower lobe and perhaps the right middle lobe indicating pneumonia, new when compared to the prior examination. 2. COPD. Electronically Signed: Gurmeet Amaral DO at 20:25 EDT ,
[2022-11-12 20:16] LABS: International Normalized Ratio 1.5; Prothrombin Time (Protime)PT. 18.2 SECONDS (11.7-14.9)
[2022-11-12 20:18] LABS: Partial Thromboplast Time 53.1 Seconds (24.1-36.2)
[2022-11-12 20:23] LABS: Lactic Acid 1.5 mmol/L (0.4-1.9)
[2022-11-12 20:24] LABS: Bacteria 0 SEEN /hpf (None Seen); Mucous, Urine 0 SEEN /hpf (<or=2+); White Blood Cells 0 SEEN /hpf (0-5)
[2022-11-12 20:24] LABS: ALB/GLOB Ratio 0.9 RATIO (0.9-2.4); AST(SGOT) 9 U/L (15-37); Alanine Aminotransfer ALT/SGPT 12 U/L (16-61); Alkaline Phosphatase 71 U/L (45-117); Anion Gap 5 (5-15); BUN 12 mg/dL (7-18); BUN/Creat Ratio 13.2 RATIO (10-20); Calcium,Total 7.9 mg/dL (8.5-10.1); Chloride 112 mmol/L (98-107); Creatinine, Serum 0.91 mg/dL (0.70-1.30); EST Glomerular Filtration Rate 84 mL/min (>60); Est Glom Filt Rate - Afr Amer 102 mL/min (>60); Estimated Creatinine Clearance 60.43 ml/min; Globulin 3.5 g/dL (2.2-4.2); Glucose 145 mg/dL (74-106); Potassium 3.6 mmol/L (3.5-5.1); Protein, Total 6.5 g/dL (6.4-8.2); Sodium Level 143 mmol/L (136-145); Troponin-I HS 14 pg/mL (3.0-78.0)
[2022-11-12 20:26] LABS: Color, Urine Yellow (Yellow); Glucose, Dipstick Normal (Normal); Ketone-Dipstick Negative (Negative); Leukocyte Esterase-Dipstick Negative /ul (Negative); Nitrite-Dipstick Negative (Negative); Occult Blood-Urine 25 /ul (Negative); Protein-Dipstick 15 mg/dl (Negative); Specific Gravity, Urine 1.015 (1.002-1.030); Urine Bilirubin Dipstick Negative (Negative); Urine Clarity Sl. Cloudy (Clear); Urine Urobilinogen 1 mg/dl (Normal)
[2022-11-12 20:34] LABS: Amorphous Sediment 1+ URATE; Red Blood Cells-Urine 0-5 SEEN /hpf (0-5); Squamous Epithelial Cells - UA 0-5 SEEN /hpf (0-5)
[2022-11-12] MEDS: Ipratropium/Albuterol Sulfate 3 ML AMPUL.NEB INHALATION (20:38)
[2022-11-12] MEDS: levoFLOXacin IV 750 MG/150 ML BAG 100 MG IV (21:14)
[2022-11-12] MEDS: 0.9% Normal Saline (1000mL) 1,000 ML 250 ML IV (21:14)
--- NOTE | 2022-11-12 22:13 | HP.PCM.HOS_ITS ---
HPI - General General Date of Admission: 11/12/22 Date of Service: 11/12/22 Chief Complaint: Dyspnea HPI Narrative ANDREA DELUCA, is a 82 M significant history of chronic anemia on iron supplements; COPD on 3 L nasal cannula oxygen and diabetes mellitus who presents emergency department with 5-day history of on and off dyspnea. Associated with his symptoms is fever, chills, headache and confusion. Further the patient has been having increased frequency of urination. Also he has been having a dry cough. [facility] Medical History Anemia Arthritis Bruit of left carotid artery COPD (chronic obstructive pulmonary disease) Diabetes mellitus Diverticulitis Dupuytrens contracture GERD (gastroesophageal reflux disease) H/O inguinal hernia H/O: pneumonia History of pulmonary aspiration Lung mass Neuropathy Stage 3 severe COPD by GOLD classification Type 2 diabetes mellitus without complications Home Medications ferrous sulfate 325 mg (65 mg iron) tablet 325 mg PO DAILY 12/29/19 [History Last Taken Unknown] ipratropium 18 mcg-albuterol 103 mcg/actuation aerosol inhaler 1 spray inhalation DAILY PRN 12/29/19 [History Last Taken Unknown] blood sugar diagnostic (Blood Glucose Test strips) #100 ea 07/04/20 [Rx Last Taken Unknown] lancets 28 gauge (FreeStyle Lancets) #100 ea 07/04/20 [Rx Last Taken Unknown] albuterol sulfate 2.5 mg/3 mL (0.083 %) solution for nebulization 2.5 mg (3 mL) inhalation Q4H PRN shortness of breath or wheezing #180 mL 01/23/22 [Rx Last Taken 02/11/22] albuterol sulfate 90 mcg/actuation aerosol inhaler 2 puff inhalation Q6H PRN shortness of breath or wheezing #3 device 01/23/22 [Rx Last Taken 02/11/22] pantoprazole 40 mg tablet,delayed release 80 mg (2 x 40 mg) PO DAILY #30 tabs 02/14/22 [Rx Last Taken Unknown] gabapentin 100 mg capsule 100 mg PO TID #270 caps 05/15/22 [Rx Last Taken Unknown] simvastatin 40 mg tablet 40 mg PO DAILY #90 tabs 06/27/22 [Rx Last Taken Unknown] fluticasone fur. 200 mcg-umeclid 62.5 mcg-vilant 25 mcg inhalat.powder (Trelegy Ellipta) 1 inh inhalation DAILY #3 ea 07/15/22 [Rx Last Taken Unknown] tamsulosin 0.4 mg capsule 0.4 mg PO QHS #90 caps 09/11/22 [Rx Last Taken Unknown] Handicap placard #1 ea 10/24/22 [Rx Last Taken Unknown] apixaban 5 mg tablet (Eliquis) 5 mg PO BID #180 tabs 10/31/22 [Rx Last Taken Un known] metformin 500 mg tablet See Rx Instructions .Route .COMPLEX #180 tabs 10/31/22 [Rx Last Taken Unknown] metoprolol tartrate 25 mg tablet 12.5 mg (1/2 x 25 mg) PO BID #90 tabs 10/31/22 [Rx Last Taken Unknown] oxycodone 10 mg tablet 10 mg PO DAILY PRN 11/12/22 [History Last Taken Unknown] Allergy/AdvReac Type Severity Reaction Status Date / Time Penicillins Allergy Severe Hives Verified 11/12/22 20:42 erythromycin base AdvReac Severe Nausea/Vom/ Verified 11/12/22 20:42 Diarrhea Family History Father Cancer Brother Parkinsons disease Mother Diverticulitis Surgical History History of carpal tunnel release Social History household members: spouse Smoking Status: Former smoker Tobacco: How many years used: 40 Electronic Cigarette Use: not used how long ago did patient quit smokin second hand exposure: Yes alcohol intake: never substance use type: does not use caffeine: Yes Type: coffee Number of servings: 1 what type of physical activity do you participate in: none ROS ROS Narrative Pertinent positives and pertinent negatives as noted in HPI. All other systems were reviewed and are negative Vital Signs Vital Signs Vital Signs: 11/12/22 19:21 11/12/22 19:26 11/12/22 19:26 Temperature 98.7 F 98.5 F Temperature Source Oral Oral Pulse Rate 105 H 105 H Respiratory Rate 20 H 20 H Respiratory Effort Normal Respiratory Pattern Normal Blood Pressure 156/106 H 156/106 H Blood Pressure Mean 122 122 Blood Pressure Source Blood Pressure Position Blood Pressure Location Pulse Ox 94 95 Oxygen Delivery Method Nasal Cannula Nasal Cannula Oxygen Flow Rate (L/min) 4 4 11/12/22 20:26 11/12/22 20:26 11/12/22 20:26 Temperature 102.6 F H 102.6 F H Temperature Source Oral Oral Pulse Rate 166 H 157 H Respiratory Rate 28 H 24 H Respiratory Effort Respiratory Pattern Blood Pressure 148/111 H 163/89 H Blood Pressure Mean 123 113 Blood Pressure Source Blood Pressure Position Blood Pressure Location Pulse Ox 94 95 Oxygen Delivery Method Nasal Cannula Nasal Cannula Nasal Cannula Oxygen Flow Rate (L/min) 4 4 4 11/12/22 20:38 11/12/22 21:53 11/12/22 21:57 Temperature 99.3 F H 99.3 F H Temperature Source Oral Oral Pulse Rate 144 H 129 H 129 H Respiratory Rate 32 H 28 H 28 H Respiratory Effort Respiratory Pattern Tachypnea Blood Pressure 133/49 H 133/78 H Blood Pressure Mean 77 96 Blood Pressure Source Monitor Blood Pressure Position Sitting Blood Pressure Location Left Arm Pulse Ox 96 95 Oxygen Delivery Method Nasal Cannula Nasal Cannula Oxygen Flow Rate (L/min) 4 4 11/12/22 21:57 Temperature 99.3 F H Temperature Source Oral Pulse Rate 129 H Respiratory Rate 28 H Respiratory Effort Respiratory Pattern Blood Pressure 133/78 H Blood Pressure Mean 96 Blood Pressure Source Blood Pressure Position Blood Pressure Location Pulse Ox 96 Oxygen Delivery Method Nasal Cannula Oxygen Flow Rate (L/min) 4 Weight Weight: 83.5 kg Body Mass Index (BMI) 27.1 Physical Exam Narrative Physical exam: General: Well-nourished, well-developed. Head: Normocephalic, atraumatic, no tenderness Eyes: Vision is grossly intact. EOMI ENT, no trauma, moist mucous membranes, no rhinorrhea Neck: Nontender, No thyromegaly. CVS: Tachycardia. Irregularly irregular.. S1-S2 present. No murmur, gallop or rub. Respiratory : Tachypnea; diminished breath sounds right base. Abdomen: Soft, nontender, nondistended, normal bowel sounds, no masses : Deferred Back: Nontender, no CVA tenderness, no midline spinal tenderness, deformities, step-offs Extremities: Nontender full range of motion, no trauma Skin: Normal color, no trauma, abrasions Neuro: Alert, oriented, cranial nerves II through XII grossly intact. Psychiatry: Normal mood. Normal affect. Not depressed. Not anxious. Results Lab / Micro Data 11/12/22 19:25 11/12/22 19:25 Labs: Laboratory Results - last 24 hr 11/12/22 19:25: WBC 12.2 H, RBC 3.24 L, Hgb 6.7 L, Hct 25.5 L, MCV 78.7 L, MCH 20.7 L, MCHC 26.3 L, RDW Std Deviation 45.2 H, RDW Coeff of Demetrius 16.2 H, Plt Count 432, MPV 11.4, Immature Gran % (Auto) 0.700, Neut % (Auto) 84.2 H, Lymph % (Auto) 6.8 L, [place] % (Auto) 7.0, Eos % (Auto) 0.7, Baso % (Auto) 0.6, Absolute Neuts (auto) 10.2 H, Absolute Lymphs (auto) 0.83, Nucleated RBC % 0, PT 18.2 H, INR 1.5, APTT 53.1 H, Sodium 143, Potassium 3.6, Chloride 112 H, Carbon Dioxide 26.0, Anion Gap 5, BUN 12, Creatinine 0.91, Estim Creat Clear Calc 60.43, Est GFR (MDRD) Af Amer 102, Est GFR (MDRD) Non-Af 84, BUN/Creatinine Ratio 13.2, Glucose 145 H, Lactic Acid 1.5, Calcium 7.9 L, Total Bilirubin 0.30, AST 9 L, ALT 12 L, Alkaline Phosphatase 71, Troponin I High Sens 14, Total Protein 6.5, Albumin 3.0 L, Globulin 3.5, Albumin/Globulin Ratio 0.9 11/12/22 20:15: Urine Color Yellow, Urine Clarity Sl. Cloudy, Urine pH 5.0, Ur Specific [place] 1.015, Urine Protein 15 H, Urine Glucose (UA) Normal, Urine Ketones Negative, Urine Occult Blood 25 H, Urine Nitrite Negative, Urine Bilirubin Negative, Urine Urobilinogen 1 H, Ur Leukocyte Esterase Negative, Urine RBC 0-5 SEEN, Urine WBC 0 SEEN, Ur Squamous Epith Cells 0-5 SEEN, Amorphous Sediment 1+ URATE, Urine Bacteria 0 SEEN, Urine Mucus 0 SEEN 11/12/22 20:24: Blood Type A POSITIVE, Antibody Screen NEGATIVE, Crossmatch See Detail Micro: Microbiology 11/12/22 20:10 Nasal Secretion SARS-CoV-2 & FLU Antigen (Rapid) - Final Radiology Impression Chest X-Ray 11/12/22 20:12 IMPRESSION: 1. Consolidative pulmonary opacities in the right lower lobe and perhaps the right middle lobe indicating pneumonia, new when compared to the prior examination. 2. COPD. Electronically Signed: Gurmeet Amaral, at 20:25 EDT , Assessment & Plan Assessment/Plan (1) Pneumonia: QUALIFIERS: Pneumonia type: due to unspecified organism Laterality: right Lung location: unspecified part of lung Qualified Code(s): J18.9 - Pneumonia, unspecified organism (2) SIRS (systemic inflammatory response syndrome): (3) Paroxysmal atrial fibrillation: PLAN: Plan Pneumonia with SIRS Tachycardia, tachypnea, white count of more than 12. Source of infection. However no organ dysfunction. Sepsis ruled out. Allergic to penicillins. Levaquin IV in azithromycin ordered Blood culture ?2 is pending Impression of chest x-ray by radiology: 1. Consolidative pulmonary opacities in the right lower lobe and perhaps the right middle lobe indicating pneumonia, new when compared to the prior examination. 2. COPD. Antibiotics []1. Consolidative pulmonary opacities in the right lower lobe and perhaps the right middle lobe indicating pneumonia, new when compared to the prior examination. Chest x-ray image was independently interpreted, I agree radiologist interpretation above. IV hydration. Legionella antigen screen and Strep antigen ordered Sepsis ruled out as there is no organ dysfunction A-fib RVR On metoprolol and p.o. Eliquis continued. IV metoprolol given. DVT prophylaxis: Not indicated as patient is on Eliquis and Eliquis has been continued. Time spent in the patient's overall evaluation,decision-making process, review of diagnostic data, adjustment of management, discussion with other providers, nursing nursing and ancillary staff involved in patient's care documentation, 70 MINUTES Charges/Coding Visit Charges Inpatient E&M: 24985 Init Hosp L3
[2022-11-12] MEDS: Metoprolol Tartrate 5 MG/5 ML Vial IV ×2 (22:48→23:02)
[2022-11-13] VITALS (21 sets, daily range): BP systolic 105–125; BP diastolic 48–75; PULSE 83–130; RESP 16–28; TEMP 36.5–37.1; O2SAT 85–97; BMI 29.8
[2022-11-13] MEDS: dilTIAZem 25 MG/5 ML Vial 10 MG IV BOLUS (04:42)
--- NOTE | 2022-11-13 05:07 | CT_ITS ---
EXAM: CT ANGIOGRAPHY CHEST WITHOUT AND WITH INTRAVENOUS CONTRAST CLINICAL INDICATION: PE PE. Shortness of breath. Fever. Confusion. Elevated white blood cell count. TECHNIQUE: Helically acquired angiography images were obtained of the chest without and with intravenous contrast. This CT exam was performed using one or more of the following dose reduction techniques: automated exposure control, adjustment of the mA and/or kV according to patient size, and/or use of iterative reconstruction technique. MIP reconstructed images were created and reviewed. CONTRAST: IV 100mL Isovue-370 RADIATION DOSE: CTDIvol = 13.66 mGy, DLP = 516.83 mGy-cm COMPARISON: Chest x-ray 11/12/2022. CT scan chest 04/16/2022. FINDINGS: PULMONARY ARTERIES: Unremarkable. Normal in caliber. No evidence of pulmonary embolism. AORTA: There is atherosclerotic calcification of the thoracic aorta. Normal in caliber. No evidence of dissection. GREAT VESSELS OF AORTIC ARCH: Unremarkable. Normal in caliber. No evidence of dissection. LUNGS AND PLEURAL SPACES: There are dense pulmonary airspace infiltrates in the right lower lobe and right middle lobe which are markedly worsened from previous study. There is a small patchy airspace infiltrate in the left lower lobe. There is mild atelectasis or infiltration in the posterior left upper lobe. There is bilateral bronchial wall thickening, which is worsened from previous study. The lungs are generally hyperexpanded, consistent with COPD. There are small bilateral pleural effusions. No mass. HEART: There are coronary artery calcifications. Heart size is normal. No pericardial effusion. MEDIASTINUM: There are enlarged mediastinal lymph nodes with short axis diameters ranging up to 1.2 cm in AP window, 1.5 cm in the pretracheal and precarinal region and 1.6 cm in subcarinal region. These lymph nodes are new or larger when compared with previous CT scan. There are enlarged right hilar lymph nodes, with short axis diameters ranging up to 1.6 cm, which is also increased in size and number from previous study. Esophagus is unremarkable. No hiatal hernia. THYROID: Unremarkable. No thyroid lesions. BONES/JOINTS: There are multilevel degenerative changes in the visualized spine. No suspicious lytic or blastic abnormality. CT/CTA Chest W/WO Contrast IMPRESSION: 1. No evidence for pulmonary embolism, aortic aneurysm, or aortic dissection. 2. Right lower lobe and right middle lobe pneumonia are substantially worsened from previous study. New finding of a minimal left lower lobe pneumonia. New finding of small bilateral pleural effusions. 3. Markedly worsening bronchial wall thickening bilaterally, consistent with inflammation and/or infection. 4. Worsening enlargement of mediastinal and right hilar lymph nodes, probably representing reactive nodes. 5. Suggestion of COPD. Electronically Signed: Ed Stapleton MD at 7:21 EDT Reading Location ID and State: [facility] / [place] , Service support ,
--- NOTE | 2022-11-13 05:07 | CPS ---
Attempted Bipap with pt. He did not tolerate bipap at all. RT worked with pt with different settings from high to low. He could not continue to with bipap at all. RT was able to switch pt to AIRVO 45L and 50% with humidity.. Pt tolerated AIRVO well.
[2022-11-13] MEDS: 0.9% Saline Lock 10 ML Syringe IV ×2 (06:05→06:37)
[2022-11-13] MEDS: LORazepam 2 MG/ML Syringe IV (06:05)
--- NOTE | 2022-11-13 08:25 | PN.HOSP_ITS ---
Reason for Visit Reason for Visit: Shortness of breath Subjective Subjective Mr. Casillas is an 82-year-old white male who presented to the emergency department [facility] on 11/13/2022 who presented to emergency department at [facility] with generalized weakness. He evidently also had fever and confusion. He has a chronic cough which family states stated that it was unchanged but worse overall. He noted that he had occasional sputum production which was not abnormal for him. He did complain of shortness of breath which is chronic. They also noted that he had increased urination and an occasional emesis. They did indicate that he had a fever of the last 4 days and noticed that his confusion was exhibited by him speaking out incoherently. He has been eating and drinking well. He been taking Tylenol twice a day and did have a dose on the day of presentation but timing was unclear. He has chronic atrial fibrillation and is on apixaban. On presentation his temperature was 98.7 but had a Tmax in the emergency department 102.6, heart rate was 105, blood pressure was 156/106, respiratory was 20 and oxygen saturations were 94% on 4 L nasal cannula. Room air oxygen saturation has not been documented. The patient does meet criteria for sepsis. CBC on presentation showed a white count of 12.2, hemoglobin of 6.7 down from baseline of 8-9 which is microcytic in nature and normal platelet count. Coags were elevated based on his use of apixaban at baseline. His chemistry panel was overall unremarkable other than hyperglycemia with a blood glucose of 145. Lactic acid was normal at 1.5. His UA is not consistent with infection. Chest x-ray showed consolidative pulmonary opacities in the right lower lobe and right middle lobe indicative of pneumonia and COPD. CTA of the chest was performed which was negative for pulmonary embolism, aortic aneurysm or aortic dissection but did show a right lower lobe and right middle lobe pneumonia as well as some minimal infiltration of the left lower lobe and small bilateral pleural effusions as well as mediastinal and right hilar lymph node enlargement and worsening bronchial wall thickening bilaterally. He was ordered 2 units of packed red blood cells in the emergency department and placed on broad-spectrum antibiotics with aztreonam. It does not appear that he has any recent hospitalizations. States that he is feeling a little bit better today. Family indicates that steroids had helped him significantly in the past when he has had pneumonias in the past. He has had 2 previous pneumonias but nothing recently. He has not been hospitalized recently per the family or himself. He states he is not really coughing up anything however while I was at the bedside he was able to cough up a large amount of sputum which we did send for culture. Objective Data Objective Data Vital Signs: Vital Signs Temp Pulse Resp BP Pulse Ox O2 Del Method O2 Flow Rate 98.8 F 90 18 124/57 H 94 Airvo 45 11/13/22 06:55 11/13/22 07:38 11/13/22 07:38 11/13/22 06:55 11/13/22 07:38 11/13/22 07:38 11/13/22 07:38 FiO2 45 11/13/22 07:38 Oxygen Flow Rate (L/min) 45 Oxygen Delivery Method Airvo Weight: 83.8 kg Body Mass Index (BMI) 29.8 Intake & Output: Intake and Output for Last 24 Hours 11/11/22 11/12/22 11/13/22 23:59 23:59 23:59 Intake Total 1150 / 1150 850 / 850 Output Total 300 / 300 Balance 1150 / 1150 550 / 550 Lab / Micro Data 11/12/22 19:25 11/12/22 19:25 Labs: Laboratory Results - last 24 hr 11/12/22 19:25: WBC 12.2 H, RBC 3.24 L, Hgb 6.7 L, Hct 25.5 L, MCV 78.7 L, MCH 20.7 L, MCHC 26.3 L, RDW Std Deviation 45.2 H, RDW Coeff of Demetrius 16.2 H, Plt Count 432, MPV 11.4, Immature Gran % (Auto) 0.700, Neut % (Auto) 84.2 H, Lymph % (Auto) 6.8 L, [place] % (Auto) 7.0, Eos % (Auto) 0.7, Baso % (Auto) 0.6, Absolute Neuts (auto) 10.2 H, Absolute Lymphs (auto) 0.83, Nucleated RBC % 0, PT 18.2 H, INR 1.5, APTT 53.1 H, Sodium 143, Potassium 3.6, Chloride 112 H, Carbon Dioxide 26.0, Anion Gap 5, BUN 12, Creatinine 0.91, Estim Creat Clear Calc 60.43, Est GFR (MDRD) Af Amer 102, Est GFR (MDRD) Non-Af 84, BUN/Creatinine Ratio 13.2, Glucose 145 H, Lactic Acid 1.5, Calcium 7.9 L, Total Bilirubin 0.30, AST 9 L, ALT 12 L, Alkaline Phosphatase 71, Troponin I High Sens 14, Total Protein 6.5, Albumin 3.0 L, Globulin 3.5, Albumin/Globulin Ratio 0.9 11/12/22 20:15: Urine Color Yellow, Urine Clarity Sl. Cloudy, Urine pH 5.0, Ur Specific Warren 1.015, Urine Protein 15 H, Urine Glucose (UA) Normal, Urine Ketones Negative, Urine Occult Blood 25 H, Urine Nitrite Negative, Urine Bilirubin Negative, Urine Urobilinogen 1 H, Ur Leukocyte Esterase Negative, Urine RBC 0-5 SEEN, Urine WBC 0 SEEN, Ur Squamous Epith Cells 0-5 SEEN, Amorphous Sediment 1+ URATE, Urine Bacteria 0 SEEN, Urine Mucus 0 SEEN 11/12/22 20:24: Blood Type A POSITIVE, Antibody Screen NEGATIVE, Crossmatch See Detail Micro: Microbiology 11/12/22 20:15 Urine, Clean Catch Legionella Antigen - Final 11/12/22 20:15 Urine, Clean Catch Streptococcus pneumoniae Antigen (M - Final 11/12/22 20:10 Nasal Secretion SARS-CoV-2 & FLU Antigen (Rapid) - Final Radiography Diagnostic Testing: Radiology Impression Chest X-Ray 11/12/22 20:12 IMPRESSION: 1. Consolidative pulmonary opacities in the right lower lobe and perhaps the right middle lobe indicating pneumonia, new when compared to the prior examination. 2. COPD. Electronically Signed: Gurmeet Amaral DO at 20:25 EDT , Chest CTA 11/13/22 05:07 IMPRESSION: 1. No evidence for pulmonary embolism, aortic aneurysm, or aortic dissection. 2. Right lower lobe and right middle lobe pneumonia are substantially worsened from previous study. New finding of a minimal left lower lobe pneumonia. New finding of small bilateral pleural effusions. 3. Markedly worsening bronchial wall thickening bilaterally, consistent with inflammation and/or infection. 4. Worsening enlargement of mediastinal and right hilar lymph nodes, probably representing reactive nodes. 5. Suggestion of COPD. Electronically Signed: Ed Stapleton MD at 7:21 EDT Reading Location ID and State: [facility] / [place] , Service support , Physical Exam Const alert, oriented x3, no apparent distress and well nourished; Negative for average body habitus or healthy appearing Constitutional Narrative: Overweight, elderly, ill-appearing, white male, lying in bed, appears comfortable at this time, currently on Airvo, appears significantly fatigued HEENT head/scalp atraumatic, moist oral mucous membranes and oropharynx normal HEENT Narrative: Dentition is poor, Mallampati is 1, no thrush Head and Scalp: normocephalic Eyes PERRL and EOMs intact bilaterally Eyes Narrative: Scleral icterus oral icterus, conjunctiva are pale bilaterally Neck no lymphadenopathy and supple Neck Narrative: Trachea midline, no thyroid Resp no retractions and no use of accessory muscles Resp Narrative: Mild rhonchorous sounds bilateral lungs, with rhonchorous sounding cough and sputum production was at the bedside, currently on Airvo, significantly diminished diffusely as well Auscultation: rhonchi; Negative for rales or wheezes Cardio regular rate, regular rhythm, S1 normal heart sound, S2 normal heart sound, no murmurs, no rub, no gallops and no clicks GI normal to inspection, nondistended, normoactive bowel sounds, soft to palpation and non-tender Extremity no clubbing, cyanosis or edema Extremity Narrative: Pedal pulses are 2+ Skin no rashes or lesions noted, no wounds, skin turgor normal, no jaundice, no p etechiae and no mottling Skin Narrative: Skin is pale Neuro oriented x3, CN's II-XII intact bilaterally, moves all extremities and no focal motor deficits Neuro Narrative: Significant generalized weakness but no focal deficits Speech: speech normal Psych Psych Narrative: Affect is flattened patient appears fatigued which is appropriate for his current medical condition Assessment & Plan Assessment/Plan (1) Pneumonia: QUALIFIERS: Laterality: right Lung location: unspecified part of lung Pneumonia type: due to unspecified organism Qualified Code(s): J18.9 - Pneumonia, unspecified organism (2) Acute anemia: (3) Chronic atrial fibrillation with RVR: (4) Paroxysmal atrial fibrillation with RVR: (5) Toxic metabolic encephalopathy: PLAN: Plan Pneumonia -Patient does not meet sepsis criteria based on sep 3 guidelines -He does meet SIRS criteria with a source on presentation CT and x-ray are consistent with right middle and lower lobe pneumonia as well as possible left lower lobe pneumonia -Strep pneumo and Legionella antigens are negative -COVID and flu are negative -Blood, sputum, and urine cultures are pending -Thus far have been unable to collect sputum culture -Add incentive spirometry and Pep therapy with Acapella -Add steroids with history of significant COPD--> Solu-Medrol 40 every 8 -Baseline oxygen requirement is 3 L and patient is currently requiring Airvo at 45% and flow rate of 45 L/min -Wean as able -Continue aztreonam and continue Levaquin -Add vancomycin for now -Check MRSA PCR Acute on chronic anemia -Hemoglobin on presentation was 6.7 -Baseline hemoglobin over the last several months appears to be between 8 and 9 -Patient transfused 2 units packed red blood cells on presentation -Iron studies unable to be obtained because he was transfused prior to these being able to be drawn -Continue home iron supplementation -Check guaiac stool -Hold apixaban -Consult GI Toxic/metabolic encephalopathy -Resolved -Likely related to the above Paroxysmal atrial fibrillation with RVR -Patient is now converted back to normal sinus rhythm -Likely related to pneumonia -Hold Eliquis due to severe anemia on presentation -Continue metoprolol 12.5 mg p.o. he -Continue to monitor on telemetry DM-2 -Hold metformin -SSI -Accu-Cheks as ordered -Cardiac/carb controlled diet Diabetic neuropathy -Continue home gabapentin Chronic hypoxic respiratory failure secondary to stage III COPD -Patient wears 3 L of oxygen at baseline -We will attempt to titrate back to this prior to discharge -Aerosols as above -Prednisone as above -Hold home inhalers -Last PFTs showed an FEV1 of 65% predicted -Follows with Dr. Donovan SMITH -Continue home Protonix DVT prophylaxis -SCDs -Hold home Eliquis due to severe anemia on presentation CODE STATUS -Full code Charges/Coding Visit Charges Inpatient E&M: 12068 Subs Hosp L2
--- NOTE | 2022-11-13 11:20 | CASEMGMT ---
RN MC Face to Face with patient for initial transition planning/care coordination assessment. RN CM introduced self and role at [facility]. Patient lying in bed, alert and oriented. Patient willing to participate in assessment and is able to answer all questions appropriately. Care providers, pharmacy, and demographics verified. Patient wishes to discharge home, will monitor progress with therapy and course of treatment. Patient states he has no further needs or concerns at this time. CM to follow for discharge planning needs that may arise. PCP: Dyan Specialists: none Preferred Pharmacy: [facility] Insurance: [employer] [facility] Prescription Benefit: yes Living Will/HPOA: yes, and daughter LNOK: , daughter, son Living Arrangements: Patient lives with in a single story home with 1-2 steps to enter. has beginning stages of dementia, daughter with . Patient states he was independent at home prior to hospitalization Transportation: self, daughter DME/HHC: Patient has raised toilet, cane, walker, nebulizer, and home oxygen through [facility] with portability. No previous HHC or SNF Disposition Plan: TBD, anticipate HHC vs SNF pending progress with therapy and course of treatment. Darleen TILLMAN, RN, CM
[2022-11-13] MEDS: Vancomycin HCl 2,000 MG in 0.9% Normal Saline (500mL Bag) 500 ML 250 MG IV (11:52)
[2022-11-13] MEDS: Pantoprazole Sodium 40 MG Tablet 80 MG PO (11:53)
[2022-11-13] MEDS: Metoprolol Tartrate 25 MG Tablet 12.5 MG PO ×2 (11:53→22:35)
[2022-11-13] MEDS: Ferrous Sulfate 325 MG Tablet PO (11:54)
[2022-11-13] MEDS: Atorvastatin Calcium 20 MG Tablet PO (11:54)
[2022-11-13] MEDS: guaiFENesin 600 MG Tablet PO ×2 (11:56→22:34)
--- NOTE | 2022-11-13 12:29 | PCM.RX.CS ---
Consult Antibiotic Management Pharmacy has been consulted to manage selected antiobiotic: Vancomycin Type of Intervention Type of Consult: New start Suspected Infection Suspected Infection: Pneumonia Prior Doses of Antibiotics Prior Doses of Antibiotics Received/Current Regimen: Loading dose of 2000mg iv x 1. Labs Labs: Sodium 143 mmol/L (136-145) 11/12/22 19:25 Potassium 3.6 mmol/L (3.5-5.1) 11/12/22 19:25 Chloride 112 mmol/L (98-107) H 11/12/22 19:25 Carbon Dioxide 26.0 mmol/L (21.0-32.0) 11/12/22 19:25 Anion Gap 5 (5-15) 11/12/22 19:25 BUN 12 mg/dL (7-18) 11/12/22 19:25 Creatinine 0.91 mg/dL (0.70-1.30) 11/12/22 19:25 Est GFR (MDRD) Af Amer 102 mL/min (>60) 11/12/22 19:25 Est GFR (MDRD) Non-Af 84 mL/min (>60) 11/12/22 19:25 BUN/Creatinine Ratio 13.2 RATIO (10-20) 11/12/22 19:25 Glucose 145 mg/dL (74-106) H 11/12/22 19:25 Microbiology Microbiology: Microbiology 11/12/22 20:15 Urine, Clean Catch Legionella Antigen - Final 11/12/22 20:15 Urine, Clean Catch Streptococcus pneumoniae Antigen (M - Final 11/12/22 20:10 Nasal Secretion SARS-CoV-2 & FLU Antigen (Rapid) - Final Dosing Weight Weight used for dosin.8 kg Estimated Creatinine Clearance Estimated Creatinine Clearance: 61 ml/min Goal Trough Goal Trough: 15-20 mcg/mL Pharmacy Plan for Drug Dosing Pharmacy Plan for Drug Dosing: Renal CrCl ~61ml/min using calculated adj. BW of 71.5kg. Recommend starting dose of 1000mg iv q12 beginning 12hrs after loading dose with Trough level before 4th total dose. Pharmacy Service will continue to monitor and adjust dosing as required. Follow-Up Labs Follow-Up Labs: Trough: Vancomycin (11.14.22 @2330)
[2022-11-13 12:30] LABS: Bedside Glucose 106 mg/dL (74-106)
[2022-11-13] MEDS: Ipratropium/Albuterol Sulfate 3 ML AMPUL.NEB INHALATION ×2 (14:05→20:02)
[2022-11-13] MEDS: Gabapentin 100 MG Capsule PO ×2 (14:25→22:40)
[2022-11-13] MEDS: Acetaminophen 500 MG Tablet 1000 MG PO (14:25)
[2022-11-13] MEDS: Methylprednisolone Sod Succ 40 MG/ML VIAL IV ×2 (14:25→22:30)
[2022-11-13] MEDS: levoFLOXacin IV 750 MG/150 ML BAG 100 MG IV (14:25)
[2022-11-13 15:00] LABS: Absolute Lymphocyte Count 1.39 X10^3/uL (0.83-4.51); Absolute Neutrophil Count 8.6 X10^3/uL (2.0-7.7); Basophil# 0.04 X10^3/uL; Basophil% 0.4 % (0-1); Eosinophil# 0.09 X10^3/uL; Eosinophils% 0.8 % (0-5); Hematocrit 29.6 % (40-54); Hemoglobin 8.3 g/dL (13.0-16.5); Lymphocyte # 1.39 X10^3/ul (0.83-4.51); Lymphocyte % 12.3 % (19-41); Mean Corpuscular Hgb 22.6 pg (27.0-32.0); Mean Corpuscular Volume 80.7 fL (80-94); Mean Platelet Vol. 11.2 fl (6.2-12.0); Monocyte# 1.18 X10^3/uL; Monocyte% 10.4 % (0-10); NRBC Flagged by Analyzer 0.2 % (0-5); Neutrophil # 8.56 X10^3/uL (2.7-7.7); Neutrophil % 75.4 % (47-70); Platelet Count 377 K/mm3 (150-450); RBC Distribution Width CV 16.7 % (11.6-14.6); RBC Distribution Width SD 47.7 fl (35.1-43.9); Red Blood Count 3.67 M/mm3 (4.6-6.2); White Blood Count 11.3 K/mm3 (4.4-11.0)
--- NOTE | 2022-11-13 15:31 | CASEMGMT ---
REINA CM called to verify oxygen orders with [facility]. REINA BENTLEY informed by [facility] that patient only has a nebulizer through them but no oxygen. Ginna JENSENN, RN, CM
[2022-11-13 17:53] LABS: Bedside Glucose 186 mg/dL (74-106)
--- NOTE | 2022-11-13 18:46 | CON.PCM.GI_ITS ---
HPI Consult Data Date of Consult: 11/13/22 HPI Narrative Reason for Consultation: GI bleed HPI Narrative: CODY DELUCA, is a 82 M who presents with worsening shortness of breath. He also has a past medical history of chronic anemia on iron supplements; COPD on 3 L nasal cannula oxygen and diabetes mellitus who presents emergency department with 5-day history of on and off dyspnea. Associated with his symptoms is fever, chills, headache and confusion. Further the patient has been having increased frequency of urination. Also he has been having a dry cough. His family says that he has been having emesis. They also report fever over the last 4 days. Today they noticed confusion exhibited by speaking to himself incoherently. Patient states he has been eating and drinking. He has been taking Tylenol twice a day today he did have a dose but is unclear of exactly when his there is a discrepancy between what he states in the family. No reported syncope. He is on apixaban reportedly for atrial fibrillation. [facility] Medical History Anemia Arthritis Bruit of left carotid artery COPD (chronic obstructive pulmonary disease) Diabetes mellitus Diverticulitis Dupuytrens contracture GERD (gastroesophageal reflux disease) H/O inguinal hernia H/O: pneumonia History of pulmonary aspiration Lung mass Neuropathy Stage 3 severe COPD by GOLD classification Type 2 diabetes mellitus without complications Home Medications ferrous sulfate 325 mg (65 mg iron) tablet 325 mg PO DAILY 12/29/19 [History Last Taken Unknown] ipratropium 18 mcg-albuterol 103 mcg/actuation aerosol inhaler 1 spray inhalation DAILY PRN 12/29/19 [History Last Taken Unknown] blood sugar diagnostic (Blood Glucose Test strips) #100 ea 07/04/20 [Rx Last Taken Unknown] lancets 28 gauge (FreeStyle Lancets) #100 ea 07/04/20 [Rx Last Taken Unknown] albuterol sulfate 2.5 mg/3 mL (0.083 %) solution for nebulization 2.5 mg (3 mL) inhalation Q4H PRN shortness of breath or wheezing #180 mL 01/23/22 [Rx Last Taken 02/11/22] albuterol sulfate 90 mcg/actuation aerosol inhaler 2 puff inhalation Q6H PRN shortness of breath or wheezing #3 device 01/23/22 [Rx Last Taken 02/11/22] pantoprazole 40 mg tablet,delayed release 80 mg (2 x 40 mg) PO DAILY #30 tabs 02/14/22 [Rx Last Taken Unknown] gabapentin 100 mg capsule 100 mg PO TID #270 caps 05/15/22 [Rx Last Taken Unknown] simvastatin 40 mg tablet 40 mg PO DAILY #90 tabs 06/27/22 [Rx Last Taken Unknown] fluticasone fur. 200 mcg-umeclid 62.5 mcg-vilant 25 mcg inhalat.powder (Trelegy Ellipta) 1 inh inhalation DAILY #3 ea 07/15/22 [Rx Last Taken Unknown] tamsulosin 0.4 mg capsule 0.4 mg PO QHS #90 caps 09/11/22 [Rx Last Taken Unknown] Handicap placard #1 ea 10/24/22 [Rx Last Taken Unknown] apixaban 5 mg tablet (Eliquis) 5 mg PO BID #180 tabs 10/31/22 [Rx Last Taken Unknown] metformin 500 mg tablet See Rx Instructions .Route .COMPLEX #180 tabs 10/31/22 [Rx Last Taken Unknown] metoprolol tartrate 25 mg tablet 12.5 mg (1/2 x 25 mg) PO BID #90 tabs 10/31/22 [Rx Last Taken Unknown] oxycodone 10 mg tablet 10 mg PO DAILY PRN 11/12/22 [History Last Taken Unknown] Allergy/AdvReac Type Severity Reaction Status Date / Time Penicillins Allergy Severe Hives Verified 11/12/22 20:42 erythromycin base AdvReac Severe Nausea/Vom/ Verified 11/12/22 20:42 Diarrhea Family History Father Cancer Brother Parkinsons disease Mother Diverticulitis Surgical History History of carpal tunnel release Social History household members: spouse Smoking Status: Former smoker Tobacco: How many years used: 40 Electronic Cigarette Use: not used how long ago did patient quit smokin second hand exposure: Yes alcohol intake: never substance use type: does not use caffeine: Yes Type: coffee Number of servings: 1 what type of physical activity do you participate in: none ROS ROS Narrative Pertinent positives and pertinent negatives as noted in HPI. All other systems were reviewed and are negative Physical Exam Narrative Physical exam: General: Head: Normocephalic, atraumatic, no tenderness Eyes: Vision is grossly intact. EOMI ENT, no trauma, moist mucous membranes, no rhinorrhea Neck: Nontender, No thyromegaly. CVS: Tachycardia. Irregularly irregular.. S1-S2 present. No murmur, gallop or rub. Respiratory : Tachypnea; diminished breath sounds right base. Abdomen: Soft, nontender, nondistended, normal bowel sounds, no masses : Deferred Back: Nontender, no CVA tenderness, no midline spinal tenderness, deformities, step-offs Extremities: Nontender full range of motion, no trauma Skin: Normal color, no trauma, abrasions Neuro: Alert, oriented, cranial nerves II through XII grossly intact. Psychiatry: Normal mood. Normal affect. Not depressed. Not anxious. Lab / Micro Data 11/13/22 14:45 11/12/22 19:25 Labs: Laboratory Results - last 24 hr 11/12/22 19:25: WBC 12.2 H, RBC 3.24 L, Hgb 6.7 L, Hct 25.5 L, MCV 78.7 L, MCH 20.7 L, MCHC 26.3 L, RDW Std Deviation 45.2 H, RDW Coeff of Demetrius 16.2 H, Plt C ount 432, MPV 11.4, Immature Gran % (Auto) 0.700, Neut % (Auto) 84.2 H, Lymph % (Auto) 6.8 L, [place] % (Auto) 7.0, Eos % (Auto) 0.7, Baso % (Auto) 0.6, Absolute Neuts (auto) 10.2 H, Absolute Lymphs (auto) 0.83, Nucleated RBC % 0, PT 18.2 H, INR 1.5, APTT 53.1 H, Sodium 143, Potassium 3.6, Chloride 112 H, Carbon Dioxide 26.0, Anion Gap 5, BUN 12, Creatinine 0.91, Estim Creat Clear Calc 60.43, Est GFR (MDRD) Af Amer 102, Est GFR (MDRD) Non-Af 84, BUN/Creatinine Ratio 13.2, Glucose 145 H, Lactic Acid 1.5, Calcium 7.9 L, Total Bilirubin 0.30, AST 9 L, ALT 12 L, Alkaline Phosphatase 71, Troponin I High Sens 14, Total Protein 6.5, Albumin 3.0 L, Globulin 3.5, Albumin/Globulin Ratio 0.9 11/12/22 20:15: Urine Color Yellow, Urine Clarity Sl. Cloudy, Urine pH 5.0, Ur Specific [place] 1.015, Urine Protein 15 H, Urine Glucose (UA) Normal, Urine Ketones Negative, Urine Occult Blood 25 H, Urine Nitrite Negative, Urine Bilirubin Negative, Urine Urobilinogen 1 H, Ur Leukocyte Esterase Negative, Urine RBC 0-5 SEEN, Urine WBC 0 SEEN, Ur Squamous Epith Cells 0-5 SEEN, Amorphous Sediment 1+ URATE, Urine Bacteria 0 SEEN, Urine Mucus 0 SEEN 11/12/22 20:24: Blood Type A POSITIVE, Antibody Screen NEGATIVE, Crossmatch See Detail 11/13/22 12:03: POC Glucose 106 11/13/22 14:45: WBC 11.3 H, RBC 3.67 L, Hgb 8.3 L, Hct 29.6 L, MCV 80.7, MCH 22.6 L, MCHC 28.0 L D, RDW Std Deviation 47.7 H, RDW Coeff of Demetrius 16.7 H, Plt Count 377, MPV 11.2, Immature Gran % (Auto) 0.700, Neut % (Auto) 75.4 H, Lymph % (Auto) 12.3 L, [place] % (Auto) 10.4 H, Eos % (Auto) 0.8, Baso % (Auto) 0.4, Absolute Neuts (auto) 8.6 H, Absolute Lymphs (auto) 1.39, Nucleated RBC % 0.2 11/13/22 17:34: POC Glucose 186 H Micro: Microbiology 11/13/22 11:02 Sputum, Expectorated/Coughed Gram Stain - Final 11/12/22 20:15 Urine, Clean Catch Legionella Antigen - Final 11/12/22 20:15 Urine, Clean Catch Streptococcus pneumoniae Antigen (M - Final 11/12/22 20:10 Nasal Secretion SARS-CoV-2 & FLU Antigen (Rapid) - Final Radiology Impression Chest X-Ray 11/12/22 20:12 IMPRESSION: 1. Consolidative pulmonary opacities in the right lower lobe and perhaps the right middle lobe indicating pneumonia, new when compared to the prior examination. 2. COPD. Electronically Signed: Gurmeet Amaral DO at 20:25 EDT , Chest CTA 11/13/22 05:07 IMPRESSION: 1. No evidence for pulmonary embolism, aortic aneurysm, or aortic dissection. 2. Right lower lobe and right middle lobe pneumonia are substantially worsened from previous study. New finding of a minimal left lower lobe pneumonia. New finding of small bilateral pleural effusions. 3. Markedly worsening bronchial wall thickening bilaterally, consistent with inflammation and/or infection. 4. Worsening enlargement of mediastinal and right hilar lymph nodes, probably representing reactive nodes. 5. Suggestion of COPD. Electronically Signed: Ed Stapleton MD at 7:21 EDT , Assessment & Plan Assessment/Plan (1) Pneumonia: QUALIFIERS: Pneumonia type: due to unspecified organism Laterality: right Lung location: unspecified part of lung Qualified Code(s): J18.9 - Pneumonia, unspecified organism (2) SIRS (systemic inflammatory response syndrome): (3) Paroxysmal atrial fibrillation: (4) Acute anemia: PLAN: Plan 82-year-old with COPD on oxygen at home, paroxysmal atrial fibrillation on anticoagulation presents with worsening cough and fevers with a current diagnosis of pneumonia with SIRS. He also has been having emesis and possible hematemesis. Emesis with possible hematemesis. When patient is stable he should undergo an upper endoscopy to evaluate his upper GI tract. At this time recommend Protonix 40 mg IV twice a day. I will continue to follow. Charges/Coding Visit Charges Inpatient E&M: 66546 Init Hosp L2
[2022-11-13] MEDS: Budesonide Respules 0.5 MG/2 ML AMPUL.NEB. INHALATION (20:02)
[2022-11-13] MEDS: Tamsulosin HCl 0.4 MG Capsule PO (22:34)
[2022-11-13 23:28] LABS: M R Staph aureus DNA By PCR Negative (Negative); Probe Check PASS; Specimen Processing Control PASS
[2022-11-14] VITALS (12 sets, daily range): BP systolic 118–162; BP diastolic 60–88; PULSE 79–117; RESP 16–28; TEMP 36.5–37.1; O2SAT 92–96; BMI 29.8
[2022-11-14] MEDS: Gabapentin 100 MG Capsule PO ×3 (06:35→21:31)
[2022-11-14] MEDS: Methylprednisolone Sod Succ 40 MG/ML VIAL IV ×3 (06:35→21:35)
[2022-11-14 07:00] LABS: Bedside Glucose 184 mg/dL (74-106)
[2022-11-14 07:28] LABS: Absolute Lymphocyte Count 0.55 X10^3/uL (0.83-4.51); Absolute Neutrophil Count 6.5 X10^3/uL (2.0-7.7); Basophil# 0.01 X10^3/uL; Basophil% 0.1 % (0-1); Hematocrit 27.4 % (40-54); Hemoglobin 7.7 g/dL (13.0-16.5); Lymphocyte # 0.55 X10^3/ul (0.83-4.51); Lymphocyte % 7.4 % (19-41); Mean Corp Hgb Conc 28.1 g/dL (32-36); Mean Corpuscular Hgb 22.6 pg (27.0-32.0); Mean Corpuscular Volume 80.6 fL (80-94); Mean Platelet Vol. 11.7 fl (6.2-12.0); Monocyte# 0.36 X10^3/uL; Monocyte% 4.8 % (0-10); NRBC Flagged by Analyzer 0 % (0-5); Neutrophil # 6.45 X10^3/uL (2.7-7.7); Neutrophil % 86.9 % (47-70); POSITIVE DIFFERENTIAL YES; Platelet Count 363 K/mm3 (150-450); RBC Distribution Width CV 17.1 % (11.6-14.6); White Blood Count 7.4 K/mm3 (4.4-11.0)
[2022-11-14] MEDS: Budesonide Respules 0.5 MG/2 ML AMPUL.NEB. INHALATION ×2 (07:29→20:49)
[2022-11-14] MEDS: Ipratropium/Albuterol Sulfate 3 ML AMPUL.NEB INHALATION ×3 (07:29→20:49)
[2022-11-14 07:49] LABS: Differential Indicated SCAN CRITERIA MET
[2022-11-14 07:54] LABS: ALB/GLOB Ratio 0.7 RATIO (0.9-2.4); AST(SGOT) 7 U/L (15-37); Alanine Aminotransfer ALT/SGPT 11 U/L (16-61); Albumin, Serum 2.4 g/dL (3.2-5.0); Alkaline Phosphatase 62 U/L (45-117); Anion Gap 5 (5-15); BUN 10 mg/dL (7-18); BUN/Creat Ratio 13.2 RATIO (10-20); Calcium,Total 8.4 mg/dL (8.5-10.1); Chloride 113 mmol/L (98-107); Creatinine, Serum 0.76 mg/dL (0.70-1.30); EST Glomerular Filtration Rate 104 mL/min (>60); Est Glom Filt Rate - Afr Amer 126 mL/min (>60); Estimated Creatinine Clearance 49.62 ml/min; Globulin 3.3 g/dL (2.2-4.2); Glucose 194 mg/dL (74-106); Magnesium 2.1 mg/dL (1.6-2.6); Phosphorus 2.8 mg/dL (2.5-4.9); Potassium 3.7 mmol/L (3.5-5.1); Protein, Total 5.7 g/dL (6.4-8.2); Sodium Level 144 mmol/L (136-145)
[2022-11-14] MEDS: guaiFENesin 600 MG Tablet PO ×2 (08:26→21:35)
[2022-11-14] MEDS: Ferrous Sulfate 325 MG Tablet PO (08:26)
[2022-11-14] MEDS: Atorvastatin Calcium 20 MG Tablet PO (08:27)
[2022-11-14] MEDS: Pantoprazole Sodium 40 MG in 0.9% Normal Saline (100mL MB+) 100 ML 330 MG IV ×2 (10:46→21:55)
[2022-11-14] MEDS: Metoprolol Tartrate 25 MG Tablet 12.5 MG PO ×2 (10:52→21:33)
[2022-11-14] MEDS: levoFLOXacin IV 750 MG/150 ML BAG 100 MG IV (10:53)
[2022-11-14] MEDS: Insulin Lispro 100 UNIT/ML INSULN.PEN SC ×2 (10:58→17:02)
[2022-11-14 11:29] LABS: Bedside Glucose 206 mg/dL (74-106)
[2022-11-14] MEDS: Vancomycin IV 1,000 MG/200 ML BAG 200 MG IV ×2 (13:30)
--- NOTE | 2022-11-14 14:27 | PN.HOSP_ITS ---
Reason for Visit Reason for Visit: Shortness of breath Subjective Subjective Patient states that he is feeling much better. Does not seem to remember much of yesterday. He states that his family thought he was out of his mind and they confirmed that he is much better from a mental standpoint today. Multiple family members at the bedside. He has not been using his incentive spirometer Acapella and I discussed the importance of utilizing this with him today. He and his family voiced understanding and his family indicated they would make barr re that he does it. Objective Data Objective Data Vital Signs: Vital Signs Temp Pulse Resp BP Pulse Ox O2 Del Method O2 Flow Rate 98.2 F 85 20 H 125/88 H 96 High Flow 6 11/14/22 10:45 11/14/22 13:09 11/14/22 13:09 11/14/22 10:45 11/14/22 10:45 11/14/22 10:45 11/14/22 13:34 FiO2 45 11/13/22 12:11 Oxygen Flow Rate (L/min) 6 Oxygen Delivery Method High Flow Weight: 83.8 kg Body Mass Index (BMI) 29.8 Intake & Output: Intake and Output for Last 24 Hours 11/12/22 11/13/22 11/14/22 23:59 23:59 23:59 Intake Total 1150 / 1150 2500 / 2900 1060.00 / 1060.00 Output Total 1100 / 1100 Balance 1150 / 1150 1400 / 1800 1060.00 / 1060.00 Lab / Micro Data 11/14/22 05:44 11/14/22 05:44 Labs: Laboratory Results - last 24 hr 11/13/22 14:45: WBC 11.3 H, RBC 3.67 L, Hgb 8.3 L, Hct 29.6 L, MCV 80.7, MCH 22.6 L, MCHC 28.0 L D, RDW Std Deviation 47.7 H, RDW Coeff of Demetrius 16.7 H, Plt Count 377, MPV 11.2, Immature Gran % (Auto) 0.700, Neut % (Auto) 75.4 H, Lymph % (Auto) 12.3 L, [place] % (Auto) 10.4 H, Eos % (Auto) 0.8, Baso % (Auto) 0.4, Absolute Neuts (auto) 8.6 H, Absolute Lymphs (auto) 1.39, Nucleated RBC % 0.2 11/13/22 17:34: POC Glucose 186 H 11/13/22 20:09: MRSA (PCR) Negative 11/14/22 05:44: WBC 7.4, RBC 3.40 L, Hgb 7.7 L, Hct 27.4 L, MCV 80.6, MCH 22.6 L , MCHC 28.1 L, RDW Std Deviation 49.0 H, RDW Coeff of Demetrius 17.1 H, Plt Count 363, MPV 11.7, Immature Gran % (Auto) 0.800, Neut % (Auto) 86.9 H, Lymph % (Auto) 7.4 L, [place] % (Auto) 4.8, Eos % (Auto) 0.0, Baso % (Auto) 0.1, Absolute Neuts (auto) 6.5, Absolute Lymphs (auto) 0.55 L, Nucleated RBC % 0, Differential Comment COMMENT, Sodium 144, Potassium 3.7, Chloride 113 H, Carbon Dioxide 26.0, Anion Gap 5, BUN 10, Creatinine 0.76, Estim Creat Clear Calc 49.62, Est GFR (MDRD) Af Amer 126, Est GFR (MDRD) Non-Af 104, BUN/Creatinine Ratio 13.2, Glucose 194 H, Calcium 8.4 L, Phosphorus 2.8, Magnesium 2.1, Total Bilirubin 0.60, AST 7 L, ALT 11 L, Alkaline Phosphatase 62, Total Protein 5.7 L, Albumin 2.4 L, Globulin 3.3, Albumin/Globulin Ratio 0.7 L 11/14/22 06:33: POC Glucose 184 H 11/14/22 10:57: POC Glucose 206 H Micro: Microbiology 11/12/22 20:15 Urine, Clean Catch Urine Culture - Final Culture exhibits no growth. 11/13/22 11:02 Sputum, Expectorated/Coughed Gram Stain - Final 11/12/22 20:15 Urine, Clean Catch Legionella Antigen - Final 11/12/22 20:15 Urine, Clean Catch Streptococcus pneumoniae Antigen (M - Final 11/12/22 20:10 Nasal Secretion SARS-CoV-2 & FLU Antigen (Rapid) - Final Physical Exam Narrative Physical exam: General: Well-nourished, well-developed. Head: Normocephalic, atraumatic, no tenderness Eyes: Vision is grossly intact. EOMI ENT, no trauma, moist mucous membranes, no rhinorrhea Neck: Nontender, No thyromegaly. CVS: Tachycardia. Irregularly irregular.. S1-S2 present. No murmur, gallop or rub. Respiratory : Tachypnea; diminished breath sounds right base. Abdomen: Soft, nontender, nondistended, normal bowel sounds, no masses : Deferred Back: Nontender, no CVA tenderness, no midline spinal tenderness, deformities, step-offs Extremities: Nontender full range of motion, no trauma Skin: Normal color, no trauma, abrasions Neuro: Alert, oriented, cranial nerves II through XII grossly intact. Psychiatry: Normal mood. Normal affect. Not depressed. Not anxious. Const alert, oriented x3, no apparent distress and well nourished; Negative for average body habitus or healthy appearing Constitutional Narrative: Overweight, elderly, ill-appearing, white male, lying in bed, appears comfortable at this time, currently on Airvo, appears significantly fatigued HEENT head/scalp atraumatic, moist oral mucous membranes and oropharynx normal Eyes PERRL and EOMs intact bilaterally Eyes Narrative: Scleral icterus oral icterus, conjunctiva are pale bilaterally Neck no lymphadenopathy and supple Neck Narrative: Trachea midline, no thyroid Resp no retractions and no use of accessory muscles Resp Narrative: Mild rhonchorous sounds bilateral lungs, with rhonchorous sounding cough and sputum production was at the bedside, currently on Airvo, significantly diminished diffusely as well Auscultation: rhonchi; Negative for rales or wheezes Cardio regular rate, regular rhythm, S1 normal heart sound, S2 normal heart sound, no murmurs, no rub, no gallops and no clicks GI normal to inspection, nondistended, normoactive bowel sounds, soft to palpation and non-tender Extremity no clubbing, cyanosis or edema Extremity Narrative: Pedal pulses are 2+ Skin no rashes or lesions noted, no wounds, skin turgor normal, no jaundice, no petechiae and no mottling Skin Narrative: Skin is pale Neuro oriented x3, CN's II-XII intact bilaterally, moves all extremities and no focal motor deficits Neuro Narrative: Significant generalized weakness but no focal deficits Speech: speech normal Psych Psych Narrative: Affect is flattened patient appears fatigued which is appropriate for his current medical condition Assessment & Plan Assessment/Plan (1) Pneumonia: QUALIFIERS: Pneumonia type: due to unspecified organism Laterality: right Lung location: unspecified part of lung Qualified Code(s): J18.9 - Pneumonia, unspecified organism (2) Acute anemia: (3) Chronic atrial fibrillation with RVR: (4) Paroxysmal atrial fibrillation with RVR: (5) Toxic metabolic encephalopathy: PLAN: Plan Pneumonia -Strep pneumo and Legionella antigens are negative -COVID and flu are negative -Blood and sputum cultures are still pending -Urine culture is unremarkable -Continue incentive spirometry and Pep therapy with Acapella -Extensive discussion with patient today with regards to utilizing these as he has not been compliant -Add steroids with history of significant COPD--> Solu-Medrol 40 every 8 -Baseline oxygen requirement is 3 L and patient is currently requiring high flow nasal cannula at 6 L which is much improvement in last 24 hours as he was on Airvo yesterday -Wean as able -Continue Levaquin and vancomycin - MRSA PCR is negative Acute on chronic anemia -Hemoglobin on presentation was 6.7 -Baseline hemoglobin over the last several months appears to be between 8 and 9 -Patient transfused 2 units packed red blood cells on presentation -Current heme Gillian is down from 8.3-7.7 -Continue home iron supplementation -Stool guaiac was positive -Plan for EGD once patient is more medically stable anticipate this to be rudolph rrow -Hold apixaban -Continue Protonix 40 mg IV push twice daily -Gastroenterology following-appreciate input Paroxysmal atrial fibrillation with RVR -Patient is now converted back to normal sinus rhythm -Likely related to pneumonia -Hold Eliquis due to severe anemia on presentation -Continue metoprolol 12.5 mg p.o. he -Continue to monitor on telemetry DM-2 -Hold metformin -We will add low-dose Lantus while hospitalized as a.m. fasting blood sugar was 194 -SSI -Accu-Cheks as ordered -Cardiac/carb controlled diet Diabetic neuropathy -Continue home gabapentin Chronic hypoxic respiratory failure secondary to stage III COPD -Patient wears 3 L of oxygen at baseline -We will attempt to titrate back to this prior to discharge -Aerosols as above -Prednisone as above -Hold home inhalers -Last PFTs showed an FEV1 of 65% predicted -Follows with Dr. Donovan GERD -Continue home Protonix DVT prophylaxis -SCDs -Hold home Eliquis due to severe anemia on presentation CODE STATUS -Full code Charges/Coding Visit Charges Inpatient E&M: 53695 Subs Hosp L2
[2022-11-14 17:43] LABS: Bedside Glucose 168 mg/dL (74-106)
[2022-11-14] MEDS: Tamsulosin HCl 0.4 MG Capsule PO (21:35)
[2022-11-14] MEDS: Insulin Glargine-YFGN 100 UNIT/ML Pen 10 UNIT SC (21:38)
[2022-11-14] MEDS: 0.9% Saline Lock 10 ML Syringe IV (21:45)
[2022-11-15] VITALS (18 sets, daily range): BP systolic 98–151; BP diastolic 58–97; PULSE 81–129; RESP 16–20; TEMP 36.1–36.9; O2SAT 90–97; BMI 29.8
--- NOTE | 2022-11-15 | GASB_PTH ---
PATIENT: ANDREA DELUCA LOC: [facility] U#:[id number] AGE/SX: 82/M ROOM: [facility] RE11/12/[address]: Dr. Susan Guzman DO : 1940 BED: 1 DIS: 11/16/2022 SPEC #: [id number] RECD: 11/15/22 13:43 STATUS: MARSHALL REQ #: [id number] MONIQUE: 11/15/22 00:[address]: Gerson Eastman DEPT: SURGICAL PATHOLOGY RECD BY: Jac Dukes ENTERED: 11/15/22 13:43 SP TYPE: Gastric Bx OTHR DR: MD Dr. Susan Waters DO Dr. Loren Kirchner, MD Tissues: Gastric mucous membrane Procedures: Surgery Specimen Level IV Comments: @ Ordering doctor for SUIV edited from to @ by LAYNE at 11/15/22 1413 @ Submitting doctor edited from to @ by RGOOD at 11/15/22 141 HEADER OPERATION: EGD, biopsy PRE-OP DIAGNOSIS: GI bleed TISSUE SUBMITTED: Gastric body ulcer MICROSCOPIC DIAGNOSIS Gastric body ulcer, biopsy: Mild chronic gastritis. Extraneous polarizable foreign body material. See comment. AM:shelbi 11/18/2022 COMMENT Clinical correlation is suggested. The results of immunohistochemistry for Helicobacter pylori will be reported separately ([id number]). MICROSCOPIC DESCRIPTION Slides are reviewed. GROSS DESCRIPTION Received in fixative is one container labeled with the patient's name and designated gastric body ulcer. The specimen consists of two irregular fragments of light whiting soft tissue that in aggregate measure 0.6 x 0.3 x 0.1 cm. The specimen is totally submitted in one cassette. / SHANTA:shelbi 11/15/2022 TC:3 CPT: 61913
[2022-11-15 00:09] LABS: Vancomycin, Trough Level 13.3 ug/mL (5.0-15.0)
--- NOTE | 2022-11-15 00:25 | PCM.RX.CS ---
Consult Antibiotic Management Pharmacy has been consulted to manage selected antiobiotic: Vancomycin Type of Intervention Type of Consult: Follow-up Suspected Infection Suspected Infection: Pneumonia Labs Labs: Sodium 144 mmol/L (136-145) 11/14/22 05:44 Potassium 3.7 mmol/L (3.5-5.1) 11/14/22 05:44 Chloride 113 mmol/L (98-107) H 11/14/22 05:44 Carbon Dioxide 26.0 mmol/L (21.0-32.0) 11/14/22 05:44 Anion Gap 5 (5-15) 11/14/22 05:44 BUN 10 mg/dL (7-18) 11/14/22 05:44 Creatinine 0.76 mg/dL (0.70-1.30) 11/14/22 05:44 Est GFR (MDRD) Af Amer 126 mL/min (>60) 11/14/22 05:44 Est GFR (MDRD) Non-Af 104 mL/min (>60) 11/14/22 05:44 BUN/Creatinine Ratio 13.2 RATIO (10-20) 11/14/22 05:44 Glucose 194 mg/dL (74-106) H 11/14/22 05:44 Vancomycin Trough 13.3 ug/mL (5.0-15.0) 11/14/22 23:20 Microbiology Microbiology: Microbiology 11/12/22 20:15 Urine, Clean Catch Urine Culture - Final Culture exhibits no growth. 11/13/22 11:02 Sputum, Expectorated/Coughed Gram Stain - Final 11/12/22 20:15 Urine, Clean Catch Legionella Antigen - Final 11/12/22 20:15 Urine, Clean Catch Streptococcus pneumoniae Antigen (M - Final 11/12/22 20:10 Nasal Secretion SARS-CoV-2 & FLU Antigen (Rapid) - Final Dosing Weight Weight used for dosin.8 kg Estimated Creatinine Clearance Estimated Creatinine Clearance: 74 Goal Trough Goal Trough: 15-20 mcg/mL Pharmacy Plan for Drug Dosing Pharmacy Plan for Drug Dosing: Vancomycin trough level of 13.3, drawn 10 hours post-dose, was below the target range of 15-20. The current order was increased to 1250mg q12h. Another level will be drawn prior to the fourth dose of the new regimen. Pharmacy Service will continue to monitor and adjust dosing as required. Follow-Up Labs Follow-Up Labs: Trough: Vancomycin Date/Time Labs Ordered Labs to be done on [date and time ordered]: 11/16/22 @1200
[2022-11-15] MEDS: 0.9% Saline Lock 10 ML Syringe IV ×2 (00:28→13:42)
[2022-11-15] MEDS: Vancomycin HCl 1,250 MG in 0.9% Normal Saline (250mL Bag) 250 ML 167 MG IV (00:32)
[2022-11-15 00:49] LABS: Bedside Glucose 200 mg/dL (74-106)
--- NOTE | 2022-11-15 05:55 | EKG12_ITS ---
Test Reason : AM EKG Blood Pressure : / mmHG Vent. Rate : 088 BPM Atrial Rate : 088 BPM P-R Int : 208 ms QRS Dur : 090 ms QT Int : 374 ms P-R-T Axes : 074 022 041 degrees QTc Int : 452 ms Normal sinus rhythm with sinus arrhythmia Normal ECG When compared with ECG of 11-MAY-2022 11:08, Premature atrial complexes are no longer Present Confirmed by ANTHONY GARZA, FRANCISCO ([id number]), order editor LAMINE APONTE ([id number]) on 12/11/2022 1:48:15 PM Referred By: Confirmed By:FRANCISCO CRUZ MD
[2022-11-15 06:07] LABS: Absolute Lymphocyte Count 0.57 X10^3/uL (0.83-4.51); Absolute Neutrophil Count 10.9 X10^3/uL (2.0-7.7); Basophil# 0.01 X10^3/uL; Basophil% 0.1 % (0-1); Hematocrit 27.8 % (40-54); Hemoglobin 8.1 g/dL (13.0-16.5); Lymphocyte # 0.57 X10^3/ul (0.83-4.51); Lymphocyte % 4.7 % (19-41); Mean Corp Hgb Conc 29.1 g/dL (32-36); Mean Corpuscular Hgb 23.3 pg (27.0-32.0); Mean Corpuscular Volume 80.1 fL (80-94); Mean Platelet Vol. 10.9 fl (6.2-12.0); Monocyte# 0.45 X10^3/uL; Monocyte% 3.7 % (0-10); NRBC Flagged by Analyzer 0 % (0-5); Neutrophil # 10.92 X10^3/uL (2.7-7.7); Neutrophil % 90.7 % (47-70); POSITIVE DIFFERENTIAL YES; Platelet Count 468 K/mm3 (150-450); RBC Distribution Width CV 18.3 % (11.6-14.6); RBC Distribution Width SD 51.5 fl (35.1-43.9); Red Blood Count 3.47 M/mm3 (4.6-6.2); White Blood Count 12.1 K/mm3 (4.4-11.0)
[2022-11-15 06:14] LABS: Differential Indicated SCAN CRITERIA MET
[2022-11-15 06:16] LABS: International Normalized Ratio 1.2; Prothrombin Time (Protime)PT. 15.7 SECONDS (11.7-14.9)
[2022-11-15 06:17] LABS: Partial Thromboplast Time 37.5 Seconds (24.1-36.2)
[2022-11-15 06:27] LABS: Differential Comment SCANNED
[2022-11-15 06:42] LABS: Anion Gap 4 (5-15); BUN 17 mg/dL (7-18); BUN/Creat Ratio 23.5 RATIO (10-20); Calcium,Total 8.7 mg/dL (8.5-10.1); Chloride 113 mmol/L (98-107); Creatinine, Serum 0.72 mg/dL (0.70-1.30); EST Glomerular Filtration Rate 110 mL/min (>60); Est Glom Filt Rate - Afr Amer 133 mL/min (>60); Estimated Creatinine Clearance 49.62 ml/min; Glucose 192 mg/dL (74-106); Potassium 3.6 mmol/L (3.5-5.1); Sodium Level 143 mmol/L (136-145)
[2022-11-15] MEDS: Methylprednisolone Sod Succ 40 MG/ML VIAL IV (06:47)
[2022-11-15] MEDS: Budesonide Respules 0.5 MG/2 ML AMPUL.NEB. INHALATION ×2 (06:52→19:14)
[2022-11-15 07:09] LABS: Bedside Glucose 180 mg/dL (74-106)
[2022-11-15] MEDS: Metoprolol Tartrate 25 MG Tablet 12.5 MG PO (08:46)
[2022-11-15] MEDS: Pantoprazole Sodium 40 MG in 0.9% Normal Saline (100mL MB+) 100 ML 330 MG IV (08:54)
[2022-11-15] MEDS: levoFLOXacin IV 750 MG/150 ML BAG 100 MG IV (09:32)
[2022-11-15] MEDS: Lactated Ringers 1,000 ML 15 ML IV (11:23)
--- NOTE | 2022-11-15 12:00 | IMM_PTH ---
PATIENT: ANDREA DELUCA LOC: [facility] U#:[id number] AGE/SX: 82/M ROOM: [facility] RE11/12/[address]: Dr. Susan Guzman DO : 1940 BED: 1 DIS: 11/16/2022 SPEC #: [id number] RECD: 11/15/22 14:12 STATUS: MARSHALL REQ #: [id number] MONIQUE: 11/15/22 12:[address]: Gerson Eastman DEPT: IMMUNOHISTOCHEMISTRY RECD BY: Kirsty Blount ENTERED: 11/15/22 14:13 SP TYPE: IMMUNO OTHR DR: MD Dr. Susan Waters DO Dr. Loren Kirchner, MD Tissues: Stomach, NOS Procedures: H Pylori (initial) PHYSICIAN & INSTITUTION [place] [id number] SPECIMEN INFORMATION: Tissue Source: Gastric body ulcer Clinical Info: GI bleed Specimen Number: [id number] CPT code: 29639 METHODOLOGY: Deparaffinized sections of prefer/formalin-fixed tissue or PAP/DQ stained slides are incubated with monoclonal/polyclonal antibodies/oligonucleotide probes. Localization is made via biotin free immunoperoxidase method. Appropriate controls are performed and reacted as expected. Results on target cell population are indicated in the following table: RESULTS: ANTIBODY / CLONE RESULT H Pylori (polyclonal) negative These tests were developed and their performance characteristics determined by [facility]. They may not have been cleared or approved by the [place]. Food and Drug Administration. The FDA has determined that such clearance or approval is not necessary. The above immunohistochemical/dualISH markers are ordered and reviewed by the Pathologist. INTERPRETATION: Gastric body ulcer, biopsy: Negative for Helicobacter pylori organisms. SHANTA:shelbi 11/18/2022
--- NOTE | 2022-11-15 12:46 | OP.EGD_ITS ---
Patient Name: Cody Casillas Procedure Date: 11/15/2022 12:25 PM Date of : 1940 Age: 82 Procedure: Upper GI endoscopy Indications: Iron deficiency anemia Providers: Gerson Eastman DO Medicines: Monitored Anesthesia Care Patient Profile: This is an 82 year old male. Refer to note in patient chart for documentation of history and physical. Patient has symptoms of acute epigastric abdominal pain. Complications: No immediate complications. Procedure: Pre-Anesthesia Assessment: - Prior to the procedure, a History and Physical was performed, and patient medications and allergies were reviewed. The patient is competent. The risks and benefits of the procedure and the sedation options and risks were discussed with the patient. All questions were answered and informed consent was obtained. Patient identification and proposed procedure were verified by the physician in the pre-procedure area. Mental Status Examination: alert and oriented. Airway Examination: normal oropharyngeal airway and neck mobility. Respiratory Examination: clear to auscultation. CV Examination: normal. Prophylactic Antibiotics: The patient does not require prophylactic antibiotics. Prior Anticoagulants: The patient has taken no anticoagulant or antiplatelet agents. ASA Grade Assessment: II - A patient with mild systemic disease. After reviewing the risks and benefits, the patient was deemed in satisfactory condition to undergo the procedure. The anesthesia plan was to use monitored anesthesia care (MAC). Immediately prior to administration of medications, the patient was re-assessed for adequacy to receive sedatives. The heart rate, respiratory rate, oxygen saturations, blood pressure, adequacy of pulmonary ventilation, and response to care were monitored throughout the procedure. The physical status of the patient was re-assessed after the procedure. After obtaining informed consent, the endoscope was passed under direct vision. Throughout the procedure, the patient's blood pressure, pulse, and oxygen saturations were monitored continuously. The gastroscope was introduced through the mouth, and advanced to the second part of duodenum. The upper GI endoscopy was accomplished without difficulty. The patient tolerated the procedure well. Scope In: 12:38:08 PM Scope Out: 12:41:09 PM Total Procedure Duration Time 0 hours 3 minutes 1 second Findings: The examined esophagus was normal. One oozing cratered gastric ulcer with pigmented material was found in the gastric body. The lesion was 6 mm in largest dimension. Area was successfully injected with 5 mL of a 0.1 mg/mL solution of epinephrine for drug delivery. Coagulation for hemostasis using heater probe was successful. Estimated blood loss was minimal. Localized mild inflammation characterized by congestion (edema) and erythema was found in the gastric body. Biopsies were taken with a cold forceps for histology. Verification of patient identification for the specimen was done. Biopsies were taken with a cold forceps for Helicobacter pylori testing. Verification of patient identification for the specimen was done. Estimated blood loss was minimal. The second portion of the duodenum was normal. Impression: - Normal esophagus. - Oozing gastric ulcer with pigmented material. Injected. Treated with a heater probe. - Acute gastritis. Biopsied. - Normal second portion of the duodenum. Recommendation: - Await pathology results. - Repeat upper endoscopy in 3 months for surveillance. - Use Protonix (pantoprazole) 40 mg PO BID. - Use sucralfate tablets 1 gram PO QID for 4 weeks. - Continue present medications. Procedure Code(s): --- Professional --- 46837, 59, Esophagogastroduodenoscopy, flexible, transoral; with control of bleeding, any method 01689, Esophagogastroduodenoscopy, flexible, transoral; with biopsy, single or multiple 13030, 59,51, Esophagogastroduodenoscopy, flexible, transoral; with directed submucosal injection(s), any substance CPT copyright 2021 [employer]. All rights reserved. The codes documented in this report are preliminary and upon drill press hand review may be revised to meet current compliance requirements. Gerson Eastman DO 11/15/2022 12:45:58 PM This report has been signed electronically. Number of Addenda: 0 Note Initiated On: 11/15/2022 12:25 PM
--- NOTE | 2022-11-15 12:46 | OP.CCLET_ITS ---
11/15/2022 Carmina Zaidi [facility] [address] [place] [address] Re : Upper GI endoscopy procedure for Cody Casillas Dear Dr. Zaidi This procedure was performed on Tuesday, November 15, 2022. My impressions and recommendations are as follows: Impressions : - Normal esophagus. - Oozing gastric ulcer with pigmented material. Injected. Treated with a heater probe. - Acute gastritis. Biopsied. - Normal second portion of the duodenum. Recommendations : - Await pathology results. - Repeat upper endoscopy in 3 months for surveillance. - Use Protonix (pantoprazole) 40 mg PO BID. - Use sucralfate tablets 1 gram PO QID for 4 weeks. - Continue present medications. My findings are described in the full procedure note, which is enclosed. If I can be of further assistance, please feel free to contact me at . Sincerely, Gerson Friend, 11/15/2022 12:45:58 PM This report has been signed electronically.
--- NOTE | 2022-11-15 12:47 | PCM.PN.HOSP ---
Reason for Visit Reason for Visit: Shortness of breath Subjective Subjective Patient states he is feeling better. Oxygen has been weaned to 4 L. Baseline is 3 L. Less coughing with deep breathing. Has been compliant with incentive spirometry and Acapella. Seems to be moving well with physical therapy and will likely be okay with home health at discharge. Is n.p.o. awaiting EGD. Objective Data Objective Data Vital Signs: Vital Signs Temp Pulse Resp BP Pulse Ox O2 Del Method O2 Flow Rate 97 F L 110 H 18 139/85 H 96 High Flow 4 11/15/22 10:50 11/15/22 10:50 11/15/22 10:50 11/15/22 10:50 11/15/22 10:50 11/15/22 10:50 11/15/22 10:50 FiO2 45 11/13/22 12:11 Oxygen Flow Rate (L/min) 4 Oxygen Delivery Method High Flow Weight: 83.8 kg Body Mass Index (BMI) 29.8 Intake & Output: Intake and Output for Last 24 Hours 11/13/22 11/14/22 11/15/22 23:59 23:59 23:59 Intake Total 2500 / 2900 2270.00 / 2270.00 535.00 / 535.00 Output Total 1100 / 1100 1600 / 1600 500 / 500 Balance 1400 / 1800 670.00 / 670.00 35.00 / 35.00 Lab / Micro Data 11/15/22 05:32 11/15/22 05:32 Labs: Laboratory Results - last 24 hr 11/14/22 17:00: POC Glucose 168 H 11/14/22 21:26: POC Glucose 200 H 11/14/22 23:20: Vancomycin Trough 13.3 11/15/22 05:32: WBC 12.1 H, RBC 3.47 L, Hgb 8.1 L, Hct 27.8 L, MCV 80.1, MCH 23.3 L, MCHC 29.1 L, RDW Std Deviation 51.5 H, RDW Coeff of Demterius 18.3 H, Plt Count 468 H, MPV 10.9, Immature Gran % (Auto) 0.800, Neut % (Auto) 90.7 H, Lymph % (Auto) 4.7 L, [place] % (Auto) 3.7, Eos % (Auto) 0.0, Baso % (Auto) 0.1, Absolute Neuts (auto) 10.9 H, Absolute Lymphs (auto) 0.57 L, Nucleated RBC % 0, Differential Comment SCANNED, PT 15.7 H, INR 1.2, APTT 37.5 H, Sodium 143, Potassium 3.6, Chloride 113 H, Carbon Dioxide 26.0, Anion Gap 4 L, BUN 17, Creatinine 0.72, Estim Creat Clear Calc 49.62, Est GFR (MDRD) Af Amer 133, Est GFR (MDRD) Non-Af 110, BUN/Creatinine Ratio 23.5 H, Glucose 192 H, Hemoglobin A1c 5.0, Calcium 8.7 11/15/22 06:44: POC Glucose 180 H Micro: Microbiology 11/13/22 11:02 Sputum, Expectorated/Coughed Gram Stain - Final 11/13/22 11:02 Sputum, Expectorated/Coughed Respiratory Culture - Final Mixed normal respiratory angel. No Streptococcus pneumoniae, beta-hemolytic Streptococcus or Staphylococcus aureus isolated. 11/12/22 19:25 Blood Culture (Wb) - Anticubital Right Blood Culture - Preliminary No growth in 48 hours. 11/12/22 19:23 Blood Culture (Wb) - Right Hand Blood Culture - Preliminary No growth in 48 hours. 11/12/22 20:15 Urine, Clean Catch Urine Culture - Final Culture exhibits no growth. 11/12/22 20:15 Urine, Clean Catch Legionella Antigen - Final 11/12/22 20:15 Urine, Clean Catch Streptococcus pneumoniae Antigen (M - Final 11/12/22 20:10 Nasal Secretion SARS-CoV-2 & FLU Antigen (Rapid) - Final Physical Exam Const alert, oriented x3, no apparent distress and well nourished; Negative for average body habitus or healthy appearing Constitutional Narrative: Overweight, elderly, ill-appearing, white male, sitting up in a chair at the bedside, appears comfortable at this time, currently on 4 L nasal cannula, family at bedside, clinically appears much improved HEENT head/scalp atraumatic and moist oral mucous membranes HEENT Narrative: Dentition is poor, Mallampati is 1-2, no thrush Head and Scalp: normocephalic Resp normal respiratory effort, no retractions, no use of accessory muscles and clear to auscultation bilaterally Resp Narrative: Diffusely diminished but clear Auscultation: Negative for rales, rhonchi or wheezes Cardio regular rate, regular rhythm, S1 normal heart sound, S2 normal heart sound, no murmurs, no rub, no gallops and no clicks GI normal to inspection, nondistended, normoactive bowel sounds, soft to palpation and non-tender Extremity no clubbing, cyanosis or edema Extremity Narrative: Pedal pulses are 2+ Neuro oriented x3, moves all extremities and no focal motor deficits Neuro Narrative: Significant generalized weakness but no focal deficits Speech: speech normal Psych affect normal Psych Narrative: Very comfortable, pleasant, interacts normally, eye contact good Assessment & Plan Assessment/Plan (1) Pneumonia: QUALIFIERS: Pneumonia type: due to unspecified organism Laterality: right Lung location: unspecified part of lung Qualified Code(s): J18.9 - Pneumonia, unspecified organism (2) Acute anemia: (3) Chronic atrial fibrillation with RVR: (4) Paroxysmal atrial fibrillation with RVR: (5) Toxic metabolic encephalopathy: PLAN: Plan Community-acquired pneumonia -Strep pneumo and Legionella antigens are negative -COVID and flu are negative -Blood cultures no growth -Sputum culture is mixed normal respiratory angel -With patient having significant infiltrates on imaging we will continue Levaquin for a full course -Urine culture is unremarkable -Continue incentive spirometry and Pep therapy with Acapella -Compliance has improved -Wean steroids to prednisone 40 mg daily -Patient is currently on 4 L nasal cannula -Wean as able -Will perform ambulatory pulse ox prior to discharge -Discontinue vancomycin -Continue Levaquin will need a total of 7 days--> day 3 of 7 Acute on chronic anemia -Hemoglobin on presentation was 6.7 -Baseline hemoglobin over the last several months appears to be between 8 and 9 -Patient transfused 2 units packed red blood cells on presentation -Hemoglobin 8.1 today -Continue home iron supplementation -EGD done today showed a bleeding gastric ulcer and gastritis which was biopsied, ulcer was treated with injection and heater probe -Transition Protonix from IV to p.o. 40 mg p.o. twice daily for 8 weeks then 40 mg daily -Start Carafate 1 g 4 times daily for 4 weeks -Will need repeat endoscopy in 3 months -Hold apixaban until GI indicates we can restart this -Gastroenterology following-appreciate input Paroxysmal atrial fibrillation with RVR -Patient is now converted back to normal sinus rhythm -Likely related to pneumonia -Hold Eliquis until GI is okay with reinitiation -Continue metoprolol but patient with some tachycardia this morning so will increase to 25 mg p.o. twice daily and give 1 dose of IV 5 mg -Continue to monitor on telemetry DM-2 -Hold metformin -Continue low-dose Lantus -I am weaning steroids -Hemoglobin A1c was ordered by anesthesia however this is likely extremely inaccurate as the patient was anemic and was transfused 2 units of packed red blood cells -SSI -Accu-Cheks as ordered -Cardiac/carb controlled diet Diabetic neuropathy -Continue home gabapentin Chronic hypoxic respiratory failure secondary to stage III COPD -Patient wears 3 L of oxygen at baseline -We will attempt to titrate back to this prior to discharge -Aerosols as above -Prednisone as above -Hold home inhalers -Last PFTs showed an FEV1 of 65% predicted -Follows with Dr. Donovan SMITH -Continue home Protonix DVT prophylaxis -SCDs -Hold home Eliquis due to severe anemia on presentation CODE STATUS -Full code Charges/Coding Visit Charges Inpatient E&M: 35040 Subs Hosp L2
[2022-11-15] MEDS: Metoprolol Tartrate 5 MG/5 ML Vial IV (13:41)
[2022-11-15] MEDS: guaiFENesin 600 MG Tablet PO ×2 (14:29→21:51)
[2022-11-15] MEDS: predniSONE 20 MG Tablet 40 MG PO (14:29)
[2022-11-15] MEDS: Atorvastatin Calcium 20 MG Tablet PO (14:29)
[2022-11-15] MEDS: Ferrous Sulfate 325 MG Tablet PO (14:29)
--- NOTE | 2022-11-15 15:20 | CASEMGMT ---
REINA BENTLEY in to verify oxygen DME. Per patient he has purchased his own equipment through [employer] portable and stationary and goes up to 5lpm. Patient denies HHC at discharge. REINA BENTLEY informed patient and family to follow-up with PCP should they reconsider therapy at home. Patient and family voice understanding. Family knows to bring portable oxygen from home for discharge.
[2022-11-15] MEDS: Sucralfate 1 GM Tablet PO ×2 (16:21→21:50)
[2022-11-15] MEDS: Insulin Lispro 100 UNIT/ML INSULN.PEN SC (16:21)
[2022-11-15 17:21] LABS: Bedside Glucose 184 mg/dL (74-106)
[2022-11-15] MEDS: Metoprolol Tartrate 25 MG Tablet PO (19:02)
[2022-11-15] MEDS: Ipratropium/Albuterol Sulfate 3 ML AMPUL.NEB INHALATION (19:13)
[2022-11-15] MEDS: Gabapentin 100 MG Capsule PO (21:50)
[2022-11-15] MEDS: Tamsulosin HCl 0.4 MG Capsule PO (21:52)
[2022-11-15] MEDS: Pantoprazole Sodium 40 MG Tablet PO (21:53)
[2022-11-15] MEDS: Insulin Glargine-YFGN 100 UNIT/ML Pen 10 UNIT SC (21:57)
[2022-11-15 22:39] LABS: Bedside Glucose 208 mg/dL (74-106)
[2022-11-16] VITALS (10 sets, daily range): BP systolic 104–136; BP diastolic 59–78; PULSE 75–112; RESP 16–18; TEMP 36.1–36.8; O2SAT 88–95
[2022-11-16] MEDS: Gabapentin 100 MG Capsule PO ×2 (06:36→14:35)
[2022-11-16] MEDS: Sucralfate 1 GM Tablet PO ×2 (06:37→11:02)
[2022-11-16 06:51] LABS: Bedside Glucose 138 mg/dL (74-106)
[2022-11-16] MEDS: Budesonide Respules 0.5 MG/2 ML AMPUL.NEB. INHALATION (07:36)
[2022-11-16] MEDS: Ipratropium/Albuterol Sulfate 3 ML AMPUL.NEB INHALATION ×2 (07:36→13:29)
[2022-11-16 08:00] LABS: Absolute Lymphocyte Count 0.68 X10^3/uL (0.83-4.51); Absolute Neutrophil Count 9.6 X10^3/uL (2.0-7.7); Basophil# 0.01 X10^3/uL; Basophil% 0.1 % (0-1); Hematocrit 27.6 % (40-54); Hemoglobin 7.8 g/dL (13.0-16.5); Lymphocyte # 0.68 X10^3/ul (0.83-4.51); Mean Corp Hgb Conc 28.3 g/dL (32-36); Mean Corpuscular Hgb 22.9 pg (27.0-32.0); Mean Corpuscular Volume 80.9 fL (80-94); Mean Platelet Vol. 10.6 fl (6.2-12.0); Monocyte# 0.87 X10^3/uL; Monocyte% 7.7 % (0-10); NRBC Flagged by Analyzer 0 % (0-5); Neutrophil # 9.62 X10^3/uL (2.7-7.7); Neutrophil % 85.6 % (47-70); Platelet Count 492 K/mm3 (150-450); RBC Distribution Width CV 19.3 % (11.6-14.6); RBC Distribution Width SD 55.9 fl (35.1-43.9); Red Blood Count 3.41 M/mm3 (4.6-6.2); White Blood Count 11.3 K/mm3 (4.4-11.0)
[2022-11-16 08:07] LABS: Partial Thromboplast Time 34.3 Seconds (24.1-36.2)
[2022-11-16 08:18] LABS: Anion Gap 3 (5-15); BUN 21 mg/dL (7-18); BUN/Creat Ratio 25.2 RATIO (10-20); Calcium,Total 8.5 mg/dL (8.5-10.1); Chloride 111 mmol/L (98-107); Creatinine, Serum 0.83 mg/dL (0.70-1.30); EST Glomerular Filtration Rate 94 mL/min (>60); Est Glom Filt Rate - Afr Amer 113 mL/min (>60); Estimated Creatinine Clearance 59.79 ml/min; Glucose 139 mg/dL (74-106); Potassium 3.9 mmol/L (3.5-5.1); Sodium Level 143 mmol/L (136-145)
[2022-11-16] MEDS: levoFLOXacin IV 750 MG/150 ML BAG 100 MG IV (09:34)
[2022-11-16] MEDS: 0.9% Saline Lock 10 ML Syringe IV ×2 (09:35→11:48)
[2022-11-16] MEDS: predniSONE 20 MG Tablet 40 MG PO (09:41)
[2022-11-16] MEDS: Ferrous Sulfate 325 MG Tablet PO (09:41)
[2022-11-16] MEDS: Metoprolol Tartrate 25 MG Tablet PO (09:42)
[2022-11-16] MEDS: Atorvastatin Calcium 20 MG Tablet PO (09:42)
[2022-11-16] MEDS: Pantoprazole Sodium 40 MG Tablet PO (09:43)
[2022-11-16] MEDS: guaiFENesin 600 MG Tablet PO (09:43)
[2022-11-16] MEDS: Insulin Lispro 100 UNIT/ML INSULN.PEN SC (11:44)
[2022-11-16 12:20] LABS: Bedside Glucose 162 mg/dL (74-106)
--- NOTE | 2022-11-16 12:54 | PCM.DC.SUM ---
Providers Date of Admission: 11/12/22 Date of Discharge: 11/16/22 Primary Care Physician: Dr. Carmina Zaidi MD Consultations 11/13/22 08:38 Consult: Gastroenterology Routine Consulting Provider: [facility] Reason for Consult: anemia EMERGENT Consult: No MD Notified: Yes Date Notified: 11/13/22 Time Notified: 08:38 Method of Notification: Verbal Reason For Visit: SEPSIS 2NDARY TO PNEUMONIA Diagnosis Discharge Diagnosis (1) Pneumonia: Status: Acute Code(s): J18.9 - Pneumonia, unspecified organism Qualifiers: Pneumonia type: due to unspecified organism Laterality: right Lung location: unspecified part of lung Qualified Code(s): J18.9 - Pneumonia, unspecified organism (2) Acute anemia: Status: Acute Code(s): D64.9 - Anemia, unspecified (3) Chronic atrial fibrillation with RVR: Status: Deleted Code(s): I48.20 - Chronic atrial fibrillation, unspecified (4) Paroxysmal atrial fibrillation with RVR: Status: Acute Code(s): I48.0 - Paroxysmal atrial fibrillation (5) Toxic metabolic encephalopathy: Status: Acute Code(s): G92.8 - Other toxic encephalopathy Medications at Discharge Home Medications ferrous sulfate 325 mg (65 mg iron) tablet 325 mg PO DAILY supplement 12/29/19 ipratropium 18 mcg-albuterol 103 mcg/actuation aerosol inhaler 1 spray inhalation DAILY PRN breathing 12/29/19 blood sugar diagnostic (Blood Glucose Test strips) #100 ea 07/04/20 lancets 28 gauge (FreeStyle Lancets) #100 ea 07/04/20 albuterol sulfate 2.5 mg/3 mL (0.083 %) solution for nebulization 2.5 mg (3 mL) inhalation Q4H PRN shortness of breath or wheezing #180 mL 01/23/22 albuterol sulfate 90 mcg/actuation aerosol inhaler 2 puff inhalation Q6H PRN shortness of breath or wheezing #3 device 01/23/22 gabapentin 100 mg capsule 100 mg PO TID nerve pain #270 caps 05/15/22 simvastatin 40 mg tablet 40 mg PO DAILY cholesterol #90 tabs 06/27/22 fluticasone fur. 200 mcg-umeclid 62.5 mcg-vilant 25 mcg inhalat.powder (Trelegy Ellipta) 1 inh inhalation DAILY breathing #3 ea 07/15/22 tamsulosin 0.4 mg capsule 0.4 mg PO QHS prostate #90 caps 09/11/22 Handicap placard #1 ea 10/24/22 apixaban 5 mg tablet (Eliquis) 5 mg PO BID blood thinner #180 tabs 10/31/22 metformin 500 mg tablet See Rx Instructions .Route .COMPLEX diabetes #180 tabs 10/31/22 metoprolol tartrate 25 mg tablet 12.5 mg (1/2 x 25 mg) PO BID blood pressure #90 tabs 10/31/22 oxycodone 10 mg tablet 10 mg PO DAILY PRN pain 11/12/22 levofloxacin 750 mg tablet 750 mg PO DAILY #4 tabs 11/16/22 pantoprazole 40 mg tablet,delayed release 40 mg PO BID #60 tabs 11/16/22 prednisone 10 mg tablet 10 mg PO DAILY #30 tabs 11/16/22 sucralfate 1 gram tablet 1 g PO 1HR_ACHS 30 days #120 tabs 11/16/22 Hospital Course Operations None Procedures Blood transfusion, EGD, EKG and - (CTA chest/chest x-ray) Summary of Care Provided Minutes Spent on Discharge: 38 Hospital Course: Mr. Casillas is an 82-year-old white male who presented to the emergency department [facility] on 11/13/2022 who presented to emergency department at [facility] with generalized weakness. He evidently also had fever and confusion. He has a chronic cough which family states stated that it was unchanged but worse overall. He noted that he had occasional sputum production which was not abnormal for him. He did complain of shortness of breath which is chronic. They also noted that he had increased urination and an occasional emesis. They did indicate that he had a fever of the last 4 days and noticed that his confusion was exhibited by him speaking out incoherently. He has been eating and drinking well. He been taking Tylenol twice a day and did have a dose on the day of presentation but timing was unclear. He has chronic atrial fibrillation and is on apixaban. On presentation his temperature was 98.7 but had a Tmax in the emergency department 102.6, heart rate was 105, blood pressure was 156/106, respiratory was 20 and oxygen saturations were 94% on 4 L nasal cannula. Room air oxygen saturation has not been documented. The patient does meet criteria for sepsis. CBC on presentation showed a white count of 12.2, hemoglobin of 6.7 down from baseline of 8-9 which is microcytic in nature and normal platelet count. Coags were elevated based on his use of apixaban at baseline. His chemistry panel was overall unremarkable other than hyperglycemia with a blood glucose of 145. Lactic acid was normal at 1.5. His UA is not consistent with infection. Chest x-ray showed consolidative pulmonary opacities in the right lower lobe and right middle lobe indicative of pneumonia and COPD. CTA of the chest was performed which was negative for pulmonary embolism, aortic aneurysm or aortic dissection but did show a right lower lobe and right middle lobe pneumonia as well as some minimal infiltration of the left lower lobe and small bilateral pleural effusions as well as mediastinal and right hilar lymph node enlargement and worsening bronchial wall thickening bilaterally. He was ordered 2 units of packed red blood cells in the emergency department and placed on broad-spectrum antibiotics with aztreonam and Levaquin. Blood cultures, sputum cultures, and urine cultures were all negative. His sputum was quite purulent so I am not quite sure how it is negative for any growth and he improved dramatically after I narrowed his antibiotics to Levaquin only. We also placed him on steroids initially IV and then transition to oral prior to discharge. He did require air Vo periodically for about 24 hours where he was at maximum on 45% with 45 L/min bleed. We were able to quickly wean him to high flow nasal cannula and then back to his baseline 3 L nasal cannula at the day of discharge. We did test an ambulatory pulse ox prior to discharge and he did require 4 L with exertion and was instructed to do this until cleared by either his primary care physician or his hand turner to transition back to his 3 L [id number]. He was maintained on Levaquin and discharged with 4 more days to complete a total of a 7-day course at the time of discharge. We also sent him with a prednisone taper. With regards to his anemia, an EGD was performed once his respiratory status improved on 11/15/2022. EGD revealed a normal esophagus but did identify a large oozing gastric ulcers that were treated with heater probe and injection as well as acute gastritis. We placed him on Protonix 40 mg p.o. twice daily and he will do this for 8 weeks and then transition back to his home dose of Protonix and Carafate 1 g 4 times daily which she will continue for 4 weeks and then discontinue. His prescriptions for Levaquin, prednisone, Protonix, and Carafate were faxed to his local pharmacy prior to discharge. He was able to be discharged home in stable condition on 11/16/2022. We set up an appointment for him to follow-up with Dr. Man on 12/10/2022 and we have advised him to follow-up with his primary care physician within the next 1 to 2 weeks for posthospital follow-up. I have advised him to call gastroenterology to schedule a follow-up to be seen within the next 1 to 2 months. He was able to be restarted on his Eliquis prior to discharge. Discharge diagnoses: Community-acquired pneumonia Acute on chronic hypoxic respiratory failure Acute on chronic anemia Gastric ulcer Gastritis Paroxysmal A-fib with RVR DM-2 Diabetic neuropathy COPD stage III GERD Physical Exam Const alert, oriented x3, no apparent distress and well nourished; Negative for average body habitus or healthy appearing Constitutional Narrative: Overweight, elderly, very pleasant, white male, sitting up in bed, at bedside, patient appears comfortable and nontoxic, currently on his baseline 3 L nasal cannula General Appearance: cooperative, comfortable, well kempt and well developed Orientation / Consciousness: awake, oriented to person, oriented to place and oriented to time Exam Limitations: no limitations Nutritional Appearance: overweight HEENT normocephalic, head/scalp atraumatic, moist oral mucous membranes and oropharynx normal; Negative for hearing grossly normal bilaterally HEENT Narrative: Dentition is overall poor, Mallampati is 2, no thrush, moderate hearing loss Eyes PERRL and EOMs intact bilaterally Eyes Narrative: Scleral icterus oral icterus, conjunctiva are pale bilaterally Neck no lymphadenopathy and supple Neck Narrative: Trachea midline, no thyroid enlargement Resp normal respiratory effort, no retractions, no use of accessory muscles and clear to auscultation bilaterally Resp Narrative: Diffusely diminished but clear Auscultation: Negative for rales, rhonchi or wheezes Cardio regular rate, regular rhythm, S1 normal heart sound, S2 normal heart sound, no murmurs, no rub, no gallops and no clicks GI normal to inspection, nondistended, normoactive bowel sounds, soft to palpation and non-tender Extremity no clubbing, cyanosis or edema Extremity Narrative: Pedal pulses are 2+ Skin no rashes or lesions noted, no wounds, skin turgor normal, no jaundice, no petechiae and no mottling Skin Narrative: Skin is pale Neuro oriented x3, CN's II-XII intact bilaterally, moves all extremities and no focal motor deficits Neuro Narrative: Significant generalized weakness but no focal deficits, bilateral lower extremity neuropathy Speech: speech normal Psych affect normal Psych Narrative: Very comfortable, pleasant, interacts normally, eye contact good Weight / BMI Weight Weight: 83.8 kg Body Mass Index (BMI) 29.8 ABG / Lab / Microbiology Data 11/16/22 07:24 11/16/22 07:24 Laboratory: Laboratory Results - last 24 hr 11/15/22 16:19: POC Glucose 184 H 11/15/22 21:56: POC Glucose 208 H 11/16/22 06:33: POC Glucose 138 H 11/16/22 07:24: WBC 11.3 H, RBC 3.41 L, Hgb 7.8 L, Hct 27.6 L, MCV 80.9, MCH 22.9 L, MCHC 28.3 L, RDW Std Deviation 55.9 H, RDW Coeff of Demetrius 19.3 H, Plt Count 492 H, MPV 10.6, Immature Gran % (Auto) 0.600, Neut % (Auto) 85.6 H, Lymph % (Auto) 6.0 L, Charles % (Auto) 7.7, Eos % (Auto) 0.0, Baso % (Auto) 0.1, Absolute Neuts (auto) 9.6 H, Absolute Lymphs (auto) 0.68 L, Nucleated RBC % 0, APTT 34.3, Sodium 143, Potassium 3.9, Chloride 111 H, Carbon Dioxide 29.0, Anion Gap 3 L, BUN 21 H, Creatinine 0.83, Estim Creat Clear Calc 59.79, Est GFR (MDRD) Af Amer 113, Est GFR (MDRD) Non-Af 94, BUN/Creatinine Ratio 25.2 H, Glucose 139 H, Calcium 8.5 11/16/22 11:40: POC Glucose 162 H Microbiology: Microbiology 11/13/22 11:02 Sputum, Expectorated/Coughed Gram Stain - Final 11/13/22 11:02 Sputum, Expectorated/Coughed Respiratory Culture - Final Mixed normal respiratory angel. No Streptococcus pneumoniae, beta-hemolytic Streptococcus or Staphylococcus aureus isolated. 11/12/22 19:25 Blood Culture (Wb) - Anticubital Right Blood Culture - Preliminary No growth in 48 hours. 11/12/22 19:23 Blood Culture (Wb) - Right Hand Blood Culture - Preliminary No growth in 48 hours. 11/12/22 20:15 Urine, Clean Catch Urine Culture - Final Culture exhibits no growth. 11/12/22 20:15 Urine, Clean Catch Legionella Antigen - Final 11/12/22 20:15 Urine, Clean Catch Streptococcus pneumoniae Antigen (M - Final 11/12/22 20:10 Nasal Secretion SARS-CoV-2 & FLU Antigen (Rapid) - Final D/C Instructions Discharge Diet: Low fat / Low cholesterol and 1800 Calorie Control Diet Discharge Activity: Return to Normal Activity Meaningful Use Info Meaningful Use Diagnoses (Choose all that apply): None applicable Discharge Plan Admission Admit Date/Time: 11/12/22 22:03 Primary Reason for Your Visit: Shortness of Breath Attending Provider: Susan Guzman Primary Care Provider: Carmina Zaidi Consulting Providers: Cody Wells Instructions Additional Instructions / Restrictions: 1. Please complete the total course of antibiotics and steroids 2. After you complete taking Protonix 40 mg twice daily for 8 weeks return back to your home dose 3. You will continue Carafate for only 4 weeks 4. Please wear your baseline 3 L oxygen at rest and increase your oxygen to 4 L with exertion until instructed otherwise Discharge Orders/Prescriptions Prescriptions: New sucralfate 1 gram Tablet 1 g PO 1HR_ACHS 30 Days Qty: 120 0RF pantoprazole 40 mg Tablet,Delayed Release (Dr/Ec) 40 mg PO BID Qty: 60 1RF levofloxacin 750 mg tablet 750 mg PO DAILY Qty: 4 0RF prednisone 10 mg tablet 10 mg PO DAILY Qty: 30 0RF Rx Instructions: 4 tablets x 3 days, 3 tablets x 3 days, 2 tablets x 3 days, 1 tablet x 3 days Continued ferrous sulfate 325 mg (65 mg iron) tablet 325 mg PO DAILY ipratropium 18 mcg-albuterol 103 mcg/actuation aerosol inhaler 18-103 mcg/actuation aerosol 1 spray INHALATION DAILY PRN tamsulosin 0.4 mg capsule 0.4 mg PO QHS Qty: 90 3RF (DME) Handicap placard See Rx Instructions .Route .MEDSUPPLY Qty: 1 0RF Rx Instructions: 5 year RX oxycodone 10 mg tablet 10 mg PO DAILY PRN Patient Comments: TAKE 1 TABLET BY MOUTH THREE TIMES DAILY NEEDED FOR PAIN (DME) lancets [FreeStyle Lancets] 28 gauge misc See Rx Instructions .ROUTE .MEDSUPPLY Qty: 100 5RF Rx Instructions: Use to test blood sugar as needed. (DME) Blood Glucose Test Strip See Rx Instructions .ROUTE .MEDSUPPLY Qty: 100 5RF Rx Instructions: Free Style Lite test strips - Use to check blood glucose 3-4 times a day and PRN albuterol sulfate 90 mcg/actuation HFA aerosol inhaler 2 puff inhalation Q6H PRN (Reason: shortness of breath or wheezing) Qty: 3 1RF albuterol sulfate 2.5 mg /3 mL (0.083 %) solution for nebulization 2.5 mg inhalation Q4H PRN (Reason: shortness of breath or wheezing) Qty: 180 12RF gabapentin 100 mg capsule 100 mg PO TID Qty: 270 3RF simvastatin 40 mg tablet 40 mg PO DAILY Qty: 90 3RF Trelegy Ellipta 200-62.5-25 mcg blister with device 1 inh inhalation DAILY Qty: 3 3RF Eliquis 5 mg tablet 5 mg PO BID Qty: 180 3RF metformin 500 mg tablet See Rx Instructions .ROUTE .COMPLEX Qty: 180 3RF Dose Instruction: TAKE 1 TABLET TWICE A DAY Rx Instructions: TAKE 1 TABLET TWICE A DAY metoprolol tartrate 25 mg tablet 12.5 mg PO BID Qty: 90 3RF Discontinued pantoprazole 40 mg tablet,delayed release (DR/EC) 80 mg PO DAILY Qty: 30 1RF Referrals / Follow Up: Pulmonary Medicine [facility] [Provider Group] - 12/10/22 2:15 pm Carmina Zaidi MD [Primary Care Provider] - Within 2 Weeks (Call Friday to set up an appointment) Gerson Eastman DO [[facility] Staff - Active Staff] - See Referral Note (Call Friday to set up an appointment to be seen within the next 1 to 2 months) Disposition Disposition (needs filled in before D/C Order can be placed): Home, Self Care Charges/Coding Visit Charges Inpatient E&M: 22546 Disch Hosp >30min
--- NOTE | 2022-11-16 15:06 | NURSING ---
Reviewed charting with Wil Jerez RN
== END 2022-11-16 15:13 | disposition home or self-care (01) | DRG 377 ==
LOC: ED 20:14 → PCU 22:24
PROVIDERS: Anesthesiology; Internal Medicine Gastroenterology; Admitting Provider Hospitalist; Emergency Provider Emergency Medicine; PCP Internal Medicine; Visit Provider Internal Medicine
PROC: 0DJ08ZZ Inspection of Upper Intestinal Tract, Via Natural or Artificial Opening Endoscopic (ICD-10-PCS; CPT 43235; principal; 2022-11-15 11:55)
DX: K25.4 Chronic or unspecified gastric ulcer with hemorrhage (principal); J18.9 Pneumonia, unspecified organism; J96.21 Acute and chronic respiratory failure with hypoxia; G92.8 Other toxic encephalopathy; J44.0 Chronic obstructive pulmonary disease with (acute) lower respiratory infection; E11.40 Type 2 diabetes mellitus with diabetic neuropathy, unspecified; D50.9 Iron deficiency anemia, unspecified; Z99.81 Dependence on supplemental oxygen; I48.0 Paroxysmal atrial fibrillation; E11.65 Type 2 diabetes mellitus with hyperglycemia; K21.9 Gastro-esophageal reflux disease without esophagitis; E66.3 Overweight; Z68.29 Body mass index [BMI] 29.0-29.9, adult; Z79.01 Long term (current) use of anticoagulants; Z79.51 Long term (current) use of inhaled steroids; Z79.84 Long term (current) use of oral hypoglycemic drugs; Z79.899 Other long term (current) drug therapy; Z87.891 Personal history of nicotine dependence
CPT/HCPCS: 36415; 71045; 71275; 80048; 80053; 80202; 81001; 82962; 83036; 83605; 83735; 84100; 84484; 85025; 85610; 85730; 86850; 86900; 86901; 86920; 86922; 87040; 87070; 87086; 87205; 87428; 87449; 87641; 88305; 88342; 93005; 94640; 94660; 94668; 94762; 97110; 97162; 97166; 97530; 99285; J7030; J7040; J7050; J7120; P9016; P9040; Q9967; A4216; J2405

== ENCOUNTER → 2022-11-28 | Outpatient (CLI) | payer MEDICARE, SELFPAY ==
[2022-11-28 10:56] LABS: Bacteria 0 SEEN /hpf (None Seen); Mucous, Urine 0 SEEN /hpf (<or=2+); Red Blood Cells-Urine 0 SEEN /hpf (0-5); Squamous Epithelial Cells - UA 0 SEEN /hpf (0-5); White Blood Cells 0 SEEN /hpf (0-5)
[2022-11-28 11:18] LABS: Absolute Lymphocyte Count 1.18 X10^3/uL (0.83-4.51); Absolute Neutrophil Count 22.9 X10^3/uL (2.0-7.7); Basophil# 0.04 X10^3/uL; Basophil% 0.2 % (0-1); Color, Urine Yellow (Yellow); Eosinophil# 0.08 X10^3/uL; Eosinophils% 0.3 % (0-5); Glucose, Dipstick Normal (Normal); Hematocrit 33.2 % (40-54); Hemoglobin 8.9 g/dL (13.0-16.5); Ketone-Dipstick Negative (Negative); Leukocyte Esterase-Dipstick Negative /ul (Negative); Lymphocyte # 1.18 X10^3/ul (0.83-4.51); Lymphocyte % 4.7 % (19-41); Mean Corp Hgb Conc 26.8 g/dL (32-36); Mean Platelet Vol. 11.3 fl (6.2-12.0); Monocyte% 3.2 % (0-10); NRBC Flagged by Analyzer 0 % (0-5); Neutrophil # 22.93 X10^3/uL (2.7-7.7); Neutrophil % 90.6 % (47-70); Nitrite-Dipstick Negative (Negative); Occult Blood-Urine Negative /ul (Negative); POSITIVE DIFFERENTIAL YES; Platelet Count 612 K/mm3 (150-450); Protein-Dipstick Negative (Negative); RBC Distribution Width CV 19.3 % (11.6-14.6); RBC Distribution Width SD 56.8 fl (35.1-43.9); Red Blood Count 4.05 M/mm3 (4.6-6.2); Urine Bilirubin Dipstick Negative (Negative); Urine Clarity Clear (Clear); Urine Urobilinogen Normal (Normal); White Blood Count 25.3 K/mm3 (4.4-11.0)
[2022-11-28 11:22] LABS: Differential Indicated SCAN CRITERIA MET
[2022-11-28 11:57] LABS: Anion Gap 7 (5-15); BUN 11 mg/dL (7-18); BUN/Creat Ratio 11.6 RATIO (10-20); Calcium,Total 8.4 mg/dL (8.5-10.1); Chloride 110 mmol/L (98-107); Creatinine, Serum 0.95 mg/dL (0.70-1.30); EST Glomerular Filtration Rate 80 mL/min (>60); Est Glom Filt Rate - Afr Amer 97 mL/min (>60); Glucose 126 mg/dL (74-106); Potassium 3.8 mmol/L (3.5-5.1); Sodium Level 145 mmol/L (136-145)
== END | disposition home or self-care (01) ==
LOC: LAB 10:53
PROVIDERS: PCP Internal Medicine; Referring Provider Internal Medicine; Visit Provider Internal Medicine
DX: K25.9 Gastric ulcer, unspecified as acute or chronic, without hemorrhage or perforation (principal); J44.1 Chronic obstructive pulmonary disease with (acute) exacerbation; J96.11 Chronic respiratory failure with hypoxia; D64.9 Anemia, unspecified; K21.9 Gastro-esophageal reflux disease without esophagitis; R39.9 Unspecified symptoms and signs involving the genitourinary system
CPT/HCPCS: 36415; 80048; 81001; 85025

== ENCOUNTER → 2023-01-21 | Outpatient (CLI) | payer MEDICARE, SELFPAY ==
--- NOTE | 2023-01-21 07:29 | CT_ITS ---
EXAM: CT CHEST WITHOUT INTRAVENOUS CONTRAST CLINICAL INDICATION: Pneumonia resolution. TECHNIQUE: Helically acquired images were obtained of the chest without intravenous contrast. This CT exam was performed using one or more of the following dose reduction techniques: automated exposure control, adjustment of the mA and/or kV according to patient size, and/or use of iterative reconstruction technique. RADIATION DOSE: CTDIvol = 10.99 mGy, DLP = 445.03 mGy-cm COMPARISON: CTA chest 11/13/2022. FINDINGS: LUNGS AND PLEURAL SPACES: Marked improvement of pneumonia in the right lower lobe and right middle lobe. There is a prominent residual pneumonia or mass in the right middle lobe with infiltration along the major fissure and minor fissure. This measures 4 x 3 cm, previously 3.9 x 5.1 cm. Moderate right posterior pleural effusion is a new finding. Minimal left posterior pleural effusion is also a new finding. Peripheral bronchiectasis in the right lower lobe more than the left lower lobe. Multiple thin-walled cysts in both upper lobes more than the lower lobes suggestive of santiago lobular emphysema. HEART: Unremarkable. Heart size is normal. Normal cardiac size. Calcified plaques in the proximal LAD branch. Normal pericardium. MEDIASTINUM: Unremarkable. No mediastinal or hilar adenopathy. Esophagus is unremarkable. No hiatal hernia. THYROID: Unremarkable. No thyroid lesions. BONES/JOINTS: Unremarkable. No suspicious lytic or blastic abnormality. VASCULATURE: Calcified plaques in the thoracic aorta. Mild dilatation of the ascending aorta with a diameter of 3.9 cm versus 2.9 cm for the descending thoracic aorta. CT/Chest without Contrast IMPRESSION: 1. Improving pneumonia in the right lower lobe and right middle lobe but there is a residual pneumonia versus mass in the right middle lobe measuring 4 x 3 cm, previously 3.9 x 5.1 cm. This is feasible for CT-guided biopsy. 2. Moderate right pleural effusion and minimal left posterior pleural effusion are new findings. 3. 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 Electronically Signed: Jesus Mora MD at 11:28 EST ,
== END | disposition home or self-care (01) ==
LOC: CT 07:25
PROVIDERS: PCP Internal Medicine; Referring Provider Nurse Practitioner Acute Care; Visit Provider Nurse Practitioner Acute Care
DX: J18.9 Pneumonia, unspecified organism (principal)
CPT/HCPCS: 71250

== ENCOUNTER 2023-02-10 05:38 | Day surgery (SDC) | payer MEDICARE, SELFPAY ==
[2023-02-10] VITALS (7 sets, daily range): BP systolic 89–121; BP diastolic 48–58; PULSE 72–99; RESP 14–20; TEMP 36.1–36.4; O2SAT 93–100; BMI 26.8
[2023-02-10] MEDS: Lactated Ringers 1,000 ML 15 ML IV (06:36)
--- NOTE | 2023-02-10 06:55 | PCM.HP.BLA ---
History and Physical Date of Admission: 02/10/23 82 M who presents with worsening shortness of breath. He also has a past medical history of chronic anemia on iron supplements; COPD on 3 L nasal cannula oxygen and diabetes mellitus who presents emergency department with 5-day history of on and off dyspnea. Associated with his symptoms is fever, chills, headache and confusion. Further the patient has been having increased frequency of urination. Also he has been having a dry cough. His family says that he has been having emesis. They also report fever over the last 4 days. Today they noticed confusion exhibited by speaking to himself incoherently. Patient states he has been eating and drinking. He has been taking Tylenol twice a day today he did have a dose but is unclear of exactly when his there is a discrepancy between what he states in the family. No reported syncope. He is on apixaban reportedly for atrial fibrillation. FORMERLY [facility], [facility] Medical History Anemia Arthritis Bruit of left carotid artery COPD (chronic obstructive pulmonary disease) Diabetes mellitus Diverticulitis Dupuytrens contracture GERD (gastroesophageal reflux disease) H/O inguinal hernia H/O: pneumonia History of pulmonary aspiration Lung mass Neuropathy Stage 3 severe COPD by GOLD classification Type 2 diabetes mellitus without complications Home Medications ferrous sulfate 325 mg (65 mg iron) tablet 325 mg PO DAILY 12/29/19 [History Last Taken Unknown] ipratropium 18 mcg-albuterol 103 mcg/actuation aerosol inhaler 1 spray inhalation DAILY PRN 12/29/19 [History Last Taken Unknown] blood sugar diagnostic (Blood Glucose Test strips) #100 ea 07/04/20 [Rx Last Taken Unknown] lancets 28 gauge (FreeStyle Lancets) #100 ea 07/04/20 [Rx Last Taken Unknown] albuterol sulfate 2.5 mg/3 mL (0.083 %) solution for nebulization 2.5 mg (3 mL) inhalation Q4H PRN shortness of breath or wheezing #180 mL 01/23/22 [Rx Last Taken 02/11/22] albuterol sulfate 90 mcg/actuation aerosol inhaler 2 puff inhalation Q6H PRN shortness of breath or wheezing #3 device 01/23/22 [Rx Last Taken 02/11/22] pantoprazole 40 mg tablet,delayed release 80 mg (2 x 40 mg) PO DAILY #30 tabs 02/14/22 [Rx Last Taken Unknown] gabapentin 100 mg capsule 100 mg PO TID #270 caps 05/15/22 [Rx Last Taken Unknown] simvastatin 40 mg tablet 40 mg PO DAILY #90 tabs 06/27/22 [Rx Last Taken Unknown] fluticasone fur. 200 mcg-umeclid 62.5 mcg-vilant 25 mcg inhalat.powder (Trelegy Ellipta) 1 inh inhalation DAILY #3 ea 07/15/22 [Rx Last Taken Unknown] tamsulosin 0.4 mg capsule 0.4 mg PO QHS #90 caps 09/11/22 [Rx Last Taken Unknown] Handicap placard #1 ea 10/24/22 [Rx Last Taken Unknown] apixaban 5 mg tablet (Eliquis) 5 mg PO BID #180 tabs 10/31/22 [Rx Last Taken Unknown] metformin 500 mg tablet See Rx Instructions .Route .COMPLEX #180 tabs 10/31/22 [Rx Last Taken Unknown] metoprolol tartrate 25 mg tablet 12.5 mg (1/2 x 25 mg) PO BID #90 tabs 10/31/22 [Rx Last Taken Unknown] oxycodone 10 mg tablet 10 mg PO DAILY PRN 11/12/22 [History Last Taken Unknown] Allergy/AdvReac Type Severity Reaction Status Date / Time Penicillins Allergy Severe Hives Verified 11/12/22 20:42 erythromycin base AdvReac Severe Nausea/Vom/ Verified 11/12/22 20:42 Diarrhea Family History Father CancerBrother Parkinsons diseaseMother Diverticulitis Surgical History History of carpal tunnel release Social History household members: spouse Smoking Status: Former smoker Tobacco: How many years used: 40 Electronic Cigarette Use: not used how long ago did patient quit smokin second hand exposure: Yes alcohol intake: never substance use type: does not use caffeine: Yes Type: coffee Number of servings: 1 what type of physical activity do you participate in: none ROS ROS Narrative Pertinent positives and pertinent negatives as noted in HPI. All other systems were reviewed and are negative Physical Exam Narrative Physical exam: General: Head: Normocephalic, atraumatic, no tenderness Eyes: Vision is grossly intact. EOMI ENT, no trauma, moist mucous membranes, no rhinorrhea Neck: Nontender, No thyromegaly. CVS: Tachycardia. Irregularly irregular.. S1-S2 present. No murmur, gallop or rub. Respiratory : Tachypnea; diminished breath sounds right base. Abdomen: Soft, nontender, nondistended, normal bowel sounds, no masses : Deferred Back: Nontender, no CVA tenderness, no midline spinal tenderness, deformities, step-offs Extremities: Nontender full range of motion, no trauma Skin: Normal color, no trauma, abrasions Neuro: Alert, oriented, cranial nerves II through XII grossly intact. Psychiatry: Normal mood. Normal affect. Not depressed. Not anxious. Lab / Micro Data 11/13/22 14:45 11/12/22 19:25 Labs: Laboratory Results - last 24 hr 11/12/22 19:25: WBC 12.2 H, RBC 3.24 L, Hgb 6.7 L, Hct 25.5 L, MCV 78.7 L, MCH 20.7 L, MCHC 26.3 L, RDW Std Deviation 45.2 H, RDW Coeff of Demetrius 16.2 H, Plt Count 432, MPV 11.4, Immature Gran % (Auto) 0.700, Neut % (Auto) 84.2 H, Lymph % (Auto) 6.8 L, [place] % (Auto) 7.0, Eos % (Auto) 0.7, Baso % (Auto) 0.6, Absolute Neuts (auto) 10.2 H, Absolute Lymphs (auto) 0.83, Nucleated RBC % 0, PT 18.2 H, INR 1.5, APTT 53.1 H, Sodium 143, Potassium 3.6, Chloride 112 H, Carbon Dioxide 26.0, Anion Gap 5, BUN 12, Creatinine 0.91, Estim Creat Clear Calc 60.43, Est GFR (MDRD) Af Amer 102, Est GFR (MDRD) Non-Af 84, BUN/Creatinine Ratio 13.2, Glucose 145 H, Lactic Acid 1.5, Calcium 7.9 L, Total Bilirubin 0.30, AST 9 L, ALT 12 L, Alkaline Phosphatase 71, Troponin I High Sens 14, Total Protein 6.5, Albumin 3.0 L, Globulin 3.5, Albumin/Globulin Ratio 0.9 11/12/22 20:15: Urine Color Yellow, Urine Clarity Sl. Cloudy, Urine pH 5.0, Ur Specific [place] 1.015, Urine Protein 15 H, Urine Glucose (UA) Normal, Urine Ketones Negative, Urine Occult Blood 25 H, Urine Nitrite Negative, Urine Bilirubin Negative, Urine Urobilinogen 1 H, Ur Leukocyte Esterase Negative, Urine RBC 0-5 SEEN, Urine WBC 0 SEEN, Ur Squamous Epith Cells 0-5 SEEN, Amorphous Sediment 1+ URATE, Urine Bacteria 0 SEEN, Urine Mucus 0 SEEN 11/12/22 20:24: Blood Type A POSITIVE, Antibody Screen NEGATIVE, Crossmatch See Detail 11/13/22 12:03: POC Glucose 106 11/13/22 14:45: WBC 11.3 H, RBC 3.67 L, Hgb 8.3 L, Hct 29.6 L, MCV 80.7, MCH 22.6 L, MCHC 28.0 L D, RDW Std Deviation 47.7 H, RDW Coeff of Demetrius 16.7 H, Plt Count 377, MPV 11.2, Immature Gran % (Auto) 0.700, Neut % (Auto) 75.4 H, Lymph % (Auto) 12.3 L, [place] % (Auto) 10.4 H, Eos % (Auto) 0.8, Baso % (Auto) 0.4, Absolute Neuts (auto) 8.6 H, Absolute Lymphs (auto) 1.39, Nucleated RBC % 0.2 11/13/22 17:34: POC Glucose 186 H Micro: Microbiology 11/13/22 11:02 Sputum, Expectorated/Coughed Gram Stain - Final 11/12/22 20:15 Urine, Clean Catch Legionella Antigen - Final 11/12/22 20:15 Urine, Clean Catch Streptococcus pneumoniae Antigen (M - Final 11/12/22 20:10 Nasal Secretion SARS-CoV-2 & FLU Antigen (Rapid) - Final Radiology Impression Chest X-Ray 11/12/22 20:12 IMPRESSION: 1. Consolidative pulmonary opacities in the right lower lobe and perhaps the right middle lobe indicating pneumonia, new when compared to the prior examination. 2. COPD. Electronically Signed: Gurmeet FordderekDO do at 20:25 EDT , Chest CTA 11/13/22 05:07 IMPRESSION: 1. No evidence for pulmonary embolism, aortic aneurysm, or aortic dissection. 2. Right lower lobe and right middle lobe pneumonia are substantially worsened from previous study. New finding of a minimal left lower lobe pneumonia. New finding of small bilateral pleural effusions. 3. Markedly worsening bronchial wall thickening bilaterally, consistent with inflammation and/or infection. 4. Worsening enlargement of mediastinal and right hilar lymph nodes, probably representing reactive nodes. 5. Suggestion of COPD. Electronically Signed: Ed Stapleton MD at 7:21 EDT , Assessment & Plan Assessment/Plan (1) Pneumonia: QUALIFIERS: Pneumonia type: due to unspecified organism Laterality: right Lung location: unspecified part of lung Qualified Code(s): J18.9 - Pneumonia, unspecified organism (2) SIRS (systemic inflammatory response syndrome): (3) Paroxysmal atrial fibrillation: (4) Acute anemia: PLAN: Plan 82-year-old with COPD on oxygen at home, paroxysmal atrial fibrillation on anticoagulation presents with worsening cough and fevers with a current diagnosis of pneumonia with SIRS. He also has been having emesis and possible hematemesis. Emesis with possible hematemesis. When patient is stable he should undergo an upper endoscopy to evaluate his upper GI tract. At this time recommend Protonix 40 mg IV twice a day. I will continue to follow. I have examined the patient and the H&P has been reviewed. There are no clinical changes since date of exam.
[2023-02-10 06:58] LABS: Bedside Glucose 125 mg/dL (74-106)
--- NOTE | 2023-02-10 07:00 | EGD_PTH ---
PATIENT: ANDREA DELUCA LOC: EN U#:[id number] AGE/SX: 82/M ROOM: RE02/10/[address]: Dr. Gerson Eastman DO : 1940 BED: DIS: 02/10/2023 SPEC #: [id number] RECD: 02/10/23 09:58 STATUS: MARSHALL REMadi #: [id number] MONIQUE: 02/10/23 07:[address]: Gerson Eastman DEPT: SURGICAL PATHOLOGY RECD BY: Saige Dickinson ENTERED: 02/10/23 10:58 SP TYPE: EGD BIOPSY MAGNO DR: Dr. Carmina Zaidi MD Tissues: Duodenum, NOS Procedures: Surgery Specimen Level IV HEADER OPERATION: EGD with biopsy PRE-OP DIAGNOSIS: GI Bleed TISSUE SUBMITTED: Duodenum biopsy MICROSCOPIC DIAGNOSIS Duodenum, biopsy: Fragments of duodenal mucosa, no pathologic diagnosis. SHANTA:shelbi 02/11/2023 MICROSCOPIC DESCRIPTION Slides are reviewed. GROSS DESCRIPTION Received in fixative is one container labeled with the patient's name and designated duodenum biopsy. The specimen consists of two irregular fragments of light whiting soft tissue that in aggregate measure 0.8 x 0.4 x 0.1 cm. The specimen is totally submitted in one cassette. / SJ:rg 02/10/2023 TC:4 CPT: 23143
--- NOTE | 2023-02-10 07:15 | OP.EGD_ITS ---
Patient Name: Cody Casillas Procedure Date: 02/10/2023 6:57 AM Date of : 1940 Age: 82 Procedure: Upper GI endoscopy Indications: Functional Dyspepsia, Peptic ulcer Providers: Gerson Eastman DO Medicines: Monitored Anesthesia Care Patient Profile: This is an 82 year old male. Refer to note in patient chart for documentation of history and physical. Patient has symptoms of chronic dyspepsia and chronic nausea. Complications: No immediate complications. Procedure: Pre-Anesthesia Assessment: - Prior to the procedure, a History and Physical was performed, and patient medications and allergies were reviewed. The patient is competent. The risks and benefits of the procedure and the sedation options and risks were discussed with the patient. All questions were answered and informed consent was obtained. Patient identification and proposed procedure were verified by the physician in the pre-procedure area. Mental Status Examination: normal. Prophylactic Antibiotics: The patient does not require prophylactic antibiotics. Prior Anticoagulants: The patient has taken no anticoagulant or antiplatelet agents. ASA Grade Assessment: III - A patient with severe systemic disease. After reviewing the risks and benefits, the patient was deemed in satisfactory condition to undergo the procedure. The anesthesia plan was to use monitored anesthesia care (MAC). Immediately prior to administration of medications, the patient was re-assessed for adequacy to receive sedatives. The heart rate, respiratory rate, oxygen saturations, blood pressure, adequacy of pulmonary ventilation, and response to care were monitored throughout the procedure. The physical status of the patient was re-assessed after the procedure. After obtaining informed consent, the endoscope was passed under direct vision. Throughout the procedure, the patient's blood pressure, pulse, and oxygen saturations were monitored continuously. The Endoscope was introduced through the mouth, and advanced to the second part of duodenum. The upper GI endoscopy was accomplished without difficulty. The patient tolerated the procedure well. Scope In: 7:02:46 AM Scope Out: 7:06:38 AM Total Procedure Duration Time 0 hours 3 minutes 52 seconds Findings: The examined esophagus was normal. The entire examined stomach was normal. Patchy mildly erythematous mucosa without active bleeding and with no stigmata of bleeding was found in the duodenal bulb and in the first portion of the duodenum. Biopsies were taken with a cold forceps for histology. Verification of patient identification for the specimen was done. Estimated blood loss was minimal. Impression: - Normal esophagus. - Normal stomach. - Erythematous duodenopathy. Biopsied. Recommendation: - Discharge patient to home. - Resume previous diet. - Continue present medications. - Await pathology results. Procedure Code(s): --- Professional --- 91832, Esophagogastroduodenoscopy, flexible, transoral; with biopsy, single or multiple CPT copyright 2021 [employer]. All rights reserved. The codes documented in this report are preliminary and upon productivity engineer review may be revised to meet current compliance requirements. Gerson Eastman DO 02/10/2023 7:15:10 AM This report has been signed electronically. Number of Addenda: 0 Note Initiated On: 02/10/2023 6:57 AM
--- NOTE | 2023-02-10 07:15 | OP.CCLET_ITS ---
02/10/2023 Carmina Zaidi [facility] [address] [place] [address] Re : Upper GI endoscopy procedure for Cody Casillas Dear Dr. Zaidi This procedure was performed on Friday, February 10, 2023. My impressions and recommendations are as follows: Impressions : - Normal esophagus. - Normal stomach. - Erythematous duodenopathy. Biopsied. Recommendations : - Discharge patient to home. - Resume previous diet. - Continue present medications. - Await pathology results. My findings are described in the full procedure note, which is enclosed. If I can be of further assistance, please feel free to contact me at . Sincerely, Gerson Eastman, 02/10/2023 7:15:10 AM This report has been signed electronically.
== END 2023-02-10 08:01 | disposition home or self-care (01) ==
LOC: EN 05:38 → AC 05:39
PROVIDERS: PCP Internal Medicine; Referring Provider Internal Medicine; Visit Provider Internal Medicine Gastroenterology
PROC: 0DJ08ZZ Inspection of Upper Intestinal Tract, Via Natural or Artificial Opening Endoscopic (ICD-10-PCS; CPT 43235; principal; 2023-02-10 06:55)
DX: K31.89 Other diseases of stomach and duodenum (principal); R65.10 Systemic inflammatory response syndrome (SIRS) of non-infectious origin without acute organ dysfunction; J44.9 Chronic obstructive pulmonary disease, unspecified; E11.40 Type 2 diabetes mellitus with diabetic neuropathy, unspecified; I48.0 Paroxysmal atrial fibrillation; Z79.4 Long term (current) use of insulin; J18.9 Pneumonia, unspecified organism; K30 Functional dyspepsia; D64.9 Anemia, unspecified; K21.9 Gastro-esophageal reflux disease without esophagitis; Z79.51 Long term (current) use of inhaled steroids; Z79.01 Long term (current) use of anticoagulants; Z79.899 Other long term (current) drug therapy; Z99.81 Dependence on supplemental oxygen; Z87.891 Personal history of nicotine dependence
CPT/HCPCS: 43239; 82962; 88305; J7120; J2405

== ENCOUNTER → 2023-03-20 | Outpatient (CLI) | payer MEDICARE, SELFPAY ==
[2023-03-20 13:09] LABS: Absolute Lymphocyte Count 0.86 X10^3/uL (0.83-4.51); Absolute Neutrophil Count 6.3 X10^3/uL (2.0-7.7); Basophil# 0.05 X10^3/uL; Basophil% 0.6 % (0-1); Eosinophil# 0.11 X10^3/uL; Eosinophils% 1.4 % (0-5); Hematocrit 25.9 % (40-54); Hemoglobin 6.9 g/dL (13.0-16.5); Lymphocyte # 0.86 X10^3/ul (0.83-4.51); Lymphocyte % 10.7 % (19-41); Mean Corp Hgb Conc 26.6 g/dL (32-36); Mean Corpuscular Hgb 20.4 pg (27.0-32.0); Mean Corpuscular Volume 76.6 fL (80-94); Mean Platelet Vol. 11.3 fl (6.2-12.0); Monocyte# 0.68 X10^3/uL; Monocyte% 8.4 % (0-10); NRBC Flagged by Analyzer 0 % (0-5); Neutrophil # 6.34 X10^3/uL (2.7-7.7); Neutrophil % 78.5 % (47-70); Platelet Count 386 K/mm3 (150-450); RBC Distribution Width SD 46.5 fl (35.1-43.9); Red Blood Count 3.38 M/mm3 (4.6-6.2); White Blood Count 8.1 K/mm3 (4.4-11.0)
[2023-03-20 13:41] LABS: Vitamin D,25 Hydroxy 69.4 ng/mL
[2023-03-20 13:50] LABS: ALB/GLOB Ratio 0.9 RATIO (0.9-2.4); AST(SGOT) 8 U/L (15-37); Alanine Aminotransfer ALT/SGPT 11 U/L (16-61); Albumin, Serum 3.3 g/dL (3.2-5.0); Alkaline Phosphatase 82 U/L (45-117); Anion Gap 5 (5-15); BUN 12 mg/dL (7-18); BUN/Creat Ratio 12.3 RATIO (10-20); Calcium,Total 8.7 mg/dL (8.5-10.1); Chloride 113 mmol/L (98-107); Creatinine, Serum 0.98 mg/dL (0.70-1.30); EST Glomerular Filtration Rate 78 mL/min (>60); Est Glom Filt Rate - Afr Amer 94 mL/min (>60); Globulin 3.5 g/dL (2.2-4.2); Glucose 118 mg/dL (74-106); Protein, Total 6.8 g/dL (6.4-8.2); Sodium Level 144 mmol/L (136-145); Thyroid Stim Hormone (TSH) 1.26 uIU/mL (0.358-3.74)
== END | disposition home or self-care (01) ==
LOC: LAB 12:07
PROVIDERS: PCP Internal Medicine; Referring Provider Internal Medicine; Visit Provider Internal Medicine
DX: D64.9 Anemia, unspecified (principal); J44.1 Chronic obstructive pulmonary disease with (acute) exacerbation; J18.9 Pneumonia, unspecified organism; G62.9 Polyneuropathy, unspecified; R05.9 Cough, unspecified; R06.00 Dyspnea, unspecified; E55.9 Vitamin D deficiency, unspecified; Z99.81 Dependence on supplemental oxygen
CPT/HCPCS: 36415; 80053; 82306; 84443; 85025

== ENCOUNTER 2023-03-24 12:03 | Outpatient (CLI) | payer MEDICARE, SELFPAY ==
[2023-03-24 12:25] VITALS: BP 132/59; PULSE 85; RESP 18; TEMP 36.1; O2SAT 100
[2023-03-24 13:25] VITALS: BP 125/72; PULSE 85; RESP 16; TEMP 36.8; O2SAT 100
[2023-03-24 14:43] VITALS: BP 127/54; PULSE 86; RESP 16; TEMP 36.5
[2023-03-24] MEDS: Furosemide 20 MG/2 ML VIAL IV (15:01)
== END 2023-03-24 12:04 | disposition home or self-care (01) ==
LOC: LAB 12:04 → MEDOUTP 14:27
PROVIDERS: PCP Internal Medicine; Referring Provider Internal Medicine; Visit Provider Internal Medicine
DX: D64.9 Anemia, unspecified (principal); J44.9 Chronic obstructive pulmonary disease, unspecified; E61.1 Iron deficiency
CPT/HCPCS: 36430; 86850; 86900; 86901; 86920; 86922; J7040; P9016; A4216; J1940

== ENCOUNTER 2023-03-26 09:07 | Outpatient (CLI) | payer MEDICARE, SELFPAY ==
--- OUTSIDE RECORDS SUMMARY | 2023-03-26 09:36 | XMS RPT_ITS | CCD ---
Author Name Unknown Address [address] [place] [address] Organization [facility] Care Team Providers Care Tutor Name Role Phone Tip Doll Primary Care Provider Royer Thacker Primary Care Provider Allergies Allergy Classification Reported Allergen(s) Allergy Type Date of Onset Reaction(s) Facility (14 sources) Erythromycin Drug Allergy 10-10-2014 [place], [place] (14 sources) levoFLOXacin Drug Allergy 10-29-2017 [place], [place] (14 sources) Amoxicillin-Pot Clavulanate Propensity to adverse reactions to drug 12-03-2017 [place] (3 sources) Penicillins Propensity to adverse reactions to drug 10-21-2019 Rash [place] Medications Current Medications Medication Drug Class(es) Dates Sig (Normalized) Sig (Original) Acetaminophen (2 sources) Start: 05-05-2019 acetaminophen (TYLENOL) tablet 650 mg Completed/Discontinued Medications Medication Drug Class(es) Dates Sig (Normalized) Sig (Original) bisacodyl 5 mg delayed release oral tablet (1 source) Stimulant Laxative Start: 12-13-2018 End: 12-13-2018 bisacodyl (DULCOLAX) EC tablet 10 mg cefTRIAXone (ROCEPHIN) 1 g IVPB in NS 50ml minibag (1 source) Start: 05-05-2019 End: 05-05-2019 cefTRIAXone (ROCEPHIN) 1 g IVPB in NS 50ml minibag doxycycline (VIBRAMYCIN) 100 mg in dextrose 5 % 100 mL IVPB (1 source) Start: 05-05-2019 End: 05-05-2019 doxycycline (VIBRAMYCIN) 100 mg in dextrose 5 % 100 mL IVPB 60 actuat formoterol fumarate 0.005 mg/actuat / mometasone furoate 0.2 mg/actuat metered dose inhaler (2 sources) Corticosteroid, beta2-Adrenergic Agonist Start: 05-05-2019 End: 05-06-2019 take 2 puff(s) by inhalation twice daily 2 puff, Inhalation, 2 TIMES DAILY, First dose on Fri05/05/19 at 2000 Substituted for Fluticasone-Salmet lisa (ADVAIR HFA) Problems Active Problems Problem Classification Problem Date Documented Da te Episodic/Chronic Chronic obstructive pulmonary disease and bronchiectasis (20 sources) Acute exacerbation of chronic obstructive airways disease; Translations: [Pulmonary emphysema] Onset: 0 11-23-2014 Chronic Deficiency and other anemia (14 sources) Anemia; Translations: [Anemia, unspecified] 11-23-2014 Episodic Disorders of lipid metabolism (14 sources) Hyperlipidemia; Translations: [Hyperlipidemia, unspecified] 11-23-2014 Chronic Esophageal disorders (14 sources) Gastroesophageal reflux disease; Translations: [Gastro-esophageal reflux disease without esophagitis] 11-23-2014 Chronic Gastrointestinal hemorrhage (20 sources) Rectal hemorrhage; Translations: [Gastrointestinal hemorrhage] Onset: 9 12-11-2018 Episodic Hyperplasia of prostate (6 sources) Benign prostatic hypertrophy with outflow obstruction; Translations: [Benign prostatic hyperplasia with lower urinary tract symptoms] Onset: 0 05-27-2019 Chronic Other lower respiratory disease (9 sources) Fibrosis of lung; Translations: [Pulmonary fibrosis, unspecified] Onset: 9 05-08-2019 Chronic Other lower respiratory disease (14 sources) H/O: bronchitis; Translations: [Personal history of other diseases of the respiratory system] 11-23-2014 Episodic Other nervous system disorders (14 sources) Idiopathic peripheral neuropathy; Translations: [Hereditary and idiopathic neuropathy, unspecified] Onset: 7 08-21-2016 Chronic Respiratory failure; insufficiency; arrest (adult) (13 sources) Szvnt-ws-[id number] respiratory failure; Translations: [Chronic hypoxemic respiratory failure] Onset: 9 05-08-2019 Chronic Syncope (1 source) Syncope and collapse; Translations: [Syncope and collapse] Episodic Past or Other Problems Problem Classification Problem Date Documented Da te Episodic/Chronic Complications of surgical procedures or medical care (1 source) Subcutaneous emphysema resulting from a procedure; Translations: [Subcutaneous emphysema resulting from a procedure, initial encounter] Episodic Other circulatory disease (14 sources) Orthostatic hypotension; Translations: [Orthostatic hypotension] Resolved: 08-21-2016 08-21-2016 Episodic Other gastrointestinal disorders (14 sources) Dysphagia; Translations: [Dysphagia, unspecified] Resolved: 08-21-2016 08-21-2016 Episodic Other lower respiratory disease (13 sources) Lung mass; Translations: [Solitary pulmonary nodule] Onset: 12-21-2018 12-21-2018 Episodic Other lower respiratory disease (1 source) Nodule of lung; Translations: [Solitary pulmonary nodule] Onset: 12-21-2018 12-21-2018 Episodic Pneumonia (except that caused by tuberculosis or sexually transmitted disease) (9 sources) Pneumococcal lobar pneumonia; Translations: [Infective pneumonia] Onset: 05-08-2019 05-08-2019 Episodic Results Test Name Value Interpretation Reference Range Facil ity Vital Signs Date Time Vital Sign Value Performing Clinician Faci litpako 05-07-2019 12:55-0500 Pulse Oximetry 94 % [place] 05-07-2019 08:30-0500 Body Temperature 96.8 [degF] [place] 05-07-2019 08:30-0500 BP Diastolic 75 mm[Hg] [place] 05-07-2019 08:30-0500 BP Systolic 125 mm[Hg] [place] 05-07-2019 08:30-0500 Pulse (Heart Rate) 89 /min John[place] 05-07-2019 08:30-0500 Respiratory Rate 16 /min [place] 05-05-2019 15:12-0500 Height 177.8 cm [place] 05-05-2019 11:56-0500 BMI (Body Mass Index) 29.56 kg/m2 John[place] 05-05-2019 11:56-0500 Body weight 93.44 kg Johnie [facility] , [place] 12-14-2018 10:20-0400 Pulse Oximetry 94 % Kirby Medrano [facility] , [place] 12-14-2018 10:20-0400 Respiratory Rate 16 /min Kirby Velez [facility], [place] 12-14-2018 09:47-0400 BP Diastolic 83 mm[Hg] Kirby Velez [facility] , [place] 12-14-2018 09:47-0400 BP Systolic 111 mm[Hg] Kirby Velez [place], [place] 12-14-2018 09:47-0400 Pulse (Heart Rate) 76 /min Kirby Velez [place] 12-14-2018 09:31-0400 Body Temperature 97.59 [degF] Kirby Velez [facility], [place] 12-14-2018 08:17-0400 BMI (Body Mass Index) 28.41 kg/m2 Kirby Velez [facility], [place] 12-14-2018 08:17-0400 Body weight 89.81 kg Kirby Velez [place], [place] 12-14-2018 08:17-0400 Height 177.8 cm Kirby Velez [place] Encounters Encounter Date Encounter Type Care Provider Facility Start: 05-31-2021 End: 05-31-2021 Subsequent hospital visit by physician Sam Hanks MD Work Phone: [facility] Start: 11-15-2019 End: 11-15-2019 Subsequent hospital visit by physician Harmony Mcclain Work Phone: [facility] Start: 10-21-2019 End: 10-21-2019 Subsequent hospital visit by physician Harmony Mcclain Work Phone: [facility] Start: 07-19-2019 End: 07-19-2019 Subsequent hospital visit by physician Sam Hanks Work Phone: [facility] Start: 06-28-2019 End: 06-28-2019 Subsequent hospital visit by physician Sam Hanks Work Phone: [facility] Start: 06-07-2019 End: 06-07-2019 Subsequent hospital visit by physician Batsheva Valdez Work Phone: [facility] Radiology Procedures Date Procedure Procedure Detail Performing Clinician Start: 05-31-2021 Blood count complete auto&auto difrntl wbc Sam Hanks MD Work Phone: Start: 07-19-2019 Assay of ferritin Sam Hanks Work Phone: Start: 07-19-2019 Blood count complete auto&auto difrntl wbc Sam Hanks Work Phone: Start: 07-19-2019 Iron binding capacity D juan daniel Hanks Work Phone: Start: 06-28-2019 Assay of ferritin Sam Hanks Work Phone: Start: 06-28-2019 Blood count complete auto&auto difrntl wbc Sam Hanks Work Phone: Start: 06-28-2019 Iron binding capacity D juan daniel Hanks Work Phone: Start: 06-07-2019 Radiologic exam ches t 2 views [place] Work Phone: Start: 05-19-2019 Radiologic exam ches t 2 views [place] Work Phone: Start: 05-07-2019 Gluc bld gluc mntr d ev cleared fda spec home use Wili [employer] Work Phone: Start: 05-07-2019 HOME O2 EVAL (DESATU RATION SCREEN) [facility] [employer] Work Phone: Start: 05-07-2019 Gluc bld gluc mntr d ev cleared fda spec home use Johnie Mancuso Work Phone: Start: 05-07-2019 [facility]calcit[facility] (pct) [facility] Work Phone: Start: 05-06-2019 Gluc bld gluc mntr d ev cleared fda spec home use Johnie Mancuso Work Phone: Start: 05-06-2019 Gluc bld gluc mntr d ev cleared fda spec home use Johnie Mancuso Work Phone: Start: 05-06-2019 Gluc bld gluc mntr d ev cleared fda spec home use Johnie Mancuso Work Phone: Start: 05-06-2019 Procalcitonin (pct) Parrish Rivera Work Phone: Start: 05-06-2019 Iaad ia mult step me thod nos each organism Tiffanie Metz Work Phone: Start: 05-06-2019 STREP PNEUMONIAE ANTIGEN Tiffanie Metz Work Phone: Start: 05-06-2019 Echo tthrc r-t 2d w/wom-mode compl spec&colr d Tiffanie Metz Work Phone: Start: 05-06-2019 Gluc bld gluc mntr d ev cleared fda spec home use Johnie Mancuso Work Phone: Start: 05-06-2019 Ct thorax w/o contra st material Tiffanie Mezt Work Phone: Start: 05-06-2019 Gluc bld gluc mntr d ev cleared fda spec home use Johnie Mancuso Work Phone: Start: 05-06-2019 Gluc bld gluc mntr d ev cleared fda spec home use Johnie Mancuso Work Phone: Start: 05-06-2019 BASIC METABOLIC PANE L W/ REFLEX TO MG FOR LOW K Tiffany Kearney Work Phone: Start: 05-06-2019 Blood count complete auto&auto difrntl wbc Tiffany Kearney Work Phone: Start: 05-05-2019 ADD ON LAB TEST Roge Stokes Work Phone: Start: 05-05-2019 Iadna respiratry pro be & rev trnscr 12-25 target Wili Paul Work Phone: Start: 05-05-2019 Smr prim src gram/gi emsa stain bct fungi/cell Tiffany Kearney Work Phone: Start: 05-05-2019 Assay of lactate Roge Alonso Work Phone: Start: 05-05-2019 POCT ARTERIAL Roge naylor Work Phone: Start: 05-05-2019 Radiologic exam ches t single view Roge Alonso Work Phone: Start: 05-05-2019 Assay of troponin quantitative Roge Alonso Work Phone: Start: 05-05-2019 Blood count complete auto&auto difrntl wbc Roge Alonso Work Phone: Start: 05-05-2019 Comprehensive metabo lic panel Roge Alonso Work Phone: Start: 05-05-2019 Iadna respiratry pro be & rev trnscr 12-25 target Roge Alonso Work Phone: Start: 05-05-2019 Natriuretic peptide Anoop iel Celeste Work Phone: Start: 05-05-2019 Ecg routine ecg w/le ast 12 lds w/i&r Roge Alonso Work Phone: Start: 03-08-2019 Blood count complete auto&auto difrntl wbc Sam Hanks MD Work Phone: Start: 01-15-2019 Blood count complete auto&auto difrntl wbc Sam Hanks Work Phone: Start: 01-12-2019 Brncdilat rspse spmt ry pre&post-brncdilat admn Batsheva Valdez Work Phone: Start: 01-12-2019 NEBULIZER TX INTERMITTENT Batsheva Valdez Work Phone: Start: 12-31-2018 Ct thorax w/o contra st material Alycia S Alvin Work Phone: Start: 12-24-2018 Blood count complete auto&auto difrntl wbc Sam Hanks MD Work Phone: Start: 12-14-2018 Colonoscopy 3m Scannin g Start: 12-14-2018 Basic metabolic pane l calcium total Jayden Aguilar Work Phone: Start: 12-14-2018 Blood count complete auto&auto difrntl wbc Jayden Aguilar Work Phone: Start: 12-13-2018 Blood count hemoglobin Pieter Brewster Work Phone: Start: 12-13-2018 Basic metabolic pane l calcium total Jayden Aguilar Work Phone: Start: 12-13-2018 Blood count complete auto&auto difrntl wbc Jayden Aguilar Work Phone: Start: 12-12-2018 Blood count hemoglobin Pieter Brewster Work Phone: Start: 12-12-2018 Blood count hemoglobin Pieter Brewster Work Phone: Start: 12-12-2018 Prothrombin time Pieter Brewster Work Phone: Start: 12-12-2018 Assay of ferritin Arcadio Aguilar Work Phone: Start: 12-12-2018 Assay of folic acid serum Jayden Aguilar Work Phone: Start: 12-12-2018 BASIC METABOLIC PANE L W/ REFLEX TO MG FOR LOW K Jayden Aguilar Work Phone: Start: 12-12-2018 Blood count complete auto&auto difrntl wbc Jayden Aguilar Work Phone: Start: 12-12-2018 Cyanocobalamin vitamin b-12 Jayden Aguilar Work Phone: Start: 12-12-2018 Iron binding capacity G eodominic Aguilar Work Phone: Start: 12-11-2018 Ct abdomen & pelvis w/o contrast material Kirby Medrano Work Phone: Start: 12-11-2018 Assay of lipase Kirby Medrano Work Phone: Start: 12-11-2018 Assay of magnesium Jameel Medrano Work Phone: Start: 12-11-2018 Assay of troponin quantitative Kirby Medrano Work Phone: Start: 12-11-2018 Blood count complete auto&auto difrntl wbc Kirby Medrano Work Phone: Start: 12-11-2018 Blood typing serologic abo Kirby Medrano Work Phone: Start: 12-11-2018 Comprehensive metabo lic panel Kirby Medrano Work Phone: Start: 12-11-2018 Natriuretic peptide Gre evangelista Medrano Work Phone: Start: 12-11-2018 Ecg routine ecg w/le ast 12 lds w/i&r Kirby Medrano Work Phone: Plan of Treatment Date Care Activity Detail Author Start: 11-01-2020 Influenza vaccination Flu vaccine (#1) [facility] Start: 09-02-2020 Annual Wellness Visit (AWV) Annual Wellness Visit (AWV) [facility] Start: 09-01-2020 Lipid panel Lipid screen [facility] Start: 03-06-2020 End: 03-06-2020 Office Visit 03/06/2020 Office Visit Family Medicine Tip Doll MD [address] [address], [place] [address] [phone] [facility] Start: 01-03-2020 End: 01-03-2020 Office Visit 01/03/2020 Office Visit Pulmonology Batsheva Valdez MD [address] [place] [id number] [phone] [facility] Start: 12-10-2019 DTaP/Tdap/Td vaccine (1 - Tdap) DTaP/Tdap/Td vaccine (1 - Tdap) [place] Immunizations Immunization Date Immunization Notes Care Provider Fa [facility] 12-01-2019 influenza virus vacc ine, unspecified formulation Sam Hanks MD Work Phone: [facility] 08-23-2019 [facility] [place] 04-05-2019 zoster vaccine recombinant Harmony [facility], [place] 11-27-2018 influenza, high dose seasonal, preservative-free Kirby Medrano [facility] 12-10-2017 influenza, high dose seasonal, preservative-free Kirby Medrano [facility], [place] 12-18-2016 influenza, high dose seasonal, preservative-free Kirby Medrano [facility] 04-17-2016 pneumococcal conjuga te vaccine, 13 valent Kirby CLAYTON 12-07-2015 influenza, high dose seasonal, preservative-free Kirby CLAYTON 12-07-2015 influenza, injectabl e, quadrivalent, contains preservative Kirby Medrano [facility], [place] 12-09-2014 influenza virus vacc ine, unspecified formulation Kirby Medrano [facility] 12-06-2013 influenza virus vacc ine, unspecified formulation Kirby Mitchell [facility] , [place] 12-06-2013 influenza, injectabl e, quadrivalent, contains preservative Kirby Medrano [facility], [place] 12-31-2012 pneumococcal polysaccharide vaccine, 23 valent Kirby Medrano [facility], [place] 12-17-2012 influenza virus vacc ine, unspecified formulation Kirby Mitchell [facility] , [place] 12-17-2012 influenza virus vacc ine, whole virus [facility], [place] 12-06-2011 influenza virus vacc ine, unspecified formulation [facility] , [place] 12-06-2011 influenza virus vacc ine, whole virus Kirby Mitchell [facility], [place] 12-11-2010 influenza virus vacc ine, unspecified formulation [facility] , [place] 12-11-2010 influenza virus vacc ine, whole virus [facility], [place] 09-12-2010 zoster vaccine, live Kirby WHITE Work Phone: Payers Date Payer Category Payer Medicare AETNA MEDICARE A ETNA MEDICARE-ADVANTAGE PPO [id number] 2016-Present [address] [place] [address] Medicare [id number] 2016 Medicare AETNA MEDICARE A ETNA MEDICARE-ADVANTAGE PPO [id number] 2016-Present [address] [place] [address] Medicare [id number] Social History Date Type Detail Facility Start: 10-27-2014 End: 12-14-2018 Tobacco smoking status NHIS Former smoker [place], [place] End: 03-03-2007 History of tobacco use Current [place] End: 03-03-2007 History of tobacco use Cigarette Smoker [place] Start: 12-14-2018 End: 01-03-2020 Cigarettes smoked current (pack per day) - Reported [place] Start: 12-14-2018 Alcohol intake [place] Start: 06-09-2018 History SDOH Financial 4 [place] Start: 06-09-2018 History SDOH Food Worry 1 [place] Start: 06-09-2018 History SDOH Transpo rt Med 2 [place], [place] Start: 1940 Sex Assigned At Not on file M [place] Start: 05-27-2019 End: 01-03-2020 Alcohol intake Current non-drinker of alcohol (finding) [place] Exposure to SARS-CoV -2 (event) Unable to assess [place] Start: 10-27-2014 End: 10-21-2019 Tobacco use and exposure Never used [place] Medical Equipment Procedure Code Equipment Code Equipment Origin al Text Equipment Identifier Dates Test blood sugar b.i.d. [id number] Start: 05-25-2019 Test blood sugar twice a day [id number] Start: 05-25-2019 Test blood sugar b.i.d. 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 Advance Directives and Living Will Power of Window Framer Latest Code Status on File Code Status Date Activated Date Inactivated Comments Full Code 12/11/2018 3:40 PM Latest Code Status on File Code Status Date Activated Date Inactivated Comments Full Code 05/05/2019 3:03 PM 05/07/2019 4:07 PM Full Code 12/11/2018 3:40 PM 12/14/2018 1:28 PM Latest Code Status on File Code Status Date Activated Date Inactivated Comments Full Code 05/05/2019 3:03 PM Documents on File Type Date Recorded 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 ACP-Advance Directive ACP-Power of Window Framer Documents on File Type Date Recorded 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 Advance Directives and Living Will Power of Window Framer Latest Code Status on File Code Status Date Activated Date Inactivated Comments Full Code 12/11/2018 3:40 PM 12/14/2018 1:28 PM Latest Code Status on File Code Status Date Activated Date Inactivated Comments Full Code 12/11/2018 3:40 PM 12/14/2018 1:28 PM Hospital Course * Jayden Aguilar, DO - 12/14/2018 10:51 AM EDT Hospitalist Discharge Summary Cody Casillas : 1940 Admit date: 12/11/2018 Discharge date: 12/14/2018 Admitting Physician: Wili Paul MD Primary Care Physician: Tip Doll MD Visit Status: Admission Code Status: Full Code Discharge Diagnoses: 1. Rectal bleeding 2/2 to diverticulosis s/p colonoscopy 12/14 2. Internal hemorrhoids 3. Acute blood loss anemia 4. Hx of GERD 5. Hx of COPD 6. Hx of HPL Diagnosis Date Actinomyces infection Anemia COPD (chronic obstructive pulmonary disease) (HCC) Difficulty swallowing Emphysema of lung (HCC) GERD (gastroesophageal reflux disease) H/O bronchitis Hyperlipidemia Lung abscess (HCC) Orthostasis Ventral hernia Procedures: colonoscopy Hospital Course: Cody is a 78 y.o. male presenting with near syncope, GI bleed, and anemia. He thought the bleeding would stop but began having near syncopal episodes. Patient describes the stools as being both dark red and bright red. Only takes ASA 81 mg daily. Denies use of any other blood thinner. Admitted and seen by GI. Had colonoscopy done showing diverticulosis and internal hemorrhoids.See medication adjustments below in med rec.The patient is discharged in improved and stable condition. Consults: IP CONSULT TO GI Discharge Instructions: Diet: DIET GENERAL; Activity: as tolerated Recommended Outpatient Tests: repeat CBC in 1 week Disposition: Patient discharged in stable condition to Home. Greater than 30 minutes spent discharging the patient and coming up with patient discharge plan. Vitals: BP 111/83 Pulse 76 Temp 97.6 F (36.4 C) (Temporal) Resp 16 Ht 5' 10 (1.778 m) Wt198 lb (89.8 kg) SpO2 94% BMI 28.41 kg/m Pulse Ox: SpO2 Av.3 % Min: 91 % Max: 97 % Supplemental O2: O2 Flow Rate (L/min): 0 L/min General appearance: No apparent distress, appears stated age and cooperative with exam HEENT: Normal cephalic, atraumatic without obvious deformity. Pupils equal, round, and reactive to light. Extra ocular muscles intact. Conjunctivae/corneas clear. Neck: Supple, with full range of motion. No jugular venous distention. Trachea midline. No lymphadenopathy. Respiratory: Normal respiratory effort. Clear to auscultation, bilaterally without Rales/Wheezes/Rhonchi. Cardiovascular: Regular rate and rhythm with normal S1/S2 without murmurs, rubs or gallops. Abdomen: Soft, non-tender, non-distended with normal bowel sounds. No rebound or guarding. Musculoskeletal: No clubbing, cyanosis or edema bilaterally. Full range of motion without deformity. Skin: Skin color, texture, turgor normal. No rashes or lesions. Neurologic: Neurovascularly intact without any focal sensory/motor deficits. Cranial nerves: II-XIIintact, grossly non-focal. Discharge Medications: Cody Casillas Home Medication Instructions CHRIS:[id number] Printed on:12/14/18 1058 Medication Information albuterol (PROVENTIL HFA;VENTOLIN HFA) 108 (90 BASE) MCG/ACT inhaler Inhale 2 puffs into the lungs every 6 hours as needed for Wheezing aspirin 81 MG tablet Take 81 mg by mouth daily ferrous sulfate 325 (65 FE) MG tablet Take 325 mg by mouth daily (with breakfast) fluticasone-salmeterol (ADVAIR HFA) 230-21 MCG/ACT inhaler Inhale 2 puffs into the lungs 2 times daily gabapentin (NEURONTIN) 100 MG capsule Take 1 capsule by mouth 3 times daily for 90 days.. INCRUSE ELLIPTA 62.5 MCG/INH AEPB Take 1 puff by mouth nightly Multiple Vitamins-Minerals (MULTI FOR HIM PO) Take 1 tablet by mouth daily OXYGEN Inhale 2 L into the lungs pantoprazole (PROTONIX) 40 MG tablet Take 1 tablet by mouth daily simvastatin (ZOCOR) 40 MG tablet TAKE 1 TABLET NIGHTLY vitamin B-12 (CYANOCOBALAMIN) 100 MCG tablet Take 50 mcg by mouth daily vitamin D (CHOLECALCIFEROL) 1000 UNIT TABS tablet Take 1,000 Units by mouth daily Recommended Follow-up: Tip Doll MD [address] [place] [address], [address] [place] [id number] In 1 week post hospital fu appt Kym Dillon MD [address] [place] [address] [address] [facility] [phone] As needed Readmission Risk Risk of Unplanned Readmission: 12 Complexity of Follow up: ? Moderate Complexity: follow up within 7-14 calendar days (11357) ? Severe Complexity: follow up within 7 calendar days (12854) Follow up Testing, Pending results or Referrals at Transitional Care Visit: ? yes ? no Instructions to MA: Please call patient on day after discharge (must document patient contacted within 2 business days of discharge). Follow up questions for MA: 1. Did you get medications filled and taking them as instructed from discharge? 2. Are you following your discharge instructions from your hospital stay? 3. Please confirm patient is scheduled for a follow up appointment within the above time frame. Signed: Jayden Aguilar DO [facility] 12/14/2018, 10:51 AM documented in this encounter Discharge Instructions * Discharge Instr - Activity* Jayden Aguilar DO - 12/14/2018 10:51 AM EDT As tolerated * Discharge Instr - Diet* Jayden Aguilar DO - 12/14/2018 10:51 AM EDT ? Good nutrition is important when healing from an illness, injury, or surgery. Follow any nutrition recommendations given to you during your hospital stay. ? If you were given an oral nutrition supplement while in the hospital, continue to take this supplement at home. You can take it with meals, in-between meals, and/or before bedtime. These supplements can be purchased at most local grocery stores, pharmacies, and chain super-stores. ? If you have any questions about your diet or nutrition, call the hospital and ask for the dietitian. * Additional Instructions* Jayden Aguilar DO - 12/14/2018 GENERAL SIGNS AND SYMPTOMS GREEN ZONE: All Clear- Your Symptoms Are Under Control No recurrence of symptoms that led to hospitalization Able to do usual activities No fever No chest pain No shortness of breath This Means You Should: Continue taking your medications as prescribed Continue activity as tolerated Keep all doctor appointments YELLOW ZONE: Caution as Your Health may be Worsening Recurrence of symptoms that led to hospitalization Fever of 100 degrees or higher Increased fatigue or restlessness Intolerant side-effects of medications Uneasy feeling or that something is wrong This Means You Should: Call your doctor for further instructions RED ZONE: Medical Alert Severe or unrelieved shortness of breath at rest Unrelieved chest pain Confusion or you can't think clearly This Means You Should Call 911 Immediately * Attachments The following attachments cannot be sent through Care Everywhere. * Diverticulosis (Lithuanian) documented in this encounter History of Present Illness * Edis Hollingsworth RN - 12/14/2018 9:39 AM EDT POST ENDOSCOPY PROCEDURE TRANSFER REPORT Procedure completed: colonoscopy Findings:diverticulosis, hemmorroids Specimens obtained: no Medications administered: 200 mg propofol Additional Info: n/a For additional Questions please call Endoscopy at [phone]. Thank You! * Jayden Aguilar DO - 12/13/2018 10:32 AM EDT Hospitalist Progress Note 12/13/2018 10:32 AM [phone]: Please page me ([phone]) for patient care issues. [phone]: Please page [facility] night Hospitalist for any issues. Subjective: Admit Date: 12/11/2018 PCP: Tip Doll MD Room#: 249/2492 Interval History: No overnight issues. Denies chest pain, sob, abdominal pain, nausea, vomiting, diarrhea, constipation, fevers, or chills. DIET CLEAR LIQUID; Diet NPO, After Midnight Exceptions are: Sips with Meds, Other (See Comment) Patient Vitals for the past 96 hrs (Last 3 readings): Weight 12/11/18 1508 198 lb 1.6 oz (89.9 kg) 12/11/18 1031 202 lb (91.6 kg) 24HR INTAKE/OUTPUT: Intake/Output Summary (Last 24 hours) at 12/13/2018 1032 Last data filed at 12/12/2018 1342 Gross per 24 hour Intake 200 ml Output Net 200 ml Past Medical History: Diagnosis Date Actinomyces infection Anemia COPD (chronic obstructive pulmonary disease) (HCC) Difficulty swallowing Emphysema of lung (HCC) GERD (gastroesophageal reflux disease) H/O bronchitis Hyperlipidemia Lung abscess (HCC) Orthostasis Ventral hernia Medications: bisacodyl 10 mg Oral BID polyethylene glycol 255 g Oral Daily [START ON 12/14/2018] polyethylene glycol 255 g Oral Once sodium chloride flush 10 mL Intravenous 2 times per day pantoprazole 40 mg Intravenous Q12H And sodium chloride (PF) 10 mL Intravenous Q12H vitamin D 1,000 Units Oral Daily ferrous sulfate 325 mg Oral Daily with breakfast vitamin B-12 50 mcg Oral Daily gabapentin 100 mg Oral TID simvastatin 40 mg Oral Nightly mometasone-formoterol 2 puff Inhalation BID tiotropium 18 mcg Inhalation Nightly LABS: CBC: Recent Labs 12/11/18 1127 12/12/18 0515 12/12/18 1546 12/12/18 2346 12/13/18 0535 WBC 7.1 7.0 -- -- 6.0 RBC 3.07* 2.87* -- -- 2.91* HGB 8.2* 7.8* 8.8* 7.8* 7.9* HCT 25.3* 24.0* -- -- 24.6* MCV 82.5 83.3 -- -- 84.3 RDW 15.7* 16.7* -- -- 16.6* PLT 243 211 -- -- 221 BMP: Recent Labs 12/11/18 1127 12/12/18 0515 12/13/18 0535 NA 144 142 140 K 4.3 4.0 3.9 CL 111* 112* 111* CO2 24 26 26 BUN 16 11 7 CREATININE 0.92 0.90 0.91 GLUCOSE 135* 138* 134* CALCIUM 8.4 8.2* 8.3* ANIONGAP 9 4 3 LIVER PROFILE: Recent Labs 12/11/18 1127 AST 24 ALT 23 BILITOT 0.2 ALKPHOS 52 LABALBU 3.3* PROT 5.8* PT/INR: Recent Labs 12/12/18 1546 PROTIME 10.8 INR 1.0 CARDIAC ENZYMES: Recent Labs 12/11/18 1127 TROPONINI <0.012 Procalcitonin: No results found for: PROCAL Objective: Vitals: BP (!) 142/96 Pulse 83 Temp 97.9 F (36.6 C) (Temporal) Resp 18 Wt 198 lb 1.6 oz (89.9 kg) SpO2 93% BMI 29.25 kg/m Pulse Ox: SpO2 Av.2 % Min: 93 % Max: 96 % Supplemental O2: O2 Flow Rate (L/min): 2 L/min General appearance: No apparent distress, appears stated age and cooperative with exam HEENT: Normal cephalic, atraumatic without obvious deformity. Pupils equal, round, and reactive to light. Extra ocular muscles intact. Conjunctivae/corneas clear. Neck: Supple, with full range of motion. No jugular venous distention. Trachea midline. No lymphadenopathy. Respiratory: Normal respiratory effort. Clear to auscultation, bilaterally without Rales/Wheezes/Rhonchi. Cardiovascular: Regular rate and rhythm with normal S1/S2 without murmurs, rubs or gallops. Abdomen: Soft, non-tender, non-distended with normal bowel sounds. No rebound or guarding. Musculoskeletal: No clubbing, cyanosis or edema bilaterally. Full range of motion without deformity. Skin: Skin color, texture, turgor normal. No rashes or lesions. Neurologic: Neurovascularly intact without any focal sensory/motor deficits. Cranial nerves: II-XIIintact, grossly non-focal. Assessment 1. Rectal bleeding>>AVMs?tics? 2. Acute blood loss anemia 3. Hx of GERD 4. Hx of COPD 5. Hx of HPL Plan -PPI BID, GI following and plans for colonoscopy 12/14 -continue to hold ASA, follow H/H, transfuse prn hgb<7.0 -am labs, replace lytes prn -increase activity -DVT prophylaxis: [] Lovenox [] Heparin [x] SCDs [x] Encourage ambulation [] Already on Anticoagulation Advance Directive: Full Code Discharge planning: MAY Aguilar DO Division of Hospitalist Medicine Inpatient Medical Services PAGER: [phone] * Kym Dillon MD - 12/13/2018 9:19 AM EDT GASTROENTEROLOGY PROGRESS NOTE Patient: Cody Casillas :1940 Primary Care Physician: Tip Doll MD History: The patient is a 78 y.o. male with no further rectal bleeding Denies NV. Hgb 7.9. No chest pain andno shortness of breath Current Medications: Current Facility-Administered Medications Medication Dose Route Frequency Provider Last Rate Last Dose polyethylene glycol (GoLYTELY) solution 4,000 mL 4,000 mL Oral Once Pieter Brewster MD [START ON 12/14/2018] polyethylene glycol (GoLYTELY) solution 400 mL 400 mL Oral Once Ryan López MD sodium chloride flush 0.9 % injection 10 mL 10 mL Intravenous 2 times per day Jayden Aguilar DO 10 mL at 12/13/18 0757 sodium chloride flush 0.9 % injection 10 mL 10 mL Intravenous PRN Jayden Aguilar, DO acetaminophen (TYLENOL) tablet 650 mg 650 mg Oral Q4H PRN Jayden Aguilar, DO ondansetron (ZOFRAN) injection 4 mg 4 mg Intravenous Q6H PRN Jayden Aguilar, DO pantoprazole (PROTONIX) injection 40 mg 40 mg Intravenous Q12H Jayden Aguilar, DO 40 mg at 12/13/18 0539 And sodium chloride (PF) 0.9 % injection 10 mL 10 mL Intravenous Q12H Jayden Aguilar, DO 10 mL at 12/13/18 0539 vitamin D (CHOLECALCIFEROL) tablet 1,000 Units 1,000 Units Oral Daily Jayden Aguilar, DO 1,000 Units at 12/13/18 0756 ferrous sulfate tablet 325 mg 325 mg Oral Daily with breakfast Jayden Aguilar, DO 325 mg at 12/13/18 0756 vitamin B-12 (CYANOCOBALAMIN) tablet 50 mcg 50 mcg Oral Daily Jayden Aguilar, DO 50 mcg at 12/13/18 0756 albuterol sulfate HFA 108 (90 Base) MCG/ACT inhaler 2 puff 2 puff Inhalation Q6H PRN Jayden Aguilar, DO gabapentin (NEURONTIN) capsule 100 mg 100 mg Oral TID Jayden Cantuodi, DO 100 mg at 12/13/18 0756 simvastatin (ZOCOR) tablet 40 mg 40 mg Oral Nightly Jayden Ilodi, DO 40 mg at 12/12/182043 mometasone-formoterol (DULERA) 200-5 MCG/ACT inhaler 2 puff 2 puff Inhalation BID Jayden Aguilar, DO 2 puff at 12/12/182130 tiotropium (SPIRIVA) inhalation capsule 18 mcg 18 mcg Inhalation Nightly Jayden Ilodi, DO 18 mcg at12131 Intake andOutput: I/O last 3 completed shifts: In: 430 [P.O.:420; I.V.:10] Out: - No intake/output data recorded. PhysicalExam: BP (!) 142/96 Pulse 83 Temp 97.9 F (36.6 C) (Temporal) Resp 20 Wt 198 lb 1.6 oz (89.9 kg) SpO2 95% BMI 29.25 kg/m Physical Exam Not in distress Lungs clear Cor s1s2 Abdomen soft and non tender CBC: Recent Labs 12/11/18 1127 12/12/18 0515 12/12/18 1546 12/12/18 2346 12/13/18 0535 WBC 7.1 7.0 -- -- 6.0 HGB 8.2* 7.8* 8.8* 7.8* 7.9* HCT 25.3* 24.0* -- -- 24.6* PLT 243 211 -- -- 221 CMP: Recent Labs 12/12/18 0515 12/13/18 0535 NA 142 140 K 4.0 3.9 CL 112* 111* CO2 26 26 BUN 11 7 CREATININE 0.90 0.91 GLUCOSE 138* 134* CALCIUM 8.2* 8.3* HEPATIC: Recent Labs 12/11/18 1127 AST 24 ALT 23 BILITOT 0.2 ALKPHOS 52 INR: Recent Labs 12/12/18 1546 INR 1.0 ASSESSMENT: 1. Rectal bleeding. R/o AVM diverticular PLAN: 1. Colonoscopy tomorrow. Pt requests miralax prep * Naldo Cole DTR - 12/13/2018 7:25 AM EDT Nutrition rescreen complete. Pt assigned a level one for nutrition care. * Jayden Aguilar DO - 12/12/2018 12:07 PM EDT Hospitalist Progress Note 12/12/2018 3:07 PM [phone]: Please page me ([phone]) for patient care issues. [phone]: Please page [facility] night Hospitalist for any issues. Subjective: Admit Date: 12/11/2018 PCP: Tip Doll MD Room#: 249/2492 Interval History: No overnight issues. Denies chest pain, sob, abdominal pain, nausea, vomiting, diarrhea, constipation, fevers, or chills. DIET FULL LIQUID; DIET CLEAR LIQUID; Diet NPO, After Midnight Exceptions are: Sips with Meds, Other (See Comment) Patient Vitals for the past 96 hrs (Last 3 readings): Weight 12/11/18 1508 198 lb 1.6 oz (89.9 kg) 12/11/18 1031 202 lb (91.6 kg) 24HR INTAKE/OUTPUT: Intake/Output Summary (Last 24 hours) at 12/12/2018 1507 Last data filed at 12/12/2018 1342 Gross per 24 hour Intake 430 ml Output Net 430 ml Past Medical History: Diagnosis Date Actinomyces infection Anemia COPD (chronic obstructive pulmonary disease) (HCC) Difficulty swallowing Emphysema of lung (HCC) GERD (gastroesophageal reflux disease) H/O bronchitis Hyperlipidemia Lung abscess (HCC) Orthostasis Ventral hernia Medications: [START ON 12/13/2018] polyethylene glycol 4,000 mL Oral Once [START ON 12/14/2018] polyethylene glycol 400 mL Oral Once sodium chloride flush 10 mL Intravenous 2 times per day pantoprazole 40 mg Intravenous Q12H And sodium chloride (PF) 10 mL Intravenous Q12H vitamin D 1,000 Units Oral Daily ferrous sulfate 325 mg Oral Daily with breakfast vitamin B-12 50 mcg Oral Daily gabapentin 100 mg Oral TID simvastatin 40 mg Oral Nightly mometasone-formoterol 2 puff Inhalation BID tiotropium 18 mcg Inhalation Nightly LABS: CBC: Recent Labs 12/11/18 11212/12/18 0515 WBC 7.1 7.0 RBC 3.07* 2.87* HGB 8.2* 7.8* HCT 25.3* 24.0* MCV 82.5 83.3 RDW 15.7* 16.7* PLT 243 211 BMP: Recent Labs 12/11/18 1127 12/12/18 0515 NA 144 142 K 4.3 4.0 CL 111* 112* CO2 24 26 BUN 16 11 CREATININE 0.92 0.90 GLUCOSE 135* 138* CALCIUM 8.4 8.2* ANIONGAP 9 4 LIVER PROFILE: Recent Labs 12/11/181126 AST 24 ALT 23 BILITOT 0.2 ALKPHOS 52 LABALBU 3.3* PROT 5.8* PT/INR: No results for input(s): PROTIME, INR in the last 72 hours. CARDIAC ENZYMES: Recent Labs 12/11/181126 TROPONINI <0.012 Procalcitonin: No results found for: PROCAL Objective: Vitals: BP 112/62 Pulse 78 Temp 98.1 F (36.7 C) (Temporal) Resp 18 Wt 198 lb 1.6 oz (89.9 kg) SpO2 94% BMI 29.25 kg/m Pulse Ox: SpO2 Av % Min: 88 % Max: 96 % Supplemental O2: O2 Flow Rate (L/min): 2 L/min General appearance: No apparent distress, appears stated age and cooperative with exam HEENT: Normal cephalic, atraumatic without obvious deformity. Pupils equal, round, and reactive to light. Extra ocular muscles intact. Conjunctivae/corneas clear. Neck: Supple, with full range of motion. No jugular venous distention. Trachea midline. No lymphadenopathy. Respiratory: Normal respiratory effort. Clear to auscultation, bilaterally without Rales/Wheezes/Rhonchi. Cardiovascular: Regular rate and rhythm with normal S1/S2 without murmurs, rubs or gallops. Abdomen: Soft, non-tender, non-distended with normal bowel sounds. No rebound or guarding. Musculoskeletal: No clubbing, cyanosis or edema bilaterally. Full range of motion without deformity. Skin: Skin color, texture, turgor normal. No rashes or lesions. Neurologic: Neurovascularly intact without any focal sensory/motor deficits. Cranial nerves: II-XIIintact, grossly non-focal. Assessment 1. Rectal bleeding>>AVMs?tics? 2. Acute blood loss anemia 3. Hx of GERD 4. Hx of COPD 5. Hx of HPL Plan -PPI BID, GI following and plans for colonoscopy 12/14 -hold ASA, follow H/H, transfuse prn hgb<7.0 -am labs, replace lytes prn -increase activity -DVT prophylaxis: [] Lovenox [] Heparin [x] SCDs [x] Encourage ambulation [] Already on Anticoagulation Advance Directive: Full Code Discharge planning: TBD Jayden Aguilar DO Division of Hospitalist Medicine Inpatient Medical Services PAGER: [phone] documented in this encounter* Ladarius Quezada, GRAPHOTYPE OPERATOR - 05/07/2019 12:57 PM EST Patient Evaluation Form The patient is currently receiving duoneb qid Points 0 1 2 3 4 Points Totals Pulmonary Status (-/+) History Smoking history < 20 pack years Smoking history > 20 pack years Pulmonary Disorder (acute or chronic) Severe or Chronic with Exacerbation 4 Surgical Status No Surgery Trach PEG General Surgery Lower Abdominal Thoracic or Upper Abdominal Thoracic with Pulmonary Disorder 0 Chest X-ray Clear None Ordered Chronic Changes CXR results Pending Infiltrates, atelectasis, pleural effusion, or edema Infiltrates in more than one lobe Infiltrate + Atelectasis, &/or pleural effusion 3 Respiratory Pattern Regular, RR = 12-20 Increased, RR = 21-25 PRETTY, irregular, or RR = 26-30 Decreased FEV1 or RR = 31-35 Severe SOB, used of of accessory muscles, or RR = > 35 0 Mental Status Alert, oriented, cooperative Confused, but follows commands Lethargic or un-able to follow commands Obtunded Comatose 0 Breath Sounds Clear to auscultation Decreased unilaterally or in bases only Decreased bilaterally Crackles or intermittent wheezes Wheezes 2 Cough Strong, spontaneous, & nonproductive Strong, spontaneous, & productive Weak, nonproductive Weak, productive or with wheezes No spontaneous cough or may require suctioning 0 Level of Activity Ambulatory Ambulatory with Assist Non-ambulatroy Paraplegic Quadriplegic 0 Triage 1 > 20 pts Triage 2 16-20 pts Triage 3 11- 15 pts Triage 4 6 - 10 pts Triage 5 0 - 5 pts TOTAL POINTS = 9 Triage Score = 4 PEF: FVC: FEV1: FVE1/FVC: Patient instructed and returned demonstration on use of MDI (with spacer, as appropriate) No Changing Therapy to duoneb tid * Ladarius Quezada RCP - 05/07/2019 12:07 PM EST Patient has o2 at home thru [employer]. Home o2 eval not needed at this time. * Naldo Cole DTR - 05/07/2019 7:31 AM EST Nutrition rescreen complete. Pt assigned a level one for nutrition care. * Wili Paul MD - 05/06/2019 2:39 PM EST Hospitalist Progress Note 05/06/2019 2:39 PM [phone]: Please page nj @ [phone] for patient care issues. [phone]: Please page [facility] Hospitalist for any issues. Subjective: Admit Date: 05/05/2019 PCP: Tip Doll MD Little better since yesterday, admitted for COPD exacerbation. Denies chest pain, abdominal pain, nausea, vomiting, diarrhea, constipation, fevers, or chills. DIET GENERAL; Patient Vitals for the past 96 hrs (Last 3 readings): Weight 05/05/19 1156 206 lb (93.4 kg) Medications: dextrose ipratropium-albuterol 1 vial Inhalation 4x daily insulin lispro 0-6 Units Subcutaneous TID WC budesonide 0.5 mg Nebulization BID formoterol 20 mcg Nebulization BID aspirin 81 mg Oral Daily gabapentin 100 mg Oral TID atorvastatin 20 mg Oral Nightly sodium chloride flush 10 mL Intravenous 2 times per day enoxaparin 40 mg Subcutaneous Daily methylPREDNISolone 40 mg Intravenous Q6H Followed by [START ON 05/08/2019] predniSONE 40 mg Oral Daily cefTRIAXone (ROCEPHIN) IV 1 g Intravenous Q24H doxycycline hyclate 100 mg Oral Q12H pantoprazole 40 mg Oral BID LABS: CBC: Recent Labs 05/05/19 1214 05/06/19 0414 WBC 16.9* 20.8* RBC 5.27 5.17 HGB 13.6 13.3 HCT 42.3 42.4 MCV 80.2 81.9 RDW 16.7* 16.7* PLT 286 241 BMP: Recent Labs 05/05/19 1214 05/06/19 0414 NA 142 138 K 3.9 4.0 CL 105 104 CO2 25 23 BUN 12 19 CREATININE 0.87 1.13 GLUCOSE 152* 389* CALCIUM 9.0 9.0 ANIONGAP 12 12 LIVER PROFILE: Recent Labs 05/05/19 1214 AST 28 ALT 29 BILITOT 0.5 ALKPHOS 91 LABALBU 4.1 PROT 7.4 PT/INR: No results for input(s): PROTIME, INR in the last 72 hours. CARDIAC ENZYMES: Recent Labs 05/05/19 1214 TROPONINI <0.012 Procalcitonin: No results found for: PROCAL Objective: Vitals: BP 97/70 Pulse 101 Temp 97.9 F (36.6 C) (Temporal) Resp 18 Ht 5' 10 (1.778 m) Wt206 lb (93.4 kg) SpO2 93% BMI 29.56 kg/m Pulse Ox: SpO2 Av.3 % Min: 90 % Max: 97 % Supplemental O2: O2 Flow Rate (L/min): 2 L/min General appearance: No apparent distress, appears stated age and cooperative with exam HEENT: Normal cephalic, atraumatic without obvious deformity. Pupils equal, round, and reactive to light. Extra ocular muscles intact. Conjunctivae/corneas clear. Neck: Supple, with full range of motion. No jugular venous distention. Trachea midline. No lymphadenopathy. Respiratory: Increased respiratory effort. Using accessory muscles of respiration, end exp wheezingpost bases - right Cardiovascular: Regular rate and rhythm with normal S1/S2 without murmurs, rubs or gallops. Abdomen: Soft, non-tender, non-distended with normal bowel sounds. No rebound or guarding. Musculoskeletal: No clubbing, cyanosis or edema bilaterally. Full range of motion without deformity. Skin: Skin color, texture, turgor normal. No rashes or lesions. Neurologic: Neurovascularly intact without any focal sensory/motor deficits. Cranial nerves: II-XIIintact, grossly non-focal. Assessment and Plan: # Acute COPD exacerbation # Right sided PNA on CT chest ? Residual, on empiric abx # Acute Hypoxia # Pulm fibrosis/Lung nodules # Ex smoker O2 supplementation, Bronchodilators, Steroids, appreciate pulmonology input All test and lab results reviewed Consult notes reviewed Am labs, replace lytes prn PT/OT DVT prophylaxis: [] Lovenox [] Heparin [] SCDs [x] Encourage ambulation [] Already on Anticoagulation Advance Directive: Full Code Discharge planning: TBD WILI PAUL MD, MD Division of Hospitalist Medicine Inpatient Medical Services This report was created using the Cou[employer] Speaking voice- activated system. Despiteprompt dictation and careful editorial review, there may be subtle contextual errors in this report, due to misrecognition of the spoken word. * Maria Luisa Hess OT - 05/06/2019 2:00 PM EST Occupational Therapy Occupational Therapy Initial Assessment Date: 05/06/2019 Patient Name: Cody Casillas : 1940 Date of Service: 05/06/2019 Discharge Recommendations: Home with assist PRN OT Equipment Recommendations Equipment Needed: No Assessment Performance deficits / Impairments: Decreased functional mobility ;Decreased endurance;Decreased high-level IADLs Assessment: Pt is an 78 yo male who presented to [facility] with COPD exacerbation. Prior to hospitalization, pt was indep with all functional tasks without use of AD. Pt is now at SUPV level d/t new O2 requirements, decreased activity tolerance, and increased fatigue. Pt is expected to benefit from further acute OT skilled services to increase indep and safety needed for homegoing. Prognosis: Good Decision Making: Medium Complexity History: Detailed PMH is listed below. Exam: AM PAC Assistance / Modification: SUPV OT Education: OT Role;Plan of Care Barriers to Learning: No barriers identified REQUIRES OT FOLLOW UP: Yes Activity Tolerance Activity Tolerance: Patient Tolerated treatment well Safety Devices Safety Devices in place: Yes Type of devices: All fall risk precautions in place;Nurse notified;Gait belt;Call light within reach;Left in chair(Left in w/c in care of transport team ) Patient Diagnosis(es): The primary encounter diagnosis was COPD exacerbation (HCC). A diagnosis of Acute on chronic respiratory failure with hypoxia (HCC) was also pertinent to this visit. has a past medical history of Actinomyces infection, Anemia, COPD (chronic obstructive pulmonary disease) (HCC), Difficulty swallowing, Emphysema of lung (HCC), GERD (gastroesophageal reflux disease), H/O bronchitis, Hyperlipidemia, Lung abscess (HCC), Orthostasis, and Ventral hernia. has a past surgical history that includes hernia repair; Tunneled venous port placement; Colonoscopy; Upper gastrointestinal endoscopy; and Hand surgery. Restrictions Restrictions/Precautions Restrictions/Precautions: Isolation, Fall Risk, General Precautions(2L O2, droplet) Required Braces or Orthoses?: No Subjective General Chart Reviewed: Yes Patient assessed for rehabilitation services?: Yes Family / Caregiver Present: Yes() Subjective Subjective: Per RN, pt ok to see. Pt seated EOB on arrival, very pleasant and cooperative, agreeable to OT eval. Patient Currently in Pain: Denies Vital Signs Patient Currently in Pain: Denies Social/Functional History Social/Functional History Lives With: Spouse Type of Home: House Home Layout: One level Home Access: Stairs to enter without rails Entrance Stairs - Number of Steps: 1 Entrance Stairs - Rails: None Bathroom Shower/Tub: Tub/Shower unit, Walk-in shower(Typically uses walk in) Bathroom Toilet: Handicap height Bathroom Equipment: Built-in shower seat Bathroom Accessibility: Accessible Home Equipment: Rolling walker, Cane Receives Help From: Family ADL Assistance: Independent Homemaking Assistance: Independent Homemaking Responsibilities: Yes Ambulation Assistance: Independent(Without AD) Transfer Assistance: Independent 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 Balance Sitting Balance: Independent Standing Balance: Supervision(Without AD) Functional Mobility Functional - Mobility Device: No device Activity: Other Assist Level: Supervision Functional Mobility Comments: Transport present at end of eval to take pt to echo, pt able to complete mobility to w/c in hallway with SUPV and no AD, no unsteadiness or LOB noted, SpO2 checked and 94% with 2L once seated in w/c. ADL Feeding: Independent Grooming: Supervision UE Bathing: Supervision LE Bathing: Supervision UE Dressing: Supervision LE Dressing: Supervision Toileting: Supervision Coordination Movements Are Fluid And Coordinated: Yes Bed mobility Comment: Pt seated EOB on arrival, seated in w/c at end of session. Transfers Sit to stand: Supervision Stand to sit: Supervision Transfer Comments: Without AD Cognition Overall Cognitive Status: WNL LUE AROM (degrees) LUE AROM : WFL RUE AROM (degrees) RUE AROM : WFL LUE Strength Gross LUE Strength: WFL RUE Strength Gross RUE Strength: WFL Plan Plan Times per week: 3 visits Times per day: Daily Current Treatment Recommendations: Strengthening, Endurance Training, ROM, Patient/Caregiver Education & Training, Self-Care / ADL, Balance Training, Cognitive/Perceptual Training, Home Management Training, Functional Mobility Training, Safety Education & Training Plan Comment: Goals and POC made in collaboration with pt. Patient's occupational therapy plan of care supervision is transferred to Inpatient Therapy Services Department occupational therapist. AM-PAC Score AM-PAC Inpatient Daily Activity Raw Score: 19 (05/06/19 1400) AM-PAC Inpatient ADL T-Scale Score : 40.22 (05/06/19 1400) ADL Inpatient CMS 0-100% Score: 42.8 (05/06/19 1400) ADL Inpatient CMS G-Code Modifier : CK (05/06/191399) Goals Short term goals Time Frame for Short term goals: 3 visits Short term goal 1: Pt will complete sink level ADLs including item retrieval with INDEP Short term goal 2: Pt will demo good use of energy conservation techniques during functional tasks to increase indep/safety Short term goal 3: Pt will complete functional transfers and household distance mobility with INDEP Short term goal 4: Pt will complete functional standing during ADL/IADL routine with INDEP Patient Goals Patient goals : To go home Therapy Time Individual Concurrent Group Co-treatment Time In 1329 Time Out 1339 Minutes 10 Maria Luisa Hess OT * Mamie Healy RCP - 05/06/2019 1:24 AM EST Patient Evaluation Form The patient is currently receiving Duoneb Q 4 txs Points 0 1 2 3 4 Points Totals Pulmonary Status (-/+) History Smoking history < 20 pack years Smoking history > 20 pack years Pulmonary Disorder (acute or chronic) Severe or Chronic with Exacerbation 4 Surgical Status No Surgery Trach PEG General Surgery Lower Abdominal Thoracic or Upper Abdominal Thoracic with Pulmonary Disorder 0 Chest X-ray Clear None Ordered Chronic Changes CXR results Pending Infiltrates, atelectasis, pleural effusion, or edema Infiltrates in more than one lobe Infiltrate + Atelectasis, &/or pleural effusion 1 Respiratory Pattern Regular, RR = 12-20 Increased, RR = 21-25 PRETTY, irregular, or RR = 26-30 Decreased FEV1 or RR = 31-35 Severe SOB, used of of accessory muscles, or RR = > 35 0 Mental Status Alert, oriented, cooperative Confused, but follows commands Lethargic or un-able to follow commands Obtunded Comatose 0 Breath Sounds Clear to auscultation Decreased unilaterally or in bases only Decreased bilaterally Crackles or intermittent wheezes Wheezes 4 Cough Strong, spontaneous, & nonproductive Strong, spontaneous, & productive Weak, nonproductive Weak, productive or with wheezes No spontaneous cough or may require suctioning 1 Level of Activity Ambulatory Ambulatory with Assist Non-ambulatroy Paraplegic Quadriplegic 1 Triage 1 > 20 pts Triage 2 16-20 pts Triage 3 11- 15 pts Triage 4 6 - 10 pts Triage 5 0 - 5 pts TOTAL POINTS = 11 Triage Score = 3 Patient instructed and returned demonstration on use of MDI (with spacer, as appropriate) Yes Changing Therapy to QID and PRN documented in this encounter Assessments Diagnosis Lower GI bleed- Primary Hemorrhage of gastrointestinal tract, unspecified Syncope and collapse Chronic obstructive pulmonary disease with acute exacerbation (HCC) Obstructive chronic bronchitis with exacerbation Pulmonary emphysema, unspecified emphysema type (HCC) GI bleed Hemorrhage of gastrointestinal tract, unspecified Rectal bleeding Hemorrhage of rectum and anus Diagnosis COPD exacerbation (HCC)- Primary Obstructive chronic bronchitis with exacerbation Acute on chronic respiratory failure with hypoxia (HCC) Diagnosis Pneumonia due to infectious organism, unspecified laterality, unspecified part of lung Diagnosis Pneumonia of right lower lobe due to infectious organism (HCC) Diagnosis Subcutaneous emphysema resulting from a procedure, initial encounter Diagnosis Lung nodule Solitary pulmonary nodule Reason for Referral Status Reason Specialty Diagnoses / Procedures Re ferred By Contact Referred To Contact Authorized Diagnoses Subcutaneous emphysema resulting from a procedure, initial encounter Procedures Full PFT Study With Bronchodilator Batsheva Valdez MD [address] [place] [address] [facility] [address] [place] [address] Status Reason Specialty Diagnoses / Procedures Referre d By Contact Referred To Contact Closed Radiology Diagnoses Lung nodule Procedures CT Chest WO Contrast Alycia Esquivel S, ROLLWAY WORKER - AVIATION ELECTRONIC WARFARE OPERATOR [address] [facility] [place] [address] Additional Source Comments (unrecognized sect ion and content) No Status Records FoundNo Status Records Found INFORMATION SOURCE (unrecogn ized section and content) DATE CREATED AUTHOR AUTHOR'S ORGANIZ ATION 06/10/2021 [facility] tem Reason for Visit (unrecogniz ed section and content) Reason Comments Shortness of Breath pt SOB x 1 week. Sen t in by Dr. Valdez. Pt normally wears 2L O2 at home Fatigue pt reports feeling so weak I can hardly walk Care Teams (unrecognized sec tion and content) FOR RECORDS PERTAINING TO PATIENTS WHO ARE OR HAVE BEEN ENROLLED IN A CHEMICAL DEPENDENCY/SUBSTANCEABUSE PROGRAM, SOME INFORMATION MAY BE OMITTED. This clinical summary was aggregated from multiple sources. Caution should be exercised in using it in the provision of clinical care. This summary normalizes information from multiple sources, and as a consequence, information in this document may materially change the coding, format and clinical context of patient data. In addition, data may be omitted in some cases. CLINICAL DECISIONS SHOULD BE BASED ON THE PRIMARY CLINICAL RECORDS. [employer] provides no warranty or guarantee of the accuracy or completeness of information in this document.
[2023-03-26 09:38] VITALS: BP 113/49; PULSE 64; RESP 16; TEMP 37; O2SAT 96; BMI 26.1
[2023-03-26 09:52] VITALS: BP 106/57; PULSE 60; RESP 16; TEMP 36.7; O2SAT 97
[2023-03-26 10:52] VITALS: BP 120/48; PULSE 62; RESP 14; TEMP 36.4; O2SAT 99
[2023-03-26 11:35] VITALS: BP 123/56; PULSE 64; RESP 16; TEMP 37; O2SAT 99
[2023-03-26] MEDS: Furosemide 20 MG/2 ML VIAL IV (11:35)
== END 2023-03-26 09:08 | disposition home or self-care (01) ==
LOC: MEDOUTP 09:07
PROVIDERS: PCP Internal Medicine; Referring Provider Internal Medicine; Visit Provider Internal Medicine
DX: D64.9 Anemia, unspecified (principal); J44.9 Chronic obstructive pulmonary disease, unspecified; E61.1 Iron deficiency
CPT/HCPCS: 36430; 86850; 86900; 86901; 86920; 86922; J7040; P9016; A4216; J1940

== ENCOUNTER → 2023-04-15 | Outpatient (CLI) | payer MEDICARE, SELFPAY ==
--- NOTE | 2023-04-15 07:51 | CT_ITS ---
STUDY: CT CHEST WITHOUT CONTRAST REASON FOR EXAM: Male, 82 years old. RML Mass. Former smoker. Patient smoked 2 packs per day for 40 years. RADIATION DOSAGE (If Supplied By Facility): CTDIvol = ( 10.57 ) mGy, DLP = ( 459.61 ) mGycm TECHNIQUE: Transaxial imaging was performed without the administration of intravenous contrast material. Multiplanar coronal and sagittal images were reformatted. Individualized dose optimization techniques were used for this CT. COMPARISON: Comparison is made with prior study dated January 21, 2023. FINDINGS: CHEST Small benign-appearing bilateral axillary lymph nodes. There is hyperinflation of the lungs consistent with chronic obstructive lung disease (COPD). Bullous changes are seen. The previously seen consolidation/mass in the right middle lobe has improved. Residual changes persist. There now is evidence of a patchy infiltrate in the right lower lobe with areas of bronchiectasis and bleb formation. 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 The right pleural effusion has almost completely resolved. There are calcifications of the coronary arteries. Minimal anterior pericardial thickening. Normal mediastinum. Normal hilar regions. There is prominence of the pulmonary hilar arteries without peripheral pulmonary vascular congestion, suggesting pulmonary hypertension. There is atherosclerotic calcification of the aortic arch. There is prominence of the root of the ascending thoracic aorta with a transverse dimension of 42.8 mm. There are multi-level degenerative changes of the thoracic spine. There is no demonstrated abnormality of the visualized upper abdomen. CT/Chest without Contrast IMPRESSION: Interval improvement in the right middle lobe consolidation/mass with mild residual changes. 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 Prominence of the pulmonary arteries bilaterally. Electronically Signed: Montrell Huddleston MD at 12:13 EST ,
--- OUTSIDE RECORDS SUMMARY | 2023-04-15 08:07 | XMS RPT_ITS | CCD ---
Author Name Unknown Address [address] [place] [address] Organization [facility] Care Team Providers Care Agricultural Equipment Salesperson Name Role Phone Tip Doll Primary Care Provider Royer Thacker Primary Care Provider Allergies Allergy Classification Reported Allergen(s) Allergy Type Date of Onset Reaction(s) Facility (14 sources) Erythromycin Drug Allergy 10-10-2014 [place], [place] (14 sources) levoFLOXacin Drug Allergy 10-29-2017 [place], [place] (14 sources) Amoxicillin-Pot Clavulanate Propensity to adverse reactions to drug 12-03-2017 [place], [place] (3 sources) Penicillins Propensity to adverse reactions to drug 10-21-2019 Rash [place] Medications Current Medications Medication Drug Class(es) [...] Respiratory failure; insufficiency; arrest (adult) (13 sources) Wsydt-ae-okclits respiratory failure; Translations: [Chronic hypoxemic respiratory failure] [...] 05-07-2019 12:55-0500 Pulse Oximetry 94 % [place] 05-07-2019 08:30-0500 Body Temperature 96.8 [degF] John[place] 05-07-2019 08:30-0500 BP Diastolic 75 mm[Hg] [place] 05-07-2019 08:30-0500 BP Systolic 125 mm[Hg] [place] 05-07-2019 08:30-0500 Pulse (Heart Rate) 89 /min John[place] 05-07-2019 08:30-0500 Respiratory Rate 16 /min [place] 05-05-2019 15:12-0500 Height 177.8 cm [place] 05-05-2019 11:56-0500 BMI (Body Mass Index) 29.56 kg/m2 [place] 05-05-2019 11:56-0500 Body weight 93.44 kg Johnie [facility] [place] , [place] 12-14-2018 10:20-0400 Pulse Oximetry 94 % Kirby Medrano [facility] [place] , [place] 12-14-2018 10:20-0400 Respiratory Rate 16 /min Kirby Velez [facility], [place] 12-14-2018 09:47-0400 BP Diastolic 83 mm[Hg] Kirby Velez [facility] , [place] 12-14-2018 09:47-0400 BP Systolic 111 mm[Hg] Kirby Velez [place], [place] 12-14-2018 09:47-0400 Pulse (Heart Rate) 76 /min Kirby Velez [place] 12-14-2018 09:31-0400 Body Temperature 97.59 [degF] Kirby Velez [facility], [place] 12-14-2018 08:17-0400 BMI (Body Mass Index) 28.41 kg/m2 Kirby Velez [facility], [place] 12-14-2018 08:17-0400 Body weight 89.81 kg Kirby Velez [place], [place] 12-14-2018 08:17-0400 Height 177.8 cm Kirby Velez [place] Encounters Encounter Date Encounter Type Care Provider Facility Start: 05-31-2021 End: 05-31-2021 Subsequent hospital visit by physician Sam Hanks MD Work Phone: [facility] Start: 11-15-2019 End: 11-15-2019 Subsequent hospital visit by physician Harmony Mcclain [facility] Start: 10-21-2019 End: 10-21-2019 Subsequent hospital visit by physician Harmony Mcclain Work [facility] Start: 07-19-2019 End: 07-19-2019 Subsequent hospital visit by physician Sam Hanks Work Phone: [facility] Start: 06-28-2019 End: 06-28-2019 Subsequent hospital visit by physician Sam Hanks Work Phone: [facility] Start: 06-07-2019 End: 06-07-2019 Subsequent hospital visit by physician Batsheva Valdez Work Phone: [facility] Radiology Procedures Date Procedure Procedure Detail Performing Clinician Start: 05-31-2021 Blood count complete auto&auto difrntl wbc Sam Hanks MD Work Phone: Start: 07-19-2019 Assay of ferritin Sam Hanks Work Phone: Start: 07-19-2019 Blood count complete auto&auto difrntl wbc Sam Hnaks Work Phone: Start: 07-19-2019 Iron binding capacity D juan daniel Hanks Work Phone: Start: 06-28-2019 Assay of ferritin Sam Hanks Work Phone: Start: 06-28-2019 Blood count complete auto&auto difrntl wbc Sam Hanks Work Phone: Start: 06-28-2019 Iron binding capacity D juan daniel Hanks Work Phone: Start: 06-07-2019 Radiologic exam ches t 2 views Trendabl Work Phone: Start: 05-19-2019 Radiologic exam ches t 2 views Trendabl Work Phone: Start: 05-07-2019 Gluc bld gluc mntr d ev cleared fda spec home use Wili PENRITH Work Phone: Start: 05-07-2019 HOME O2 EVAL (DESATU RATION SCREEN) [facility] PENRITH Work Phone: Start: 05-07-2019 Gluc bld gluc mntr d ev cleared fda spec home use Johnie Mancuso Work Phone: Start: 05-07-2019 [facility]ct[facility] Work Phone: Start: 05-06-2019 Gluc bld gluc mntr d ev cleared fda spec home use Johnie Macnuso Work Phone: Start: 05-06-2019 Gluc bld gluc [...] Ct thorax w/o contra st material Tiffanie Metz Work Phone: Start: 05-06-2019 Gluc [...] Start: 12-11-2018 Blood typing serologic abo Kirby Medrnao Work Phone: Start: 12-11-2018 Comprehensive metabo lic [...] Visit Family Medicine Tip Doll MD [address] [facility], [place] [address] [phone] [facility] Start: 01-03-2020 End: 01-03-2020 Office Visit 01/03/2020 Office Visit Pulmonology Batsheva Valdez MD [address] [place] [address] [phone] [facility] Start: 12-10-2019 DTaP/Tdap/Td vaccine (1 - Tdap) DTaP/Tdap/Td vaccine (1 - Tdap) [place], [place] Immunizations Immunization Date Immunization Notes Care Provider [facility] 12-01-2019 influenza virus vacc ine, unspecified formulation Sam Hanks MD Work Phone: [facility] 08-23-2019 [facility] [place] 04-05-2019 zoster vaccine recombinant Harmony [facility], [place] 11-27-2018 influenza, high dose seasonal, preservative-free Kirby Medrano [facility] 12-10-2017 influenza, high dose seasonal, preservative-free Kirby Medrano [facility] [place] 12-18-2016 influenza, high dose seasonal, preservative-free Kirby Medrano [facility] 04-17-2016 pneumococcal conjuga te vaccine, 13 valent Kirby CLAYTON 12-07-2015 influenza, high dose seasonal, preservative-free Kirby CLAYTON 12-07-2015 influenza, injectabl e, quadrivalent, contains preservative Kirby Medrano [facility] [place] 12-09-2014 influenza virus vacc ine, unspecified formulation Kirby Medrano [facility] 12-06-2013 influenza virus vacc ine, unspecified formulation Kirby Mitchell [facility] [place] [facility] [place] 12-06-2013 influenza, injectabl e, quadrivalent, contains preservative Kirby Medrano [facility] [place] 12-31-2012 pneumococcal polysaccharide vaccine, 23 valent Kirby Medrano [facility] [place] 12-17-2012 influenza virus vacc ine, unspecified formulation Kirby Mitchell [facility] [place] [facility] [place] 12-17-2012 influenza virus vacc ine, whole virus [facility], [place] 12-06-2011 influenza virus vacc ine, unspecified [facility] [place] [facility] [place] 12-06-2011 influenza virus vacc ine, whole virus Kirby Mitchell [facility] [place] 12-11-2010 influenza virus vacc ine, unspecified formulation [facility] , [place] 12-11-2010 influenza virus vacc ine, whole virus [facility], [place] 09-12-2010 zoster vaccine, live Kirby WHITE Work Phone: Payers Date Payer Category Payer Medicare AETNA MEDICARE A ETNA MEDICARE-ADVANTAGE PPO xxxxxxxx 2016-Present [address] [place] [address] Medicare [id number] 2016 Medicare AETNA MEDICARE A ETNA MEDICARE-ADVANTAGE PPO [id number] 2016-Present [address] [place] [address] Medicare [id number] Social History Date Type Detail Facility Start: 10-27-2014 End: 12-14-2018 Tobacco smoking status NHIS Former smoker [place], [place] End: 03-03-2007 History of tobacco use Current [place]oker [place] End: 03-03-2007 History of tobacco use Cigarette Smoker [place] Start: 12-14-2018 End: 01-03-2020 Cigarettes smoked current (pack per day) - Reported [place] Start: 12-14-2018 Alcohol intake No [place] Start: 06-09-2018 History SDOH Financial 4 [place] Start: 06-09-2018 History SDOH Food Worry 1 [place] Start: 06-09-2018 History SDOH Transpo rt Med 2 [place], [place] Start: 1940 Sex Assigned At Not on file [place] Start: 05-27-2019 End: 01-03-2020 Alcohol intake Current non-drinker of alcohol (finding) [place] Exposure to SARS-CoV -2 (event) Unable to assess [place] Start: 10-27-2014 End: 10-21-2019 Tobacco use and exposure Never used [place], [place] Medical Equipment Procedure Code Equipment Code Equipment Origin al Text Equipment Identifier Dates Test blood sugar b.i.d. [id number] Start: 05-25-2019 Test blood sugar twice a day [id number] Start: 05-25-2019 Test blood sugar b.i.d. [id number] Start: 10-20-2019 Test blood sugar twice a day [id number] Start: 10-20-2019 Summary Purpose Family History No Family History Records FoundNo Family History Records Found Advance Directives No Advanced Directives Records FoundDocuments on File Type Date Recorded Patient Chamber Magistrate Expl anation Advance Directives and Living Will Power of Obiee Obia Solution Architect Latest Code Status on File Code Status [...] Documents on File Type Date Recorded Patient Chamber Magistrate Expl anation ACP-Advance Directive ACP-Power of Obiee Obia Solution Architect Documents on File Type Date Recorded Patient Chamber Magistrate Expl anation Advance Directives and Living Will Power of Obiee Obia Solution Architect Latest Code Status on File Code Status [...] Discharge Medications: Cody Casillas Home Medication Instructions CHRIS:[id number] Printed on:12/14/18 1055 Medication Information albuterol (PROVENTIL HFA;VENTOLIN HFA) 108 [...] mouth daily Recommended Follow-up: Tip Doll MD [address] [place] [address], [address] [place] [id number] In 1 week post hospital fu appt Kmy Dillon MD [address] [place] [address] [address] [facility] [phone] As needed Readmission Risk Risk of Unplanned Readmission: 12 Complexity of Follow up: ? Moderate Complexity: follow up within 7-14 calendar days (79703) ? Severe Complexity: follow up within 7 calendar days (48899) Follow up Testing, Pending results or Referrals [...] frame. Signed: Jayden Aguilar DO [facility] 12/14/2018, 10:51 AM [...] be sent through Care Everywhere. * Diverticulosis (Thai) documented in this encounter History of Present Illness * Edis Hollingsworth RN - 12/14/2018 9:39 AM EDT POST ENDOSCOPY PROCEDURE TRANSFER REPORT Procedure completed: colonoscopy Findings:diverticulosis, hemmorroids Specimens obtained: no Medications administered: 200 mg propofol Additional Info: n/a For additional Questions please call Endoscopy at 4033. Thank You! * Jayden Aguilar DO - 12/13/2018 10:32 AM EDT Hospitalist Progress Note 12/13/2018 10:32 AM [phone]: Please page me ([phone]) for patient care issues. [phone]: Please page [facility] night Hospitalist for any issues. Subjective: Admit [...] of Hospitalist Medicine Inpatient Medical Services PAGER: [phone] * Kym Dillon MD - 12/13/2018 9:19 [...] EDT Hospitalist Progress Note 12/12/2018 3:07 PM [phone]: Please page me ([phone]) for patient care issues. [phone]: Please page [facility] night Hospitalist for any [...] of Hospitalist Medicine Inpatient Medical Services PAGER: [phone] documented in this encounter* Ladarius Quezada, CUSTOMER SERVICES SUPERVISOR - 05/07/2019 12:57 PM EST Patient Evaluation [...] EST Hospitalist Progress Note 05/06/2019 2:39 PM [phone]: Please page md @ [phone] for patient care issues. [phone]: Please page [facility] Hospitalist for any issues. Subjective: Admit Date: [...] Services This report was created using the [employer] voice- activated system. Despiteprompt dictation and [...] an 78 yo male who presented to [facility] with COPD exacerbation. Prior to hospitalization, pt [...] Assistance: Independent(Without AD) Transfer Assistance: Independent Active Lab Asst: Yes Occupation: Retired Objective Vision: Within Functional [...] Study With Bronchodilator Batsheva Valdez MD [address] [place] [address] [facility] [address] [place] [address] Status Reason Specialty Diagnoses / Procedures Referre d By Contact Referred To Contact Closed Radiology Diagnoses Lung nodule Procedures CT Chest WO Contrast Alycia Esquivel S, FERMENTER [place] - CREATIVE STRATEGIST [address] [facility] [place] [address] Additional Source Comments (unrecognized sect ion and content) No Status Records FoundNo Status Records Found INFORMATION SOURCE (unrecogn ized section and content) DATE CREATED AUTHOR AUTHOR'S ORGANIZ ATION 06/10/2021 [facility] tem Reason for Visit (unrecogniz ed [...] BE BASED ON THE PRIMARY CLINICAL RECORDS. [email or web address] provides no warranty or guarantee of the accuracy or completeness of information in this document.
== END | disposition home or self-care (01) ==
PROVIDERS: PCP Internal Medicine; Referring Provider Internal Medicine Critical Care Medicine; Visit Provider Internal Medicine Critical Care Medicine
DX: R91.8 Other nonspecific abnormal finding of lung field (principal)
CPT/HCPCS: 71250

== ENCOUNTER 2023-04-26 03:03 | Inpatient (IN) | payer MEDICARE, SELFPAY ==
[2023-04-26] VITALS (27 sets, daily range): BP systolic 86–160; BP diastolic 40–88; PULSE 67–150; RESP 12–95; TEMP 36.6–37.1; O2SAT 84–99; BMI 26.0; BMI 25.2
--- NOTE | 2023-04-26 03:12 | EKG12_ITS ---
Test Reason : DYSRHYTHMIA Blood Pressure : / mmHG Vent. Rate : 126 BPM Atrial Rate : 000 BPM P-R Int : 000 ms QRS Dur : 084 ms QT Int : 302 ms P-R-T Axes : 000 044 056 degrees QTc Int : 437 ms Atrial fibrillation with rapid ventricular response with premature ventricular or aberrantly conducte d complexes Low voltage QRS Abnormal ECG When compared with ECG of 26-APR-2023 03:15, MANUAL COMPARISON REQUIRED, DATA IS UNCONFIRMED Confirmed by ANTHONY GARZA, FRANCISCO ([id number]), book editor SARAH DEWEY ([id number]) on 04/28/2023 1:06:07 PM Referred By: Confirmed By:FRANCISCO CRUZ MD
--- NOTE | 2023-04-26 03:15 | EKG12_ITS ---
Test Reason : TACHYCARDIA Blood Pressure : / mmHG Vent. Rate : 140 BPM Atrial Rate : 085 BPM P-R Int : 000 ms QRS Dur : 080 ms QT Int : 290 ms P-R-T Axes : 000 029 056 degrees QTc Int : 442 ms Critical Test Result: High HR Atrial fibrillation Indeterminate axis Pulmonary disease pattern Nonspecific ST abnormality Abnormal ECG When compared with ECG of 15-NOV-2022 05:38, Current undetermined rhythm precludes rhythm comparison, needs review Confirmed by ANTHONY GARZA, FRANCISCO ([id number]), senior technical editor SARAH DEWEY ([id number]) on 04/28/2023 1:09:58 PM Referred By: Nba Man Confirmed By:FRANCISCO CRUZ MD
--- OUTSIDE RECORDS SUMMARY | 2023-04-26 03:20 | XMS RPT_ITS | CCD ---
Author Name Unknown Address [address] [place] [address] Organization [facility] Care Team Providers Care Proof Coin Collector Name Role Phone Tip Doll Primary Care Provider Royer Thacker Primary Care Provider [phone] Allergies Allergy Classification Reported Allergen(s) Allergy Type Date of Onset Reaction(s) Facility (14 sources) Erythromycin Drug Allergy 10-10-2014 [place], [place] (14 sources) levoFLOXacin Drug Allergy 10-29-2017 [place] (14 sources) Amoxicillin-Pot Clavulanate Propensity to adverse reactions to drug 12-03-2017 [place] (3 sources) Penicillins Propensity to adverse reactions to drug 10-21-2019 Rash [place] Medications Current Medications Medication Drug Class(es) [...] Respiratory failure; insufficiency; arrest (adult) (13 sources) [id number] respiratory failure; Translations: [Chronic hypoxemic respiratory failure] [...] 05-07-2019 12:55-0500 Pulse Oximetry 94 % Johnie [place] 05-07-2019 08:30-0500 Body Temperature 96.8 [degF] Johnie [place] 05-07-2019 08:30-0500 BP Diastolic 75 mm[Hg] [place] 05-07-2019 08:30-0500 BP Systolic 125 mm[Hg] John[place] 05-07-2019 08:30-0500 Pulse (Heart Rate) 89 /min Johnie [place] 05-07-2019 08:30-0500 Respiratory Rate 16 /min Johnie [place] 05-05-2019 15:12-0500 Height 177.8 cm Johnie [place] 05-05-2019 11:56-0500 BMI (Body Mass Index) 29.56 kg/m2 Johnie [place] 05-05-2019 11:56-0500 Body weight 93.44 kg Johnie [facility] , [place] 12-14-2018 10:20-0400 Pulse Oximetry 94 % Kirby Medrano [facility] , [place] 12-14-2018 10:20-0400 Respiratory Rate 16 /min Kirby Velez [facility], [place] 12-14-2018 09:47-0400 BP Diastolic 83 mm[Hg] Kirby Velez [facility] , [place] 12-14-2018 09:47-0400 BP Systolic 111 mm[Hg] Kirby Velez [place], [place] 12-14-2018 09:47-0400 Pulse (Heart Rate) 76 /min Kirby Velez [place] 12-14-2018 09:31-0400 Body Temperature 97.59 [degF] Kirby Velez [facility], [place] 12-14-2018 08:17-0400 BMI (Body Mass Index) 28.41 kg/m2 Kirby Velez [facility], [place] 12-14-2018 08:17-0400 Body weight 89.81 kg Kirby Velez [place], [place] 12-14-2018 08:17-0400 Height 177.8 cm Kirby Velez [place] Encounters Encounter Date Encounter Type Care Provider Facility Start: 05-31-2021 End: 05-31-2021 Subsequent hospital visit by physician Sam Hanks MD Work Phone: [facility] Start: 11-15-2019 End: 11-15-2019 Subsequent hospital visit by physician Harmony [facility]clain [facility] Start: 10-21-2019 End: 10-21-2019 Subsequent hospital visit by physician Harmony Mcclain [facility] Start: 07-19-2019 End: 07-19-2019 Subsequent hospital visit by physician Sam Hanks Work Phone: [facility] Start: 06-28-2019 End: 06-28-2019 Subsequent hospital visit by physician Sam Hanks Work Phone: [facility] Start: 06-07-2019 End: 06-07-2019 Subsequent hospital visit by physician Batsheva Valdez Work Phone: [facility] Radiology Procedures Date Procedure Procedure Detail [...] 06-07-2019 Radiologic exam ches t 2 views [employer] Work Phone: Start: 05-19-2019 Radiologic exam ches t 2 views [employer] Work Phone: Start: 05-07-2019 Gluc bld gluc mntr d ev cleared fda spec home use Wili [employer] Work Phone: Start: 05-07-2019 HOME O2 EVAL (DESATU RATION SCREEN) [facility] [employer] Work Phone: Start: 05-07-2019 Gluc bld gluc mntr d ev cleared fda spec home use Johnie Mancuso Work Phone: Start: 05-07-2019 [facility]cal[facility] (pct) [facility] Work Phone: Start: 05-06-2019 Gluc bld gluc [...] Visit Family Medicine Tip Doll MD [address] [facility] [address] [facility], [place] [address] [phone] [facility] Start: 01-03-2020 End: 01-03-2020 Office Visit 01/03/2020 Office Visit Pulmonology Batsheva Valdez MD [address] [place] [address] [phone] [facility] Start: 12-10-2019 DTaP/Tdap/Td vaccine (1 - Tdap) DTaP/Tdap/Td vaccine (1 - Tdap) [place] Immunizations Immunization Date Immunization Notes Care Provider [facility] 12-01-2019 influenza virus vacc ine, unspecified formulation Sam Hanks MD Work Phone: [facility] 08-23-2019 zoster vaccine recombinant [facility] [place] 04-05-2019 zoster vaccine recombinant Harmony [facility], [place] 11-27-2018 influenza, high dose seasonal, preservative-free Kirby Medrano [facility] 12-10-2017 influenza, high dose seasonal, preservative-free Kirby Medrano [facility], [place] 12-18-2016 influenza, high dose seasonal, preservative-free Kirby Medrano [facility] 04-17-2016 pneumococcal conjuga te vaccine, 13 valent Kirby CLAYTON 12-07-2015 influenza, high dose seasonal, preservative-free Kirby CLAYTON 12-07-2015 influenza, injectabl e, quadrivalent, contains preservative Kirby Medrano [facility], [place] 12-09-2014 influenza virus vacc ine, unspecified formulation Kirby Medrano [facility] 12-06-2013 influenza virus vacc ine, unspecified formulation Kirby Mitchell [facility] , [place] 12-06-2013 influenza, injectabl e, quadrivalent, contains preservative Kirby Medrano [facility], [place] 12-31-2012 pneumococcal polysaccharide vaccine, 23 valent Kirby Medrano [facility], [place] 12-17-2012 influenza virus vacc ine, unspecified formulation Kirby Mitchell [facility] , [place] 12-17-2012 influenza virus vacc ine, whole virus [facility], [place] 12-06-2011 influenza virus vacc ine, unspecified [facility] [place] 12-06-2011 influenza virus vacc ine, whole virus Kirby Mitchell [facility], [place] 12-11-2010 influenza virus vacc ine, unspecified formulation [facility] , [place] 12-11-2010 influenza virus vacc ine, whole virus [facility], [place] 09-12-2010 zoster vaccine, live Kirby WHITE Work Phone: Payers Date Payer Category Payer Medicare AETNA MEDICARE A ETNA MEDICARE-ADVANTAGE PPO xxxxxxxx 2016-Present [address] [place] [address] Medicare [id number] 2016 Medicare AETNA MEDICARE A ETNA MEDICARE-ADVANTAGE PPO [id number] 2016-Present [address] [place] [address] Medicare [id number] Social History Date Type Detail Facility Start: 10-27-2014 End: 12-14-2018 Tobacco smoking status NHIS Former sm[place] End: 03-03-2007 History of tobacco use Current [place] End: 03-03-2007 History of tobacco use Cigarette Smoker [place] Start: 12-14-2018 End: 01-03-2020 Cigarettes smoked current (pack per day) - Reported [place] Start: 12-14-2018 Alcohol intake No [place], [place] Start: 06-09-2018 History SDOH Financial 4 [place] Start: 06-09-2018 History SDOH Food Worry 1 [place] Start: 06-09-2018 History SDOH Transpo rt Med 2 [place], [place] Start: 1940 Sex Assigned At Not on file M [place], [place] Start: 05-27-2019 End: 01-03-2020 Alcohol intake Current non-drinker of alcohol (finding) [place] Exposure to SARS-CoV -2 (event) Unable to assess [place] Start: 10-27-2014 End: 10-21-2019 Tobacco use and exposure Never used [place], [place] Medical Equipment Procedure Code Equipment Code Equipment Origin al Text Equipment Identifier Dates Test blood sugar b.i.d. [id number] Start: 05-25-2019 Test blood sugar twice a day [id number] Start: 05-25-2019 Test blood sugar b.i.d. [id number] Start: 10-20-2019 Test blood sugar twice a day [id number] Start: 10-20-2019 Summary Purpose Family History No Family History Records FoundNo Family History Records Found Advance Directives No Advanced Directives Records FoundDocuments on File Type Date Recorded Patient Social Service Technician Expl anation Advance Directives and Living Will Power of Aboriginal Community Council Member Latest Code Status on File Code Status [...] Documents on File Type Date Recorded Patient Social Service Technician Expl anation ACP-Advance Directive ACP-Power of Aboriginal Community Council Member Documents on File Type Date Recorded Patient Social Service Technician Expl anation Advance Directives and Living Will Power of Aboriginal Community Council Member Latest Code Status on File Code Status [...] Discharge Medications: Cody Casillas Home Medication Instructions CHRIS:[id number] Printed on:12/14/18 1056 Medication Information albuterol (PROVENTIL HFA;VENTOLIN HFA) 108 [...] mouth daily Recommended Follow-up: Tip Doll MD [address] [place] [address], [address] [place] [id number] In 1 week post hospital fu appt Kym Dillon MD [address] [place] [address] [address] [facility] [phone] As needed Readmission Risk Risk of Unplanned Readmission: 12 Complexity of Follow up: ? Moderate Complexity: follow up within 7-14 calendar days (25128) ? Severe Complexity: follow up within 7 calendar days (72317) Follow up Testing, Pending results or Referrals [...] frame. Signed: Jayden Aguilar DO [facility] 12/14/2018, 10:51 AM [...] be sent through Care Everywhere. * Diverticulosis (Persian) documented in this encounter History of Present Illness * Edis Hollingsworth RN - 12/14/2018 9:39 AM EDT POST ENDOSCOPY PROCEDURE TRANSFER REPORT Procedure completed: colonoscopy Findings:diverticulosis, hemmorroids Specimens obtained: no Medications administered: 200 mg propofol Additional Info: n/a For additional Questions please call Endoscopy at [phone]. Thank You! * Jayden Aguilar DO - 12/13/2018 10:32 AM EDT Hospitalist Progress Note 12/13/2018 10:32 AM [phone]: Please page me ([phone]) for patient care issues. [phone]: Please page [facility] night Hospitalist for any issues. Subjective: Admit [...] of Hospitalist Medicine Inpatient Medical Services PAGER: [phone] * Kym Dillon MD - 12/13/2018 9:19 [...] EDT Hospitalist Progress Note 12/12/2018 3:07 PM [phone]: Please page me ([phone]) for patient care issues. [phone]: Please page [facility] night Hospitalist for any [...] of Hospitalist Medicine Inpatient Medical Services PAGER: [phone] documented in this encounter* Ladarius Quezada, HOSPITAL PRODUCT SPECIALIST - 05/07/2019 12:57 PM EST Patient Evaluation [...] EST Hospitalist Progress Note 05/06/2019 2:39 PM [phone]: Please page ms @ [phone] for patient care issues. [phone]: Please page [facility] Hospitalist for any issues. Subjective: Admit Date: [...] Services This report was created using the CANDDi Speaking voice- activated system. Despiteprompt dictation and [...] an 78 yo male who presented to [facility] with COPD exacerbation. 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 Objective Vision: Within Functional [...] Study With Bronchodilator Batsheva Valdez MD [address] [place] [address] [facility] [address] [place] [address] Status Reason Specialty Diagnoses / Procedures Referre d By Contact Referred To Contact Closed Radiology Diagnoses Lung nodule Procedures CT Chest WO Contrast Alycia Esquivel S, ECONOMIC RESEARCH ANALYST - CHEMISTRY SPECIALIST [address] [place] [address] Additional Source Comments (unrecognized sect ion and content) No Status Records FoundNo Status Records Found INFORMATION SOURCE (unrecogn ized section and content) DATE CREATED AUTHOR AUTHOR'S ORGANIZ ATION 06/10/2021 [facility] Reason for Visit (unrecogniz ed [...] BE BASED ON THE PRIMARY CLINICAL RECORDS. [employer] provides no warranty or guarantee of the accuracy or completeness of information in this document.
[2023-04-26 03:22] LABS: Allen Test Positive; Base Excess -3 mmol/L (-2 to +2); Bicarbonate 22.7 mmol/L (22-26); Blood Gas Specimen Type ART; Mode Not entered; O2 Delivery Device NRB; PO2 123 mmHG (75-100); SITE R Radial; SO2 99 % (95-99); Total Carbon Dioxide 24 mmol/L; pCO2 40.6 mmHg (35-45); pH 7.36 (7.35-7.45)
--- NOTE | 2023-04-26 03:23 | CT_ITS ---
EXAM: CT ANGIOGRAPHY CHEST WITHOUT AND WITH INTRAVENOUS CONTRAST CLINICAL INDICATION: hypoxia TECHNIQUE: Helically acquired angiography images were obtained of the chest without and with intravenous contrast. This CT exam was performed using one or more of the following dose reduction techniques: automated exposure control, adjustment of the mA and/or kV according to patient size, and/or use of iterative reconstruction technique. MIP reconstructed images were created and reviewed. CONTRAST: IV 100mL Isovue-370 RADIATION DOSE: Total DLP: 476.67 mGy-cm. COMPARISON: Nonenhanced chest CT of 04/15/2023. FINDINGS: PULMONARY ARTERIES: Right main pulmonary artery slightly dilated measuring 3.2 cm in transverse diameter. Left main pulmonary artery is upper normal caliber measuring 2.7 mm and transverse diameter. No evidence of pulmonary embolism. AORTA: The thoracic aorta is calcific and normal in caliber. No aneurysm or intimal flap. GREAT VESSELS OF AORTIC ARCH: Unremarkable. Normal in caliber. No evidence of dissection. LUNGS AND PLEURAL SPACES: Findings of pulmonary emphysema are again noted. Minimal groundglass opacities noted laterally within the right middle lobe. There is increasing consolidation within the right lower lobe posteriorly consistent with worsening pneumonia. There is a minimal associated right pleural effusion. Bronchial wall thickening is again noted, indicating bronchial wall inflammation, greatest in the right lower lobe. Atelectasis is present at the left lung base with a trace of pleural fluid on the left. No mass. HEART: Coronary artery calcification is present. No significant pericardial effusion. MEDIASTINUM: See below. THYROID: Unremarkable. No thyroid lesions. BONES/JOINTS: Degenerative spurring noted throughout the thoracic spine. Lower cervical degenerative disc disease is also present. No suspicious lytic or blastic abnormality. No acute osseous abnormality. LYMPH NODES: Mild right hilar adenopathy is noted. Borderline enlarged left hilar lymph node is noted. Mildly enlarged lymph node noted in the AP window, measuring 15 mm in short axis diameter. Additional normal size mediastinal lymph nodes are present. A mildly enlarged node measuring 13 mm in short axis diameter seen in the subcarinal region, medially to the right lower lobe bronchus. INTRAPERITONEAL SPACE: Visualized liver, spleen, pancreas, adrenal glands and renal upper poles are unremarkable. No pneumoperitoneum is noted. CT/CTA Chest W/WO Contrast IMPRESSION: 1. Negative for PE. No thoracic aortic dissection. 2. Findings of pulmonary emphysema and bronchitis again noted. Worsening pneumonia within the right lower lobe. 3. Mild right hilar or mediastinal adenopathy. Electronically Signed: Artur Martin MD at 8:10 EST ,
[2023-04-26] MEDS: Morphine 2 MG/ML Syringe IV (03:38)
[2023-04-26] MEDS: Ondansetron 4 MG/2 ML Vial IV (03:38)
[2023-04-26 03:47] LABS: Absolute Lymphocyte Count 0.92 X10^3/uL (0.83-4.51); Absolute Neutrophil Count 17.2 X10^3/uL (2.0-7.7); Basophil# 0.04 X10^3/uL; Basophil% 0.2 % (0-1); Eosinophil# 0.09 X10^3/uL; Eosinophils% 0.5 % (0-5); Hematocrit 30.1 % (40-54); Hemoglobin 7.9 g/dL (13.0-16.5); Lymphocyte # 0.92 X10^3/ul (0.83-4.51); Lymphocyte % 4.8 % (19-41); Mean Corp Hgb Conc 26.2 g/dL (32-36); Mean Corpuscular Volume 79.8 fL (80-94); Mean Platelet Vol. 11.2 fl (6.2-12.0); Monocyte# 0.63 X10^3/uL; Monocyte% 3.3 % (0-10); NRBC Flagged by Analyzer 0 % (0-5); Neutrophil # 17.18 X10^3/uL (2.7-7.7); Neutrophil % 90.6 % (47-70); Platelet Count 439 K/mm3 (150-450); RBC Distribution Width CV 18.7 % (11.6-14.6); RBC Distribution Width SD 53.1 fl (35.1-43.9); Red Blood Count 3.77 M/mm3 (4.6-6.2)
[2023-04-26] MEDS: dilTIAZem 25 MG/5 ML Vial 15 MG IV BOLUS (03:51)
[2023-04-26 04:05] LABS: Anion Gap 5 (5-15); BUN 15 mg/dL (7-18); BUN/Creat Ratio 14.4 RATIO (10-20); Calcium,Total 8.3 mg/dL (8.5-10.1); Chloride 113 mmol/L (98-107); Creatinine, Serum 1.04 mg/dL (0.70-1.30); EST Glomerular Filtration Rate 72 mL/min (>60); Est Glom Filt Rate - Afr Amer 87 mL/min (>60); Estimated Creatinine Clearance 54.59 ml/min; Glucose 165 mg/dL (74-106); Magnesium 1.7 mg/dL (1.6-2.6); Sodium Level 144 mmol/L (136-145)
[2023-04-26 04:18] LABS: Thyroid Stim Hormone (TSH) 1.36 uIU/mL (0.358-3.74)
[2023-04-26] MEDS: Diltiazem 125 MG in Dextrose 5%-Water (100mL Bag) 100 ML CONT INF (04:28)
[2023-04-26 04:56] LABS: International Normalized Ratio 1.7; Prothrombin Time (Protime)PT. 20.2 SECONDS (11.7-14.9)
[2023-04-26 04:57] LABS: Partial Thromboplast Time 39.7 Seconds (24.1-36.2)
--- NOTE | 2023-04-26 05:23 | EDS_ITS ---
HPI History of Present Illness Chief Complaint: Shortness of Breath Informant: patient, spouse/S.O. and EMS Narrative Narrative: Patient is 82-year-old male with past medical history of COPD as well as lung mass. He states he typically wears 2 to 4 L of oxygen 23/09. He reports in the last 24 hours or so he has had increasing fatigue and shortness of breath. He states it worsened this evening despite having his oxygen on and with his EMS was called to bring him in for evaluation. EMS states when they arrived the patient is awake and alert but that he is hypoxic with a pulse ox of approximately 80% [facility] Medical History Anemia Anemia requiring transfusions Arthritis Asthma Bruit of left carotid artery Cardiology follow-up encounter COPD (chronic obstructive pulmonary disease) Diabetes mellitus Diverticulitis Dupuytrens contracture Former smoker GERD (gastroesophageal reflux disease) H/O inguinal hernia H/O: pneumonia History of diverticulitis History of echocardiogram History of pulmonary aspiration History of stress test History of ulceration Low iron Lung mass Neuropathy On home oxygen therapy Paroxysmal atrial fibrillation Paroxysmal atrial fibrillation with RVR Shortness of breath on exertion Stage 3 severe COPD by GOLD classification Type 2 diabetes mellitus Type 2 diabetes mellitus without complications Wears dentures Home Medications ferrous sulfate 325 mg (65 mg iron) tablet 325 mg PO DAILY supplement 12/29/19 [History Last Taken Unknown] albuterol sulfate 2.5 mg/3 mL (0.083 %) solution for nebulization 2.5 mg (3 mL) inhalation Q4H PRN shortness of breath or wheezing #180 mL 01/23/22 [Rx Last Taken 02/11/22] gabapentin 100 mg capsule 100 mg PO TID nerve pain #270 caps 05/15/22 [Rx Last Taken Unknown] fluticasone fur. 200 mcg-umeclid 62.5 mcg-vilant 25 mcg inhalat.powder (Trelegy Ellipta) 1 inh inhalation DAILY breathing #3 ea 07/15/22 [Rx Last Taken Unknown] tamsulosin 0.4 mg capsule 0.4 mg PO QHS prostate #90 caps 09/11/22 [Rx Last Taken Unknown] Handicap placard #1 ea 10/24/22 [Rx Last Taken Unknown] apixaban 5 mg tablet (Eliquis) 5 mg PO BID blood thinner #180 tabs 10/31/22 [Rx Last Taken Unknown] metformin 500 mg tablet See Rx Instructions .Route .COMPLEX diabetes #180 tabs 10/31/22 [Rx Last Taken Unknown] metoprolol tartrate 25 mg tablet 12.5 mg (1/2 x 25 mg) PO BID blood pressure #90 tabs 10/31/22 [Rx Last Taken Unknown] pantoprazole 40 mg tablet,delayed release 40 mg PO BID #60 tabs 11/16/22 [Rx Last Taken Unknown] blood sugar diagnostic (Blood Glucose Test strips) #100 ea 11/28/22 [Rx Last Taken Unknown] lancets 28 gauge (FreeStyle Lancets) #100 ea 11/28/22 [Rx Last Taken Unknown] simvastatin 40 mg tablet 40 mg PO DAILY cholesterol #90 tabs 11/28/22 [Rx Last Taken Unknown] ondansetron HCl 4 mg tablet 4 mg PO Q8H PRN nausea and vomiting #90 tabs 03/20/23 [Rx Last Taken Unknown] albuterol sulfate 90 mcg/actuation aerosol inhaler 2 puff inhalation Q6H PRN shortness of breath or wheezing #3 device 04/25/23 [Rx Last Taken Unknown] Allergy/AdvReac Type Severity Reaction Status Date / Time Penicillins Allergy Severe Hives Verified 04/25/23 10:07 erythromycin base AdvReac Severe Nausea/Vom/ Verified 04/25/23 10:07 Diarrhea Family History Father Cancer Brother Parkinsons disease Mother Diverticulitis Surgical History History of carpal tunnel release History of hand surgery History of hernia repair Social History household members: spouse Smoking Status: Former smoker Tobacco: How many years used: 40 Electronic Cigarette Use: not used how long ago did patient quit smokin second hand exposure: Yes alcohol intake: never substance use type: does not use caffeine: Yes Type: coffee Number of servings: 1 what type of physical activity do you participate in: none ROS ROS ED Constitutional Constitutional ED: Denies chills or fever(s) ENT ENT ED: Denies sore throat Cardiovascular Cardiovascular: Reports palpitations and racing heartbeat; Denies chest pain Respiratory/Chest Respiratory/Chest: Reports cough and dyspnea Gastrointestinal Gastrointestinal: Denies abdominal pain, diarrhea, nausea or vomiting Genitourinary Genitourinary ED: Denies dysuria Musculoskeletal Musculoskeletal: Reports myalgias Integumentary Denies rash Neurologic Neurologic: Denies headache(s) Hematologic/Lymphatic Hematologic/Lymphatic: Reports easy bleeding and easy bruising EXAM Physical Exam Const Vital Signs: 04/26/23 03:05 04/26/23 03:11 04/26/23 03:34 Temperature 98 F 98 F Temperature Source Temporal Temporal Pulse Rate 150 H 147 H Respiratory Rate 30 H 24 H Respiratory Effort Short of Breath Labored Head [place] Respiratory Depth Shallow Respiratory Pattern Tachypnea Blood Pressure 160/88 H 160/88 H Blood Pressure Mean 112 112 Blood Pressure Source Blood Pressure Position Blood Pressure Location Pulse Ox 95 98 Oxygen Delivery Method Bi-pap Bi-pap Bi-pap Oxygen Flow Rate (L/min) Fraction of Inspired Oxygen (FIO2) 04/26/23 03:10 04/26/23 04:28 04/26/23 05:04 Temperature 98.1 F Temperature Source Oral Pulse Rate 128 H 103 H 111 H Respiratory Rate 29 H 21 H 18 Respiratory Effort Respiratory Depth Respiratory Pattern Tachypnea Blood Pressure 100/57 L 114/54 L Blood Pressure Mean 71 74 Blood Pressure Source Monitor Blood Pressure Position Semi-Fowlers Blood Pressure Location Left Arm Pulse Ox 94 97 96 Oxygen Delivery Method High Flow High Flow Oxygen Flow Rate (L/min) 10 Fraction of Inspired Oxygen (FIO2) 100 04/26/23 05:04 Temperature 98.0 F Temperature Source Temporal Pulse Rate 106 H Respiratory Rate 22 H Respiratory Effort Respiratory Depth Respiratory Pattern Blood Pressure 114/54 L Blood Pressure Mean 74 Blood Pressure Source Blood Pressure Position Blood Pressure Location Pulse Ox 96 Oxygen Delivery Method Room Air Oxygen Flow Rate (L/min) Fraction of Inspired Oxygen (FIO2) Positive well developed and unkempt General Appearance ED: unkempt, well developed and pallor HEENT HEENT Narrative: No tongue or lip swelling noted No airway edema or compromise Eyes PERRL and EOMs intact bilaterally General Eye ED: Yes pale conjunctiva; Negative for scleral icterus Neck supple and no JVD Neck Narrative: No nuchal rigidity or meningeal signs noted Chest Wall palpation of chest normal Chest Narrative: No bony deformity or crepitance Resp Resp Narrative: Patient is in respiratory distress with tachypnea and accessory muscle use. Breath sounds are severely diminished throughout but overall clear to auscultation Cardio Rate: other Other Details: Irregularly irregular rhythm with tachycardic rate consistent with atrial fibrillation GI normal to inspection, nondistended, normoactive bowel sounds, non-tender, non- distended and no masses GI Narrative: No voluntary guarding or rigidity or pulsatile mass Auscultation: normoactive bowel sounds Palpation: soft Extremity Extremity Narrative: +1 pitting edema to the bilateral lower extremities that is equal and symmetric Neuro oriented x3 and CN's II-XII intact bilaterally Sensorium / Orientation: alert Psych mental status grossly normal Appearance: unkempt Skin no rashes or lesions noted and no wounds Skin Narrative: Skin is pale in color but capillary refills less than 3 seconds General Skin Exam: pallor; Negative for jaundice MDM MDM MDM Narrative Medical decision making narrative: Patient arrived to the ER in respiratory distress with tachypnea and accessory muscle use and a pulse ox of approximately 80% despite oxygen therapy. With his history of COPD was felt he was having a potential COPD exacerbation versus pneumonia versus pneumothorax and there is also concern of a atypical or a bnormal cardiac rhythm such as A-fib based on his tachycardia. Patient is pale in nature as well so there is concern for acute blood loss anemia leading to his hypoxia. Basic labs were obtained which showed an elevated white count at 19 but chart review reveals patient was recently on steroids. Hemoglobin is low at 8 but chart review reveals this is baseline for him. A CT of the chest was obta ined secondary to his symptoms in order to rule out PE versus pneumothorax versus pneumonia versus pulmonary congestion. This showed the lung mass which was similar nature to the CT scan obtained on April 15 and no obvious signs of infiltrate or PE. However because of the patient's increased work of breathing he had to be placed on 10 L high flow nasal cannula which is above the baseline he is at home. Also because of his A-fib with RVR he had to be started on a Cardizem drip. As he needs IV rate control as well as a higher level of nasal cannula oxygen I do not feel safe for discharge and therefore medicine was contacted and they agreed admit the patient at this time for further care History & Record Review Discussion w/independent historian: EMS personnel, Patient and Significant other Lab Data Attestation: I reviewed the patient's lab results. Labs: Laboratory Results - last 24 hr 04/26/23 04/26/23 03:19 04:24 WBC 19.0 H RBC 3.77 L Hgb 7.9 L Hct 30.1 L MCV 79.8 L MCH 21.0 L MCHC 26.2 L RDW Std Deviation 53.1 H RDW Coeff of Demetrius 18.7 H Plt Count 439 MPV 11.2 Immature Gran % (Auto) 0.600 Neut % (Auto) 90.6 H Lymph % (Auto) 4.8 L [place] % (Auto) 3.3 Eos % (Auto) 0.5 Baso % (Auto) 0.2 Absolute Neuts (auto) 17.2 H Absolute Lymphs (auto) 0.92 Nucleated RBC % 0 PT 20.2 H INR 1.7 APTT 39.7 H Sodium 144 Potassium 4.0 Chloride 113 H Carbon Dioxide 26.0 Anion Gap 5 BUN 15 Creatinine 1.04 Estim Creat Clear Calc 54.59 Est GFR (MDRD) Af Amer 87 Est GFR (MDRD) Non-Af 72 BUN/Creatinine Ratio 14.4 Glucose 165 H Calcium 8.3 L Magnesium 1.7 B-Natriuretic Peptide 367.0 H TSH 1.36 ABG Data ABG results: ABG 04/26/23 03:19 Specimen Type ART Sample Site R Radial pH 7.36 Bicarbonate Actual 22.7 Total CO2 24 Base Excess -3 L O2 Saturation 99 O2 % 15.0 ABG pCO2 40.6 ABG pO2 123 H Loy Test Positive O2 Delivery Device NRB Vent Mode Not entered Management Discussion w/another healthcare provider: Hospitalist Critical Care Time Critical Care Time: Yes Critical care time (excluding procedures): Discussing w/Patient &/or Family/Direct Support Staff Member, Discussing w/Consultants and - (Critical care time of 31 minutes) Discharge Plan Dx/Rx/DC Orders Clinical Impression: Acute on chronic respiratory failure with hypoxia, Atrial fibrillation with rapid ventricular response, Anemia, Lung mass, COPD exacerbation Disposition Disposition: [facility] Discharge Date/Time: 04/26/23 07:37
--- NOTE | 2023-04-26 05:26 | PCM.HP.STD ---
HPI - General General Date of Admission: 04/26/23 Date of Service: 04/26/23 Chief Complaint: Dyspnea, cough, worsening. HPI Narrative The patient is an 82 y/o M w/ PMHx: Former tobacco use, COPD/Asthma w/ Chronic Hypoxic Respiratory Failure (3L NC), Chronic microcytic anemia, PAF, GERD, BPH, Diabetes mellitus type II, ongoing evaluation for right middle lobe consolidation/mass seen 04/25/23 with [facility] pulmonary with diagnosis of COPD exacerbation with treatment with prednisone burst therapy as well as Bactrim with reported increased dyspnea, worse with exertion with cough of productive yellow green-colored thick sputum as well as fullness in the left ear with office evaluation notable for significant cerumen who now represents to the [facility] ED on 04/26/2023 with sudden onset worsening dyspnea prompting EMS call with noted oxygenation down to 70% on patient's chronic supplementation which ED even turned up to 4 L and despite this continued hypoxia with placement on BiPAP per EMS and transition to the hospital for evaluation. Workup in the ED included T98, heart rate 150 with most recent repeat 103 following treatments as noted, BP 160/88, respiratory rate 30, 95% on BiPAP--> eventually transition to 10 L high flow noted to be 97%, respiratory rate 21, CBC with WBC 19, hemoglobin 7.9, MCV 79.8, platelet 439 with left shift, ABG with PaO2 123 otherwise not marked appearing, BMP with chloride 113, glucose 165, calcium 8.3, magnesium 1.7, BNP 367, TSH 1.36, rapid SARS COVID/influenza/RSV PCR negative, CTPA pending upon requested evaluation of patient with no obvious large pulmonary emboli but patient again is anticoagulated with final read/radiology read pending. In the ED patient ministered Zofran 4 mg IV x 1, morphine 2 mg IV x 1, diltiazem 50 mg IV bolus x 1 and transition to diltiazem drip. [facility] Medical History Anemia Anemia requiring transfusions Arthritis Asthma Bruit of left carotid artery Cardiology follow-up encounter COPD (chronic obstructive pulmonary disease) Diabetes mellitus Diverticulitis Dupuytrens contracture Former smoker GERD (gastroesophageal reflux disease) H/O inguinal hernia H/O: pneumonia History of diverticulitis History of echocardiogram History of pulmonary aspiration History of stress test History of ulceration Low iron Lung mass Neuropathy On home oxygen therapy Paroxysmal atrial fibrillation Paroxysmal atrial fibrillation with RVR Shortness of breath on exertion Stage 3 severe COPD by GOLD classification Type 2 diabetes mellitus Type 2 diabetes mellitus without complications Wears dentures Home Medications ferrous sulfate 325 mg (65 mg iron) tablet 325 mg PO DAILY supplement 12/29/19 [History Last Taken Unknown] albuterol sulfate 2.5 mg/3 mL (0.083 %) solution for nebulization 2.5 mg (3 mL) inhalation Q4H PRN shortness of breath or wheezing #180 mL 01/23/22 [Rx Last Taken 02/11/22] gabapentin 100 mg capsule 100 mg PO TID nerve pain #270 caps 05/15/22 [Rx Last Taken Unknown] fluticasone fur. 200 mcg-umeclid 62.5 mcg-vilant 25 mcg inhalat.powder (Trelegy Ellipta) 1 inh inhalation DAILY breathing #3 ea 07/15/22 [Rx Last Taken Unknown] tamsulosin 0.4 mg capsule 0.4 mg PO QHS prostate #90 caps 09/11/22 [Rx Last Taken Unknown] Handicap placard #1 ea 10/24/22 [Rx Last Taken Unknown] apixaban 5 mg tablet (Eliquis) 5 mg PO BID blood thinner #180 tabs 10/31/22 [Rx Last Taken Unknown] metformin 500 mg tablet See Rx Instructions .Route .COMPLEX diabetes #180 tabs 10/31/22 [Rx Last Taken Unknown] metoprolol tartrate 25 mg tablet 12.5 mg (1/2 x 25 mg) PO BID blood pressure #90 tabs 10/31/22 [Rx Last Taken Unknown] pantoprazole 40 mg tablet,delayed release 40 mg PO BID #60 tabs 11/16/22 [Rx Last Taken Unknown] blood sugar diagnostic (Blood Glucose Test strips) #100 ea 11/28/22 [Rx Last Taken Unknown] lancets 28 gauge (FreeStyle Lancets) #100 ea 11/28/22 [Rx Last Taken Unknown] simvastatin 40 mg tablet 40 mg PO DAILY cholesterol #90 tabs 11/28/22 [Rx Last Taken Unknown] ondansetron HCl 4 mg tablet 4 mg PO Q8H PRN nausea and vomiting #90 tabs 03/20/23 [Rx Last Taken Unknown] albuterol sulfate 90 mcg/actuation aerosol inhaler 2 puff inhalation Q6H PRN shortness of breath or wheezing #3 device 04/25/23 [Rx Last Taken Unknown] Allergy/AdvReac Type Severity Reaction Status Date / Time Penicillins Allergy Severe Hives Verified 04/25/23 10:07 erythromycin base AdvReac Severe Nausea/Vom/ Verified 04/25/23 10:07 Diarrhea Family History Father Cancer Brother Parkinsons disease Mother Diverticulitis Surgical History History of carpal tunnel release History of hand surgery History of hernia repair Social History household members: spouse Smoking Status: Former smoker Tobacco: How many years used: 40 Electronic Cigarette Use: not used how long ago did patient quit smokin second hand exposure: Yes alcohol intake: never substance use type: does not use caffeine: Yes Type: coffee Number of servings: 1 what type of physical activity do you participate in: none ROS ROS Narrative Admission Review of Systems: CONSTITUTIONAL: No weight loss, fever, chills, + weakness or fatigue. HEENT: Eyes: No visual loss, blurred vision, double vision or yellow sclerae. Ears, Nose, Throat: No hearing loss, sneezing, congestion, runny nose or sore throat. SKIN: No rash or itching, lesions, wounds. CARDIOVASCULAR: No chest pain, chest pressure or chest discomfort, palpitations, edema, orthopnea, syncopal events. RESPIRATORY: + Dyspnea, productive cough, no marked wheezing. No hemoptysis. GASTROINTESTINAL: No anorexia, nausea, vomiting or diarrhea, abdominal pain, melena, BRBPR. GENITOURINARY: + Chronic urinary frequency with BPH. No dysuria, urgency or retention. NEUROLOGICAL: No headache, dizziness, syncope, paralysis, ataxia, numbness or tingling in the extremities, focal weakness, change in bowel or bladder control, seizure. MUSCULOSKELETAL: + muscle, back pain, joint pain or stiffness. HEMATOLOGIC: + Anemia, easy bleeding/bruising. LYMPHATICS: No enlarged nodes. No history of splenectomy. PSYCHIATRIC: No history of depression or anxiety. ENDOCRINOLOGIC: No reports of sweating, cold or heat intolerance. No polyuria or polydipsia. ALLERGIES: No history of asthma, hives, eczema or rhinitis. Vital Signs Vital Signs Vital Signs: 04/26/23 03:05 04/26/23 03:11 04/26/23 03:34 Temperature 98 F 98 F Temperature Source Temporal Temporal Pulse Rate 150 H 147 H Respiratory Rate 30 H 24 H Respiratory Effort Short of Breath Labored Head [place] Respiratory Depth Shallow Respiratory Pattern Tachypnea Blood Pressure 160/88 H 160/88 H Blood Pressure Mean 112 112 Blood Pressure Source Blood Pressure Position Blood Pressure Location Pulse Ox 95 98 Oxygen Delivery Method Bi-pap Bi-pap Bi-pap Oxygen Flow Rate (L/min) Fraction of Inspired Oxygen (FIO2) 04/26/23 03:10 04/26/23 04:28 04/26/23 05:04 Temperature 98.1 F Temperature Source Oral Pulse Rate 128 H 103 H 111 H Respiratory Rate 29 H 21 H 18 Respiratory Effort Respiratory Depth Respiratory Pattern Tachypnea Blood Pressure 100/57 L 114/54 L Blood Pressure Mean 71 74 Blood Pressure Source Monitor Blood Pressure Position Semi-Fowlers Blood Pressure Location Left Arm Pulse Ox 94 97 96 Oxygen Delivery Method High Flow High Flow Oxygen Flow Rate (L/min) 10 Fraction of Inspired Oxygen (FIO2) 100 04/26/23 05:04 Temperature 98.0 F Temperature Source Temporal Pulse Rate 106 H Respiratory Rate 22 H Respiratory Effort Respiratory Depth Respiratory Pattern Blood Pressure 114/54 L Blood Pressure Mean 74 Blood Pressure Source Blood Pressure Position Blood Pressure Location Pulse Ox 96 Oxygen Delivery Method Room Air Oxygen Flow Rate (L/min) Fraction of Inspired Oxygen (FIO2) Weight Weight: 181 lb 10.574 oz Body Mass Index (BMI) 26.0 Physical Exam Narrative Physical Examination: General: Awake, alert, oriented to self, place and some recent events, suspect initially was more confused, seems to be improving, remains cooperative, seated upright in the ED bed, off of BiPAP transition to nasal cannula, notes feeling immensely improved. Skin: Normal color, normal turgor, no icterus, no cyanosis except occasional staged ecchymoses. HEENT: AT/NC, EOMI, PERRLA, MMM, no carotid bruits or JVD noted. Lungs: Diminished, greater bases, mildly increased respiratory rate but distress has been improving, off of BiPAP, transition to nasal cannula, still some expiratory wheezing, no marked rhonchi or rales. Heart: Rate improved, irregular; no gallop, rub audible. Abdomen: Soft, NTTP, ND, distant normal BS, no appreciated HSM. Extremities: No cyanosis, no clubbing, mild peripheral not markedly pitting edema noted. Neurological: Patient awake, alert, oriented as noted, cognitive function improved, suspect near baseline intact; pupils equally reactive to light and accommodation, cranial nerves grossly normal, moving all 4 extremities, no focal deficits, strength severely globally decreased secondary to acute presentation complicated by underlying comorbidities.. Psychiatric: Affect appears fatigued, respiratory distress improving as noted, no acute evidence of depressive or anxiety feelings. Results Lab / Micro Data 04/26/23 03:19 04/26/23 03:19 Labs: Laboratory Results - last 24 hr 04/26/23 03:19: WBC 19.0 H, RBC 3.77 L, Hgb 7.9 L, Hct 30.1 L, MCV 79.8 L, MCH 21.0 L, MCHC 26.2 L, RDW Std Deviation 53.1 H, RDW Coeff of Demetrius 18.7 H, Plt Count 439, MPV 11.2, Immature Gran % (Auto) 0.600, Neut % (Auto) 90.6 H, Lymph % (Auto) 4.8 L, Carlton % (Auto) 3.3, Eos % (Auto) 0.5, Baso % (Auto) 0.2, Absolute Neuts (auto) 17.2 H, Absolute Lymphs (auto) 0.92, Nucleated RBC % 0, Sodium 144, Potassium 4.0, Chloride 113 H, Carbon Dioxide 26.0, Anion Gap 5, BUN 15, Creatinine 1.04, Estim Creat Clear Calc 54.59, Est GFR (MDRD) Af Amer 87, Est GFR (MDRD) Non-Af 72, BUN/Creatinine Ratio 14.4, Glucose 165 H, Calcium 8.3 L, Magnesium 1.7, B-Natriuretic Peptide 367.0 H, TSH 1.36 04/26/23 04:24: PT 20.2 H, INR 1.7, APTT 39.7 H Micro: Microbiology 04/26/23 03:42 Mucosa - Nose SARS-CoV-2, Influenza & RSV (PCR) - Final ABG Data ABG results: ABG 04/26/23 03:19 Specimen Type ART Sample Site R Radial pH 7.36 Bicarbonate Actual 22.7 Total CO2 24 Base Excess -3 L O2 Saturation 99 O2 % 15.0 ABG pCO2 40.6 ABG pO2 123 H Loy Test Positive O2 Delivery Device NRB Vent Mode Not entered Assessment & Plan Assessment/Plan (1) Acute on chronic respiratory failure with hypoxia: PLAN: Plan The patient is an 82 y/o M w/ PMHx: Former tobacco use, COPD/Asthma w/ Chronic Hypoxic Respiratory Failure (3L NC), Chronic microcytic anemia, PAF, GERD, BPH, Diabetes mellitus type II, ongoing evaluation for right middle lobe consolidation/mass seen 04/25/23 with [facility] pulmonary with diagnosis of COPD exacerbation with treatment with prednisone burst therapy as well as Bactrim with reported increased dyspnea, worse with exertion with cough of productive yellow green-colored thick sputum as well as fullness in the left ear with office evaluation notable for significant cerumen who now represents to the [facility] ED on 04/26/2023 with sudden onset worsening dyspnea prompting EMS call with noted oxygenation down to 70% on patient's chronic supplementation which ED even turned up to 4 L and despite this continued hypoxia with placement on BiPAP per EMS and transition to the hospital for evaluation. #1. Acute on Chronic Hypoxic Respiratory Failure secondary to Acute on Chronic COPD/Asthma exacerbation likely worsened in part secondary to # 2 and #3: Will admit to PCU given significant improvement, will continue high flow oxygen as recently transitioned off BiPAP in the ED but may resume if necessary, ATC budesonide given #2, ATC Ipratropium, PRN albuterol, IV methylprednisolone with oral prednisone home, HOB, IS parameters, will obtain sputum Cx, obtain full respiratory viral panel, procalcitonin, will add abx therapy if work-up concerning for bacterial etiology. #2. Paroxsymal atrial fibrillation w/ RVR likely in large part secondary to #1: EKG in ED w/ atrial fibrillation w/ RVR. Patient administered Cardizem bolus and started on Cardizem drip in ED. Will maintain on telemetry, obtain cardiac enzyme serial set, obtain magnesium level, TSH 1.36, magnesium 1.7. Most recent echocardiogram 06/27/2021 with EF 55%, mildly enlarged LA, mild to moderate mitral annular calcification, trivial MVI, trivial TVI, trivial STEPHAN, trivial PVI, RVSP 25 mmHg, evidence of diastolic dysfunction. Will continue patient home chronic Eliquis regimen. Will continue patient home metoprolol regimen overlapping as BP allows with Cardizem drip. If ongoing and intractable would plan cardiology involvement. #3. 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 Patient following with pulmonary medicine and has declined biopsies for further evaluation and understands that the likeliness of cancer is high. Patient already following with palliative care. #4. Chronic microcytic anemia/iron deficiency anemia: Admission hemoglobin 7.9, MCV 79.8, baseline hemoglobin appears similar, encourage continued outpatient follow-up, continue iron supplementation. #5. Diabetes mellitus type II with chronic neuropathy: Hold oral home regimen, ADA diet, accu checks w/ ISS, continue home gabapentin regimen. #6. Former tobacco use: Encourage continued tobacco cessation. #7. Hypertension: Continue home regimen including metoprolol overlap as able pending blood pressure allowance, maintained on IV Cardizem as noted, PRN hydralazine. #8. Hyperlipidemia: We will continue patient on statin therapy. #9. GERD: We will continue patient on PPI. #10. BPH: We will continue patient on Flomax regimen. #11. DVT prophylaxis: Continue home eliquis regimen. #12. CODE status: Patient HCPOA and LW are not in place but he notes his and his daughter would be his decision makers if needed. Discussed CODE status at length including difference between FULL code, DNR-CCA and DNR-CC status. Following discussions about the differences in these status, requested DNR-CCA, no intubation, no aggressive interventions. Advanced Care Planning Face to Face Time: 16 minutes. Charges/Coding Visit Charges Inpatient E&M: 50462 Init Hosp L3 Procedures Hospitalists Procedures: 95880 Advncd Care Plan 30 Min
--- OUTSIDE RECORDS SUMMARY | 2023-04-26 05:37 | XMS RPT_ITS | CCD ---
Author Name Unknown Address [address] [place] [address] Organization [facility] Care Team Providers Care Time Recorder Name Role Phone Tip Doll Primary Care Provider Royer Thacker Primary Care Provider Allergies Allergy Classification Reported Allergen(s) Allergy Type Date of Onset Reaction(s) Facility (14 sources) Erythromycin Drug Allergy 10-10-2014 [place], [place] (14 sources) levoFLOXacin Drug Allergy 10-29-2017 [place], [place] (14 sources) Amoxicillin-Pot Clavulanate Propensity to adverse reactions to drug 12-03-2017 [place], [place] (3 sources) Penicillins Propensity to adverse reactions to drug 10-21-2019 Rash [place] Medications Current Medications Medication Drug Class(es) [...] Respiratory failure; insufficiency; arrest (adult) (13 sources) [id number] respiratory failure; Translations: [Chronic hypoxemic respiratory failure] [...] 05-07-2019 12:55-0500 Pulse Oximetry 94 % [place] 05-07-2019 08:30-0500 Body Temperature 96.8 [degF] [place] 05-07-2019 08:30-0500 BP Diastolic 75 mm[Hg] [place] 05-07-2019 08:30-0500 BP Systolic 125 mm[Hg] [place] 05-07-2019 08:30-0500 Pulse (Heart Rate) 89 /min Johnie [place] 05-07-2019 08:30-0500 Respiratory Rate 16 /min [place] 05-05-2019 15:12-0500 Height 177.8 cm [place] 05-05-2019 11:56-0500 BMI (Body Mass Index) 29.56 kg/m2 John[place] 05-05-2019 11:56-0500 Body weight 93.44 kg Johnie [facility] , [place] 12-14-2018 10:20-0400 Pulse Oximetry 94 % Kirby Medrano [facility] , [place] 12-14-2018 10:20-0400 Respiratory Rate 16 /min Kirby Velez [facility], [place] 12-14-2018 09:47-0400 BP Diastolic 83 mm[Hg] Kirby Velez [facility] , [place] 12-14-2018 09:47-0400 BP Systolic 111 mm[Hg] Kirby Velez [place], [place] 12-14-2018 09:47-0400 Pulse (Heart Rate) 76 /min Kirby Velez [place], [place] 12-14-2018 09:31-0400 Body Temperature 97.59 [degF] Kirby Velez [facility], [place] 12-14-2018 08:17-0400 BMI (Body Mass Index) 28.41 kg/m2 Kirby Velez [facility], [place] 12-14-2018 08:17-0400 Body weight 89.81 kg Kirby Velez [place] 12-14-2018 08:17-0400 Height 177.8 cm Kirby Velez [place] Encounters Encounter Date Encounter Type Care Provider Facility Start: 05-31-2021 End: 05-31-2021 Subsequent hospital visit by physician Sam Hanks MD Work Phone: [facility] Start: 11-15-2019 End: 11-15-2019 Subsequent hospital visit by physician Harmony Mcclain Work Phone: [facility] Start: 10-21-2019 End: 10-21-2019 Subsequent hospital visit by physician Harmony Mcclain Work Phone: [facility] Start: 07-19-2019 End: 07-19-2019 Subsequent hospital visit by physician Sam Hanks Work Phone: [facility] Start: 06-28-2019 End: 06-28-2019 Subsequent hospital visit by physician Sam Hanks Work Phone: [facility] Start: 06-07-2019 End: 06-07-2019 Subsequent hospital visit by physician Batsheva Valdez Work Phone: [facility] Radiology Procedures Date Procedure Procedure Detail [...] 06-07-2019 Radiologic exam ches t 2 views [employer] Work Phone: Start: 05-19-2019 Radiologic exam ches t 2 views [employer] Work Phone: Start: 05-07-2019 Gluc bld gluc mntr d ev cleared fda spec home use Wili [employer] Work Phone: Start: 05-07-2019 HOME O2 EVAL (DESATU RATION SCREEN) [facility] [employer] Work Phone: Start: 05-07-2019 Gluc bld gluc mntr d ev cleared fda spec home use Johnie Mancuso Work Phone: Start: 05-07-2019 [facility]ct[facility] Phone: Start: 05-06-2019 Gluc bld gluc mntr d ev cleared fda spec home use Johnie Mancuso Work Phone: Start: 05-06-2019 Gluc bld gluc mntr d ev cleared fda spec home use Johnie Mancsuo Work Phone: Start: 05-06-2019 Gluc bld gluc [...] MD [address], [place] [address] [phone] [facility] Start: 01-03-2020 End: 01-03-2020 Office Visit 01/03/2020 Office Visit Pulmonology Batsheva Valdez MD [address] [place] [phone] [facility] Start: 12-10-2019 DTaP/Tdap/Td vaccine (1 - Tdap) DTaP/Tdap/Td vaccine (1 - Tdap) [place] Immunizations Immunization Date Immunization Notes Care Provider [facility] 12-01-2019 influenza virus vacc ine, unspecified formulation Sam Hanks MD Work Phone: [facility] 08-23-2019 zoster vaccine [facility] [place] 04-05-2019 zoster vaccine recombinant Harmony [facility], [place] 11-27-2018 influenza, high dose seasonal, preservative-free Kirby Medrano [facility] 12-10-2017 influenza, high dose seasonal, preservative-free Kirby Medrano [facility], [place] 12-18-2016 influenza, high dose seasonal, preservative-free Kirby Medrano [facility] 04-17-2016 pneumococcal conjuga te vaccine, 13 valent Kirby CLAYTON 12-07-2015 influenza, high dose seasonal, preservative-free Kirby CLAYTON 12-07-2015 influenza, injectabl e, quadrivalent, contains preservative Kirby Medrano [facility], [place] 12-09-2014 influenza virus vacc ine, unspecified formulation Kirby Medrano [facility] 12-06-2013 influenza virus vacc ine, unspecified formulation Kirby Mitchell [facility] , [place] 12-06-2013 influenza, injectabl e, quadrivalent, contains preservative Kirby Medrano [facility], [place] 12-31-2012 pneumococcal polysaccharide vaccine, 23 valent Kirby Medrano [facility], [place] 12-17-2012 influenza virus vacc ine, unspecified formulation Kirby Mitchell [facility] , [place] 12-17-2012 influenza virus vacc ine, whole virus [facility] 12-06-2011 influenza virus vacc ine, unspecified formulation [facility] , [place] 12-06-2011 influenza virus vacc ine, whole virus Kirby Mitchell [facility], [place] 12-11-2010 influenza virus vacc ine, unspecified formulation [facility] [place] 12-11-2010 influenza virus vacc ine, whole virus [facility] 09-12-2010 zoster vaccine, live Kirby WHITE Work Phone: Payers Date Payer Category Payer Medicare AETNA MEDICARE A ETNA MEDICARE-ADVANTAGE PPO xxxxxxxx 2016-Present [address] [place] [address] Medicare [id number] 2016 Medicare AETNA MEDICARE A ETNA MEDICARE-ADVANTAGE PPO [id number] 2016-Present [address] [place] [address] Medicare [id number] Social History Date Type Detail Facility Start: 10-27-2014 End: 12-14-2018 Tobacco smoking status NHIS Former sm[place], [place] End: 03-03-2007 History of tobacco use Current [place] End: 03-03-2007 History of tobacco use Cigarette Smoker [place] Start: 12-14-2018 End: 01-03-2020 Cigarettes smoked current (pack per day) - Reported [place] Start: 12-14-2018 Alcohol intake No [place] Start: 06-09-2018 History SDOH Financial 4 [place] Start: 06-09-2018 History SDOH Food Worry 1 [place] Start: 06-09-2018 History SDOH Transpo rt Med 2 [place], [place] Start: 1940 Sex Assigned At Not on file M [place] Start: 05-27-2019 End: 01-03-2020 Alcohol intake Current non-drinker of alcohol (finding) [place] Exposure to SARS-CoV -2 (event) Unable to assess [place] Start: 10-27-2014 End: 10-21-2019 Tobacco use and exposure Never used [place] Medical Equipment Procedure Code Equipment Code Equipment Origin al Text Equipment Identifier Dates Test blood sugar b.i.d. [id number] Start: 05-25-2019 Test blood sugar twice a day [id number] Start: 05-25-2019 Test blood sugar b.i.d. 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 ACP-Advance Directive ACP-Power of Life Skills Worker Documents on File Type Date Recorded 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 Advance Directives and Living Will Power of Life Skills Worker Latest Code Status on File Code Status [...] Discharge Medications: Cody Casillas Home Medication Instructions CHRIS:[id number] Printed on:12/14/18 1053 Medication Information albuterol (PROVENTIL HFA;VENTOLIN HFA) 108 [...] mouth daily Recommended Follow-up: Tip Doll MD [address] [place] [address], [address] [place] [phone] In 1 week post hospital fu appt Kym Dillon MD [address] [place] [address] [address] [facility] [phone] As needed Readmission Risk Risk of Unplanned Readmission: 12 Complexity of Follow up: ? Moderate Complexity: follow up within 7-14 calendar days (09637) ? Severe Complexity: follow up within 7 calendar days (09078) Follow up Testing, Pending results or Referrals [...] frame. Signed: Jayden Aguilar DO [facility] 12/14/2018, 10:51 [...] be sent through Care Everywhere. * Diverticulosis (Portuguese) documented in this encounter History of Present Illness * Edis Hollingsworth RN - 12/14/2018 9:39 AM EDT POST ENDOSCOPY PROCEDURE TRANSFER REPORT Procedure completed: colonoscopy Findings:diverticulosis, hemmorroids Specimens obtained: no Medications administered: 200 mg propofol Additional Info: n/a For additional Questions please call Endoscopy at [phone]. Thank You! * Jayden Aguilar DO - 12/13/2018 10:32 AM EDT Hospitalist Progress Note 12/13/2018 10:32 AM [phone]: Please page me ([phone]) for patient care issues. [phone]: Please page [facility] night Hospitalist for any issues. Subjective: [...] Anticoagulation Advance Directive: Full Code Discharge planning: AMY Aguilar DO Division of Hospitalist Medicine Inpatient Medical Services PAGER: [phone] * Kym Dillon MD - 12/13/2018 9:19 [...] 2 puff 2 puff Inhalation BID Jayden Aguliar, DO 2 puff at 12/12/182130 tiotropium (SPIRIVA) [...] EDT Hospitalist Progress Note 12/12/2018 3:07 PM [phone]: Please page me ([phone]) for patient care issues. [phone]: Please page [facility] night Hospitalist for any [...] of Hospitalist Medicine Inpatient Medical Services PAGER: [phone] documented in this encounter* Ladarius Quezada, CURTAIN DRIER - 05/07/2019 12:57 PM EST Patient Evaluation [...] EST Hospitalist Progress Note 05/06/2019 2:39 PM [phone]: Please page mt @ [phone] for patient care issues. [phone]: Please page [facility] Hospitalist for any issues. Subjective: Admit Date: [...] Services This report was created using the [employer] Speaking voice- activated system. Despiteprompt dictation and [...] an 78 yo male who presented to [facility] with COPD exacerbation. Prior [...] Assistance: Independent(Without AD) Transfer Assistance: Independent Active Double End Sewer: Yes Occupation: Retired Objective Vision: Within Functional [...] Time Out 1339 Minutes 10 Maria Luisa eHss OT * Mamie Healy RCP - 05/06/2019 [...] Study With Bronchodilator Batsheva Valdez MD [address] [place] [address] [facility] [address] [place] [address] Status Reason Specialty Diagnoses / Procedures Referre d By Contact Referred To Contact Closed Radiology Diagnoses Lung nodule Procedures CT Chest WO Contrast Alycia Esquivel S, CREDIT CARD CLERK - FOAMITE MIXER [address] [facility] [place] [address] Additional Source Comments (unrecognized sect ion and content) No Status Records FoundNo Status Records Found INFORMATION SOURCE (unrecogn ized section and content) DATE CREATED AUTHOR AUTHOR'S ORGANIZ ATION 06/10/2021 [facility] Reason for Visit [...] BE BASED ON THE PRIMARY CLINICAL RECORDS. [employer] provides no warranty or guarantee of the accuracy or completeness of information in this document.
[2023-04-26 07:51] LABS: Procalcitonin 0.06 ng/mL (0.00-0.09)
[2023-04-26] MEDS: Pantoprazole Sodium 40 MG Tablet PO ×2 (09:34→20:51)
[2023-04-26] MEDS: Ferrous Sulfate 325 MG Tablet PO (09:34)
[2023-04-26] MEDS: APIXABAN 5 MG TABLET PO ×2 (09:34→20:50)
[2023-04-26] MEDS: Gabapentin 100 MG Capsule PO ×3 (09:34→20:49)
[2023-04-26] MEDS: Metoprolol Tartrate 25 MG Tablet 12.5 MG PO ×2 (09:35→20:51)
[2023-04-26 09:37] LABS: Troponin-I HS 12 pg/mL (3.0-78.0)
[2023-04-26 11:28] LABS: Bedside Glucose 231 mg/dL (74-106)
[2023-04-26] MEDS: Insulin Lispro 100 UNIT/ML INSULN.PEN SC ×3 (11:29→20:47)
[2023-04-26 11:31] LABS: Troponin-I HS 10 pg/mL (3.0-78.0)
[2023-04-26] MEDS: Budesonide Respules 0.5 MG/2 ML AMPUL.NEB. INHALATION ×2 (11:43→18:54)
[2023-04-26] MEDS: Ipratropium 0.5 MG/2.5 ML SOLUTION INHALATION ×3 (11:43→18:53)
--- NOTE | 2023-04-26 13:53 | PN_ITS ---
Subjective Subjective Patient seen and examined. and daughter were by his bedside. He had no active complaints. He was admitted with a complaint of shortness of breath. He is being managed for afib with RVR.He is on cardizem. He denied any chest pain, palpitations, nausea, vomiting or any other systems. Review of systems is otherwise negative. Objective Data Objective Data Vital Signs: Vital Signs Temp Pulse Resp BP Pulse Ox O2 Del Method O2 Flow Rate 98.8 F 80 18 108/66 95 Nasal Cannula 3 04/26/23 12:00 04/26/23 13:00 04/26/23 13:00 04/26/23 13:00 04/26/23 13:00 04/26/23 13:00 04/26/23 13:00 FiO2 100 04/26/23 03:10 Oxygen Flow Rate (L/min) 3 Oxygen Delivery Method Nasal Cannula Weight: 175 lb 11.335 oz Body Mass Index (BMI) 25.2 Intake & Output: Intake and Output for Last 24 Hours 04/24/23 04/25/23 04/26/23 23:59 23:59 23:59 Intake Total 242.67 / 242.67 Output Total 225 / 225 Balance 17.67 / 17.67 Lab / Micro Data 04/26/23 03:19 04/26/23 03:19 Labs: Laboratory Results - last 24 hr 04/26/23 03:19: WBC 19.0 H, RBC 3.77 L, Hgb 7.9 L, Hct 30.1 L, MCV 79.8 L, MCH 21.0 L, MCHC 26.2 L, RDW Std Deviation 53.1 H, RDW Coeff of Demetrius 18.7 H, Plt Count 439, MPV 11.2, Immature Gran % (Auto) 0.600, Neut % (Auto) 90.6 H, Lymph % (Auto) 4.8 L, Payette % (Auto) 3.3, Eos % (Auto) 0.5, Baso % (Auto) 0.2, Absolute Neuts (auto) 17.2 H, Absolute Lymphs (auto) 0.92, Nucleated RBC % 0, Sodium 144, Potassium 4.0, Chloride 113 H, Carbon Dioxide 26.0, Anion Gap 5, BUN 15, Creatinine 1.04, Estim Creat Clear Calc 54.59, Est GFR (MDRD) Af Amer 87, Est GFR (MDRD) Non-Af 72, BUN/Creatinine Ratio 14.4, Glucose 165 H, Calcium 8.3 L, Magnesium 1.7, B-Natriuretic Peptide 367.0 H, TSH 1.36 04/26/23 03:28: Procalcitonin 0.06 04/26/23 04:24: PT 20.2 H, INR 1.7, APTT 39.7 H 04/26/23 09:05: Troponin I High Sens 12 04/26/23 11:00: Troponin I High Sens 10 04/26/23 11:04: POC Glucose 231 H Micro: Microbiology 04/26/23 08:40 Mucosa - Nose Respiratory Panel (PCR) - Final 04/26/23 03:42 Mucosa - Nose SARS-CoV-2, Influenza & RSV (PCR) - Final ABG Data ABG results: ABG 04/26/23 03:19 Specimen Type ART Sample Site R Radial pH 7.36 Bicarbonate Actual 22.7 Total CO2 24 Base Excess -3 L O2 Saturation 99 O2 % 15.0 ABG pCO2 40.6 ABG pO2 123 H Loy Test Positive O2 Delivery Device NRB Vent Mode Not entered Radiography Diagnostic Testing: Radiology Impression Chest CTA 04/26/23 03:23 IMPRESSION: 1. Negative for PE. No thoracic aortic dissection. 2. Findings of pulmonary emphysema and bronchitis again noted. Worsening pneumonia within the right lower lobe. 3. Mild right hilar or mediastinal adenopathy. Electronically Signed: Artur Martin MD at 8:10 EST , Physical Exam Const alert, oriented x3 and no apparent distress General Appearance: cooperative HEENT normocephalic, head/scalp atraumatic, moist oral mucous membranes and oropharynx normal Eyes PERRL and EOMs intact bilaterally Neck no lymphadenopathy and supple Lymph Lymphatic: no lymphadenopathy noted and no lymphedema noted Resp Resp Narrative: diminished breath sounds bibasally, no wheezes or crackles. On 3L of oxygen. Cardio regular rate, regular rhythm, S1 normal heart sound, S2 normal heart sound and no murmurs GI normal to inspection, nondistended, normoactive bowel sounds, soft to palpation and non-tender Extremity normal capillary refill, no clubbing, cyanosis or edema and no calf tenderness General Extremity: no tenderness to palpation of joints or extremities Skin General Skin Exam: no breakdown Neuro CN's II-XII intact bilaterally, no focal motor deficits, no sensory deficits noted and deep tendon reflexes 2+ bilaterally Motor Exam: strength 5/5 throughout and general weakness Psych thought process normal and cooperative Appearance: appropriate Assessment & Plan Assessment/Plan (1) Atrial fibrillation with rapid ventricular response: (2) Acute on chronic respiratory failure with hypoxia: PLAN: Plan #Afib with RVR * on cardizem drip. * on eliquis. * titrate oxygen to maintain sats >90% * breathing treatment with bronchodilators * 2D echo ordered * to wean off cardizem drip as tolerated and transition to metoprolola nd p osisbly PO cardizem * #Acute on chronic hypoxic respiratory failure * due to COPD exacerbation * on breahting treatment with bronchodilators. Now on 3L of oxygen * on IV solumedrol * titrate oxygen to maintain sats >90% * respiratory panel is negative * #leucocytosis: wbc is 19. no clear evidence of infection. Likely reactive. WIll monitor. hold off on antibiotics for now. 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 Patient has apparently refused biopsy and any further workup. Has been told it may likely be cancer but still refuses workup * #Type 2 diabetes mellitus with neuropathy * oral meds on hold. ISS. Accuchecks ACHS * #Hypertension; currently on IV cardizem drip. #Hyperlipidemia: on statin #GED: on PPI #BPH: on flomax DVT prophylaxis: eliquis Code status: DNRCCA no intubation. Charges/Coding Visit Charges Inpatient E&M: 07285 Subs Hosp L3
[2023-04-26] MEDS: Metoprolol Tartrate 25 MG Tablet PO (15:22)
[2023-04-26 15:46] LABS: Bedside Glucose 239 mg/dL (74-106)
[2023-04-26 15:50] LABS: Troponin-I HS 10 pg/mL (3.0-78.0)
--- NOTE | 2023-04-26 18:15 | CASEMGMT ---
REINA BENTLEY Assessment: RN MC to room to meet with patient for initial transition planning/care coordination assessment. REINA BENTLEY introduced self and role at [facility]. Patient lying in bed, alert and oriented. Patient willing to participate in assessment and is able to answer all questions appropriately. Care providers, pharmacy, and demographics verified. PCP: Dr Zaidi Specialists: Dr Eastman-GI, [facility]/Cardio, Dr Man-pulmonology Preferred Pharmacy: [facility] Insurance: [place] [facility] Prescription Benefit: yes LNOK: , daughter, son Living Arrangements: Patient lives with in a single story home with 2 steps to enter. has beginning stages of dementia and pt helps to care for her. Daughter with while pt @ hospital. Patient states he is independent at home w/ADL's and IADL's. Transportation: self, daughter DME: Patient has raised toilet, cane & walker available but does not usually use them, nebulizer, pulse ox, adjustable bed, walk-in shower w/hand-held shower and grab bars, and home oxygen through [employer]. He purchased the concentrator and POC from [employer] that was ordered by Dr Man. Pt states he wears 3 l/m continuously. Pt states his daughter can bring in the POC for him to go home on @ discharge. HHC/SNF: No previous HHC or SNF. Pt wishes to discharge home and denies need for HHC. Plan: Home Liana TILLMAN RN, CM
[2023-04-26] MEDS: Atorvastatin Calcium 20 MG Tablet PO (20:50)
[2023-04-26] MEDS: Tamsulosin HCl 0.4 MG Capsule 0.400000000000000022 MG PO (20:50)
[2023-04-26] MEDS: 0.9% Saline Lock 10 ML Syringe IV (20:56)
[2023-04-26 21:20] LABS: Bedside Glucose 185 mg/dL (74-106)
[2023-04-27] VITALS (19 sets, daily range): BP systolic 110–141; BP diastolic 53–88; PULSE 67–114; RESP 15–20; TEMP 36.4–36.8; O2SAT 94–100; BMI 25.4
[2023-04-27] MEDS: 0.9% Saline Lock 10 ML Syringe IV ×6 (04:37→23:13)
[2023-04-27] MEDS: Gabapentin 100 MG Capsule PO ×3 (04:37→20:55)
[2023-04-27 04:40] LABS: Absolute Lymphocyte Count 0.61 X10^3/uL (0.83-4.51); Absolute Neutrophil Count 8.9 X10^3/uL (2.0-7.7); Basophil# 0.01 X10^3/uL; Basophil% 0.1 % (0-1); Hemoglobin 6.3 g/dL (13.0-16.5); Lymphocyte # 0.61 X10^3/ul (0.83-4.51); Lymphocyte % 6.1 % (19-41); Mean Corp Hgb Conc 27.4 g/dL (32-36); Mean Corpuscular Hgb 21.5 pg (27.0-32.0); Mean Corpuscular Volume 78.5 fL (80-94); Mean Platelet Vol. 11.6 fl (6.2-12.0); Monocyte# 0.52 X10^3/uL; Monocyte% 5.2 % (0-10); NRBC Flagged by Analyzer 0 % (0-5); Neutrophil # 8.88 X10^3/uL (2.7-7.7); Neutrophil % 88.1 % (47-70); Platelet Count 328 K/mm3 (150-450); RBC Distribution Width CV 18.5 % (11.6-14.6); RBC Distribution Width SD 52.2 fl (35.1-43.9); Red Blood Count 2.93 M/mm3 (4.6-6.2); White Blood Count 10.1 K/mm3 (4.4-11.0)
[2023-04-27 04:57] LABS: AST(SGOT) 18 U/L (15-37); Alanine Aminotransfer ALT/SGPT 19 U/L (16-61); Albumin, Serum 2.9 g/dL (3.2-5.0); Alkaline Phosphatase 62 U/L (45-117); Anion Gap 3 (5-15); BUN 22 mg/dL (7-18); BUN/Creat Ratio 20.8 RATIO (10-20); Calcium,Total 8.2 mg/dL (8.5-10.1); Chloride 111 mmol/L (98-107); Creatinine, Serum 1.06 mg/dL (0.70-1.30); EST Glomerular Filtration Rate 71 mL/min (>60); Est Glom Filt Rate - Afr Amer 86 mL/min (>60); Estimated Creatinine Clearance 53.56 ml/min; Glucose 157 mg/dL (74-106); Potassium 4.7 mmol/L (3.5-5.1); Protein, Total 5.9 g/dL (6.4-8.2); Sodium Level 142 mmol/L (136-145)
--- NOTE | 2023-04-27 06:30 | PCM.HOSP.N ---
Hospitalist Note Hgb 6.3, 2 u PRBC ordered with repeat HH following. Hgb baseline appears to vascillate.
[2023-04-27] MEDS: Pantoprazole Sodium 40 MG Tablet PO (07:13)
[2023-04-27] MEDS: Metoprolol Tartrate 25 MG Tablet 12.5 MG PO ×2 (07:13→20:56)
[2023-04-27] MEDS: Ferrous Sulfate 325 MG Tablet PO (07:14)
[2023-04-27 07:35] LABS: Bedside Glucose 142 mg/dL (74-106)
[2023-04-27] MEDS: Pantoprazole Sodium 40 MG in 0.9% Normal Saline (100mL MB+) 100 ML 330 MG IV ×2 (08:39→20:54)
[2023-04-27] MEDS: Ipratropium 0.5 MG/2.5 ML SOLUTION INHALATION ×4 (08:55→20:01)
[2023-04-27] MEDS: Budesonide Respules 0.5 MG/2 ML AMPUL.NEB. INHALATION ×2 (08:56→20:01)
[2023-04-27] MEDS: Furosemide 40 MG/4 ML Vial IV (10:26)
--- NOTE | 2023-04-27 10:59 | PN_ITS ---
Subjective Subjective Patient seen and examined. He had no complaints and had an uneventful night. Review of systems is otherwise negative. Hb today is down to 6.3. He denied any abdominal pain or dark stools. Objective Data Objective Data Vital Signs: Vital Signs Temp Pulse Resp BP Pulse Ox O2 Del Method O2 Flow Rate 97.6 F L 78 18 111/78 98 Nasal Cannula 4 04/27/23 10:50 04/27/23 10:50 04/27/23 10:50 04/27/23 10:50 04/27/23 10:50 04/27/23 10:50 04/27/23 10:50 FiO2 100 04/26/23 03:10 Oxygen Flow Rate (L/min) 4 Oxygen Delivery Method Nasal Cannula Weight: 178 lb 2.136 oz Body Mass Index (BMI) 25.4 Intake & Output: Intake and Output for Last 24 Hours 04/25/23 04/26/23 04/27/23 23:59 23:59 23:59 Intake Total 250.00 / 250.00 411 / 411 Output Total 225 / 225 250 / 250 Balance 25.00 / 25.00 161 / 161 Lab / Micro Data 04/27/23 04:33 04/27/23 04:33 Labs: Laboratory Results - last 24 hr 04/26/23 11:00: Troponin I High Sens 10 04/26/23 11:04: POC Glucose 231 H 04/26/23 15:00: Troponin I High Sens 10 04/26/23 15:20: POC Glucose 239 H 04/26/23 20:46: POC Glucose 185 H 04/27/23 04:33: WBC 10.1, RBC 2.93 L, Hgb 6.3 L, Hct 23.0 L, MCV 78.5 L, MCH 21.5 L, MCHC 27.4 L, RDW Std Deviation 52.2 H, RDW Coeff of Demetrius 18.5 H, Plt Count 328, MPV 11.6, Immature Gran % (Auto) 0.500, Neut % (Auto) 88.1 H, Lymph % (Auto) 6.1 L, [place] % (Auto) 5.2, Eos % (Auto) 0.0, Baso % (Auto) 0.1, Absolute Neuts (auto) 8.9 H, Absolute Lymphs (auto) 0.61 L, Nucleated RBC % 0, Sodium 142, Potassium 4.7, Chloride 111 H, Carbon Dioxide 28.0, Anion Gap 3 L, BUN 22 H , Creatinine 1.06, Estim Creat Clear Calc 53.56, Est GFR (MDRD) Af Amer 86, Est GFR (MDRD) Non-Af 71, BUN/Creatinine Ratio 20.8 H, Glucose 157 H, Calcium 8.2 L, Total Bilirubin 0.30, AST 18, ALT 19, Alkaline Phosphatase 62, Total Protein 5.9 L, Albumin 2.9 L, Globulin 3.0, Albumin/Globulin Ratio 1.0 04/27/23 05:51: Blood Type A POSITIVE, Antibody Screen NEGATIVE, Crossmatch See Detail 04/27/23 07:11: POC Glucose 142 H Micro: Microbiology 04/26/23 12:30 Urine, Clean Catch Legionella Antigen - Final 04/26/23 12:30 Urine, Clean Catch Streptococcus pneumoniae Antigen (M - Final 04/26/23 08:40 Mucosa - Nose Respiratory Panel (PCR) - Final 04/26/23 03:42 Mucosa - Nose SARS-CoV-2, Influenza & RSV (PCR) - Final Physical Exam Const alert, oriented x3 and no apparent distress General Appearance: cooperative HEENT normocephalic, head/scalp atraumatic, moist oral mucous membranes and oropharynx normal Eyes PERRL and EOMs intact bilaterally Neck no lymphadenopathy and supple Lymph Lymphatic: no lymphadenopathy noted and no lymphedema noted Resp Resp Narrative: diminished breath sounds bibasally, no wheezes or crackles. On 4 L of oxygen. Cardio regular rate, regular rhythm, S1 normal heart sound, S2 normal heart sound and no murmurs GI normal to inspection, nondistended, normoactive bowel sounds, soft to palpation and non-tender Extremity normal capillary refill, no clubbing, cyanosis or edema and no calf tenderness General Extremity: no tenderness to palpation of joints or extremities Skin General Skin Exam: no breakdown Neuro CN's II-XII intact bilaterally, no focal motor deficits, no sensory deficits noted and deep tendon reflexes 2+ bilaterally Motor Exam: strength 5/5 throughout and general weakness Psych thought process normal and cooperative Appearance: appropriate Assessment & Plan Assessment/Plan (1) Atrial fibrillation with rapid ventricular response: (2) Acute on chronic respiratory failure with hypoxia: PLAN: Plan #Afib with RVR * resolved. AVR has resolved. On PO metoprolol * on eliquis, which was held on admission. * titrate oxygen to maintain sats >90% * breathing treatment with bronchodilators * 2D echo ordered and pending. * eliquis held. * #Acute on chronic hypoxic respiratory failure * due to COPD exacerbation * on breathing treatment with bronchodilators. Now on 4 L of oxygen * on IV solumedrol * titrate oxygen to maintain sats >90% * respiratory panel is negative * #Acute on chronic anemia * Hb today is 6.3. Being transfused with one unit of PRBCs. * start on IV pantoprazole * GI consulted * says he had an EGD in the January 2023 which showed normal esophagus and normal stomach as well as erythematous duodenopathy which was biopsied. * will benefit from colonoscopy * eliquis held on admission * #Leucocytosis: wbc is 10.1. no clear evidence of infection. Likely reactive. WIll monitor. hold off on antibiotics for now. 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 Patient has apparently refused biopsy and any further workup. Has been told it may likely be cancer but still refuses workup * #Type 2 diabetes mellitus with neuropathy * oral meds on hold. ISS. Accuchecks ACHS * #Hypertension;back on metoprolol #Hyperlipidemia: on statin #GED: on PPI #BPH: on flomax DVT prophylaxis: eliquis Code status: DNRCCA no intubation.
[2023-04-27 12:14] LABS: Bedside Glucose 134 mg/dL (74-106)
[2023-04-27 14:34] LABS: Hematocrit 33.6 % (40-54); Hemoglobin 9.9 g/dL (13.0-16.5)
--- NOTE | 2023-04-27 16:22 | EX.PCM.CON.G ---
HPI Consult Data Date of Consult: 04/27/23 HPI Narrative Reason for Consultation: GI bleed HPI Narrative: ANDREA DELUCA, is a 82 M who presented with worsening shortness of breath. He also has a past medical history of chronic anemia on iron supplements; COPD on 3 L nasal cannula oxygen and diabetes mellitus who presents emergency department with 5-day history of on and off dyspnea. Associated with his symptoms is fever, chills, headache and confusion. Further the patient has been having increased frequency of urination. Also he has been having a dry cough. His family says that he has been having emesis. They also report fever over the last 4 days. Patient states he has been eating and drinking. He has been taking Tylenol twice a day today he did have a dose but is unclear of exactly when his there is a discrepancy between what he states in the family. No reported syncope. He is on apixaban reportedly for atrial fibrillation. He recently underwent an upper endoscopy by myself for iron deficiency anemia. Upper endoscopy did not reveal any signs or symptoms of acute or chronic GI blood loss. Currently his hemoglobin is 6.8. [facility] Medical History Anemia Anemia requiring transfusions Arthritis Asthma Bruit of left carotid artery Cardiology follow-up encounter COPD (chronic obstructive pulmonary disease) Diabetes mellitus Diverticulitis Dupuytrens contracture Former smoker GERD (gastroesophageal reflux disease) H/O inguinal hernia H/O: pneumonia History of diverticulitis History of echocardiogram History of pulmonary aspiration History of stress test History of ulceration Low iron Lung mass Neuropathy On home oxygen therapy Paroxysmal atrial fibrillation Paroxysmal atrial fibrillation with RVR Shortness of breath on exertion Stage 3 severe COPD by GOLD classification Type 2 diabetes mellitus Type 2 diabetes mellitus without complications Wears dentures Home Medications ferrous sulfate 325 mg (65 mg iron) tablet 325 mg PO DAILY supplement 12/29/19 [History Last Taken Unknown] albuterol sulfate 2.5 mg/3 mL (0.083 %) solution for nebulization 2.5 mg (3 mL) inhalation Q4H PRN shortness of breath or wheezing #180 mL 01/23/22 [Rx Last Taken 02/11/22] gabapentin 100 mg capsule 100 mg PO TID nerve pain #270 caps 05/15/22 [Rx Last Taken Unknown] fluticasone fur. 200 mcg-umeclid 62.5 mcg-vilant 25 mcg inhalat.powder (Trelegy Ellipta) 1 inh inhalation DAILY breathing #3 ea 07/15/22 [Rx Last Taken Unknown] tamsulosin 0.4 mg capsule 0.4 mg PO QHS prostate #90 caps 09/11/22 [Rx Last Taken Unknown] Handicap placard #1 ea 10/24/22 [Rx Last Taken Unknown] apixaban 5 mg tablet (Eliquis) 5 mg PO BID blood thinner #180 tabs 10/31/22 [Rx Last Taken Unknown] metformin 500 mg tablet See Rx Instructions .Route .COMPLEX diabetes #180 tabs 10/31/22 [Rx Last Taken Unknown] metoprolol tartrate 25 mg tablet 12.5 mg (1/2 x 25 mg) PO BID blood pressure #90 tabs 10/31/22 [Rx Last Taken Unknown] pantoprazole 40 mg tablet,delayed release 40 mg PO BID #60 tabs 11/16/22 [Rx Last Taken Unknown] blood sugar diagnostic (Blood Glucose Test strips) #100 ea 11/28/22 [Rx Last Taken Unknown] lancets 28 gauge (FreeStyle Lancets) #100 ea 11/28/22 [Rx Last Taken Unknown] simvastatin 40 mg tablet 40 mg PO DAILY cholesterol #90 tabs 11/28/22 [Rx Last Taken Unknown] ondansetron HCl 4 mg tablet 4 mg PO Q8H PRN nausea and vomiting #90 tabs 03/20/23 [Rx Last Taken Unknown] albuterol sulfate 90 mcg/actuation aerosol inhaler 2 puff inhalation Q6H PRN shortness of breath or wheezing #3 device 04/25/23 [Rx Last Taken Unknown] Allergy/AdvReac Type Severity Reaction Status Date / Time Penicillins Allergy Severe Hives Verified 04/25/23 10:07 erythromycin base AdvReac Severe Nausea/Vom/ Verified 04/25/23 10:07 Diarrhea Family History Father Cancer Brother Parkinsons disease Mother Diverticulitis Surgical History History of carpal tunnel release History of hand surgery History of hernia repair Social History household members: spouse Smoking Status: Former smoker Tobacco: How many years used: 40 Electronic Cigarette Use: not used how long ago did patient quit smokin second hand exposure: Yes alcohol intake: never substance use type: does not use caffeine: Yes Type: coffee Number of servings: 1 what type of physical activity do you participate in: none ROS ROS Narrative Admission Review of Systems: CONSTITUTIONAL: No weight loss, fever, chills, + weakness or fatigue. HEENT: Eyes: No visual loss, blurred vision, double vision or yellow sclerae. Ears, Nose, Throat: No hearing loss, sneezing, congestion, runny nose or sore throat. SKIN: No rash or itching, lesions, wounds. CARDIOVASCULAR: No chest pain, chest pressure or chest discomfort, palpitations, edema, orthopnea, syncopal events. RESPIRATORY: + Dyspnea, productive cough, no marked wheezing. No hemoptysis. GASTROINTESTINAL: No anorexia, nausea, vomiting or diarrhea, abdominal pain, melena, BRBPR. GENITOURINARY: + Chronic urinary frequency with BPH. No dysuria, urgency or retention. NEUROLOGICAL: No headache, dizziness, syncope, paralysis, ataxia, numbness or tingling in the extremities, focal weakness, change in bowel or bladder control, seizure. MUSCULOSKELETAL: + muscle, back pain, joint pain or stiffness. HEMATOLOGIC: + Anemia, easy bleeding/bruising. LYMPHATICS: No enlarged nodes. No history of splenectomy. PSYCHIATRIC: No history of depression or anxiety. ENDOCRINOLOGIC: No reports of sweating, cold or heat intolerance. No polyuria or polydipsia. ALLERGIES: No history of asthma, hives, eczema or rhinitis. Physical Exam Const alert, oriented x3 and no apparent distress General Appearance: cooperative HEENT normocephalic, head/scalp atraumatic, moist oral mucous membranes and oropharynx normal Eyes PERRL and EOMs intact bilaterally Neck no lymphadenopathy and supple Lymph Lymphatic: no lymphadenopathy noted and no lymphedema noted Resp Resp Narrative: diminished breath sounds bibasally, no wheezes or crackles. On 4 L of oxygen. Cardio regular rate, regular rhythm, S1 normal heart sound, S2 normal heart sound and no murmurs GI normal to inspection, nondistended, normoactive bowel sounds, soft to palpation and non-tender Extremity normal capillary refill, no clubbing, cyanosis or edema and no calf tenderness General Extremity: no tenderness to palpation of joints or extremities Skin General Skin Exam: no breakdown Neuro CN's II-XII intact bilaterally, no focal motor deficits, no sensory deficits noted and deep tendon reflexes 2+ bilaterally Motor Exam: strength 5/5 throughout and general weakness Psych thought process normal and cooperative Appearance: appropriate Lab / Micro Data 04/27/23 14:25 04/27/23 04:33 Labs: Laboratory Results - last 24 hr 04/26/23 20:46: POC Glucose 185 H 04/27/23 04:33: WBC 10.1, RBC 2.93 L, Hgb 6.3 L, Hct 23.0 L, MCV 78.5 L, MCH 21.5 L, MCHC 27.4 L, RDW Std Deviation 52.2 H, RDW Coeff of Demetrius 18.5 H, Plt Count 328, MPV 11.6, Immature Gran % (Auto) 0.500, Neut % (Auto) 88.1 H, Lymph % (Auto) 6.1 L, [place] % (Auto) 5.2, Eos % (Auto) 0.0, Baso % (Auto) 0.1, Absolute Neuts (auto) 8.9 H, Absolute Lymphs (auto) 0.61 L, Nucleated RBC % 0, Sodium 142, Potassium 4.7, Chloride 111 H, Carbon Dioxide 28.0, Anion Gap 3 L, BUN 22 H, Creatinine 1.06, Estim Creat Clear Calc 53.56, Est GFR (MDRD) Af Amer 86, Est GFR (MDRD) Non-Af 71, BUN/Creatinine Ratio 20.8 H, Glucose 157 H, Calcium 8.2 L, Total Bilirubin 0.30, AST 18, ALT 19, Alkaline Phosphatase 62, Total Protein 5.9 L, Albumin 2.9 L, Globulin 3.0, Albumin/Globulin Ratio 1.0 04/27/23 05:51: Blood Type A POSITIVE, Antibody Screen NEGATIVE, Crossmatch See Detail 04/27/23 07:11: POC Glucose 142 H 04/27/23 11:42: POC Glucose 134 H 04/27/23 14:25: Hgb 9.9 L, Hct 33.6 L Micro: Microbiology 04/26/23 12:30 Urine, Clean Catch Legionella Antigen - Final 04/26/23 12:30 Urine, Clean Catch Streptococcus pneumoniae Antigen (M - Final 04/26/23 08:40 Mucosa - Nose Respiratory Panel (PCR) - Final Assessment & Plan Assessment/Plan (1) Acute on chronic respiratory failure with hypoxia: PLAN: Plan The patient is an 82 y/o M w/ PMHx: Former tobacco use, COPD/Asthma w/ Chronic Hypoxic Respiratory Failure (3L NC), Chronic microcytic anemia, PAF, GERD, BPH, Diabetes mellitus type II, ongoing evaluation for right middle lobe consolidation/mass seen 04/25/23. He currently has worsening anemia on oral iron. Chronic microcytic anemia/iron deficiency anemia: Admission hemoglobin 7.9, MCV 79.8, baseline hemoglobin appears similar, encourage continued outpatient follow-up, hold iron supplementation. The differential diagnosis would be neoplasia, angiodysplasia, telangiectasia, bone marrow failure, hemolysis. He agreed to undergo colonoscopy tomorrow. He was explained alternatives, risk, benefits including not withstanding bleeding, infection, sepsis, perforation, need for and surgeon . Have an ASA of 3. Charges/Coding Visit Charges Inpatient E&M: 93667 Init Hosp L3
[2023-04-27] MEDS: Bisacodyl 5 MG Tablet 20 MG PO (16:52)
[2023-04-27 17:19] LABS: Bedside Glucose 139 mg/dL (74-106)
[2023-04-27] MEDS: Polyethylene Glycol 3350 BOWEL PREP PO (17:37)
[2023-04-27] MEDS: Metoclopramide 10 MG/2 ML Vial 5 MG IV ×2 (17:40→23:13)
--- NOTE | 2023-04-27 20:23 | EKG12_ITS ---
Test Reason : PRE-OP Blood Pressure : / mmHG Vent. Rate : 093 BPM Atrial Rate : 000 BPM P-R Int : 000 ms QRS Dur : 086 ms QT Int : 368 ms P-R-T Axes : 000 008 054 degrees QTc Int : 457 ms Atrial fibrillation Abnormal ECG When compared with ECG of 26-APR-2023 03:37, MANUAL COMPARISON REQUIRED, DATA IS UNCONFIRMED Confirmed by ANTHONY GARZA, FRANCISCO ([id number]), legal editor SARAH DEWEY ([id number]) on 04/28/2023 1:02:35 PM Referred By: Confirmed By:FRANCISCO CRUZ MD
[2023-04-27] MEDS: Tamsulosin HCl 0.4 MG Capsule 0.400000000000000022 MG PO (20:55)
[2023-04-27] MEDS: Atorvastatin Calcium 20 MG Tablet PO (20:55)
[2023-04-27 22:07] LABS: Bedside Glucose 109 mg/dL (74-106)
[2023-04-28] VITALS (15 sets, daily range): BP systolic 80–143; BP diastolic 49–80; PULSE 73–107; RESP 16–20; TEMP 36.4–36.9; O2SAT 93–100; BMI 25.0
[2023-04-28] MEDS: Metoclopramide 10 MG/2 ML Vial 5 MG IV (06:13)
[2023-04-28] MEDS: 0.9% Saline Lock 10 ML Syringe IV (06:13)
[2023-04-28 06:16] LABS: Absolute Lymphocyte Count 0.84 X10^3/uL (0.83-4.51); Absolute Neutrophil Count 8.6 X10^3/uL (2.0-7.7); Basophil# 0.04 X10^3/uL; Basophil% 0.4 % (0-1); Eosinophil# 0.22 X10^3/uL; Eosinophils% 2.1 % (0-5); Hematocrit 32.8 % (40-54); Hemoglobin 9.5 g/dL (13.0-16.5); Lymphocyte # 0.84 X10^3/ul (0.83-4.51); Mean Corpuscular Hgb 23.1 pg (27.0-32.0); Mean Corpuscular Volume 79.6 fL (80-94); Mean Platelet Vol. 11.6 fl (6.2-12.0); Monocyte# 0.76 X10^3/uL; Monocyte% 7.3 % (0-10); NRBC Flagged by Analyzer 0 % (0-5); Neutrophil # 8.58 X10^3/uL (2.7-7.7); Neutrophil % 81.9 % (47-70); Platelet Count 346 K/mm3 (150-450); RBC Distribution Width CV 17.9 % (11.6-14.6); RBC Distribution Width SD 51.3 fl (35.1-43.9); Red Blood Count 4.12 M/mm3 (4.6-6.2); White Blood Count 10.5 K/mm3 (4.4-11.0)
[2023-04-28 06:30] LABS: International Normalized Ratio 1.2; Prothrombin Time (Protime)PT. 15.1 SECONDS (11.7-14.9)
[2023-04-28 06:31] LABS: Partial Thromboplast Time 33.1 Seconds (24.1-36.2)
[2023-04-28 06:32] LABS: Anion Gap 3 (5-15); BUN 24 mg/dL (7-18); BUN/Creat Ratio 23.1 RATIO (10-20); Calcium,Total 8.4 mg/dL (8.5-10.1); Chloride 112 mmol/L (98-107); Creatinine, Serum 1.04 mg/dL (0.70-1.30); EST Glomerular Filtration Rate 72 mL/min (>60); Est Glom Filt Rate - Afr Amer 87 mL/min (>60); Estimated Creatinine Clearance 54.59 ml/min; Glucose 113 mg/dL (74-106); Potassium 3.8 mmol/L (3.5-5.1); Sodium Level 143 mmol/L (136-145)
[2023-04-28] MEDS: Ipratropium 0.5 MG/2.5 ML SOLUTION INHALATION ×3 (07:02→19:40)
[2023-04-28] MEDS: Budesonide Respules 0.5 MG/2 ML AMPUL.NEB. INHALATION ×2 (07:02→19:40)
[2023-04-28 07:03] LABS: Bedside Glucose 116 mg/dL (74-106)
[2023-04-28] MEDS: Pantoprazole Sodium 40 MG in 0.9% Normal Saline (100mL MB+) 100 ML 330 MG IV (08:46)
[2023-04-28] MEDS: Metoprolol Tartrate 25 MG Tablet 12.5 MG PO ×2 (08:47→21:20)
[2023-04-28] MEDS: Lactated Ringers 1,000 ML 15 ML IV (10:52)
[2023-04-28 10:59] LABS: Hemoglobin A1c 5.3 % (3.8-5.6)
--- NOTE | 2023-04-28 11:42 | PN_ITS ---
Subjective Subjective Patient seen and examined. He had no complaints. Review of systems is otherwise negative. He is due for colonoscopy today. Objective Data Objective Data Vital Signs: Vital Signs Temp Pulse Resp BP Pulse Ox O2 Del Method O2 Flow Rate 97.6 F L 85 18 143/76 H 94 Nasal Cannula 3 04/28/23 08:42 04/28/23 08:47 04/28/23 08:42 04/28/23 08:42 04/28/23 08:42 04/28/23 08:55 04/28/23 08:55 FiO2 100 04/26/23 03:10 Oxygen Flow Rate (L/min) 3 Oxygen Delivery Method Nasal Cannula Weight: 174 lb 9.698 oz Body Mass Index (BMI) 25.0 Intake & Output: Intake and Output for Last 24 Hours 04/26/23 04/27/23 04/28/23 23:59 23:59 23:59 Intake Total 250.00 / 250.00 2492 / 2492 110 / 110 Output Total 225 / 225 1875 / 1875 Balance 25.00 / 25.00 617 / 617 110 / 110 Lab / Micro Data 04/28/23 05:45 04/28/23 05:45 Labs: Laboratory Results - last 24 hr 04/27/23 05:51: Crossmatch See Detail 04/27/23 11:42: POC Glucose 134 H 04/27/23 14:25: Hgb 9.9 L, Hct 33.6 L 04/27/23 16:47: POC Glucose 139 H 04/27/23 20:54: POC Glucose 109 H 04/28/23 05:45: WBC 10.5, RBC 4.12 L, Hgb 9.5 L, Hct 32.8 L, MCV 79.6 L, MCH 23.1 L, MCHC 29.0 L D, RDW Std Deviation 51.3 H, RDW Coeff of Demetrius 17.9 H, Plt Count 346, MPV 11.6, Immature Gran % (Auto) 0.300, Neut % (Auto) 81.9 H, Lymph % (Auto) 8.0 L, [place] % (Auto) 7.3, Eos % (Auto) 2.1, Baso % (Auto) 0.4, Absolute Neuts (auto) 8.6 H, Absolute Lymphs (auto) 0.84, Nucleated RBC % 0, PT 15.1 H, INR 1.2, APTT 33.1, Sodium 143, Potassium 3.8, Chloride 112 H, Carbon Dioxide 28.0, Anion Gap 3 L, BUN 24 H, Creatinine 1.04, Estim Creat Clear Calc 54.59, Est GFR (MDRD) Af Amer 87, Est GFR (MDRD) Non-Af 72, BUN/Creatinine Ratio 23.1 H , Glucose 113 H, Hemoglobin A1c 5.3, Calcium 8.4 L 04/28/23 06:12: POC Glucose 116 H Micro: Microbiology 04/28/23 07:45 Stool Stool Occult Blood (RICCO) - Final Occult Blood Positive 04/26/23 12:30 Urine, Clean Catch Legionella Antigen - Final 04/26/23 12:30 Urine, Clean Catch Streptococcus pneumoniae Antigen (M - Final 04/26/23 08:40 Mucosa - Nose Respiratory Panel (PCR) - Final 04/26/23 03:42 Mucosa - Nose SARS-CoV-2, Influenza & RSV (PCR) - Final Physical Exam Const alert, oriented x3 and no apparent distress General Appearance: cooperative HEENT normocephalic, head/scalp atraumatic, moist oral mucous membranes and oropharynx normal Eyes PERRL and EOMs intact bilaterally Neck no lymphadenopathy and supple Lymph Lymphatic: no lymphadenopathy noted and no lymphedema noted Resp Resp Narrative: diminished breath sounds bibasally, no wheezes or crackles. On 4 L of oxygen. Cardio regular rate, regular rhythm, S1 normal heart sound, S2 normal heart sound and no murmurs GI normal to inspection, nondistended, normoactive bowel sounds, soft to palpation and non-tender Extremity normal capillary refill, no clubbing, cyanosis or edema and no calf tenderness General Extremity: no tenderness to palpation of joints or extremities Skin General Skin Exam: no breakdown Neuro CN's II-XII intact bilaterally, no focal motor deficits, no sensory deficits noted and deep tendon reflexes 2+ bilaterally Motor Exam: strength 5/5 throughout and general weakness Psych thought process normal and cooperative Appearance: appropriate Assessment & Plan Assessment/Plan (1) Atrial fibrillation with rapid ventricular response: (2) Acute on chronic respiratory failure with hypoxia: PLAN: Plan #Afib with RVR * resolved. AVR has resolved. On PO metoprolol * on eliquis, which was held on admission. * titrate oxygen to maintain sats >90% * breathing treatment with bronchodilators * 2D echo ordered and pending. * eliquis held. * #Acute on chronic hypoxic respiratory failure * due to COPD exacerbation * on breathing treatment with bronchodilators. Now on 4 L of oxygen * titrate oxygen to maintain sats >90% * respiratory panel is negative * #Acute on chronic anemia * s/p transfusion of 2 units of PRBCs * Hb today is 9.5. * on IV pantoprazole * GI on board; for colonoscopy. * says he had an EGD in the January 2023 which showed normal esophagus and normal stomach as well as erythematous duodenopathy which was biopsied. * eliquis held on admission * #Leucocytosis: wbc is 10.5. No clear evidence of infection. Likely reactive. WIll monitor. hold off on antibiotics for now. 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 Patient has apparently refused biopsy and any further workup. Has been told it may likely be cancer but still refuses workup * #Type 2 diabetes mellitus with neuropathy * oral meds on hold. ISS. Accuchecks ACHS * #Hypertension;back on metoprolol #Hyperlipidemia: on statin #GED: on PPI #BPH: on flomax DVT prophylaxis: SCDs Code status: DNRCCA no intubation. Charges/Coding Visit Charges Inpatient E&M: 03717 Subs Hosp L2
--- NOTE | 2023-04-28 11:51 | OP.CCLET_ITS ---
04/28/2023 Carmina Zaidi [facility] [address] [place] [address] Re : Colonoscopy procedure for Cody Vinny Dear Dr. Zaidi This procedure was performed on Friday, April 28, 2023. My impressions and recommendations are as follows: Impressions : - Preparation of the colon was poor. - Stool in the entire examined colon. - Diverticulosis in the recto-sigmoid colon, in the sigmoid colon and in the descending colon. - No specimens collected. Recommendations : - Resume previous diet [Duration]. - Continue present medications. - Repeat colonoscopy because the bowel preparation was poor. My findings are described in the full procedure note, which is enclosed. If I can be of further assistance, please feel free to contact me at . Sincerely, Gerson Friend, 04/28/2023 11:50:37 AM This report has been signed electronically.
--- NOTE | 2023-04-28 11:51 | OP.COLON_ITS ---
Patient Name: Cody Casillas Procedure Date: 04/28/2023 11:04 AM Date of : 1940 Age: 82 Procedure: Colonoscopy Indications: Iron deficiency anemia Providers: Gerson Eastman DO Medicines: Monitored Anesthesia Care Patient Profile: This is an 82 year old male. Refer to note in patient chart for documentation of history and physical. Last Colonoscopy: more than 3 years ago. Complications: No immediate complications. Procedure: Pre-Anesthesia Assessment: - Prior to the procedure, a History and Physical was performed, and patient medications and allergies were reviewed. The patient is competent. The risks and benefits of the procedure and the sedation options and risks were discussed with the patient. All questions were answered and informed consent was obtained. Patient identification and proposed procedure were verified by the physician in the pre-procedure area. Mental Status Examination: alert and oriented. Airway Examination: normal oropharyngeal airway and neck mobility. Respiratory Examination: clear to auscultation. CV Examination: normal. Prophylactic Antibiotics: The patient does not require prophylactic antibiotics. Prior Anticoagulants: The patient has taken Eliquis (apixaban), last dose was 2 days prior to procedure. ASA Grade Assessment: III - A patient with severe systemic disease. After reviewing the risks and benefits, the patient was deemed in satisfactory condition to undergo the procedure. The anesthesia plan was to use monitored anesthesia care (MAC). Immediately prior to administration of medications, the patient was re-assessed for adequacy to receive sedatives. The heart rate, respiratory rate, oxygen saturations, blood pressure, adequacy of pulmonary ventilation, and response to care were monitored throughout the procedure. The physical status of the patient was re-assessed after the procedure. After I obtained informed consent, the scope was passed under direct vision. Throughout the procedure, the patient's blood pressure, pulse, and oxygen saturations were monitored continuously. The pediatric colonoscope was introduced through the anus and advanced to the cecum, identified by appendiceal orifice and ileocecal valve. The colonoscopy was performed without difficulty. The patient tolerated the procedure well. The quality of the bowel preparation was poor. Scope In: 11:28:31 AM Scope Withdrawal Time 0 hours 7 minutes 12 seconds Scope Out: 11:42:29 AM Total Procedure Duration Time 0 hours 13 minutes 58 seconds Findings: The perianal and digital rectal examinations were normal. A moderate amount of stool was found in the entire colon, interfering with visualization. Multiple small and large-mouthed diverticula were found in the recto-sigmoid colon, sigmoid colon and descending colon. Impression: - Preparation of the colon was poor. - Stool in the entire examined colon. - Diverticulosis in the recto-sigmoid colon, in the sigmoid colon and in the descending colon. - No specimens collected. Recommendation: - Resume previous diet [Duration]. - Continue present medications. - Repeat colonoscopy because the bowel preparation was poor. Procedure Code(s): --- Professional --- 04166, Colonoscopy, flexible; diagnostic, including collection of specimen(s) by brushing or washing, when performed (separate procedure) CPT copyright 2021 [employer]. All rights reserved. The codes documented in this report are preliminary and upon remote coders review may be revised to meet current compliance requirements. Gerson Eastman DO 04/28/2023 11:50:37 AM This report has been signed electronically. Number of Addenda: 0 Note Initiated On: 04/28/2023 11:04 AM
[2023-04-28] MEDS: Ferrous Sulfate 325 MG Tablet PO (13:21)
[2023-04-28] MEDS: Gabapentin 100 MG Capsule PO ×2 (13:21→21:12)
[2023-04-28 17:12] LABS: Bedside Glucose 144 mg/dL (74-106)
[2023-04-28] MEDS: Insulin Lispro 100 UNIT/ML INSULN.PEN SC (21:18)
[2023-04-28] MEDS: Atorvastatin Calcium 20 MG Tablet PO (21:20)
[2023-04-28] MEDS: Tamsulosin HCl 0.4 MG Capsule 0.400000000000000022 MG PO (21:20)
[2023-04-28] MEDS: Pantoprazole Sodium 40 MG in 0.9% Normal Saline (100mL MB+) 100 ML 120 MG IV (21:39)
[2023-04-28 21:59] LABS: Bedside Glucose 172 mg/dL (74-106)
[2023-04-29 02:49] VITALS: BP 139/68; PULSE 77; RESP 16; TEMP 36.6; O2SAT 95
[2023-04-29 04:11] VITALS: BMI 25.0
[2023-04-29] MEDS: Gabapentin 100 MG Capsule PO (06:45)
[2023-04-29 07:06] LABS: Bedside Glucose 103 mg/dL (74-106)
[2023-04-29 07:31] VITALS: PULSE 75; RESP 18; O2SAT 94
[2023-04-29] MEDS: Ipratropium 0.5 MG/2.5 ML SOLUTION INHALATION ×2 (07:31→10:55)
[2023-04-29] MEDS: Budesonide Respules 0.5 MG/2 ML AMPUL.NEB. INHALATION (07:31)
[2023-04-29 08:58] LABS: Absolute Lymphocyte Count 0.98 X10^3/uL (0.83-4.51); Absolute Neutrophil Count 6.8 X10^3/uL (2.0-7.7); Basophil# 0.04 X10^3/uL; Basophil% 0.5 % (0-1); Eosinophil# 0.23 X10^3/uL; Eosinophils% 2.6 % (0-5); Hematocrit 36.8 % (40-54); Hemoglobin 10.6 g/dL (13.0-16.5); Lymphocyte # 0.98 X10^3/ul (0.83-4.51); Lymphocyte % 11.1 % (19-41); Mean Corp Hgb Conc 28.8 g/dL (32-36); Mean Corpuscular Hgb 23.4 pg (27.0-32.0); Mean Corpuscular Volume 81.2 fL (80-94); Mean Platelet Vol. 11.1 fl (6.2-12.0); Monocyte# 0.73 X10^3/uL; Monocyte% 8.3 % (0-10); NRBC Flagged by Analyzer 0 % (0-5); Neutrophil # 6.82 X10^3/uL (2.7-7.7); Platelet Count 360 K/mm3 (150-450); RBC Distribution Width CV 18.5 % (11.6-14.6); RBC Distribution Width SD 54.3 fl (35.1-43.9); Red Blood Count 4.53 M/mm3 (4.6-6.2); White Blood Count 8.8 K/mm3 (4.4-11.0)
[2023-04-29 09:18] VITALS: BP 117/69; PULSE 95; RESP 16; TEMP 36.2; O2SAT 95
[2023-04-29 09:20] VITALS: PULSE 95
[2023-04-29] MEDS: Metoprolol Tartrate 25 MG Tablet 12.5 MG PO (09:20)
[2023-04-29] MEDS: Ferrous Sulfate 325 MG Tablet PO (09:20)
[2023-04-29 09:40] LABS: Anion Gap 1 (5-15); BUN 14 mg/dL (7-18); BUN/Creat Ratio 14.1 RATIO (10-20); Calcium,Total 9.1 mg/dL (8.5-10.1); Chloride 113 mmol/L (98-107); EST Glomerular Filtration Rate 76 mL/min (>60); Est Glom Filt Rate - Afr Amer 92 mL/min (>60); Estimated Creatinine Clearance 56.78 ml/min; Glucose 129 mg/dL (74-106); Potassium 4.2 mmol/L (3.5-5.1); Sodium Level 143 mmol/L (136-145)
[2023-04-29] MEDS: Pantoprazole Sodium 40 MG in 0.9% Normal Saline (100mL MB+) 100 ML 330 MG IV (10:43)
[2023-04-29 10:55] VITALS: PULSE 79; RESP 18
--- NOTE | 2023-04-29 11:04 | DS.PCM_ITS ---
Providers Date of Admission: 04/26/23 Date of Discharge: 04/29/23 Primary Care Physician: Dr. Carmina Zaidi MD Consultations 04/27/23 08:01 Consult: General Surgery Routine Consulting Provider: Gerson Eastman Reason for Consult: Anemia, Recurrent Ulcers EMERGENT Consult: No MD Notified: Yes Date Notified: 04/27/23 Time Notified: 08:01 Method of Notification: Text Reason For Visit: PAF WITH RVR, RESP FAILURE, COPD EX Diagnosis Discharge Diagnosis (1) Atrial fibrillation with rapid ventricular response: Status: Acute Code(s): I48.91 - Unspecified atrial fibrillation (2) Acute on chronic respiratory failure with hypoxia: Status: Chronic Code(s): J96.21 - Acute and chronic respiratory failure with hypoxia Plan #Afib with RVR * resolved. AVR has resolved. On PO metoprolol * on eliquis, which was held on admission. * titrate oxygen to maintain sats >90% * breathing treatment with bronchodilators * 2D echo ordered and pending. * eliquis held. * #Acute on chronic hypoxic respiratory failure * due to COPD exacerbation * on breathing treatment with bronchodilators. Now on 4 L of oxygen * titrate oxygen to maintain sats >90% * respiratory panel is negative * #Acute on chronic anemia * s/p transfusion of 2 units of PRBCs * Hb today is 9.5. * on IV pantoprazole * GI on board; for colonoscopy. * says he had an EGD in the January 2023 which showed normal esophagus and norm al stomach as well as erythematous duodenopathy which was biopsied. * eliquis held on admission * #Leucocytosis: wbc is 10.5. No clear evidence of infection. Likely reactive. WIll monitor. hold off on antibiotics for now. 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 Patient has apparently refused biopsy and any further workup. Has been told it may likely be cancer but still refuses workup * #Type 2 diabetes mellitus with neuropathy * oral meds on hold. ISS. Accuchecks ACHS * #Hypertension;back on metoprolol #Hyperlipidemia: on statin #GED: on PPI #BPH: on flomax DVT prophylaxis: SCDs Code status: DNRCCA no intubation. Medications at Discharge Home Medications ferrous sulfate 325 mg (65 mg iron) tablet 325 mg PO DAILY supplement 12/29/19 albuterol sulfate 2.5 mg/3 mL (0.083 %) solution for nebulization 2.5 mg (3 mL) inhalation Q4H PRN shortness of breath or wheezing #180 mL 01/23/22 gabapentin 100 mg capsule 100 mg PO TID nerve pain #270 caps 05/15/22 fluticasone fur. 200 mcg-umeclid 62.5 mcg-vilant 25 mcg inhalat.powder (Trelegy Ellipta) 1 inh inhalation DAILY breathing #3 ea 07/15/22 tamsulosin 0.4 mg capsule 0.4 mg PO QHS prostate #90 caps 09/11/22 Handicap placard #1 ea 10/24/22 metformin 500 mg tablet See Rx Instructions .Route .COMPLEX diabetes #180 tabs 10/31/22 metoprolol tartrate 25 mg tablet 12.5 mg (1/2 x 25 mg) PO BID blood pressure #90 tabs 10/31/22 pantoprazole 40 mg tablet,delayed release 40 mg PO BID reflux #60 tabs 11/16/22 blood sugar diagnostic (Blood Glucose Test strips) #100 ea 11/28/22 lancets 28 gauge (FreeStyle Lancets) #100 ea 11/28/22 simvastatin 40 mg tablet 40 mg PO DAILY cholesterol #90 tabs 11/28/22 ondansetron HCl 4 mg tablet 4 mg PO Q8H PRN nausea and vomiting #90 tabs 03/20/23 albuterol sulfate 90 mcg/actuation aerosol inhaler 2 puff inhalation Q6H PRN shortness of breath or wheezing #3 device 04/25/23 Hospital Course Operations None Procedures Colonoscopy Summary of Care Provided Minutes Spent on Discharge: 52 Hospital Course: Patient is an 82-year-old male with a past medical history as outlined which includes paroxysmal A-fib and recurrent anemia. He was admitted through the ED on 04/26/2023 with a complaint of shortness of breath and cough. He was noted to be saturating at 70% on room air. However even on 4 L of oxygen he remained hypoxic. He was therefore placed on BiPAP. He was found to be in A-fib with RVR with heart rate of 115 in the ED. BNP was 367 and TSH was 1.36. CT of the chest showed no evidence of PE. He was admitted and managed for A-fib with RVR and acute hypoxic respiratory failure due to A-fib with RVR. He was placed on Cardizem drip. He was weaned off of BiPAP to 10 L of oxygen. He was admitted to ICU. His breathing improved and he was gradually weaned off of oxygen. Hospital course was complicated by acute on chronic anemia requiring transfusion with 2 units of packed red blood cells. Patient did have a history of acute on chronic anemia and had been following up with gastroenterology. He had had an EGD on outpatient basis which showed no acute pathology and plan was for him to be scheduled for colonoscopy. Gastroenterology was consulted and his Eliquis was discontinued. Patient was switched to his oral metoprolol and wean off of Cardizem drip. Colonoscopy showed poor prep with stool in the entire examined colon and diverticulosis in the rectosigmoid colon, sigmoid colon and descending colon. Plan was for patient to have repeat colonoscopy upon following up with gastroenterology on outpatient basis. Patient remained stable and was discharged on 04/29/2023. He is follow-up with his primary care doctor and follow-up with gastroenterology within 1 to 2 weeks. Patient's Eliquis was discontinued. He was counseled about his increased risk of stroke which was outweighed by his increased risk of acute on chronic anemia as that happened in the past. He was agreeable to this. Patient seen and examined prior to discharge. He had no active complaints and had an uneventful night. Review of systems otherwise negative. Labs and vitals reviewed. Home medication reviewed and reconciled. Physical Exam Const alert, oriented x3 and no apparent distress General Appearance: cooperative HEENT normocephalic, head/scalp atraumatic, hearing grossly normal bilaterally, moist oral mucous membranes and oropharynx normal Mouth: oral and palatal mucosa normal Eyes PERRL and EOMs intact bilaterally Neck no lymphadenopathy and supple Lymph Lymphatic: no lymphadenopathy noted and no lymphedema noted Resp Resp Narrative: diminished breath sounds bibasally, no wheezes or crackles. On 4 L of oxygen. Cardio regular rate, regular rhythm, S1 normal heart sound, S2 normal heart sound and no murmurs GI normal to inspection, nondistended, normoactive bowel sounds, soft to palpation and non-tender Extremity normal to inspection, full ROM, normal capillary refill, no clubbing, cyanosis or edema and no calf tenderness General Extremity: no tenderness to palpation of joints or extremities Skin no rashes or lesions noted General Skin Exam: no breakdown Neuro oriented x3, CN's II-XII intact bilaterally, moves all extremities, no focal motor deficits, no sensory deficits noted and deep tendon reflexes 2+ bilaterally Motor Exam: strength 5/5 throughout and general weakness Psych thought process normal and cooperative Appearance: appropriate Weight / BMI Weight Weight: 174 lb 2.643 oz Body Mass Index (BMI) 25.0 ABG / Lab / Microbiology Data 04/29/23 08:37 04/29/23 08:37 Laboratory: Laboratory Results - last 24 hr 04/28/23 16:35: POC Glucose 144 H 04/28/23 21:17: POC Glucose 172 H 04/29/23 06:44: POC Glucose 103 04/29/23 08:37: WBC 8.8, RBC 4.53 L, Hgb 10.6 L, Hct 36.8 L, MCV 81.2, MCH 23.4 L, MCHC 28.8 L, RDW Std Deviation 54.3 H, RDW Coeff of Demetrius 18.5 H, Plt Count 360, MPV 11.1, Immature Gran % (Auto) 0.500, Neut % (Auto) 77.0 H, Lymph % (Auto) 11.1 L, Towner % (Auto) 8.3, Eos % (Auto) 2.6, Baso % (Auto) 0.5, Absolute Neuts (auto) 6.8, Absolute Lymphs (auto) 0.98, Nucleated RBC % 0, Sodium 143, Potassium 4.2, Chloride 113 H, Carbon Dioxide 29.0, Anion Gap 1 L, BUN 14, Creatinine 1.00, Estim Creat Clear Calc 56.78, Est GFR (MDRD) Af Amer 92, Est GFR (MDRD) Non-Af 76, BUN/Creatinine Ratio 14.1, Glucose 129 H, Calcium 9.1 Microbiology: Microbiology 04/28/23 07:45 Stool Stool Occult Blood (RICCO) - Final Occult Blood Positive 04/26/23 12:30 Urine, Clean Catch Legionella Antigen - Final 04/26/23 12:30 Urine, Clean Catch Streptococcus pneumoniae Antigen (M - Final 04/26/23 08:40 Mucosa - Nose Respiratory Panel (PCR) - Final 04/26/23 03:42 Mucosa - Nose SARS-CoV-2, Influenza & RSV (PCR) - Final D/C Instructions Discharge Diet: Low fat / Low cholesterol Discharge Activity: Return to Normal Activity Weight Bearing Status: Weight bearing as tolerated Call your doctor if you observe: Fever of 101 or Higher, Shortness of breath, Swelling in the ankles and Chest pain Meaningful Use Info Meaningful Use Diagnoses (Choose all that apply): None applicable Discharge Plan Admission Admit Date/Time: 04/26/23 05:28 Primary Reason for Your Visit: afib with RVR, lower GI bleed Attending Provider: Sharri Zamudio Primary Care Provider: Carmina Zaidi Consulting Providers: Cece Moore; Gerson Eastman Instructions Patient Instructions: Lower GI Endoscopy Additional Instructions / Restrictions: Eliquis discontinued due to acute on chronic anemia from GI bleed. Patient counseled about increased risk of stroke due to afib. TO follow up with PCP and GI after capsule endoscopy about whether to resume eliquis, and when to do so. Discharge Orders/Prescriptions Prescriptions: Continued ferrous sulfate 325 mg (65 mg iron) tablet 325 mg PO DAILY tamsulosin 0.4 mg capsule 0.4 mg PO QHS Qty: 90 3RF (DME) Handicap placard See Rx Instructions .Route .MEDSUPPLY Qty: 1 0RF Rx Instructions: 5 year RX albuterol sulfate 90 mcg/actuation HFA aerosol inhaler 2 puff inhalation Q6H PRN (Reason: shortness of breath or wheezing) Qty: 3 1RF pantoprazole 40 mg Tablet,Delayed Release (Dr/Ec) 40 mg PO BID Qty: 60 1RF albuterol sulfate 2.5 mg /3 mL (0.083 %) solution for nebulization 2.5 mg inhalation Q4H PRN (Reason: shortness of breath or wheezing) Qty: 180 12RF gabapentin 100 mg capsule 100 mg PO TID Qty: 270 3RF Trelegy Ellipta 200-62.5-25 mcg blister with device 1 inh inhalation DAILY Qty: 3 3RF metformin 500 mg tablet See Rx Instructions .ROUTE .COMPLEX Qty: 180 3RF Dose Instruction: TAKE 1 TABLET TWICE A DAY Rx Instructions: TAKE 1 TABLET TWICE A DAY metoprolol tartrate 25 mg tablet 12.5 mg PO BID Qty: 90 3RF (DME) Blood Glucose Test Strip See Rx Instructions .ROUTE .MEDSUPPLY Qty: 100 5RF Rx Instructions: Free Style Lite test strips - Use to check blood glucose 3-4 times a day and PRN (DME) lancets [FreeStyle Lancets] 28 gauge misc See Rx Instructions .ROUTE .MEDSUPPLY Qty: 100 5RF Rx Instructions: Use to test blood sugar as needed. simvastatin 40 mg tablet 40 mg PO DAILY Qty: 90 3RF ondansetron HCl 4 mg tablet 4 mg PO Q8H PRN (Reason: nausea and vomiting) Qty: 90 1RF Discontinued Eliquis 5 mg tablet 5 mg PO BID Qty: 180 3RF Referrals / Follow Up: Carmina Zaidi MD [Primary Care Provider] - 05/05/23 1:00 pm Gerson Eastman DO [Med Staff - Active Staff] - 06/10/23 7:30 am Disposition Disposition (needs filled in before D/C Order can be placed): Home, Self Care Charges/Coding Visit Charges Inpatient E&M: 54146 Disch Hosp >30min
--- NOTE | 2023-04-29 11:19 | PHA.DC.MR.R ---
Pharmacy [place] Med Reconciliation Pharmacy Service has performed discharge medication reconciliation for this patient. The patient's discharge medication list was reviewed for discrepancies and discrepancies were resolved. Medications at Discharge Home Medications ferrous sulfate 325 mg (65 mg iron) tablet 325 mg PO DAILY supplement 12/29/19 albuterol sulfate 2.5 mg/3 mL (0.083 %) solution for nebulization 2.5 mg (3 mL) inhalation Q4H PRN shortness of breath or wheezing #180 mL 01/23/22 gabapentin 100 mg capsule 100 mg PO TID nerve pain #270 caps 05/15/22 fluticasone fur. 200 mcg-umeclid 62.5 mcg-vilant 25 mcg inhalat.powder (Trelegy Ellipta) 1 inh inhalation DAILY breathing #3 ea 07/15/22 tamsulosin 0.4 mg capsule 0.4 mg PO QHS prostate #90 caps 09/11/22 Handicap placard #1 ea 10/24/22 metformin 500 mg tablet See Rx Instructions .Route .COMPLEX diabetes #180 tabs 10/31/22 metoprolol tartrate 25 mg tablet 12.5 mg (1/2 x 25 mg) PO BID blood pressure #90 tabs 10/31/22 pantoprazole 40 mg tablet,delayed release 40 mg PO BID reflux #60 tabs 11/16/22 blood sugar diagnostic (Blood Glucose Test strips) #100 ea 11/28/22 lancets 28 gauge (FreeStyle Lancets) #100 ea 11/28/22 simvastatin 40 mg tablet 40 mg PO DAILY cholesterol #90 tabs 11/28/22 ondansetron HCl 4 mg tablet 4 mg PO Q8H PRN nausea and vomiting #90 tabs 03/20/23 albuterol sulfate 90 mcg/actuation aerosol inhaler 2 puff inhalation Q6H PRN shortness of breath or wheezing #3 device 04/25/23
[2023-04-29 12:11] VITALS: O2SAT 94
--- NOTE | 2023-04-29 13:12 | CASEMGMT ---
Patient has order for discharge. RN CM reviewed progress with therapy, no therapy recommended at discharge. RN CM in to discuss needs at discharge with patient and family. Patient and family deny need or help at discharge. Patient had no further questions or concerns. Family brought home POC for at discharge.
--- OUTSIDE RECORDS SUMMARY | 2023-05-21 21:31 | XMS RPT_ITS | CCD ---
Author Name Unknown Address [address] [place] [address] Organization [facility] Care Team Providers Care Parts Identification Technician Name Role Phone Tip Doll Primary Care Provider Royer Thacker Primary Care Provider Allergies Allergy Classification Reported Allergen(s) Allergy Type Date of Onset Reaction(s) Facility (14 sources) Erythromycin Drug Allergy 10-10-2014 [place], [place] (14 sources) levoFLOXacin Drug Allergy 10-29-2017 [place], [place] (14 sources) Amoxicillin-Pot Clavulanate Propensity to adverse reactions to drug 12-03-2017 [place], [place] (3 sources) Penicillins Propensity to adverse reactions to drug 10-21-2019 Rash [place] Medications Current Medications Medication Drug Class(es) [...] Respiratory failure; insufficiency; arrest (adult) (13 sources) [id number] respiratory failure; Translations: [Chronic hypoxemic respiratory failure] [...] 05-07-2019 12:55-0500 Pulse Oximetry 94 % [place] 05-07-2019 08:30-0500 Body Temperature 96.8 [degF] [place] 05-07-2019 08:30-0500 BP Diastolic 75 mm[Hg] [place] 05-07-2019 08:30-0500 BP Systolic 125 mm[Hg] [place] 05-07-2019 08:30-0500 Pulse (Heart Rate) 89 /min [place] 05-07-2019 08:30-0500 Respiratory Rate 16 /min [place] 05-05-2019 15:12-0500 Height 177.8 cm [place] 05-05-2019 11:56-0500 BMI (Body Mass Index) 29.56 kg/m2 [place] 05-05-2019 11:56-0500 Body weight 93.44 kg Johnie [facility] , [place] 12-14-2018 10:20-0400 Pulse Oximetry 94 % Kirby Medrano [facility] , [place] 12-14-2018 10:20-0400 Respiratory Rate 16 /min Kirby Velez [facility], [place] 12-14-2018 09:47-0400 BP Diastolic 83 mm[Hg] Kirby Velez [facility] , [place] 12-14-2018 09:47-0400 BP Systolic 111 mm[Hg] Kirby Velez [place], [place] 12-14-2018 09:47-0400 Pulse (Heart Rate) 76 /min Kirby Velez [place] 12-14-2018 09:31-0400 Body Temperature 97.59 [degF] Kirby Velez [facility], [place] 12-14-2018 08:17-0400 BMI (Body Mass Index) 28.41 kg/m2 Kirby Velez [facility], [place] 12-14-2018 08:17-0400 Body weight 89.81 kg Kirby Velez [place], [place] 12-14-2018 08:17-0400 Height 177.8 cm Kirby Velez [place] Encounters Encounter Date Encounter Type Care Provider Facility Start: 05-31-2021 End: 05-31-2021 Subsequent hospital visit by physician Sam Hanks MD Work Phone: [facility] Start: 11-15-2019 End: 11-15-2019 Subsequent hospital visit by physician Harmony Mcclain [facility] Start: 10-21-2019 End: 10-21-2019 Subsequent hospital visit by physician Harmony Mcclain [facility] Start: 07-19-2019 End: 07-19-2019 Subsequent hospital visit by physician Sam Hanks Work Phone: [facility] Start: 06-28-2019 End: 06-28-2019 Subsequent hospital visit by physician Sam Hanks Work Phone: [facility] Start: 06-07-2019 End: 06-07-2019 Subsequent hospital visit by physician Batsheva Valdez Work Phone: [facility] Radiology Procedures Date Procedure Procedure [...] 06-07-2019 Radiologic exam ches t 2 views [employer] Work Phone: Start: 05-19-2019 Radiologic exam ches t 2 views [employer] Work Phone: Start: 05-07-2019 Gluc bld gluc mntr d ev cleared fda spec home use [employer] Work Phone: Start: 05-07-2019 HOME O2 EVAL (DESATU RATION SCREEN) [facility] [employer] Work Phone: Start: 05-07-2019 Gluc bld gluc mntr d ev cleared fda spec home use Johnie Mancuso Work Phone: Start: 05-07-2019 [facility]ct[facility] Work Phone: Start: 05-06-2019 Gluc bld gluc [...] be & rev trnscr 12-25 [employer] Roge Aolnso Work Phone: Start: 05-05-2019 Natriuretic peptide Anoop [...] Visit Family Medicine Tip Doll MD [address], [place] [address] [phone] [facility] Start: 01-03-2020 End: 01-03-2020 Office Visit 01/03/2020 Office Visit Pulmonology Batsheva Valdez MD [address] [place] [address] [phone] [facility] Start: 12-10-2019 DTaP/Tdap/Td vaccine (1 - Tdap) DTaP/Tdap/Td vaccine (1 - Tdap) [place], [place] Immunizations Immunization Date Immunization Notes Care Provider Fa [facility] 12-01-2019 influenza virus vacc ine, unspecified formulation Sam Hanks MD Work Phone: [facility] 08-23-2019 zoster vaccine [facility] [place] 04-05-2019 zoster vaccine recombinant Harmony [facility], [place] 11-27-2018 influenza, high dose seasonal, preservative-free Kirby Medrano [facility] 12-10-2017 influenza, high dose seasonal, preservative-free Kirby Medrano [facility], [place] 12-18-2016 influenza, high dose seasonal, preservative-free Kirby Medrano [facility] 04-17-2016 pneumococcal conjuga te vaccine, 13 valent Kirby CLAYTON 12-07-2015 influenza, high dose seasonal, preservative-free Kirby CLAYTON 12-07-2015 influenza, injectabl e, quadrivalent, contains preservative Kirby Medrano [facility], [place] 12-09-2014 influenza virus vacc ine, unspecified formulation Kirby Medrano [facility] 12-06-2013 influenza virus vacc ine, unspecified formulation Kirby Mitchell [facility] , [place] 12-06-2013 influenza, injectabl e, quadrivalent, contains preservative Kirby Medrano [facility], [place] 12-31-2012 pneumococcal polysaccharide vaccine, 23 valent Kirby Medrano [facility], [place] 12-17-2012 influenza virus vacc ine, unspecified formulation Kirby Mitchell [facility] , [place] 12-17-2012 influenza virus vacc ine, whole virus [facility], [place] 12-06-2011 influenza virus vacc ine, unspecified formulation [facility] , [place] 12-06-2011 influenza virus vacc ine, whole virus Kirby Mitchell [facility], [place] 12-11-2010 influenza virus vacc ine, unspecified formulation [facility] , [place] 12-11-2010 influenza virus vacc ine, whole virus [facility], [place] 09-12-2010 zoster vaccine, live Kirby WHITE Work Phone: Payers Date Payer Category Payer Medicare AETNA MEDICARE A ETNA MEDICARE-ADVANTAGE PPO [id number] 2016-Present [address] [place] [address] Medicare [id number] 2016 Medicare AETNA MEDICARE A ETNA MEDICARE-ADVANTAGE PPO [id number] 2016-Present [address] [place] [address] Medicare [id number] Social History Date Type Detail Facility Start: 10-27-2014 End: 12-14-2018 Tobacco smoking status NHIS Former [place], [place] End: 03-03-2007 History of tobacco use Current [place] End: 03-03-2007 History of tobacco use Cigarette Smoker [place] Start: 12-14-2018 End: 01-03-2020 Cigarettes smoked current (pack per day) - Reported [place] Start: 12-14-2018 Alcohol intake No [place] Start: 06-09-2018 History SDOH Financial 4 [place] Start: 06-09-2018 History SDOH Food Worry 1 [place] Start: 06-09-2018 History SDOH Transpo rt Med 2 [place], [place] Start: 1940 Sex Assigned At Not on file [place], [place] Start: 05-27-2019 End: 01-03-2020 Alcohol intake Current non-drinker of alcohol (finding) [place] Exposure to SARS-CoV -2 (event) Unable to assess [place] Start: 10-27-2014 End: 10-21-2019 Tobacco use and exposure Never used [place], [place] Medical Equipment Procedure Code Equipment Code Equipment Origin al Text Equipment Identifier Dates Test blood sugar b.i.d. [id number] Start: 05-25-2019 Test blood sugar twice a day [id number] Start: 05-25-2019 Test blood sugar b.i.d. 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 Moderate Complexity: follow up within 7-14 calendar days (15465) ? Severe Complexity: follow up within 7 calendar days (01799) Follow up Testing, Pending results or Referrals [...] frame. Signed: Jayden Aguilar DO [facility] 12/14/2018, 10:51 [...] be sent through Care Everywhere. * Diverticulosis (Indonesian) documented in this encounter History of Present Illness * Edis Hollingsworth RN - 12/14/2018 9:39 AM EDT POST ENDOSCOPY PROCEDURE TRANSFER REPORT Procedure completed: colonoscopy Findings:diverticulosis, hemmorroids Specimens obtained: no Medications administered: 200 mg propofol Additional Info: n/a For additional Questions please call Endoscopy at 6800. Thank You! * Jayden Aguilar DO - 12/13/2018 10:32 AM EDT Hospitalist Progress Note 12/13/2018 10:32 AM [phone]: Please page me ([phone]) for patient care issues. [phone]: Please page [facility] night Hospitalist for any issues. Subjective: [...] of Hospitalist Medicine Inpatient Medical Services PAGER: [phone] * Kym Dillon MD - 12/13/2018 9:19 [...] tomorrow. Pt requests miralax prep * Naldo oCle DTR - 12/13/2018 7:25 AM EDT Nutrition rescreen complete. Pt assigned a level one for nutrition care. * Jayden Aguilar DO - 12/12/2018 12:07 PM EDT Hospitalist Progress Note 12/12/2018 3:07 PM [phone]: Please page me ([phone]) for patient care issues. [phone]: Please page [facility] night Hospitalist for any [...] of Hospitalist Medicine Inpatient Medical Services PAGER: [phone] documented in this encounter* Ladarius Quezada, RIBBON CUTTER - 05/07/2019 12:57 PM EST Patient Evaluation [...] EST Hospitalist Progress Note 05/06/2019 2:39 PM [phone]: Please page [place] @ [phone] for patient care issues. [phone]: Please page [facility] Hospitalist for any issues. Subjective: [...] Services This report was created using the [employer] Speaking voice- activated system. Despiteprompt dictation and [...] an 78 yo male who presented to [facility] with COPD exacerbation. Prior to hospitalization, [...] Assistance: Independent(Without AD) Transfer Assistance: Independent Active Investor Relations Associate: Yes Occupation: Retired Objective Vision: Within Functional [...] Study With Bronchodilator Batsheva Valdez MD [address] [place] [address] [facility] [address] [place] [address] Status Reason Specialty Diagnoses / Procedures Referre d By Contact Referred To Contact Closed Radiology Diagnoses Lung nodule Procedures CT Chest WO Contrast Alycia Esquivel S, VICE PRESIDENT OF PROCUREMENT - NOODLE PRESS OPERATOR [address] [facility] [place] [address] Additional Source Comments (unrecognized sect ion and content) No Status Records FoundNo Status Records Found INFORMATION SOURCE (unrecogn ized section and content) DATE CREATED AUTHOR AUTHOR'S ORGANIZ ATION 06/10/2021 [facility] Reason for Visit (unrecogniz [...] BE BASED ON THE PRIMARY CLINICAL RECORDS. [employer] provides no warranty or guarantee of the accuracy or completeness of information in this document.
== END 2023-04-29 14:23 | disposition home or self-care (01) | DRG 189 ==
LOC: ED 05:26 → ICU 05:35 → PCU 04-28 06:19 → ICU 05-21 13:47
PROVIDERS: Internal Medicine Gastroenterology; Admitting Provider Family Medicine; Emergency Provider Emergency Medicine; PCP Internal Medicine; Visit Provider Student in an Organized Health Care Education/Training Program
PROC: 0DJD8ZZ Inspection of Lower Intestinal Tract, Via Natural or Artificial Opening Endoscopic (ICD-10-PCS; CPT 45378; principal; 2023-04-28 12:10)
DX: J96.21 Acute and chronic respiratory failure with hypoxia (principal); J44.1 Chronic obstructive pulmonary disease with (acute) exacerbation; J45.901 Unspecified asthma with (acute) exacerbation; E11.40 Type 2 diabetes mellitus with diabetic neuropathy, unspecified; D50.9 Iron deficiency anemia, unspecified; E78.5 Hyperlipidemia, unspecified; K57.30 Diverticulosis of large intestine without perforation or abscess without bleeding; Z99.81 Dependence on supplemental oxygen; I48.0 Paroxysmal atrial fibrillation; I10 Essential (primary) hypertension; K21.9 Gastro-esophageal reflux disease without esophagitis; N40.0 Benign prostatic hyperplasia without lower urinary tract symptoms; R91.8 Other nonspecific abnormal finding of lung field; Z66 Do not resuscitate; Z79.01 Long term (current) use of anticoagulants; Z79.84 Long term (current) use of oral hypoglycemic drugs; Z79.51 Long term (current) use of inhaled steroids; Z79.899 Other long term (current) drug therapy; Z87.891 Personal history of nicotine dependence
CPT/HCPCS: 36415; 36600; 71275; 80048; 80053; 82274; 82803; 82962; 83036; 83735; 83880; 84145; 84443; 84484; 85014; 85018; 85025; 85610; 85730; 86850; 86900; 86901; 86920; 86922; 87449; 87631; 87633; 93005; 94002; 94640; 94668; 97110; 97116; 97162; 97166; 97530; 99285; J7030; J7040; J7120; P9016; Q9967; A4216; J1940; J2405

== ENCOUNTER 2023-05-03 17:41 | Emergency (ER) | payer MEDICARE, SELFPAY ==
[2023-05-03 17:43] VITALS: BP 95/69; PULSE 119; RESP 24; TEMP 37; O2SAT 94; BMI 24.1
[2023-05-03 17:52] VITALS: BP 121/57; PULSE 115; RESP 21; O2SAT 94
--- NOTE | 2023-05-03 17:59 | EKG12_ITS ---
Test Reason : NEW ONSET A FIB Blood Pressure : / mmHG Vent. Rate : 115 BPM Atrial Rate : 000 BPM P-R Int : 000 ms QRS Dur : 082 ms QT Int : 294 ms P-R-T Axes : 000 267 050 degrees QTc Int : 406 ms Atrial fibrillation with rapid ventricular response Right superior axis deviation Abnormal ECG Confirmed by GABRIELA GARZA, CHERYL ([id number]), writer editor LAMINE APONTE ([id number]) on 05/05/2023 9:46:13 AM Referred By: PAT/MAURICIO Confirmed By:PITO OCHOA MD
--- NOTE | 2023-05-03 18:06 | EX.ED.DYSGE1 ---
HPI <Hannah Triplett RN - Last Filed: 05/03/23 21:06> History of Present Illness Chief Complaint: Weakness Informant: patient and family Onset/Context/Timing Onset: Days (5) Context: Gradual Onset Timing: Continuous Current Severity: Severe Maximum Severity: Mild Associated Symptoms Associated Symptoms: Shortness of breath Narrative Narrative: Patient brought to the ED via EMS for weakness. Patient reports he was just discharged from the hospital on 04/29/2023 for hypoxia and anemia. He reports chronic shortness of breath which was worse today. He also reports weakness. 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 Once family arrived, they reported that he was unable to get out of bed this morning. They provided him breakfast and checked on him again this afternoon in which she was also unable to get out of bed even to urinate. Family reports he was admitted for A-fib RVR and breathing difficulties. They report his Eliquis was stopped due to the need for multiple blood transfusions during last admission. Patient denies recent falls. Patient reports chronic cough which has been worse recently with an undefined timeframe. He reports home oxygen use at 3 L per nasal cannula. Family also reports patient took a Bactrim today because he was not feeling well. Prior similar symptoms: Yes Recent Illness/Hospitalization: Yes PFSH <Hannah Triplett RN - Last Filed: 05/03/23 21:06> [facility] Medical History Anemia Anemia requiring transfusions Arthritis Asthma Bruit of left carotid artery Cardiology follow-up encounter COPD (chronic obstructive pulmonary disease) Diabetes mellitus Diverticulitis Dupuytrens contracture Former smoker GERD (gastroesophageal reflux disease) H/O inguinal hernia H/O: pneumonia History of diverticulitis History of echocardiogram History of pulmonary aspiration History of stress test History of ulceration Low iron Lung mass Lung mass Neuropathy On home oxygen therapy Paroxysmal atrial fibrillation Paroxysmal atrial fibrillation with RVR Shortness of breath on exertion Stage 3 severe COPD by GOLD classification Type 2 diabetes mellitus Type 2 diabetes mellitus without complications Wears dentures Home Medications ferrous sulfate 325 mg (65 mg iron) tablet 325 mg PO DAILY supplement 12/29/19 [History Last Taken Unknown] albuterol sulfate 2.5 mg/3 mL (0.083 %) solution for nebulization 2.5 mg (3 mL) inhalation Q4H PRN shortness of breath or wheezing #180 mL 01/23/22 [Rx Last Taken 02/11/22] gabapentin 100 mg capsule 100 mg PO TID nerve pain #270 caps 05/15/22 [Rx Last Taken Unknown] fluticasone fur. 200 mcg-umeclid 62.5 mcg-vilant 25 mcg inhalat.powder (Trelegy Ellipta) 1 inh inhalation DAILY breathing #3 ea 07/15/22 [Rx Last Taken Unknown] tamsulosin 0.4 mg capsule 0.4 mg PO QHS prostate #90 caps 09/11/22 [Rx Last Taken Unknown] Handicap placard #1 ea 10/24/22 [Rx Last Taken Unknown] metformin 500 mg tablet See Rx Instructions .Route .COMPLEX diabetes #180 tabs 10/31/22 [Rx Last Taken Unknown] metoprolol tartrate 25 mg tablet 12.5 mg (1/2 x 25 mg) PO BID blood pressure #90 tabs 10/31/22 [Rx Last Taken Unknown] pantoprazole 40 mg tablet,delayed release 40 mg PO BID reflux #60 tabs 11/16/22 [Rx Last Taken Unknown] blood sugar diagnostic (Blood Glucose Test strips) #100 ea 11/28/22 [Rx Last Taken Unknown] lancets 28 gauge (FreeStyle Lancets) #100 ea 11/28/22 [Rx Last Taken Unknown] simvastatin 40 mg tablet 40 mg PO DAILY cholesterol #90 tabs 11/28/22 [Rx Last Taken Unknown] ondansetron HCl 4 mg tablet 4 mg PO Q8H PRN nausea and vomiting #90 tabs 03/20/23 [Rx Last Taken Unknown] albuterol sulfate 90 mcg/actuation aerosol inhaler 2 puff inhalation Q6H PRN shortness of breath or wheezing #3 device 04/25/23 [Rx Last Taken Unknown] loratadine 10 mg tablet (Claritin) 10 mg PO DAILY 05/03/23 [History Last Taken Unknown] Allergy/AdvReac Type Severity Reaction Status Date / Time Penicillins Allergy Severe Hives Verified 05/03/23 17:42 erythromycin base AdvReac Severe Nausea/Vom/ Verified 05/03/23 17:42 Diarrhea Family History Father Cancer Brother Parkinsons disease Mother Diverticulitis Surgical History History of carpal tunnel release History of hand surgery History of hernia repair Social History household members: spouse Smoking Status: Former smoker Tobacco: How many years used: 40 Electronic Cigarette Use: not used how long ago did patient quit smokin second hand exposure: Yes alcohol intake: never substance use type: does not use caffeine: Yes Type: coffee Number of servings: 1 what type of physical activity do you participate in: none ROS <Hannah Triplett RN - Last Filed: 05/03/23 21:06> ROS ED Constitutional Constitutional ED: Denies chills, fever(s) or sweats Eyes Eyes: Denies change in vision ENT ENT ED: Denies ear pain, rhinorrhea or sore throat Cardiovascular Cardiovascular: Reports orthopnea; Denies chest pain, palpitations or racing heartbeat Respiratory/Chest Respiratory/Chest: Reports cough, dyspnea, dyspnea on exertion and orthopnea Gastrointestinal Gastrointestinal: Denies abdominal pain, constipation, diarrhea, melena, nausea or vomiting Genitourinary Genitourinary ED: Denies dysuria, hematuria or urinary frequency Musculoskeletal Musculoskeletal: Denies arthralgias or myalgias Integumentary Denies rash Neurologic Neurologic: Reports weakness; Denies headache(s) or paresthesias Hematologic/Lymphatic Hematologic/Lymphatic: Reports systems reviewed and no addt'l complaints, except as documented EXAM <Hannah Triplett RN - Last Filed: 05/03/23 21:06> Physical Exam Narrative Exam Narrative: Frail, elderly male in no acute distress Const Vital Signs: 05/03/23 17:43 05/03/23 17:52 05/03/23 18:12 Temperature 98.6 F Temperature Source Temporal Pulse Rate 119 H 115 H Respiratory Rate 24 H 21 H Respiratory Effort Short of Breath Respiratory Pattern Tachypnea Blood Pressure 95/69 121/57 H Blood Pressure Mean 77 78 Pulse Ox 94 94 Oxygen Delivery Method Nasal Cannula Oxygen Flow Rate (L/min) 3 05/03/23 18:20 05/03/23 20:37 Temperature Temperature Source Pulse Rate 100 94 Respiratory Rate 25 H 22 H Respiratory Effort Respiratory Pattern Blood Pressure 112/63 Blood Pressure Mean 79 Pulse Ox 93 18 Oxygen Delivery Method Nasal Cannula Nasal Cannula Oxygen Flow Rate (L/min) 3 3 General Appearance ED: NAD HEENT Reports moist mucous membranes Eyes PERRL and EOMs intact bilaterally Neck no lymphadenopathy, supple and no JVD Chest Wall inspection of chest normal and palpation of chest normal Resp normal respiratory effort and clear to auscultation bilaterally Resp Narrative: Crackles to left base Auscultation: Negative for rhonchi or wheezes Cardio S1 normal heart sound and S2 normal heart sound Rhythm: abnormal rhythm irregularly irregular GI normal to inspection, nondistended, normoactive bowel sounds and non-tender Auscultation: normoactive bowel sounds Palpation: soft Extremity Extremity Narrative: Mild chronic bilateral lower extremity edema General Extremety ED: Yes edema; Negative for tenderness General Extremity: edema Neuro oriented x3 Sensorium / Orientation: alert Motor Exam: general weakness Psych mental status grossly normal Skin no rashes or lesions noted <Dr. Brandan Leigh MD - Last Filed: 05/03/23 18:13> Physical Exam Const Vital Signs: 05/03/23 17:43 05/03/23 17:52 05/03/23 18:12 Temperature 98.6 F Temperature Source Temporal Pulse Rate 119 H 115 H Respiratory Rate 24 H 21 H Respiratory Effort Short of Breath Respiratory Pattern Tachypnea Blood Pressure 95/69 121/57 H Blood Pressure Mean 77 78 Pulse Ox 94 94 Oxygen Delivery Method Nasal Cannula Oxygen Flow Rate (L/min) 3 05/03/23 18:20 05/03/23 20:37 Temperature Temperature Source Pulse Rate 100 94 Respiratory Rate 25 H 22 H Respiratory Effort Respiratory Pattern Blood Pressure 112/63 Blood Pressure Mean 79 Pulse Ox 93 18 Oxygen Delivery Method Nasal Cannula Nasal Cannula Oxygen Flow Rate (L/min) 3 3 MDM <Hannah Triplett RN - Last Filed: 05/03/23 21:06> [facility] Narrative Medical decision making narrative: Patient placed on engine monitor which shows A-fib RVR. IV line initiated. Labwork obtained to evaluate for leukocytosis, anemia, and electrolyte derangement. Chest x-ray obtained to evaluate for acute lung pathology, cardiac size, or mediastinal abnormality. Urinalysis obtained to evaluate for infection/hematuria. Cardizem 20 mg ordered for A-fib RVR. I have personally performed a face to face assessment of the patient and have reviewed the YASMIN Note. I performed a substantive portion of the visit including all aspects of the following. My gee findings include: History is [82-year-old male recent hospitalization and transfusion. Known history of A-fib and diabetes. Took off his blood thinner medication. Today was just very weak at home trouble getting around the house. Denies vomiting or diarrhea. No melena. No dysuria.] Exam is [82-year-old male vital signs initial blood pressure 95/60 9 repeat 121/57 heart rate 115 A-fib RVR on the monitor. O2 sat 94% on 3 L. Patient on oxygen at home. H EENT exam unremarkable. Mytrex membranes. No trauma. No droop. Neck nontender. Lungs clear to auscultation. Heart A-fib RVR rate about 115. Irregularly irregular. Abdomen soft nontender. Normal bowel sounds no peritoneal signs. Moving all 4 extremities. Nontender. Neurologically is awake alert. No focal motor deficits.] Medical Decision Making [82-year-old male with A-fib RVR generalized weakness his initial temp was 98 6 I repeated an oral temp is 99.6. Workup for possible infectious etiology versus other causes of his generalized weakness.] Other additions or changes: [None] Lab Data Labs: Laboratory Results - last 24 hr 05/03/23 05/03/23 17:50 19:27 WBC 9.0 RBC 4.54 L Hgb 10.7 L Hct 36.1 L MCV 79.5 L MCH 23.6 L MCHC 29.6 L RDW Std Deviation 54.3 H RDW Coeff of Demetrius 18.8 H Plt Count 287 MPV 11.5 Immature Gran % (Auto) 0.400 Neut % (Auto) 85.9 H Lymph % (Auto) 3.7 L Ashley % (Auto) 6.7 Eos % (Auto) 3.0 Baso % (Auto) 0.3 Absolute Neuts (auto) 7.7 Absolute Lymphs (auto) 0.33 L Nucleated RBC % 0 Sodium 137 Potassium 4.2 Chloride 108 H Carbon Dioxide 24.0 Anion Gap 5 BUN 13 Creatinine 1.14 Estim Creat Clear Calc 49.81 Est GFR (MDRD) Af Amer 79 Est GFR (MDRD) Non-Af 65 BUN/Creatinine Ratio 11.4 Glucose 103 Calcium 8.6 Total Bilirubin 0.80 AST 19 ALT 20 Alkaline Phosphatase 90 B-Natriuretic Peptide 507.2 H Total Protein 6.5 Albumin 3.0 L Globulin 3.5 Albumin/Globulin Ratio 0.9 Urine Color Yellow Urine Clarity Clear Urine pH 6.0 Ur Specific [place] 1.005 Urine Protein Negative Urine Glucose (UA) Normal Urine Ketones Negative Urine Occult Blood 10 H Urine Nitrite Negative Urine Bilirubin Negative Urine Urobilinogen Normal Ur Leukocyte Esterase Negative Urine RBC 0 SEEN Urine WBC 0 SEEN Ur Squamous Epith Cells 0 SEEN Urine Bacteria RARE Urine Mucus 0 SEEN Radiography Diagnostic Testing: Clinical Impression(s) from Imaging Studies Chest X-Ray 05/03/23 18:30 IMPRESSION: 1. Bibasilar atelectasis and superimposed infiltrate. Moderate worsening of LEFT base. 2. No congestive failure Electronically Signed: Aung Ramos MD at 18:51 EST , EKG Initial EKG: Attestation: I personally reviewed and interpreted this EKG as follows: Interpretation: Atrial Fibrillation Comments: A-fib with a rate of 115. Differential Diagnosis Chest pain/SOB: pneumonia and CHF Abdominal Pain: UTI Management Discussion w/another healthcare provider: Other (Dr Leigh, ED Provider) Treatment and Re-Evaluation :: Lab work and imaging reviewed. CBC shows normal white count of 9 with neutrophils of 85.9%.. Hemoglobin is 10.7 which is slightly increased from 04/29/2023 in which it was 10.6. Chemistry is unremarkable. BNP is elevated at 507.2. Urinalysis is negative for UTI. Heart rate has decreased to between 86-100. Patient remains in A-fib. Patient ambulated with walker. Staff reports patient had a steady gait. Upon reevaluation, patient awake and alert in bed. at bedside. Discussed lab work and imaging. Patient reports desire to go home. Discussed with family. Family agreeable. Patient to be discharged home with follow-up with primary care in 1 week. <Dr. Brandan Leigh MD - Last Filed: 05/03/23 18:13> [facility] Narrative Medical decision making narrative: I have personally performed a face to face assessment of the patient and have reviewed the YASMIN Note. I performed a substantive portion of the visit including all aspects of the following. My gee findings include: History is [82-year-old male recent hospitalization and transfusion. Known history of A-fib and diabetes. Took off his blood thinner medication. Today was just very weak at home trouble getting around the house. Denies vomiting or diarrhea. No melena. No dysuria.] Exam is [82-year-old male vital signs initial blood pressure 95/60 9 repeat 121/57 heart rate 115 A-fib RVR on the monitor. O2 sat 94% on 3 L. Patient on oxygen at home. H EENT exam unremarkable. Mytrex membranes. No trauma. No droop. Neck nontender. Lungs clear to auscultation. Heart A-fib RVR rate about 115. Irregularly irregular. Abdomen soft nontender. Normal bowel sounds no peritoneal signs. Moving all 4 extremities. Nontender. Neurologically is awake alert. No focal motor deficits.] Medical Decision Making [82-year-old male with A-fib RVR generalized weakness his initial temp was 98 6 I repeated an oral temp is 99.6. Workup for possible infectious etiology versus other causes of his generalized weakness.] Other additions or changes: [None] History & Record Review Discussion w/independent historian: Patient and Family Lab Data Attestation: I reviewed the patient's lab results. Labs: Laboratory Results - last 24 hr 05/03/23 05/03/23 17:50 19:27 WBC 9.0 RBC 4.54 L Hgb 10.7 L Hct 36.1 L MCV 79.5 L MCH 23.6 L MCHC 29.6 L RDW Std Deviation 54.3 H RDW Coeff of Demetrius 18.8 H Plt Count 287 MPV 11.5 Immature Gran % (Auto) 0.400 Neut % (Auto) 85.9 H Lymph % (Auto) 3.7 L Ashley % (Auto) 6.7 Eos % (Auto) 3.0 Baso % (Auto) 0.3 Absolute Neuts (auto) 7.7 Absolute Lymphs (auto) 0.33 L Nucleated RBC % 0 Sodium 137 Potassium 4.2 Chloride 108 H Carbon Dioxide 24.0 Anion Gap 5 BUN 13 Creatinine 1.14 Estim Creat Clear Calc 49.81 Est GFR (MDRD) Af Amer 79 Est GFR (MDRD) Non-Af 65 BUN/Creatinine Ratio 11.4 Glucose 103 Calcium 8.6 Total Bilirubin 0.80 AST 19 ALT 20 Alkaline Phosphatase 90 B-Natriuretic Peptide 507.2 H Total Protein 6.5 Albumin 3.0 L Globulin 3.5 Albumin/Globulin Ratio 0.9 Urine Color Yellow Urine Clarity Clear Urine pH 6.0 Ur Specific [place] 1.005 Urine Protein Negative Urine Glucose (UA) Normal Urine Ketones Negative Urine Occult Blood 10 H Urine Nitrite Negative Urine Bilirubin Negative Urine Urobilinogen Normal Ur Leukocyte Esterase Negative Urine RBC 0 SEEN Urine WBC 0 SEEN Ur Squamous Epith Cells 0 SEEN Urine Bacteria RARE Urine Mucus 0 SEEN Radiography Diagnostic Testing: Clinical Impression(s) from Imaging Studies Chest X-Ray 05/03/23 18:30 IMPRESSION: 1. Bibasilar atelectasis and superimposed infiltrate. Moderate worsening of LEFT base. 2. No congestive failure Electronically Signed: Aung Ramos MD at 18:51 EST , Discharge Plan Triage Chief Complaint: Weakness ED Provider: Brandan Leigh Dx/Rx/DC Orders Clinical Impression: Weakness Instructions: ED Weakness (Uncertain Cause) Prescriptions: No Action ferrous sulfate 325 mg (65 mg iron) tablet 325 mg PO DAILY tamsulosin 0.4 mg capsule 0.4 mg PO QHS Qty: 90 3RF (DME) Handicap placard See Rx Instructions .Route .MEDSUPPLY Qty: 1 0RF Rx Instructions: 5 year RX albuterol sulfate 90 mcg/actuation HFA aerosol inhaler 2 puff inhalation Q6H PRN (Reason: shortness of breath or wheezing) Qty: 3 1RF pantoprazole 40 mg Tablet,Delayed Release (Dr/Ec) 40 mg PO BID Qty: 60 1RF loratadine [Claritin] 10 mg tablet 10 mg PO DAILY albuterol sulfate 2.5 mg /3 mL (0.083 %) solution for nebulization 2.5 mg inhalation Q4H PRN (Reason: shortness of breath or wheezing) Qty: 180 12RF gabapentin 100 mg capsule 100 mg PO TID Qty: 270 3RF Trelegy Ellipta 200-62.5-25 mcg blister with device 1 inh inhalation DAILY Qty: 3 3RF metformin 500 mg tablet See Rx Instructions .ROUTE .COMPLEX Qty: 180 3RF Dose Instruction: TAKE 1 TABLET TWICE A DAY Rx Instructions: TAKE 1 TABLET TWICE A DAY metoprolol tartrate 25 mg tablet 12.5 mg PO BID Qty: 90 3RF (DME) Blood Glucose Test Strip See Rx Instructions .ROUTE .MEDSUPPLY Qty: 100 5RF Rx Instructions: Free Style Lite test strips - Use to check blood glucose 3-4 times a day and PRN (DME) lancets [FreeStyle Lancets] 28 gauge misc See Rx Instructions .ROUTE .MEDSUPPLY Qty: 100 5RF Rx Instructions: Use to test blood sugar as needed. simvastatin 40 mg tablet 40 mg PO DAILY Qty: 90 3RF ondansetron HCl 4 mg tablet 4 mg PO Q8H PRN (Reason: nausea and vomiting) Qty: 90 1RF Primary Care Provider: Carmina Zaidi Referrals: Carmina Zaidi MD [Primary Care Provider] - Activity Restrictions/Additional Instructions: Change positions slowly. Use walker at home. Follow-up with Dr. Zaidi in 1 week. Return to ED for worsening symptoms or concerns. Disposition Disposition: Home, Self Care
--- OUTSIDE RECORDS SUMMARY | 2023-05-03 18:08 | XMS RPT_ITS | CCD ---
Author Name Unknown Address [address] [place] [address] Organization [facility] Care Team Providers Care Qualitative Field Project Manager Name Role Phone Tip Doll Primary Care Provider [phone] Royer Thacker Primary Care Provider [phone] Allergies Allergy Classification Reported Allergen(s) Allergy Type Date of Onset Reaction(s) Facility (14 sources) Erythromycin Drug Allergy 10-10-2014 [place], [place] (14 sources) levoFLOXacin Drug Allergy 10-29-2017 [place], [place] (14 sources) Amoxicillin-Pot Clavulanate Propensity to adverse reactions to drug 12-03-2017 [place] (3 sources) Penicillins Propensity to adverse reactions to drug 10-21-2019 Rash [place] Medications Current Medications Medication Drug Class(es) [...] Respiratory failure; insufficiency; arrest (adult) (13 sources) [id number] respiratory failure; Translations: [Chronic hypoxemic respiratory failure] [...] 05-07-2019 12:55-0500 Pulse Oximetry 94 % [place] 05-07-2019 08:30-0500 Body Temperature 96.8 [degF] [place] 05-07-2019 08:30-0500 BP Diastolic 75 mm[Hg] [place] 05-07-2019 08:30-0500 BP Systolic 125 mm[Hg] [place] 05-07-2019 08:30-0500 Pulse (Heart Rate) 89 /min Johnie [place] 05-07-2019 08:30-0500 Respiratory Rate 16 /min [place] 05-05-2019 15:12-0500 Height 177.8 cm [place] 05-05-2019 11:56-0500 BMI (Body Mass Index) 29.56 kg/m2 Johnie [place] 05-05-2019 11:56-0500 Body weight 93.44 kg Johnie [facility] , [place] 12-14-2018 10:20-0400 Pulse Oximetry 94 % Kirby Medrano [facility] , [place] 12-14-2018 10:20-0400 Respiratory Rate 16 /min Kirby Velez [facility], [place] 12-14-2018 09:47-0400 BP Diastolic 83 mm[Hg] Kirby Velez [facility] , [place] 12-14-2018 09:47-0400 BP Systolic 111 mm[Hg] Kirby Velez [place], [place] 12-14-2018 09:47-0400 Pulse (Heart Rate) 76 /min Kirby Velez [place] 12-14-2018 09:31-0400 Body Temperature 97.59 [degF] Kirby Velez [facility], [place] 12-14-2018 08:17-0400 BMI (Body Mass Index) 28.41 kg/m2 Kirby Velez [facility], [place] 12-14-2018 08:17-0400 Body weight 89.81 kg Kirby Velez [place] 12-14-2018 08:17-0400 Height 177.8 cm Kirby Velez [place] Encounters Encounter Date Encounter Type Care Provider Facility Start: 05-31-2021 End: 05-31-2021 Subsequent hospital visit by physician Sam Hanks MD Work Phone: [facility] Start: 11-15-2019 End: 11-15-2019 Subsequent hospital visit by physician Harmony Mcclain [facility] Phone[facility] Start: 10-21-2019 End: 10-21-2019 Subsequent hospital visit by physician Harmony Mcclain Work Phone: [facility] Start: 07-19-2019 End: 07-19-2019 Subsequent hospital visit by physician Sam Hanks Work Phone: [facility] Start: 06-28-2019 End: 06-28-2019 Subsequent hospital visit by physician Sam Hanks Work Phone: [facility] Start: 06-07-2019 End: 06-07-2019 Subsequent hospital visit by physician Batsheva Valdez Work Phone: [facility] Radiology Procedures Date Procedure Procedure Detail [...] 06-07-2019 Radiologic exam ches t 2 views [facility] Work Phone: Start: 05-19-2019 Radiologic exam ches t 2 views [facility] Work Phone: Start: 05-07-2019 Gluc bld gluc mntr d ev cleared fda spec home use Wili [employer] Work Phone: Start: 05-07-2019 HOME O2 EVAL (DESATU RATION SCREEN) [facility] Work Phone: Start: 05-07-2019 Gluc bld gluc mntr d ev cleared fda spec home use Johnie Mancuso Work Phone: Start: 05-07-2019 [facility]ct[facility] Work Phone: Start: 05-06-2019 Gluc bld gluc [...] step me thod nos each organism Tiffanie [employer] Work Phone: Start: 05-06-2019 STREP PNEUMONIAE ANTIGEN [...] 12-24-2018 Blood count complete auto&auto difrntl wbc aSm Hanks MD Work Phone: Start: 12-14-2018 Colonoscopy [...] Visit Family Medicine Tip Doll MD [address] [facility], [place] [address] [phone] [facility] Start: 01-03-2020 End: 01-03-2020 Office Visit 01/03/2020 Office Visit Pulmonology Batsheva Valdez MD [address] [place] [address] [phone] [facility] Start: 12-10-2019 DTaP/Tdap/Td vaccine (1 - Tdap) DTaP/Tdap/Td vaccine (1 - Tdap) [place] Immunizations Immunization Date Immunization Notes Care Provider Fa [facility] 12-01-2019 influenza virus vacc ine, unspecified formulation Sam Hanks MD Work Phone: [facility] 08-23-2019 [facility] [place] 04-05-2019 zoster vaccine recombinant Harmony [facility], [place] 11-27-2018 influenza, high dose seasonal, preservative-free Kirby Medrano [facility] 12-10-2017 influenza, high dose seasonal, preservative-free Kirby Medrano [facility], [place] 12-18-2016 influenza, high dose seasonal, preservative-free Kirby Medrano [facility] 04-17-2016 pneumococcal conjuga te vaccine, 13 valent Kirby CLAYTON 12-07-2015 influenza, high dose seasonal, preservative-free Kirby CLAYTON 12-07-2015 influenza, injectabl e, quadrivalent, contains preservative Kirby Medrano [facility], [place] 12-09-2014 influenza virus vacc ine, unspecified formulation Kirby Medrano [facility] 12-06-2013 influenza virus vacc ine, unspecified formulation Kirby Mitchell [facility] , [place] 12-06-2013 influenza, injectabl e, quadrivalent, contains preservative Kirby Medrano [facility], [place] 12-31-2012 pneumococcal polysaccharide vaccine, 23 valent Kirby Medrano [facility], [place] 12-17-2012 influenza virus vacc ine, unspecified formulation Kirby Mitchell [facility] , [place] 12-17-2012 influenza virus vacc ine, whole virus Counts include [address] beds at the [facility], [place] 12-06-2011 influenza virus vacc ine, unspecified formulation [facility] , [place] 12-06-2011 influenza virus vacc ine, whole virus Kirby Mitchell [facility], [place] 12-11-2010 influenza virus vacc ine, unspecified formulation Counts include 234 beds at the [facility] , [place] 12-11-2010 influenza virus vacc ine, whole virus Counts include 234 beds at the [facility], [place] 09-12-2010 zoster vaccine, live Kirby WHITE Work Phone: Payers Date Payer Category Payer Medicare AETNA MEDICARE A ETNA MEDICARE-ADVANTAGE PPO xxxxxxxx 2016-Present [address] [place] [address] Medicare [id number] 2016 Medicare AETNA MEDICARE A ETNA MEDICARE-ADVANTAGE PPO [id number] 2016-Present [address] [place] [address] Medicare [id number] Social History Date Type Detail Facility Start: 10-27-2014 End: 12-14-2018 Tobacco smoking status NHIS Former smoker [place] End: 03-03-2007 History of tobacco use Current [place] End: 03-03-2007 History of tobacco use Cigarette Smoker [place] Start: 12-14-2018 End: 01-03-2020 Cigarettes smoked current (pack per day) - Reported [place] Start: 12-14-2018 Alcohol intake No [place] Start: 06-09-2018 History SDOH Financial 4 [place] Start: 06-09-2018 History SDOH Food Worry 1 [place] Start: 06-09-2018 History SDOH Transpo rt Med 2 [place], [place] Start: 1940 Sex Assigned At Not on file M [place] Start: 05-27-2019 End: 01-03-2020 Alcohol intake Current non-drinker of alcohol (finding) [place] Exposure to SARS-CoV -2 (event) Unable to assess [place] Start: 10-27-2014 End: 10-21-2019 Tobacco use and exposure Never used [place] Medical Equipment Procedure Code Equipment Code Equipment Origin al Text Equipment Identifier Dates Test blood sugar b.i.d. [id number] Start: 05-25-2019 Test blood sugar twice a day [id number] Start: 05-25-2019 Test blood sugar b.i.d. [id number] Start: 10-20-2019 Test blood sugar twice a day [id number] Start: 10-20-2019 Summary Purpose Family History No Family History Records FoundNo Family History Records Found Advance Directives No Advanced Directives Records FoundDocuments on File Type Date Recorded Patient Active Directory Systems Administrator Expl anation Advance Directives and Living Will Power of Tool Inspector Latest Code Status on File Code Status [...] Documents on File Type Date Recorded Patient Active Directory Systems Administrator Expl anation ACP-Advance Directive ACP-Power of Tool Inspector Documents on File Type Date Recorded Patient Active Directory Systems Administrator Expl anation Advance Directives and Living Will Power of Tool Inspector Latest Code Status on File Code Status [...] Discharge Medications: Cody Casillas Home Medication Instructions CHRIS:[id number] Printed on:12/14/18 1055 Medication Information albuterol (PROVENTIL [...] mouth daily Recommended Follow-up: Tip Doll MD [address] [place] [address], [address] [place] [phone] In 1 week post hospital fu appt Kym Dillon MD [address] [place] [address] [address] [facility] [phone] As needed Readmission Risk Risk of Unplanned Readmission: 12 Complexity of Follow up: ? Moderate Complexity: follow up within 7-14 calendar days (28353) ? Severe Complexity: follow up within 7 calendar days (30468) Follow up Testing, Pending results or Referrals [...] frame. Signed: Jayden Aguilar DO [facility] 12/14/2018, [...] be sent through Care Everywhere. * Diverticulosis (Khmer) documented in this encounter History of Present Illness * Edis Hollingsworth RN - 12/14/2018 9:39 AM EDT POST ENDOSCOPY PROCEDURE TRANSFER REPORT Procedure completed: colonoscopy Findings:diverticulosis, hemmorroids Specimens obtained: no Medications administered: 200 mg propofol Additional Info: n/a For additional Questions please call Endoscopy at 0179. Thank You! * Jayden Aguilar DO - 12/13/2018 10:32 AM EDT Hospitalist Progress Note 12/13/2018 10:32 AM [phone]: Please page me ([phone]) for patient care issues. [phone]: Please page [facility] night Hospitalist for any issues. Subjective: [...] of Hospitalist Medicine Inpatient Medical Services PAGER: [phone] * Kym Dillon MD - 12/13/2018 9:19 [...] EDT Hospitalist Progress Note 12/12/2018 3:07 PM [phone]: Please page me ([phone]) for patient care issues. [phone]: Please page [facility] night Hospitalist for any [...] of Hospitalist Medicine Inpatient Medical Services PAGER: [phone] documented in this encounter* Ladarius Quezada, COFFEE MACHINE TECHNICIAN - 05/07/2019 12:57 PM EST Patient Evaluation [...] EST Hospitalist Progress Note 05/06/2019 2:39 PM [phone]: Please page hi @ [phone] for patient care issues. [phone]: Please page [facility] Hospitalist for any issues. Subjective: Admit Date: [...] Services This report was created using the uberlife Speaking voice- activated system. Despiteprompt dictation and [...] an 78 yo male who presented to [facility] with COPD exacerbation. Prior to hospitalization, [...] Assistance: Independent(Without AD) Transfer Assistance: Independent Active Labor Mediator: Yes Occupation: Retired Objective Vision: Within Functional [...] Study With Bronchodilator Batsheva Valdez MD [address] [place] [address] [facility] [address] [place] [address] Status Reason Specialty Diagnoses / Procedures Referre d By Contact Referred To Contact Closed Radiology Diagnoses Lung nodule Procedures CT Chest WO Contrast Alycia Esquivel S, APPLE PICKING SUPERVISOR - ASSOCIATE FINANCIAL PLANNER [address] [facility] [place] [address] Additional Source Comments (unrecognized sect ion and content) No Status Records FoundNo Status Records Found INFORMATION SOURCE (unrecogn ized section and content) DATE CREATED AUTHOR AUTHOR'S ORGANIZ ATION 06/10/2021 [facility] Reason for Visit (unrecogniz [...] BE BASED ON THE PRIMARY CLINICAL RECORDS. [employer] provides no warranty or guarantee of the accuracy or completeness of information in this document.
[2023-05-03] MEDS: dilTIAZem 25 MG/5 ML Vial 20 MG IV BOLUS (18:18)
[2023-05-03 18:20] VITALS: BP 112/63; PULSE 100; RESP 25; O2SAT 93
--- NOTE | 2023-05-03 18:30 | RAD_ITS ---
INDICATION: Cough EXAMINATION/TECHNIQUE: X-RAY - XR Chest 1 View COMPARISON: CT of 04/15/2023 FINDINGS: LIFE-SUPPORT AND LINES: 1. None HEART AND VESSELS: The cardiac silhouette, pulmonary vasculature have normal appearance. No evidence of congestive failure. LUNGS AND PLEURAL SPACES: Lungs are moderately hyperexpanded in the mid to upper lung zones, coarse interstitial markings are present at both lung bases corresponding to the recent CT findings of interstitial infiltrate. There does appear to be mild worsening of LEFT base. MEDIASTINUM AND HILAR REGIONS: No masses adenopathy noted. No areas of calcification. Visualized upper airway is normal in position. BONY ELEMENTS: No acute bony changes noted. RAD/Chest 1 View (Portable) IMPRESSION: 1. Bibasilar atelectasis and superimposed infiltrate. Moderate worsening of LEFT base. 2. No congestive failure Electronically Signed: Aung Ramos MD at 18:51 EST ,
[2023-05-03 18:51] LABS: Absolute Lymphocyte Count 0.33 X10^3/uL (0.83-4.51); Absolute Neutrophil Count 7.7 X10^3/uL (2.0-7.7); Basophil# 0.03 X10^3/uL; Basophil% 0.3 % (0-1); Eosinophil# 0.27 X10^3/uL; Hematocrit 36.1 % (40-54); Hemoglobin 10.7 g/dL (13.0-16.5); Lymphocyte # 0.33 X10^3/ul (0.83-4.51); Lymphocyte % 3.7 % (19-41); Mean Corp Hgb Conc 29.6 g/dL (32-36); Mean Corpuscular Hgb 23.6 pg (27.0-32.0); Mean Corpuscular Volume 79.5 fL (80-94); Mean Platelet Vol. 11.5 fl (6.2-12.0); Monocyte% 6.7 % (0-10); NRBC Flagged by Analyzer 0 % (0-5); Neutrophil # 7.73 X10^3/uL (2.7-7.7); Neutrophil % 85.9 % (47-70); POSITIVE DIFFERENTIAL YES; Platelet Count 287 K/mm3 (150-450); RBC Distribution Width CV 18.8 % (11.6-14.6); RBC Distribution Width SD 54.3 fl (35.1-43.9); Red Blood Count 4.54 M/mm3 (4.6-6.2)
[2023-05-03 19:06] LABS: ALB/GLOB Ratio 0.9 RATIO (0.9-2.4); AST(SGOT) 19 U/L (15-37); Alanine Aminotransfer ALT/SGPT 20 U/L (16-61); Alkaline Phosphatase 90 U/L (45-117); Anion Gap 5 (5-15); BUN 13 mg/dL (7-18); BUN/Creat Ratio 11.4 RATIO (10-20); Calcium,Total 8.6 mg/dL (8.5-10.1); Chloride 108 mmol/L (98-107); Creatinine, Serum 1.14 mg/dL (0.70-1.30); EST Glomerular Filtration Rate 65 mL/min (>60); Est Glom Filt Rate - Afr Amer 79 mL/min (>60); Estimated Creatinine Clearance 49.81 ml/min; Globulin 3.5 g/dL (2.2-4.2); Glucose 103 mg/dL (74-106); Potassium 4.2 mmol/L (3.5-5.1); Protein, Total 6.5 g/dL (6.4-8.2); Sodium Level 137 mmol/L (136-145)
[2023-05-03 19:10] LABS: BNP,B-Type NATRIURETIC PEPTIDE 507.2 pg/mL (0-100)
[2023-05-03 19:33] LABS: Color, Urine Yellow (Yellow); Glucose, Dipstick Normal (Normal); Ketone-Dipstick Negative (Negative); Leukocyte Esterase-Dipstick Negative /ul (Negative); Mucous, Urine 0 SEEN /hpf (<or=2+); Nitrite-Dipstick Negative (Negative); Occult Blood-Urine 10 /ul (Negative); Protein-Dipstick Negative (Negative); Red Blood Cells-Urine 0 SEEN /hpf (0-5); Specific Gravity, Urine 1.005 (1.002-1.030); Squamous Epithelial Cells - UA 0 SEEN /hpf (0-5); Urine Bilirubin Dipstick Negative (Negative); Urine Clarity Clear (Clear); Urine Urobilinogen Normal (Normal); White Blood Cells 0 SEEN /hpf (0-5)
[2023-05-03 19:45] LABS: Bacteria RARE /hpf (None Seen)
[2023-05-03 20:37] VITALS: PULSE 94; RESP 22; O2SAT 18
[2023-05-03 21:24] VITALS: BP 111/63; PULSE 86; PULSE 89; RESP 21; RESP 25; TEMP 36.6; O2SAT 96
== END 2023-05-03 22:15 | disposition home or self-care (01) ==
PROVIDERS: Emergency Provider Emergency Medicine; PCP Internal Medicine; Visit Provider Emergency Medicine
DX: R53.1 Weakness (principal); J44.9 Chronic obstructive pulmonary disease, unspecified; I48.0 Paroxysmal atrial fibrillation; E11.9 Type 2 diabetes mellitus without complications; K21.9 Gastro-esophageal reflux disease without esophagitis; R06.02 Shortness of breath; Z79.51 Long term (current) use of inhaled steroids; Z79.84 Long term (current) use of oral hypoglycemic drugs; Z79.899 Other long term (current) drug therapy; Z87.891 Personal history of nicotine dependence; Z99.81 Dependence on supplemental oxygen
CPT/HCPCS: 71045; 80053; 81001; 83880; 85025; 87631; 93005; 96374; 99285; A4216

== ENCOUNTER → 2023-05-12 | Outpatient (CLI) | payer MEDICARE, SELFPAY ==
[2023-05-12 17:03] LABS: Absolute Lymphocyte Count 1.22 X10^3/uL (0.83-4.51); Absolute Neutrophil Count 5.6 X10^3/uL (2.0-7.7); Basophil# 0.03 X10^3/uL; Basophil% 0.4 % (0-1); Eosinophil# 0.19 X10^3/uL; Eosinophils% 2.5 % (0-5); Hematocrit 37.4 % (40-54); Hemoglobin 10.5 g/dL (13.0-16.5); Lymphocyte # 1.22 X10^3/ul (0.83-4.51); Lymphocyte % 16.1 % (19-41); Mean Corp Hgb Conc 28.1 g/dL (32-36); Mean Corpuscular Hgb 22.6 pg (27.0-32.0); Mean Corpuscular Volume 80.6 fL (80-94); Mean Platelet Vol. 11.4 fl (6.2-12.0); Monocyte# 0.55 X10^3/uL; Monocyte% 7.2 % (0-10); NRBC Flagged by Analyzer 0 % (0-5); Neutrophil # 5.58 X10^3/uL (2.7-7.7); Neutrophil % 73.4 % (47-70); POSITIVE MORPHOLOGY YES; Platelet Count 402 K/mm3 (150-450); RBC Distribution Width CV 17.8 % (11.6-14.6); RBC Distribution Width SD 52.1 fl (35.1-43.9); RET-HE 24.3 pg (30-35); Red Blood Count 4.64 M/mm3 (4.6-6.2); Reticulocyte Count 0.34 % (0.5-1.5); White Blood Count 7.6 K/mm3 (4.4-11.0)
[2023-05-12 17:05] LABS: Differential Indicated SCAN CRITERIA MET
[2023-05-12 17:29] LABS: Anisocytosis RARE; Hypochromasia RARE; Microcytosis RARE; Platelet Estimate SLT INC (ADEQ); Red Cell Morphology N CHROM NORMAL (NORM C&C)
[2023-05-12 17:41] LABS: Ferritin 35 ng/mL (26-388); Iron 25 ug/dL (65-175); Iron Binding Capacity,Total 371 ug/dL (250-450); LDH 189 U/L (87-241)
--- OUTSIDE RECORDS SUMMARY | 2023-05-12 21:03 | XMS RPT_ITS | CCD ---
Author Name Unknown Address [address] [place] [address] Organization [facility] Care Team Providers Care Premium Card Cancellation Clerk Name Role Phone Tip Doll Primary Care Provider Royer Thacker Primary Care Provider [phone] Allergies Allergy Classification Reported Allergen(s) Allergy Type Date of Onset Reaction(s) Facility (14 sources) Erythromycin Drug Allergy 10-10-2014 [place], [place] (14 sources) levoFLOXacin Drug Allergy 10-29-2017 [place] (14 sources) Amoxicillin-Pot Clavulanate Propensity to adverse reactions to drug 12-03-2017 [place] (3 sources) Penicillins Propensity to adverse reactions to drug 10-21-2019 Rash [place] Medications Current Medications Medication Drug Class(es) [...] Respiratory failure; insufficiency; arrest (adult) (13 sources) Cpwma-ac-[id number] respiratory failure; Translations: [Chronic hypoxemic respiratory failure] [...] 05-07-2019 12:55-0500 Pulse Oximetry 94 % [place] 05-07-2019 08:30-0500 Body Temperature 96.8 [degF] [place] 05-07-2019 08:30-0500 BP Diastolic 75 mm[Hg] [place] 05-07-2019 08:30-0500 BP Systolic 125 mm[Hg] [place] 05-07-2019 08:30-0500 Pulse (Heart Rate) 89 /min John[place] 05-07-2019 08:30-0500 Respiratory Rate 16 /min John[place] 05-05-2019 15:12-0500 Height 177.8 cm [place] 05-05-2019 11:56-0500 BMI (Body Mass Index) 29.56 kg/m2 John[place] 05-05-2019 11:56-0500 Body weight 93.44 kg Johnie [facility] , [place] 12-14-2018 10:20-0400 Pulse Oximetry 94 % Kirby Medrano [facility] , [place] 12-14-2018 10:20-0400 Respiratory Rate 16 /min Kirby Velez [facility], [place] 12-14-2018 09:47-0400 BP Diastolic 83 mm[Hg] Kirby Velez [facility] , [place] 12-14-2018 09:47-0400 BP Systolic 111 mm[Hg] Kirby Velez [place], [place] 12-14-2018 09:47-0400 Pulse (Heart Rate) 76 /min Kirby Velez [place] 12-14-2018 09:31-0400 Body Temperature 97.59 [degF] Kriby Velez [facility], [place] 12-14-2018 08:17-0400 BMI (Body Mass Index) 28.41 kg/m2 Kirby Velez [facility], [place] 12-14-2018 08:17-0400 Body weight 89.81 kg Kirby Velez [place], [place] 12-14-2018 08:17-0400 Height 177.8 cm Kirby Velez [place] Encounters Encounter Date Encounter Type Care Provider Facility Start: 05-31-2021 End: 05-31-2021 Subsequent hospital visit by physician Sam Hanks MD Work Phone: [facility] Start: 11-15-2019 End: 11-15-2019 Subsequent hospital visit by physician Harmony Mcclain [facility] Start: 10-21-2019 End: 10-21-2019 Subsequent hospital visit by physician Harmony Mcclain [facility] Start: 07-19-2019 End: 07-19-2019 Subsequent hospital visit by physician Sam Hanks Work Phone: [facility] Start: 06-28-2019 End: 06-28-2019 Subsequent hospital visit by physician Sam Hanks Work Phone: [facility] Start: 06-07-2019 End: 06-07-2019 Subsequent hospital visit by physician Batsheva Valdez Work Phone: [facility] Radiology Procedures Date Procedure Procedure Detail [...] 06-07-2019 Radiologic exam ches t 2 views [employer] Work Phone: Start: 05-19-2019 Radiologic exam ches t 2 views [employer] Work Phone: Start: 05-07-2019 Gluc bld gluc mntr d ev cleared fda spec home use [employer] Work Phone: Start: 05-07-2019 HOME O2 EVAL (DESATU RATION SCREEN) [facility] [employer] Work Phone: Start: 05-07-2019 Gluc bld gluc mntr d ev cleared fda spec home use Johnie Mancuso Work Phone: Start: 05-07-2019 [facility] Work [facility]: Start: 05-06-2019 Gluc bld gluc [...] Visit Family Medicine Tip Doll MD [address] [facility] [address], [place] [address] [phone] [facility] Start: 01-03-2020 End: 01-03-2020 Office Visit 01/03/2020 Office Visit Pulmonology Batsheva Valdez MD [address] [place] [address] [phone] [facility] Start: 12-10-2019 DTaP/Tdap/Td vaccine (1 - Tdap) DTaP/Tdap/Td vaccine (1 - Tdap) [place] Immunizations Immunization Date Immunization Notes Care Provider Fa [facility] 12-01-2019 influenza virus vacc ine, unspecified formulation Sam Hanks MD Work Phone: [facility] 08-23-2019 zoster vaccine [facility] [place] 04-05-2019 zoster vaccine recombinant Harmony [facility], [place] 11-27-2018 influenza, high dose seasonal, preservative-free Kirby Medrano [facility] 12-10-2017 influenza, high dose seasonal, preservative-free Kirby Medrano [facility], [place] 12-18-2016 influenza, high dose seasonal, preservative-free Kirby Medrano [facility] 04-17-2016 pneumococcal conjuga te vaccine, 13 valent Kirby CLAYTON 12-07-2015 influenza, high dose seasonal, preservative-free Kirby CLAYTON 12-07-2015 influenza, injectabl e, quadrivalent, contains preservative Kirby Medrano [facility], [place] 12-09-2014 influenza virus vacc ine, unspecified formulation Kirby Medrano [facility] 12-06-2013 influenza virus vacc ine, unspecified formulation Kirby Mitchell [facility] , [place] 12-06-2013 influenza, injectabl e, quadrivalent, contains preservative Kirby Medrano [facility], [place] 12-31-2012 pneumococcal polysaccharide vaccine, 23 valent Kirby Medrano [facility], [place] 12-17-2012 influenza virus vacc ine, unspecified formulation Kirby Mitchell [facility] [place] 12-17-2012 influenza virus vacc ine, whole virus [facility], [place] 12-06-2011 influenza virus vacc ine, unspecified formulation [facility] , [place] 12-06-2011 influenza virus vacc ine, whole virus Kirby Mitchell [facility], [place] 12-11-2010 influenza virus vacc ine, unspecified formulation [facility] , [place] 12-11-2010 influenza virus vacc ine, whole virus [facility], [place] 09-12-2010 zoster vaccine, live Kirby WHITE Work Phone: Payers Date Payer Category Payer Medicare AETNA MEDICARE A ETNA MEDICARE-ADVANTAGE PPO xxxxxxxx 2016-Present [address] [place] [address] Medicare [id number] 2016 Medicare AETNA MEDICARE A ETNA MEDICARE-ADVANTAGE PPO [id number] 2016-Present [address] [place] [address] Medicare [id number] Social History Date Type Detail Facility Start: 10-27-2014 End: 12-14-2018 Tobacco smoking status NHIS Former sm[place] End: 03-03-2007 History of tobacco use Current [place] End: 03-03-2007 History of tobacco use Cigarette Sm[place] Start: 12-14-2018 End: 01-03-2020 Cigarettes smoked current (pack per day) - Reported [place] Start: 12-14-2018 Alcohol intake No [place] Start: 06-09-2018 History SDOH Financial 4 [place] Start: 06-09-2018 History SDOH Food Worry 1 [place] Start: 06-09-2018 History SDOH Transpo rt Med 2 [place], [place] Start: 1940 Sex Assigned At Not on file M [place] Start: 05-27-2019 End: 01-03-2020 Alcohol intake Current non-drinker of alcohol (finding) [place] Exposure to SARS-CoV -2 (event) Unable to assess [place] Start: 10-27-2014 End: 10-21-2019 Tobacco use and exposure Never used [place] Medical Equipment Procedure Code Equipment Code Equipment Origin al Text Equipment Identifier Dates Test blood sugar b.i.d. [id number] Start: 05-25-2019 Test blood sugar twice a day [id number] Start: 05-25-2019 Test blood sugar b.i.d. [id number] Start: 10-20-2019 Test blood sugar twice a day [id number] Start: 10-20-2019 Summary Purpose Family History No Family History Records FoundNo Family History Records Found Advance Directives No Advanced Directives Records FoundDocuments on File Type Date Recorded Patient Sheep Boner Expl anation Advance Directives and Living Will Power of Screening Specialist Latest Code Status on File Code Status [...] Documents on File Type Date Recorded Patient Sheep Boner Expl anation ACP-Advance Directive ACP-Power of Screening Specialist Documents on File Type Date Recorded Patient Sheep Boner Expl anation Advance Directives and Living Will Power of Screening Specialist Latest Code Status on File Code Status [...] Discharge Medications: Cody Casillas Home Medication Instructions CHRIS:[id number] Printed on:12/14/18 105 Medication Information albuterol (PROVENTIL HFA;VENTOLIN HFA) 108 [...] daily Recommended Follow-up: Tip Doll MD [address] [place] [address], [address] [place] [id number] In 1 week post hospital fu appt Kym Dillon MD [address] [place] [address] [address] [facility] [phone] As needed Readmission Risk Risk of Unplanned Readmission: 12 Complexity of Follow up: ? Moderate Complexity: follow up within 7-14 calendar days (70948) ? Severe Complexity: follow up within 7 calendar days (30656) Follow up Testing, Pending results or Referrals [...] frame. Signed: Jayden Aguilar DO [facility] 12/14/2018, 10:51 AM documented in this encounter Discharge Instructions * Discharge Instr - Activity* Jayden Agiular DO - 12/14/2018 10:51 AM EDT As [...] be sent through Care Everywhere. * Diverticulosis (Tajik) documented in this encounter History of Present Illness * Edis Hollingsworth RN - 12/14/2018 9:39 AM EDT POST ENDOSCOPY PROCEDURE TRANSFER REPORT Procedure completed: colonoscopy Findings:diverticulosis, hemmorroids Specimens obtained: no Medications administered: 200 mg propofol Additional Info: n/a For additional Questions please call Endoscopy at [phone]. Thank You! * Jayden Aguilar DO - 12/13/2018 10:32 AM EDT Hospitalist Progress Note 12/13/2018 10:32 AM [phone]: Please page me ([phone]) for patient care issues. [phone]: Please page [facility] night Hospitalist for any issues. Subjective: Admit [...] of Hospitalist Medicine Inpatient Medical Services PAGER: [phone] * Kym Dillon MD - 12/13/2018 9:19 [...] EDT Hospitalist Progress Note 12/12/2018 3:07 PM [phone]: Please page me ([phone]) for patient care issues. [phone]: Please page [facility] night Hospitalist for any [...] of Hospitalist Medicine Inpatient Medical Services PAGER: [phone] documented in this encounter* Ladarius Quezada, LICENSED CHEMICAL SPRAY TECHNICIAN - 05/07/2019 12:57 PM EST Patient [...] EST Hospitalist Progress Note 05/06/2019 2:39 PM [phone]: Please page ri @ [phone] for patient care issues. [phone]: Please page [facility] Hospitalist for any issues. Subjective: Admit [...] Services This report was created using the [employer] Speaking voice- activated system. [employer] dictation and [...] an 78 yo male who presented to [facility] with COPD exacerbation. Prior to hospitalization, [...] Assistance: Independent(Without AD) Transfer Assistance: Independent Active Hearing Instrument Specialist: Yes Occupation: Retired Objective Vision: Within Functional [...] Study With Bronchodilator Batsheva Valdez MD [address] [place] [address] [facility] [address] [place] [address] Status Reason Specialty Diagnoses / Procedures Referre d By Contact Referred To Contact Closed Radiology Diagnoses Lung nodule Procedures CT Chest WO Contrast Alycia Esquivel S, MANAGER CALL CENTER - FLIGHT DATA TECHNICIAN [address] [facility] [place] [address] Additional Source Comments (unrecognized sect ion and content) No Status Records FoundNo Status Records Found INFORMATION SOURCE (unrecogn ized section and content) DATE CREATED AUTHOR AUTHOR'S ORGANIZ ATION 06/10/2021 [facility] Reason for Visit (unrecogniz ed [...] BE BASED ON THE PRIMARY CLINICAL RECORDS. [employer] provides no warranty or guarantee of the accuracy or completeness of information in this document.
[2023-05-14 16:10] LABS: Albumin 3.3 g/dL (2.9-4.4); Alpha-1-Globulins 0.3 g/dL (0.0-0.4); Alpha-2-Globulins 0.8 g/dL (0.4-1.0); Endomysial Antibody IgA Negative (Negative); Gamma Globulin 1.3 g/dL (0.4-1.8); Haptoglobin 170 mg/dL (38-329); IMMUNOFIXATION RESULT,S Comment: (.); Immunoglobulin A 489 mg/dL (61-437); Immunoglobulin G 1233 mg/dL (603-1613); Immunoglobulin M 248 mg/dL (15-143); PROEL- TOTAL PROTEIN 6.8 g/dL (6.0-8.5); t-Transglutaminase IgA <2 U/mL (0-3)
== END | disposition home or self-care (01) ==
LOC: LAB 16:03
PROVIDERS: PCP Internal Medicine; Referring Provider Internal Medicine Gastroenterology; Visit Provider Internal Medicine Gastroenterology
DX: K25.4 Chronic or unspecified gastric ulcer with hemorrhage (principal); R79.89 Other specified abnormal findings of blood chemistry
CPT/HCPCS: 36415; 82728; 82784; 83010; 83516; 83540; 83550; 83615; 84165; 85025; 85045; 86255; 86334

== ENCOUNTER → 2023-06-25 | Outpatient (CLI) | payer MEDICARE, SELFPAY ==
[2023-06-25 14:28] LABS: Absolute Lymphocyte Count 1.09 X10^3/uL (0.83-4.51); Absolute Neutrophil Count 6.1 X10^3/uL (2.0-7.7); Basophil# 0.04 X10^3/uL; Basophil% 0.5 % (0-1); Eosinophil# 0.12 X10^3/uL; Eosinophils% 1.5 % (0-5); Hematocrit 42.3 % (40-54); Hemoglobin 12.3 g/dL (13.0-16.5); Lymphocyte # 1.09 X10^3/ul (0.83-4.51); Lymphocyte % 13.8 % (19-41); Mean Corp Hgb Conc 29.1 g/dL (32-36); Mean Corpuscular Hgb 24.3 pg (27.0-32.0); Mean Corpuscular Volume 83.6 fL (80-94); Mean Platelet Vol. 11.3 fl (6.2-12.0); Monocyte# 0.56 X10^3/uL; Monocyte% 7.1 % (0-10); NRBC Flagged by Analyzer 0 % (0-5); Neutrophil # 6.05 X10^3/uL (2.7-7.7); Neutrophil % 76.8 % (47-70); Platelet Count 278 K/mm3 (150-450); RBC Distribution Width CV 19.3 % (11.6-14.6); RBC Distribution Width SD 57.8 fl (35.1-43.9); Red Blood Count 5.06 M/mm3 (4.6-6.2); White Blood Count 7.9 K/mm3 (4.4-11.0)
[2023-06-25 15:18] LABS: ALB/GLOB Ratio 0.9 RATIO (0.9-2.4); AST(SGOT) 17 U/L (15-37); Alanine Aminotransfer ALT/SGPT 20 U/L (16-61); Albumin, Serum 3.6 g/dL (3.2-5.0); Alkaline Phosphatase 80 U/L (45-117); Anion Gap 4 (5-15); BUN 10 mg/dL (7-18); BUN/Creat Ratio 9.9 RATIO (10-20); Chloride 109 mmol/L (98-107); Creatinine, Serum 1.01 mg/dL (0.70-1.30); EST Glomerular Filtration Rate 75 mL/min (>60); Est Glom Filt Rate - Afr Amer 90 mL/min (>60); Globulin 3.9 g/dL (2.2-4.2); Glucose 108 mg/dL (74-106); Iron 29 ug/dL (65-175); Iron Binding Capacity,Total 400 ug/dL (250-450); PERCENT IRON SATURATION 7.2 % (15.0-55.0); Potassium 4.4 mmol/L (3.5-5.1); Protein, Total 7.5 g/dL (6.4-8.2); Sodium Level 143 mmol/L (136-145)
== END | disposition home or self-care (01) ==
LOC: LAB 13:54
PROVIDERS: PCP Internal Medicine; Referring Provider Internal Medicine; Visit Provider Internal Medicine
DX: K92.2 Gastrointestinal hemorrhage, unspecified (principal); D64.9 Anemia, unspecified
CPT/HCPCS: 36415; 80053; 83540; 83550; 85025

== ENCOUNTER → 2023-09-17 | Outpatient (CLI) | payer MEDICARE, SELFPAY ==
[2023-09-17 13:24] LABS: Absolute Lymphocyte Count 0.87 X10^3/uL (0.83-4.51); Absolute Neutrophil Count 6.4 X10^3/uL (2.0-7.7); Basophil# 0.05 X10^3/uL; Basophil% 0.6 % (0-1); Eosinophil# 0.25 X10^3/uL; Hematocrit 42.1 % (40-54); Hemoglobin 13.1 g/dL (13.0-16.5); Lymphocyte # 0.87 X10^3/ul (0.83-4.51); Lymphocyte % 10.6 % (19-41); Mean Corp Hgb Conc 31.1 g/dL (32-36); Mean Corpuscular Hgb 26.8 pg (27.0-32.0); Mean Corpuscular Volume 86.3 fL (80-94); Mean Platelet Vol. 11.8 fl (6.2-12.0); Monocyte% 7.3 % (0-10); NRBC Flagged by Analyzer 0 % (0-5); Neutrophil # 6.42 X10^3/uL (2.7-7.7); Neutrophil % 78.1 % (47-70); Platelet Count 262 K/mm3 (150-450); RBC Distribution Width CV 14.8 % (11.6-14.6); RBC Distribution Width SD 46.9 fl (35.1-43.9); Red Blood Count 4.88 M/mm3 (4.6-6.2); White Blood Count 8.2 K/mm3 (4.4-11.0)
[2023-09-17 13:59] LABS: AST(SGOT) 12 U/L (15-37); Alanine Aminotransfer ALT/SGPT 16 U/L (16-61); Albumin, Serum 3.5 g/dL (3.2-5.0); Alkaline Phosphatase 83 U/L (45-117); Anion Gap 7 (5-15); BUN 16 mg/dL (7-18); BUN/Creat Ratio 16.4 RATIO (10-20); Chloride 106 mmol/L (98-107); Creatinine, Serum 0.97 mg/dL (0.70-1.30); EST Glomerular Filtration Rate 78 mL/min (>60); Est Glom Filt Rate - Afr Amer 94 mL/min (>60); Globulin 3.6 g/dL (2.2-4.2); Glucose 98 mg/dL (74-106); PSA,Total - Annual Screen 4.29 ng/mL (0.00-4.00); Potassium 4.1 mmol/L (3.5-5.1); Protein, Total 7.1 g/dL (6.4-8.2); Sodium Level 141 mmol/L (136-145); Vitamin D,25 Hydroxy 74.1 ng/mL
== END | disposition home or self-care (01) ==
LOC: LAB 12:13
PROVIDERS: PCP Internal Medicine; Referring Provider Internal Medicine; Visit Provider Internal Medicine
DX: K25.4 Chronic or unspecified gastric ulcer with hemorrhage (principal); J96.11 Chronic respiratory failure with hypoxia; J44.9 Chronic obstructive pulmonary disease, unspecified; J43.9 Emphysema, unspecified; D64.9 Anemia, unspecified; Z99.81 Dependence on supplemental oxygen; Z12.5 Encounter for screening for malignant neoplasm of prostate; E55.9 Vitamin D deficiency, unspecified
CPT/HCPCS: 36415; 80053; 82306; 84153; 85025; G0103

== ENCOUNTER → 2023-12-02 | Outpatient (CLI) | payer MEDICARE, SELFPAY ==
[2023-12-02 11:21] LABS: Cholesterol 113 mg/dL (200); High Density Lipoprotein 59 mg/dL; Triglycerides 61 mg/dL; Very Low Density Lipoprotein 12 mg/dL (5-40)
== END | disposition home or self-care (01) ==
LOC: LAB 09:56
PROVIDERS: PCP Internal Medicine; Referring Provider Internal Medicine Cardiovascular Disease; Visit Provider Internal Medicine Cardiovascular Disease
DX: I25.10 Atherosclerotic heart disease of native coronary artery without angina pectoris (principal)
CPT/HCPCS: 36415; 80061

== ENCOUNTER 2024-02-27 21:14 | Inpatient (IN) | payer MEDICARE, SELFPAY ==
[2024-02-27] VITALS (11 sets, daily range): BP systolic 89–213; BP diastolic 49–167; PULSE 115–184; RESP 18–30; TEMP 36.9–39.2; O2SAT 91–99; BMI 23.6
--- NOTE | 2024-02-27 21:30 | EDS_ITS ---
HPI History of Present Illness Chief Complaint: Shortness of Breath [facility] Medical History Skin lesion of back Diabetes mellitus Wears dentures Low iron History of ulceration History of diverticulitis On home oxygen therapy Former smoker Asthma Shortness of breath on exertion History of echocardiogram History of stress test Cardiology follow-up encounter Paroxysmal atrial fibrillation with RVR Anemia requiring transfusions Lung mass Lung mass Paroxysmal atrial fibrillation Bruit of left carotid artery Type 2 diabetes mellitus Stage 3 severe COPD by GOLD classification Dupuytrens contracture Diverticulitis H/O: pneumonia History of pulmonary aspiration H/O inguinal hernia Type 2 diabetes mellitus without complications GERD (gastroesophageal reflux disease) Neuropathy COPD (chronic obstructive pulmonary disease) Arthritis Anemia Home Medications ?Medication ?Instructions ?Recorded ?Last Taken ?Type ferrous sulfate 325 mg (65 mg 325 mg PO DAILY supplement 12/29/19 Unknown History iron) tablet Handicap placard #1 ea 10/24/22 Unknown Rx blood sugar diagnostic (Blood #100 ea 11/28/22 Unknown Rx Glucose Test strips) lancets 28 gauge (FreeStyle #100 ea 11/28/22 Unknown Rx Lancets) tamsulosin 0.4 mg capsule 0.4 mg PO QHS prostate #90 caps 05/13/23 Unknown Rx albuterol sulfate 2.5 mg/3 mL 2.5 mg (3 mL) inhalation Q4H PRN 08/01/23 Unknown Rx (0.083 %) solution for nebulization shortness of breath or wheezing #180 mL albuterol sulfate 90 mcg/actuation 2 puff inhalation Q6H PRN 08/01/23 Unknown Rx aerosol inhaler shortness of breath or wheezing #3 device miscellaneous medical supply 09/19/23 Unknown History metformin 500 mg tablet See Rx Instructions .Route 09/24/23 Unknown Rx .COMPLEX diabetes #180 tabs pantoprazole 40 mg tablet,delayed 40 mg PO BID reflux #180 tabs 09/24/23 Unknown Rx release cetirizine 10 mg capsule (Zyrtec) 10 mg PO QDAY PRN allergies 11/25/23 Unknown History gabapentin 100 mg capsule 100 mg PO TID nerve pain #270 caps 12/19/23 Unknown Rx metoprolol tartrate 25 mg tablet 12.5 mg (1/2 x 25 mg) PO BID blood 12/19/23 Unknown Rx pressure #90 tabs fluticasone propionate 50 2 spray intranasal DAILY #16 grams 01/27/24 Unknown Rx mcg/actuation nasal spray,suspension simvastatin 40 mg tablet 40 mg PO DAILY cholesterol #90 tabs 02/04/24 Unknown Rx fluticasone fur. 200 mcg-umeclid 1 inh inhalation DAILY PRN 02/28/24 Unknown History 62.5 mcg-vilant 25 mcg breathing inhalat.powder (Trelegy Ellipta) Allergy/AdvReac Type Severity Reaction Status Date / Time Penicillins Allergy Severe Hives Verified 02/18/24 09:28 erythromycin base AdvReac Severe Nausea/Vom/ Verified 02/18/24 09:28 Diarrhea Family History Father Cancer Brother Parkinsons disease Mother Diverticulitis Surgical History History of hand surgery History of hernia repair History of carpal tunnel release Social History household members: spouse Smoking Status: Former smoker Tobacco: How many years used: 40 Electronic Cigarette Use: not used how long ago did patient quit smokin second hand exposure: Yes alcohol intake: never substance use type: does not use caffeine: Yes Type: coffee Number of servings: 1 what type of physical activity do you participate in: none EXAM Physical Exam Const Vital Signs: 02/27/24 21:15 02/27/24 21:19 02/27/24 21:20 Temperature 98.5 F 98.5 F Temperature Source Oral Oral Pulse Rate 137 H 149 H Respiratory Rate 22 H 23 H Respiratory Effort Short of Breath Respiratory Depth Shallow Respiratory Pattern Tachypnea Blood Pressure 158/96 H 213/167 H Blood Pressure Mean 116 182 Pulse Ox 98 99 Oxygen Delivery Method Nasal Cannula Nasal Cannula Nasal Cannula Oxygen Flow Rate (L/min) 3 3 02/27/24 21:47 02/27/24 21:48 02/27/24 22:14 Temperature Temperature Source Pulse Rate 158 H Respiratory Rate 26 H Respiratory Effort Mechanically Ventilated Respiratory Depth Normal Respiratory Pattern Tachypnea Blood Pressure 164/141 H Blood Pressure Mean 148 Pulse Ox 99 99 92 Oxygen Delivery Method Mechanical Ventilator Mechanical Ventilator Mechanical Ventilator Oxygen Flow Rate (L/min) 02/27/24 22:19 02/27/24 22:41 02/27/24 23:00 Temperature 102.6 F H Temperature Source Axillary Pulse Rate 115 H 158 H 117 H Respiratory Rate 21 H 30 H 22 H Respiratory Effort Respiratory Depth Respiratory Pattern Tachypnea Blood Pressure 89/49 L 89/49 L Blood Pressure Mean 62 62 Pulse Ox 97 97 Oxygen Delivery Method Mechanical Ventilator Mechanical Ventilator Oxygen Flow Rate (L/min) 02/28/24 00:00 02/28/24 00:09 Temperature 102.6 F H Temperature Source Pulse Rate 94 102 H Respiratory Rate 19 H 19 H Respiratory Effort Respiratory Depth Respiratory Pattern Blood Pressure 79/44 L 79/44 L Blood Pressure Mean 55 55 Pulse Ox 96 95 Oxygen Delivery Method Mechanical Ventilator Oxygen Flow Rate (L/min) Sepsis Attestation Sepsis Alert: Yes Sepsis Attestation: Agree w/Sepsis Date exam was performed: 02/27/24 Time exam was performed: 21:00 Possible Source of Sepsis: Pulmonary Sepsis Organ Dysfunction Criteria Present: Acute Respiratory Failure (New need for BiPAP/CPAP or MV) Fluid Resuscitation Fluid resuscitation indicated?: Yes Fluid Resuscitation ordered: 30 ml/kg fluid bolus ordered Amount of fluid ordered: 2 Sepsis Note Date exam was performed: 02/28/24 Time exam was performed: 01:15 Sepsis Attestation: Sepsis re-evaluation was performed Response to fluids: Fluid responsive hypotension MDM MDM MDM Narrative Medical decision making narrative: HISTORY OF PRESENT ILLNESS: 83-year-old male here with progressive shortness of breath today. Denies chest pain. Denies any bleeding problems. Denies any PE risk factors. Per the patient's family he has been recently in the hospital looking after his sick . They state he has been really rundown. REVIEW OF SYSTEMS: Pertinent positives: Shortness of breath Pertinent negatives: Chest pain PHYSICAL EXAM: Nursing triage notes reviewed, Vital signs reviewed Constitutional: please see mdm HENT: MMM Eyes: Pupils equal round and reactive to light, Extraocular muscles intact Neck: No stridor, no JVD, full neck ROM Lungs: Clear to auscultation, No wheezing or rales. No increased work of breathing, no conversational dyspnea, no accessory muscle use, no nasal flaring. No respiratory distress noted Heart: Regular rate and rhythm, No murmurs, No rubs and No gallops, 2+ distal pulses (radial, femoral, posterior tibial) in all extremities Abdomen: Soft, there is no tenderness, rigidity, rebound or guarding, no obvious peritoneal signs, no palpable pulsatile abdominal masses, no auscultated abdominal bruit : No CVAT Extremities: No edema Neuro: No new focal neurological deficits, cranial nerves II through XII intact, 5/5 strength in all present extremities. Intact sensation to light touch in all present extremities, 2+ reflexes bilateral patella tendons. Skin: No rash or lesions noted MEDICAL DECISION MAKING: Chief Complaint: Shortness of breath External records reviewed: Reviewed prior echocardiogram from 2021 which showed ejection fraction 55% Factors affecting care: COPD on 3 L baseline, A-fib, GERD, Social determinants of health: none History obtained from others: EMS, family Consults: Internal medicine (Dr. Nevarez) MDM Narrative: The patient was initially tachycardic with a rate of 137, tachypneic respirate of 22, is afebrile, saturating 90% on baseline 3 L by nasal cannula. Patient was initially an extremis. He was agitated, perseverating about getting up out of bed. He did have increased work of breathing and bilateral coarse breath sounds with rales/wheezes noted bilaterally. Was concerned initially the patient was having a COPD exacerbation. Given I cannot reliably treat him with any breathing treatments or BiPAP to improve his respiratory status given his severe agitation I chose to be aggressive and control his airway initially. He was intubated without issue. Please see below procedure note. After intubation the patient continued to struggle with agitation requiring initially propofol then fentanyl. Patient's initial EKG showed A-fib with RVR. This was treated with 20 mg IV diltiazem. As a result of the diltiazem bolus patient became hypotensive requiring us to wean him off propofol give him IV fluids and start Versed. Patient's vital signs slowly improved with these interventions. I considered the following differential diagnosis: COPD exacerbation, pneumonia, COVID, ACS, arrhythmia, anemia, PE, COVID, RSV, flu ALL IMAGES (IF OBTAINED) HAVE BEEN PERSONALLY REVIEWED AND INTERPRETED BY MYSELF. EKG with A-fib with RVR, rate 126, occasional PVCs, QTc 451, no STEMI CBC with marked leukocytosis, no anemia or thrombocytopenia ABG with signs of a mixed respiratory metabolic acidosis BMP without significant electrolyte normalities, no evidence of metabolic acidosis or endorgan or perfusion Initial lactate elevated consistent with endorgan hypoperfusion High-sensitivity troponin is negative, no evidence of myocardial ischemia BNP slightly elevated Urinalysis shows no evidence of urinary inflammation suggestive of UTI CT scan of the chest abdomen pelvis was read and reviewed person myself shows evidence of bilateral pleural effusions and likely right lower lobe infiltrate. Radiologist notes there is a possible right lower lobe infiltrate. I suspect the patient's initial presentation, symptoms of shortness of breath and signs respiratory failure precipitated by pneumonia this is evidenced by elevated white blood cell count, elevated lactate. Also believe patient suffering from sepsis. He was given a 20 cc/kg bolus of ideal body weight. On reevaluation the patient's blood pressure improved to 112/53, heart rate was 84, patient's respiratory rate improved 18 on the ventilator, his temperature was 101. He was given broad-spectrum antibiotics. Given his need for ventilatory management, IV antibiotics await cultures she is admitted under medicine to the intensive care unit. Discussed the case with Dr. Nevarez. The patient and/or family, caregivers express understanding. The patient and/or family, caregivers agrees with the plan. Shared decision making: I will have a discussion with the patient and or visitors regarding risk/benefits of further testing or admission. They will be made aware of of the risk/benefits inherent in this decision they will be given the opportunity to voice understanding. Total critical care time today provided was at least 60 minutes. This excludes separately billable procedures. Critical care time (if documented) is secondary to the patient having high probability of clinically significant/life threatening deterioration in the patient's condition which required my urgent intervention. Impression: 1. Acute respiratory failure 2. Community-acquired pneumonia 3. Leukocytosis 4. Elevated lactate Dispo: Admit to ICU This note was generated with [employer] dictation software. It may contain incorrect words, spelling, and punctuation that were not noted in review of the chart prior to signing. History & Record Review Discussion w/independent historian: EMS personnel and Family Additional record(s) reviewed:: Prior inpatient record Lab Data Attestation: I reviewed the patient's lab results. Labs: Laboratory Results - last 24 hr 02/27/24 02/27/24 02/27/24 21:21 21:30 22:11 WBC 20.7 H RBC 4.79 Hgb 13.8 Hct 42.5 MCV 88.7 MCH 28.8 MCHC 32.5 RDW Std Deviation 46.2 H RDW Coeff of Demetrius 14.3 Plt Count 239 MPV 11.9 Immature Gran % (Auto) 0.900 Neut % (Auto) 89.0 H Lymph % (Auto) 4.3 L Piatt % (Auto) 5.1 Eos % (Auto) 0.5 Baso % (Auto) 0.2 Absolute Neuts (auto) 18.4 H Absolute Lymphs (auto) 0.88 Nucleated RBC % 0 Sodium 140 Potassium 3.8 Chloride 105 Carbon Dioxide 31.0 Anion Gap 4 L BUN 13 Creatinine 0.91 Estim Creat Clear Calc 61.28 Est GFR (MDRD) Af Amer 102 Est GFR (MDRD) Non-Af 84 BUN/Creatinine Ratio 14.3 Glucose 119 H Lactic Acid 2.4 H* Calcium 9.0 Total Creatine Kinase 78 Troponin I High Sens 11 B-Natriuretic Peptide 200.8 H Triglycerides 80 Urine Color Yellow Urine Clarity Clear Urine pH 7.0 Ur Specific [place] 1.010 Urine Protein 15 H Urine Glucose (UA) Normal Urine Ketones Negative Urine Occult Blood 50 H Urine Nitrite Negative Urine Bilirubin Negative Urine Urobilinogen Normal Ur Leukocyte Esterase Negative Urine RBC 5-10 SEEN Urine WBC 0 SEEN Ur Squamous Epith Cells 0 SEEN Urine Bacteria 0 SEEN Urine Mucus 0 SEEN ABG Data ABG results: ABG 02/27/24 22:29 Specimen Type ART Sample Site R Radial pH 7.25 L Bicarbonate Actual 21.7 L Total CO2 23 Base Excess -6 L O2 Saturation 99 O2 % 100.0 ABG pCO2 49.0 H ABG pO2 142 H Loy Test N/A Respiration Rate 18 O2 Delivery Device Adult Vent Vent Mode AC Tidal Volume 450.0 POC PEEP 8 Discharge Plan Triage Chief Complaint: Shortness of Breath ED Provider: Lexa Lovell Dx/Rx/DC Orders Prescriptions: No Action ferrous sulfate 325 mg (65 mg iron) tablet 325 mg PO DAILY (DME) Handicap placard See Rx Instructions .Route .MEDSUPPLY Qty: 1 0RF Rx Instructions: 5 year RX (DME) miscellaneous medical supply Misc See Rx Instructions .Route Rx Instructions: As directed Dx-severe COPD, O2 dependent fluticasone propionate 50 mcg/actuation spray,suspension 2 spray intranasal DAILY Qty: 16 3RF Zyrtec 10 mg capsule 10 mg PO QDAY PRN (Reason: allergies ) Trelegy Ellipta 200-62.5-25 mcg blister with device 1 inh inhalation DAILY PRN (Reason: breathing) (DME) Blood Glucose Test Strip See Rx Instructions .ROUTE .MEDSUPPLY Qty: 100 5RF Rx Instructions: Free Style Lite test strips - Use to check blood glucose 3-4 times a day and PRN (DME) lancets [FreeStyle Lancets] 28 gauge misc See Rx Instructions .ROUTE .MEDSUPPLY Qty: 100 5RF Rx Instructions: Use to test blood sugar as needed. tamsulosin 0.4 mg capsule 0.4 mg PO QHS Qty: 90 3RF albuterol sulfate 2.5 mg /3 mL (0.083 %) solution for nebulization 2.5 mg inhalation Q4H PRN (Reason: shortness of breath or wheezing) Qty: 180 12RF albuterol sulfate 90 mcg/actuation HFA aerosol inhaler 2 puff inhalation Q6H PRN (Reason: shortness of breath or wheezing) Qty: 3 1RF metformin 500 mg tablet See Rx Instructions .ROUTE .COMPLEX Qty: 180 3RF Dose Instruction: TAKE 1 TABLET TWICE A DAY Rx Instructions: TAKE 1 TABLET TWICE A DAY pantoprazole 40 mg tablet,delayed release (DR/EC) 40 mg PO BID Qty: 180 1RF gabapentin 100 mg capsule 100 mg PO TID Qty: 270 3RF metoprolol tartrate 25 mg tablet 12.5 mg PO BID Qty: 90 3RF simvastatin 40 mg tablet 40 mg PO DAILY Qty: 90 3RF Primary Care Provider: Carmina Zaidi Referrals: Carmina Zaidi MD [Primary Care Provider] - Print Language: Burmese
[2024-02-27] MEDS: 0.9% Normal Saline 1,000 ML IV.SOLN. 1000 ML OPERA.SITE (21:42)
[2024-02-27] MEDS: Ondansetron 4 MG/2 ML Vial IV (21:42)
[2024-02-27] MEDS: Etomidate 20 MG/10 ML Vial IV (21:44)
[2024-02-27] MEDS: Succinylcholine Chloride 200 MG/10 ML SYRINGE IV (21:44)
--- NOTE | 2024-02-27 21:48 | EKG12_ITS ---
Test Reason : SOB Blood Pressure : */* mmHG Vent. Rate : 126 BPM Atrial Rate : * BPM P-R Int : * ms QRS Dur : 66 ms QT Int : 312 ms P-R-T Axes : * -78 11 degrees QTcB Int : 451 ms Atrial fibrillation with rapid ventricular response with premature ventricular or aberrantly conducte d complexes Left axis deviation Abnormal ECG Confirmed by ANTHONY GARZA, FRANCISCO ([id number]), make up editor LAMINE APONTE ([id number]) on 03/01/2024 8:41:21 AM Referred By: IVAN Confirmed By: FRANCISCO CRUZ MD
[2024-02-27 21:57] LABS: Absolute Lymphocyte Count 0.88 X10^3/uL (0.83-4.51); Absolute Neutrophil Count 18.4 X10^3/uL (2.0-7.7); Basophil# 0.05 X10^3/uL; Basophil% 0.2 % (0-1); Eosinophil# 0.11 X10^3/uL; Eosinophils% 0.5 % (0-5); Hematocrit 42.5 % (40-54); Hemoglobin 13.8 g/dL (13.0-16.5); Lymphocyte # 0.88 X10^3/ul (0.83-4.51); Lymphocyte % 4.3 % (19-41); Mean Corp Hgb Conc 32.5 g/dL (32-36); Mean Corpuscular Hgb 28.8 pg (27.0-32.0); Mean Corpuscular Volume 88.7 fL (80-94); Mean Platelet Vol. 11.9 fl (6.2-12.0); Monocyte# 1.05 X10^3/uL; Monocyte% 5.1 % (0-10); NRBC Flagged by Analyzer 0 % (0-5); Neutrophil # 18.41 X10^3/uL (2.7-7.7); Platelet Count 239 K/mm3 (150-450); RBC Distribution Width CV 14.3 % (11.6-14.6); RBC Distribution Width SD 46.2 fl (35.1-43.9); Red Blood Count 4.79 M/mm3 (4.6-6.2); White Blood Count 20.7 K/mm3 (4.4-11.0)
[2024-02-27] MEDS: fentaNYL 100 MCG/2 ML Ampul IV ×2 (22:00→22:10)
[2024-02-27] MEDS: Propofol 10MG/Ml 1,000 MG/100 ML Bottle 4.5 MG CONT INF (22:00)
[2024-02-27 22:14] LABS: Anion Gap 4 (5-15); BUN 13 mg/dL (7-18); BUN/Creat Ratio 14.3 RATIO (10-20); Chloride 105 mmol/L (98-107); Creatinine, Serum 0.91 mg/dL (0.70-1.30); EST Glomerular Filtration Rate 84 mL/min (>60); Est Glom Filt Rate - Afr Amer 102 mL/min (>60); Estimated Creatinine Clearance 61.28 ml/min; Glucose 119 mg/dL (74-106); Potassium 3.8 mmol/L (3.5-5.1); Sodium Level 140 mmol/L (136-145); Troponin-I HS 11 pg/mL (3.0-78.0)
[2024-02-27 22:15] LABS: BNP,B-Type NATRIURETIC PEPTIDE 200.8 pg/mL (0-100)
[2024-02-27] MEDS: fentaNYL drip 100 ML 5 MCG CONT INF ×2 (22:18→22:40)
[2024-02-27] MEDS: MethylPREDNISolone 125 MG/2 ML Vial IV (22:26)
[2024-02-27 22:33] LABS: Base Excess -6 mmol/L (-2 to +2); Bicarbonate 21.7 mmol/L (22-26); Blood Gas Specimen Type ART; Mode AC; O2 Delivery Device Adult Vent; PEEP 8; PO2 142 mmHG (75-100); RR 18; SITE R Radial; SO2 99 % (95-99); Total Carbon Dioxide 23 mmol/L; pH 7.25 (7.35-7.45)
[2024-02-27] MEDS: Ipratropium/Albuterol Sulfate 3 ML AMPUL.NEB INHALATION (22:41)
--- NOTE | 2024-02-27 22:41 | CT_ITS ---
INDICATION: respiratory failure, abdominal pain EXAMINATION: CT Chest Abdomen And Pelvis W/ Contrast Injection TECHNIQUE: Helically acquired axial images were obtained of the chest, abdomen, and pelvis with sagittal and coronal reconstructed images. Three-D reconstructed images were reviewed. Individualized dose optimization techniques were used for this CT. IV contrast dosage and agent: 100 mL of Isovue-370. Oral contrast: None. COMPARISON: 04/26/2023 CT chest. FINDINGS: ---Chest: LUNGS, PLEURA AND LARGE AIRWAYS: Hyperinflation of the lungs and mild bullous changes consistent with COPD. Bibasilar atelectasis and small bilateral pleural effusions. Right perihilar infiltrate is difficult to exclude. No pneumothorax. Endotracheal tube terminates proximal to the jodee. THYROID: Unremarkable. HEART AND PERICARDIUM: Coronary artery calcifications are present. No pericardial effusion. MEDIASTINUM AND MANUELA: No mediastinal or hilar adenopathy. Esophagus is unremarkable. No hiatal hernia. VESSELS: No thoracic aortic aneurysm or dissection. No obvious central pulmonary embolism although this study was not performed with pulmonary embolism protocol. Enlarged pulmonary arteries. BONES: No acute abnormality. ---Abdomen/Pelvis: VESSELS: No abdominal aortic aneurysm or dissection. LIVER: No evidence of a mass. No intrahepatic or extrahepatic biliary duct dilation. GALLBLADDER: No calcified stones. No evidence of cholecystitis. PANCREAS: No focal solid or cystic mass. No evidence of pancreatitis. SPLEEN: Normal. ADRENAL GLANDS: Normal. KIDNEYS AND URETERS: No urinary tract stone. No hydronephrosis or hydroureter. No significant asymmetric perinephric stranding. Simple bilateral renal cysts with no follow-up recommended. URINARY BLADDER: Nondistended with a Francis catheter in place. BOWEL: Mild diverticulosis with no evidence of diverticulitis. Appendix appears normal. No evidence of bowel obstruction. Enteric tube terminates in the proximal stomach. REPRODUCTIVE ORGANS: No evidence of a pelvic mass. PERITONEUM: No intraabdominal free fluid or free air. LYMPH NODES: No pathologically enlarged mesenteric or retroperitoneal lymph nodes. ABDOMINAL WALL: No abdominal or pelvic wall hernia. BONES: No acute abnormality. CT/CT Chest, Abd, Pel w/Contrast IMPRESSION: 1. Bibasilar atelectasis and small bilateral pleural effusions. 2. Right perihilar infiltrate is difficult to exclude. 3. Enlarged pulmonary arteries which may represent pulmonary arterial hypertension. 4. No acute intra-abdominal abnormality. Electronically Signed: Chun Engel DO at 0:32 EST ,
[2024-02-27] MEDS: dilTIAZem 25 MG/5 ML Vial 20 MG IV BOLUS (22:50)
[2024-02-27 22:59] LABS: CPK Total, Creatine Kinase 78 U/L (39-308); Triglycerides 80 mg/dL
[2024-02-27 23:06] LABS: Lactic Acid 2.4 mmol/L (0.4-1.9)
[2024-02-27 23:08] LABS: Bacteria 0 SEEN /hpf (None Seen); Mucous, Urine 0 SEEN /hpf (<or=2+); Squamous Epithelial Cells - UA 0 SEEN /hpf (0-5); White Blood Cells 0 SEEN /hpf (0-5)
[2024-02-27 23:15] LABS: Color, Urine Yellow (Yellow); Glucose, Dipstick Normal (Normal); Ketone-Dipstick Negative (Negative); Leukocyte Esterase-Dipstick Negative /ul (Negative); Nitrite-Dipstick Negative (Negative); Occult Blood-Urine 50 /ul (Negative); Protein-Dipstick 15 mg/dl (Negative); Urine Bilirubin Dipstick Negative (Negative); Urine Clarity Clear (Clear); Urine Urobilinogen Normal (Normal)
[2024-02-27 23:22] LABS: Red Blood Cells-Urine 5-10 SEEN /hpf (0-5)
[2024-02-28] VITALS (54 sets, daily range): BP systolic 79–144; BP diastolic 44–99; PULSE 53–105; RESP 18–74; TEMP 35.9–39.2; O2SAT 89–98; BMI 24.3
[2024-02-28] MEDS: 0.9% Normal Saline 1,000 ML IV.SOLN. 1000 ML OPERA.SITE (00:13)
[2024-02-28] MEDS: Ketorolac 15 MG/ML Vial IV (00:13)
[2024-02-28] MEDS: fentaNYL drip 100 ML 12.5 MCG CONT INF (00:45)
[2024-02-28] MEDS: fentaNYL 100 MCG/2 ML Ampul IV (00:53)
[2024-02-28] MEDS: Cefepime HCl 2 GM in 0.9% Normal Saline (100mL MB+) 100 ML IV ×3 (00:59→21:01)
[2024-02-28] MEDS: Midazolam 50 MG in 0.9% Normal Saline (100mL Bag) 90 ML CONT INF (01:06)
--- NOTE | 2024-02-28 01:08 | PCM.HP.STD ---
[facility] - General General Date of Admission: 02/28/24 Date of Service: 02/28/24 Chief Complaint: SOB, Agitation and Confusion. HPI Narrative ANDREA DELUCA, is a 83 M with a past medical history of essential hypertension; on metoprolol, hyperlipidemia; on simvastatin, DM-2; of unknown control on metformin, diabetic neuropathy; on gabapentin, former tobacco abuse; with subsequent asthma/COPD, chronic hypoxic respiratory failure on 3L NC, history of pneumonia, history of PAF; not on anticoagulation, history of Left carotid bruit, history of GERD; on Protonix, history of GI bleed due to PUD, history of diverticulitis, history of inguinal hernia; s/p repair, chronic iron deficiency anemia, history of Dupuytren's contracture, history of CTS; s/p release, BPH; on tamsulosin and OA who presents to [facility] ER with complaints of shortness of breath, agitation and confusion. Mr. Deluca was intubated shortly after arrival to the ER so information was primarily gathered from chart, medical staff and computer. According to the records the patient had been doing fine recently coming to visit his daily in the hospital when he was suddenly noted to become severely shortness of breath and confused resulting in EMS activation. In the ER the patient was noted to have CT evidence of bilateral lower lobe effusions with a suspected Right perihilar infiltrate consistent with Pneumonia complicated by clinical signs of Sepsis with fever of 101 ?F, Leukocytosis of 20.7 K and Lactic Acidosis of 2.4 mmol/L and blood pressure of 89/49 mmHg with a heart rate of 137 bpm present on admission complicated by AE COPD with ABG evidence of severe respiratory acidosis with pH of 7.25 pCO2 49 mmHg pO2 142 mmHg bicarbonate 21.7 mmol/L on vent AC with tidal volume 450 mL and PEEP of 8 along with clinical evidence of Septic Encephalopathy with patient noted to be severely agitated and he was then admitted to the ICU for treatment under the sepsis protocol for stay that is expected to extend beyond 2 midnights. [facility] Medical History Skin lesion of back Diabetes mellitus Wears dentures Low iron History of ulceration History of diverticulitis On home oxygen therapy Former smoker Asthma Shortness of breath on exertion History of echocardiogram History of stress test Cardiology follow-up encounter Paroxysmal atrial fibrillation with RVR Anemia requiring transfusions Lung mass Lung mass Paroxysmal atrial fibrillation Bruit of left carotid artery Type 2 diabetes mellitus Stage 3 severe COPD by GOLD classification Dupuytrens contracture Diverticulitis H/O: pneumonia History of pulmonary aspiration H/O inguinal hernia Type 2 diabetes mellitus without complications GERD (gastroesophageal reflux disease) Neuropathy COPD (chronic obstructive pulmonary disease) Arthritis Anemia Home Medications ?Medication ?Instructions ?Recorded ?Last Taken ?Type ferrous sulfate 325 mg (65 mg 325 mg PO DAILY supplement 12/29/19 Unknown History iron) tablet Handicap placard #1 ea 10/24/22 Unknown Rx blood sugar diagnostic (Blood #100 ea 11/28/22 Unknown Rx Glucose Test strips) lancets 28 gauge (FreeStyle #100 ea 11/28/22 Unknown Rx Lancets) tamsulosin 0.4 mg capsule 0.4 mg PO QHS prostate #90 caps 05/13/23 Unknown Rx albuterol sulfate 2.5 mg/3 mL 2.5 mg (3 mL) inhalation Q4H PRN 08/01/23 Unknown Rx (0.083 %) solution for nebulization shortness of breath or wheezing #180 mL albuterol sulfate 90 mcg/actuation 2 puff inhalation Q6H PRN 08/01/23 Unknown Rx aerosol inhaler shortness of breath or wheezing #3 device miscellaneous medical supply 09/19/23 Unknown History metformin 500 mg tablet See Rx Instructions .Route 09/24/23 Unknown Rx .COMPLEX diabetes #180 tabs pantoprazole 40 mg tablet,delayed 40 mg PO BID reflux #180 tabs 09/24/23 Unknown Rx release cetirizine 10 mg capsule (Zyrtec) 10 mg PO QDAY PRN allergies 11/25/23 Unknown History gabapentin 100 mg capsule 100 mg PO TID nerve pain #270 caps 12/19/23 Unknown Rx metoprolol tartrate 25 mg tablet 12.5 mg (1/2 x 25 mg) PO BID blood 12/19/23 Unknown Rx pressure #90 tabs fluticasone propionate 50 2 spray intranasal DAILY #16 grams 01/27/24 Unknown Rx mcg/actuation nasal spray,suspension simvastatin 40 mg tablet 40 mg PO DAILY cholesterol #90 tabs 02/04/24 Unknown Rx fluticasone fur. 200 mcg-umeclid 1 inh inhalation DAILY PRN 02/28/24 Unknown History 62.5 mcg-vilant 25 mcg breathing inhalat.powder (Trelegy Ellipta) Allergy/AdvReac Type Severity Reaction Status Date / Time Penicillins Allergy Severe Hives Verified 02/18/24 09:28 erythromycin base AdvReac Severe Nausea/Vom/ Verified 02/18/24 09:28 Diarrhea Family History Father Cancer Brother Parkinsons disease Mother Diverticulitis Surgical History History of hand surgery History of hernia repair History of carpal tunnel release Social History household members: spouse Smoking Status: Former smoker Tobacco: How many years used: 40 Electronic Cigarette Use: not used how long ago did patient quit smokin second hand exposure: Yes alcohol intake: never substance use type: does not use caffeine: Yes Type: coffee Number of servings: 1 what type of physical activity do you participate in: none ROS ROS Narrative Full review of systems was not possible due to patient being intubated mechanically ventilated. Vital Signs Vital Signs Vital Signs: 02/27/24 21:15 02/27/24 21:19 02/27/24 21:20 Temperature 98.5 F 98.5 F Temperature Source Oral Oral Pulse Rate 137 H 149 H Respiratory Rate 22 H 23 H Respiratory Effort Short of Breath Respiratory Depth Shallow Respiratory Pattern Tachypnea Blood Pressure 158/96 H 213/167 H Blood Pressure Mean 116 182 Pulse Ox 98 99 Oxygen Delivery Method Nasal Cannula Nasal Cannula Nasal Cannula Oxygen Flow Rate (L/min) 3 3 02/27/24 21:47 02/27/24 21:48 02/27/24 22:14 Temperature Temperature Source Pulse Rate 158 H Respiratory Rate 26 H Respiratory Effort Mechanically Ventilated Respiratory Depth Normal Respiratory Pattern Tachypnea Blood Pressure 164/141 H Blood Pressure Mean 148 Pulse Ox 99 99 92 Oxygen Delivery Method Mechanical Ventilator Mechanical Ventilator Mechanical Ventilator Oxygen Flow Rate (L/min) 02/27/24 22:19 02/27/24 22:41 02/27/24 23:00 Temperature 102.6 F H Temperature Source Axillary Pulse Rate 115 H 158 H 117 H Respiratory Rate 21 H 30 H 22 H Respiratory Effort Respiratory Depth Respiratory Pattern Tachypnea Blood Pressure 89/49 L 89/49 L Blood Pressure Mean 62 62 Pulse Ox 97 97 Oxygen Delivery Method Mechanical Ventilator Mechanical Ventilator Oxygen Flow Rate (L/min) 02/28/24 00:00 02/28/24 00:09 02/28/24 00:48 Temperature 102.6 F H 101 F H Temperature Source Axillary Pulse Rate 94 102 H 99 Respiratory Rate 19 H 19 H 18 Respiratory Effort Respiratory Depth Respiratory Pattern Blood Pressure 79/44 L 79/44 L 120/99 H Blood Pressure Mean 55 55 106 Pulse Ox 96 95 95 Oxygen Delivery Method Mechanical Ventilator Mechanical Ventilator Oxygen Flow Rate (L/min) Weight Weight: 164 lb 7.437 oz Body Mass Index (BMI) 23.6 Results Lab / Micro Data 02/27/24 21:21 02/27/24 21:21 Labs: Laboratory Results - last 24 hr 02/27/24 21:21: WBC 20.7 H, RBC 4.79, Hgb 13.8, Hct 42.5, MCV 88.7, MCH 28.8, MCHC 32.5, RDW Std Deviation 46.2 H, RDW Coeff of Demetrius 14.3, Plt Count 239, MPV 11.9, Immature Gran % (Auto) 0.900, Neut % (Auto) 89.0 H, Lymph % (Auto) 4.3 L, Andrew % (Auto) 5.1, Eos % (Auto) 0.5, Baso % (Auto) 0.2, Absolute Neuts (auto) 18.4 H, Absolute Lymphs (auto) 0.88, Nucleated RBC % 0, Sodium 140, Potassium 3.8, Chloride 105, Carbon Dioxide 31.0, Anion Gap 4 L, BUN 13, Creatinine 0.91, Estim Creat Clear Calc 61.28, Est GFR (MDRD) Af Amer 102, Est GFR (MDRD) Non-Af 84, BUN/Creatinine Ratio 14.3, Glucose 119 H, Calcium 9.0, Total Creatine Kinase 78, Troponin I High Sens 11, B-Natriuretic Peptide 200.8 H, Triglycerides 80 02/27/24 21:30: Urine Color Yellow, Urine Clarity Clear, Urine pH 7.0, Ur Specific [place] 1.010, Urine Protein 15 H, Urine Glucose (UA) Normal, Urine Ketones Negative, Urine Occult Blood 50 H, Urine Nitrite Negative, Urine Bilirubin Negative, Urine Urobilinogen Normal, Ur Leukocyte Esterase Negative, Urine RBC 5-10 SEEN, Urine WBC 0 SEEN, Ur Squamous Epith Cells 0 SEEN, Urine Bacteria 0 SEEN, Urine Mucus 0 SEEN 02/27/24 22:11: Lactic Acid 2.4 H* Micro: Microbiology 02/27/24 22:11 Mucosa - Nose SARS-CoV-2, Influenza & RSV (PCR) - Final ABG Data ABG results: ABG 02/27/24 22:29 Specimen Type ART Sample Site R Radial pH 7.25 L Bicarbonate Actual 21.7 L Total CO2 23 Base Excess -6 L O2 Saturation 99 O2 % 100.0 ABG pCO2 49.0 H ABG pO2 142 H Loy Test N/A Respiration Rate 18 O2 Delivery Device Adult Vent Vent Mode AC Tidal Volume 450.0 POC PEEP 8 Imaging Radiology Impression Chest/Abdomen/Pelvis CT 02/27/24 22:41 IMPRESSION: 1. Bibasilar atelectasis and small bilateral pleural effusions. 2. Right perihilar infiltrate is difficult to exclude. 3. Enlarged pulmonary arteries which may represent pulmonary arterial hypertension. 4. No acute intra-abdominal abnormality. Electronically Signed: Chun Engel DO at 0:32 EST , Assessment & Plan Assessment/Plan (1) Septic shock: (2) Septic encephalopathy: (3) Pneumonia: QUALIFIERS: Laterality: unspecified laterality Lung location: unspecified part of lung Pneumonia type: due to unspecified organism Qualified Code(s): J18.9 - Pneumonia, unspecified organism (4) Acute exacerbation of COPD with asthma: (5) Acute hypoxic respiratory failure: PLAN: Plan 1. CT evidence of bilateral lower lobe effusions with a suspected Right perihilar infiltrate consistent with Pneumonia complicated by clinical signs of Sepsis with Septic Encephalopathy with patient noted to be severely agitated short of breath: with fever of 101 ?F, Leukocytosis of 20.7 K and Lactic Acidosis of 2.4 mmol/L and blood pressure of 89/49 mmHg with a heart rate of 137 bpm present on admission - Admit to ICU for treatment under the sepsis protocol. Continue IV cefepime and IV vancomycin begun in the ER and await culture and sensitivity data. Check urinary antigens to Streptococcus pneumonia and Legionella. Patient will be kept sedated with propofol drip. Finally, we will consult prepared foods supervisor on-call to see this patient on rounds in the a.m. for further recommendations with help appreciated in advance. 2. AE COPD complicating #1 - Start IV Solu-Medrol and then wean as tolerated. 3. Acute hypoxic respiratory failure present on admission with ABG evidence of severe respiratory acidosis with pH of 7.25 pCO2 49 mmHg pO2 142 mmHg bicarbonate 21.7 mmol/L on vent AC with tidal volume 450 mL and PEEP of 8 in intubation in ER attributable to #1 & #2- Wean ventilator as tolerated. Recheck ABG to follow trend and help optimize ventilator adjustments if needed. 4. History of PAF; not on anticoagulation with RVR noted on admission compounding #1 - #3 - Patient was initially treated with IV Cardizem 20 mg bolus in ER. We will treat with IV digoxin to prevent exacerbating hypotension. Start full-dose Lovenox for CVA prophylaxis. 5. Essential hypertension; on metoprolol - Hold scheduled antihypertensives with patient severely hypotensive on admission. 5. Hyperlipidemia; on simvastatin - Resume statin after extubation. 6. DM-2; of unknown control on metformin with diabetic neuropathy; on gabapentin - Keep strict NPO. FSBS q. 6 hours plus lowest-intensity SSI. Check hemoglobin A1c to objectively evaluate quality of diabetic control. 7. History of pneumonia - Noted. 8. History of Left carotid bruit - Noted. 9. History of GERD; on Protonix - We will continue Protonix IV. 10. History of GI bleed due to PUD - Noted with no signs of recurrence. 11. History of diverticulitis - Noted. 12. History of inguinal hernia; s/p repair - Noted. 13. Chronic iron deficiency anemia - Stable with hemoglobin of 13.8 g/dL present on admission. 14. History of Dupuytren's contracture - Noted. 15. History of CTS; s/p release - Noted. 16. BPH; on tamsulosin - Restart tamsulosin after patient is extubated. 17. OA - Stable. 18. DVT/GI Prophylaxis - Patient started on full-dose Lovenox for #4 plus SCD's. Protonix 40 mg IV daily. Total time: Approximately (but not less than) 75 minutes. Sepsis Attestation Sepsis Alert: Yes Sepsis Attestation: Agree w/Sepsis Date exam was performed: 02/28/24 Time exam was performed: 02:00 Possible Source of Sepsis: Pulmonary Sepsis Organ Dysfunction Criteria Present: SBP < 90 mmHg or MAP < 65 mmHg, Acute Respiratory Failure (New need for BiPAP/CPAP or MV), Lactic Acid > 2 mmol/L and New/Unexplained change in mental status Fluid Resuscitation Fluid resuscitation indicated?: Yes Fluid Resuscitation ordered: 30 ml/kg fluid bolus ordered Amount of fluid ordered: 2 Sepsis Note Date exam was performed: 02/28/24 Time exam was performed: 06:00 Sepsis Attestation: Sepsis re-evaluation was performed Response to fluids: Fluid responsive hypotension Charges/Coding Visit Charges Inpatient E&M: 74039 Init Hosp L3
--- NOTE | 2024-02-28 01:23 | ED.RN ---
This RN clarified with Dr. Lovell if sepsis fluid resuscitation would ordered. does not want fluid resuscitation at this time, verbal order gave by to gave RN complete in [facility].
--- NOTE | 2024-02-28 01:37 | ED.RN ---
Report called to Rama MCCRAY RN, questions/concerns answered
[2024-02-28] MEDS: Vancomycin IV 1,000 MG/200 ML BAG 200 MG IV ×2 (02:00→14:53)
[2024-02-28 02:26] LABS: Reflex Lactate? Y
[2024-02-28 02:36] LABS: Lactic Acid 0.8 mmol/L (0.4-1.9)
[2024-02-28 02:55] LABS: Base Excess -4 mmol/L (-2 to +2); Bicarbonate 21.8 mmol/L (22-26); Blood Gas Specimen Type ART; Mode AC; O2 Delivery Device Adult Vent; PEEP 8; PO2 70 mmHG (75-100); RR 18; SITE R Radial; SO2 92 % (95-99); Total Carbon Dioxide 23 mmol/L; pCO2 42.9 mmHg (35-45); pH 7.31 (7.35-7.45)
[2024-02-28] MEDS: 0.9% Normal Saline (1000mL) 1,000 ML 100 ML IV (02:59)
[2024-02-28] MEDS: MethylPREDNISolone 125 MG/2 ML Vial IV (03:00)
[2024-02-28] MEDS: Enoxaparin 80 MG/0.8 ML Syringe 70 MG SC ×3 (03:01→21:01)
--- NOTE | 2024-02-28 03:05 | PCM.RX.CS ---
Consult Antibiotic Management Pharmacy has been consulted to manage selected antibiotic: Vancomycin Type of Intervention Type of Consult: New start Labs Labs: Sodium 140 mmol/L (136-145) 02/27/24 21:21 Potassium 3.8 mmol/L (3.5-5.1) 02/27/24 21:21 Chloride 105 mmol/L (98-107) 02/27/24 21:21 Carbon Dioxide 31.0 mmol/L (21.0-32.0) 02/27/24 21:21 Anion Gap 4 (5-15) L 02/27/24 21:21 BUN 13 mg/dL (7-18) 02/27/24 21:21 Creatinine 0.91 mg/dL (0.70-1.30) 02/27/24 21:21 Est GFR (MDRD) Af Amer 102 mL/min (>60) 02/27/24 21:21 Est GFR (MDRD) Non-Af 84 mL/min (>60) 02/27/24 21:21 BUN/Creatinine Ratio 14.3 RATIO (10-20) 02/27/24 21:21 Glucose 119 mg/dL (74-106) H 02/27/24 21:21 Microbiology Microbiology: Microbiology 02/27/24 22:11 Mucosa - Nose SARS-CoV-2, Influenza & RSV (PCR) - Final Dosing Weight Weight used for dosin kg Estimated Creatinine Clearance Estimated Creatinine Clearance: 61.28 Goal Trough Goal Trough: 15-20 mcg/mL Pharmacy Plan for Drug Dosing Pharmacy Plan for Drug Dosing: Pharmacy Service will continue to monitor and adjust dosing as required. 1000MG GIVEN IN ER 02/27 @ 0200. START [id number] AND FOLLOW UP TROUGH PRIOR TO 4TH DOSE Follow-Up Labs Follow-Up Labs: Trough: Vancomycin Date/Time Labs Ordered Labs to be done on [date and time ordered]: 02/28 @ 1330
[2024-02-28 03:24] LABS: Lactic Acid 0.6 mmol/L (0.4-1.9)
[2024-02-28] MEDS: 0.9% Normal Saline (1000mL) 1,000 ML 999 ML IV (03:34)
--- NOTE | 2024-02-28 05:09 | PCMCONS.TICU ---
HPI Consult Data Date of Consult: 02/28/24 HPI Narrative Reason for Consultation: Sepsis, acute respiratory failure HPI Narrative: This is an 83-year-old male with history of COPD, A-fib not on anticoagulation due to GI bleed, recurrent UTIs, diabetes, hyperlipidemia. He presented to the ED tonight for evaluation of shortness of breath and confusion. He has been visiting his in the hospital over the past few days. Due to initial agitation and respiratory distress he required intubation in the ED. Labs significant for WBC count 20 initial ABG 7.2 49/142 with repeat ABG 7.3 /. Initial lactate 2.4. COVID and flu were negative. CT chest abdomen pelvis obtained showed bibasilar atelectasis, small pleural effusions. Possible right perihilar infiltrate. In the ED he received 2 L fluid, cefepime,Vanc, Solu-Medrol, DuoNebs. [facility] Medical History Skin lesion of back Diabetes mellitus Wears dentures Low iron History of ulceration History of diverticulitis On home oxygen therapy Former smoker Asthma Shortness of breath on exertion History of echocardiogram History of stress test Cardiology follow-up encounter Paroxysmal atrial fibrillation with RVR Anemia requiring transfusions Lung mass Lung mass Paroxysmal atrial fibrillation Bruit of left carotid artery Type 2 diabetes mellitus Stage 3 severe COPD by GOLD classification Dupuytrens contracture Diverticulitis H/O: pneumonia History of pulmonary aspiration H/O inguinal hernia Type 2 diabetes mellitus without complications GERD (gastroesophageal reflux disease) Neuropathy COPD (chronic obstructive pulmonary disease) Arthritis Anemia Home Medications ?Medication ?Instructions ?Recorded ?Last Taken ?Type ferrous sulfate 325 mg (65 mg 325 mg PO DAILY supplement 12/29/19 Unknown History iron) tablet Handicap placard #1 ea 10/24/22 Unknown Rx blood sugar diagnostic (Blood #100 ea 11/28/22 Unknown Rx Glucose Test strips) lancets 28 gauge (FreeStyle #100 ea 11/28/22 Unknown Rx Lancets) tamsulosin 0.4 mg capsule 0.4 mg PO QHS prostate #90 caps 05/13/23 Unknown Rx albuterol sulfate 2.5 mg/3 mL 2.5 mg (3 mL) inhalation Q4H PRN 08/01/23 Unknown Rx (0.083 %) solution for nebulization shortness of breath or wheezing #180 mL albuterol sulfate 90 mcg/actuation 2 puff inhalation Q6H PRN 08/01/23 Unknown Rx aerosol inhaler shortness of breath or wheezing #3 device miscellaneous medical supply 09/19/23 Unknown History metformin 500 mg tablet See Rx Instructions .Route 09/24/23 Unknown Rx .COMPLEX diabetes #180 tabs pantoprazole 40 mg tablet,delayed 40 mg PO BID reflux #180 tabs 09/24/23 Unknown Rx release cetirizine 10 mg capsule (Zyrtec) 10 mg PO QDAY PRN allergies 11/25/23 Unknown History gabapentin 100 mg capsule 100 mg PO TID nerve pain #270 caps 12/19/23 Unknown Rx metoprolol tartrate 25 mg tablet 12.5 mg (1/2 x 25 mg) PO BID blood 12/19/23 Unknown Rx pressure #90 tabs fluticasone propionate 50 2 spray intranasal DAILY #16 grams 01/27/24 Unknown Rx mcg/actuation nasal spray,suspension simvastatin 40 mg tablet 40 mg PO DAILY cholesterol #90 tabs 02/04/24 Unknown Rx fluticasone fur. 200 mcg-umeclid 1 inh inhalation DAILY PRN 02/28/24 Unknown History 62.5 mcg-vilant 25 mcg breathing inhalat.powder (Trelegy Ellipta) Allergy/AdvReac Type Severity Reaction Status Date / Time Penicillins Allergy Severe Hives Verified 02/18/24 09:28 erythromycin base AdvReac Severe Nausea/Vom/ Verified 02/18/24 09:28 Diarrhea Family History Father Cancer Brother Parkinsons disease Mother Diverticulitis Surgical History History of hand surgery History of hernia repair History of carpal tunnel release Social History household members: spouse Smoking Status: Former smoker Tobacco: How many years used: 40 Electronic Cigarette Use: not used how long ago did patient quit smokin second hand exposure: Yes alcohol intake: never substance use type: does not use caffeine: Yes Type: coffee Number of servings: 1 what type of physical activity do you participate in: none ROS Review of Systems ROS Unobtainable: due to endotracheal tube Objective Data Objective Data Vital Signs: Vital Signs Last response Temperature 37.9 C H 02/28/24 04:00 Temperature Source Core 02/28/24 04:00 Pulse Rate 84 02/28/24 04:00 Respiratory Rate 18 02/28/24 04:00 Respiratory Effort Normal, Non-Labored 02/28/24 03:42 Respiratory Depth Normal 02/28/24 03:42 Respiratory Pattern Normal 02/28/24 03:42 Blood Pressure 84/54 L 02/28/24 04:00 Blood Pressure Mean 64 02/28/24 04:00 Blood Pressure Source Monitor 02/28/24 04:00 Blood Pressure Position Semi-Fowlers 02/28/24 04:00 Blood Pressure Location Left Arm 02/28/24 04:00 Pulse Ox 91 02/28/24 04:00 Oxygen Delivery Method Mechanical Ventilator 02/28/24 04:00 Oxygen Flow Rate (L/min) 3 02/27/24 21:20 Fraction of Inspired Oxygen (FIO2) 40 02/28/24 04:00 I&O: I&O Last 24 Hours 02/27/24 02/27/24 02/28/24 11:59 23:59 11:59 Intake Total 12.97 / 12.97 1393.59 / 1393.59 Balance 12.97 / 12.97 1393.59 / 1393.59 I&O: Total Stay 02/27/24 21:14 thru 02/28/24 05:00 Intake Total 1406.56 Balance 1406.56 Current Meds Ordered / Administered: Current meds ordered / Administered Generic Name Dose Route Start Last Admin Trade Name Freq PRN Reason Stop Dose Admin Albuterol Sulfate 2.5 mg 02/28/24 02:38 Albuterol 2.5 Mg/3 Ml Vial.Neb. INHALATION Q4H PRN shortness of breath or wheezing Chlorhexidine Gluconate 1 each 02/28/24 10:00 Chlorhexidine Gluc 2% Cloth 1 Each [place] TOPICAL DAILY MICHEAL Chlorhexidine Gluconate 15 ml 02/28/24 10:00 Chlorhexidine 15 Ml PO BID MICHEAL Enoxaparin Sodium 70 mg 02/28/24 02:45 02/28/24 03:01 Enoxaparin 80 Mg/0.8 Ml Syringe SC 70 mg Q12 MICHEAL Administration Propofol 1,000 mg in 100 mls @ 4.476 mls/hr 02/27/24 21:55 02/28/24 00:01 Diprivan CONT INF 0 mcg/kg/min .Q12H MICHEAL 0 mls/hr Titration Protocol 10 MCG/KG/MIN Fentanyl 100 mls @ 5 mls/hr 02/27/24 22:10 02/28/24 05:00 CONT INF 150 mcg/hr UD MICHEAL 15 mls/hr Titration Protocol 50 MCG/HR Midazolam HCl 50 mg/ Sodium 100 mls @ 2 mls/hr 02/28/24 00:50 02/28/24 05:00 Chloride CONT INF 1 mg/hr .Q50H MICHEAL 2 mls/hr Titration Protocol 1 MG/HR Pantoprazole Sodium 40 mg/ 110 mls @ 330 mls/hr 02/28/24 10:00 Sodium Chloride IV Q24 MICHEAL Sodium Chloride 1,000 mls @ 100 mls/hr 02/28/24 01:48 02/28/24 02:59 IV 02/28/24 11:47 100 mls/hr .Q10H MICHEAL Administration Protocol Vancomycin IV-PHARMACY TO DOSE 500 mls @ 250 mls/hr 02/28/24 02:38 1 each/ Sodium Chloride IV X1 PRN Rx to Dose Protocol Cefepime HCl 2 gm/ Sodium 100 mls @ 200 mls/hr 02/28/24 10:00 Chloride IV Q12 MICHEAL Vancomycin HCl 1,000 mg in 200 mls @ 200 mls/hr 02/28/24 14:00 Vancomycin IV Q12H [facility] Doxycycline Hyclate 100 mg/ 260 mls @ 250 mls/hr 02/28/24 10:00 Dextrose IV 03/04/24 10:01 Q12 MICHEAL Methylprednisolone 60 mg 02/28/24 10:00 Methylprednisolone 125 Mg/2 Ml Vial IV BID MICHEAL Midodrine 10 mg 02/28/24 06:00 Midodrine Hcl 5 Mg Tablet NG Q8 MICHEAL Sodium Chloride 10 - 40 ml 02/28/24 02:48 0.9 % Nacl (Sterile) Posiflush 10 Ml IV UD PRN Port access or dressing change Sodium Chloride 10 - 40 ml 02/28/24 02:48 0.9% Saline Lock 10 Ml Syringe IV UD PRN Midline Flush Sodium Chloride 10 - 40 ml 02/28/24 02:48 0.9% Saline Lock 10 Ml Syringe IV UD PRN SALINE FLUSH Vancomycin Protocol 1 lab 02/29/24 11:30 Vancomycin Trough/Random Due 02/29/24 15:30 DAILY [facility] Physical Exam Narrative Gen: Intubated, sedated Eyes: PERRL ENT: Orally intubated CV: S1S2 Pulm: Diminished, synced well with vent Abd: Soft Extrem: No c/c/e Lab / Micro Data 02/27/24 21:21 02/27/24 21:21 Labs: Laboratory Results - last 24 hr 02/27/24 21:21: WBC 20.7 H, RBC 4.79, Hgb 13.8, Hct 42.5, MCV 88.7, MCH 28.8, MCHC 32.5, RDW Std Deviation 46.2 H, RDW Coeff of Demetrius 14.3, Plt Count 239, MPV 11.9, Immature Gran % (Auto) 0.900, Neut % (Auto) 89.0 H, Lymph % (Auto) 4.3 L, [place] % (Auto) 5.1, Eos % (Auto) 0.5, Baso % (Auto) 0.2, Absolute Neuts (auto) 18.4 H, Absolute Lymphs (auto) 0.88, Nucleated RBC % 0, Sodium 140, Potassium 3.8, Chloride 105, Carbon Dioxide 31.0, Anion Gap 4 L, BUN 13, Creatinine 0.91, Estim Creat Clear Calc 61.28, Est GFR (MDRD) Af Amer 102, Est GFR (MDRD) Non-Af 84, BUN/Creatinine Ratio 14.3, Glucose 119 H, Calcium 9.0, Total Creatine Kinase 78, Troponin I High Sens 11, B-Natriuretic Peptide 200.8 H, Triglycerides 80 02/27/24 21:30: Urine Color Yellow, Urine Clarity Clear, Urine pH 7.0, Ur Specific [place] 1.010, Urine Protein 15 H, Urine Glucose (UA) Normal, Urine Ketones Negative, Urine Occult Blood 50 H, Urine Nitrite Negative, Urine Bilirubin Negative, Urine Urobilinogen Normal, Ur Leukocyte Esterase Negative, Urine RBC 5-10 SEEN, Urine WBC 0 SEEN, Ur Squamous Epith Cells 0 SEEN, Urine Bacteria 0 SEEN, Urine Mucus 0 SEEN 02/27/24 22:11: Lactic Acid 2.4 H* 02/28/24 02:06: Lactic Acid 0.8 02/28/24 02:52: Lactic Acid 0.6 Micro: Microbiology 02/28/24 02:53 Urine Catheter - Francis Legionella Antigen - Final 02/28/24 02:53 Urine Catheter - Francis Streptococcus pneumoniae Antigen (M - Final 02/27/24 22:11 Mucosa - Nose SARS-CoV-2, Influenza & RSV (PCR) - Final ABG Data ABG results: ABG 02/27/24 02/28/24 22:29 02:51 Specimen Type ART ART Sample Site R Radial R Radial pH 7.25 L 7.31 L Bicarbonate Actual 21.7 L 21.8 L Total CO2 23 23 Base Excess -6 L -4 L O2 Saturation 99 92 L O2 % 100.0 40.0 ABG pCO2 49.0 H 42.9 ABG pO2 142 H 70 L Loy Test N/A N/A Respiration Rate 18 18 O2 Delivery Device Adult Vent Adult Vent Vent Mode AC AC Tidal Volume 450.0 450.0 POC PEEP 8 8 Imaging Radiology Impression Chest/Abdomen/Pelvis CT 02/27/24 22:41 IMPRESSION: 1. Bibasilar atelectasis and small bilateral pleural effusions. 2. Right perihilar infiltrate is difficult to exclude. 3. Enlarged pulmonary arteries which may represent pulmonary arterial hypertension. 4. No acute intra-abdominal abnormality. Electronically Signed: Chun Engel, at 0:32 EST , Assessment and Plan . Assessment and plan: ASSESSMENT # Acute hypercapnic and hypoxemic respiratory failure # Possible pneumonia # Acute exacerbation of COPD # Acute metabolic encephalopathy # A-fib with RVR # Sepsis PLAN -Ventilator reviewed -Continue fentanyl, Versed to maintain ventilator synchrony -Follow ABG and chest x-ray -Broad-spectrum antibiotics vancomycin, cefepime, doxycycline -Follow cultures -Solu-Medrol, DuoNebs -Levophed to keep MAP greater than 65 as needed. Midodrine added Prophylaxis: Protonix, Lovenox Entire encounter performed via telemedicine Critical care time 60 minutes.
[2024-02-28 05:26] LABS: Bedside Glucose 175 mg/dL (74-106)
[2024-02-28] MEDS: Norepinephrine 8 MG in 0.9% Normal Saline (250mL Bag) 242 ML 9.4 MG CONT INF (05:45)
[2024-02-28] MEDS: fentaNYL drip 100 ML 15 MCG CONT INF (05:50)
[2024-02-28] MEDS: Midodrine HCl 5 MG Tablet 10 MG NG ×3 (05:53→21:01)
[2024-02-28 06:29] LABS: Absolute Lymphocyte Count 0.79 X10^3/uL (0.83-4.51); Basophil# 0.04 X10^3/uL; Basophil% 0.2 % (0-1); Hematocrit 41.8 % (40-54); Hemoglobin 13.3 g/dL (13.0-16.5); Lymphocyte # 0.79 X10^3/ul (0.83-4.51); Lymphocyte % 3.2 % (19-41); Mean Corp Hgb Conc 31.8 g/dL (32-36); Mean Corpuscular Hgb 28.7 pg (27.0-32.0); Mean Corpuscular Volume 90.1 fL (80-94); Mean Platelet Vol. 11.3 fl (6.2-12.0); Monocyte# 0.17 X10^3/uL; Monocyte% 0.7 % (0-10); NRBC Flagged by Analyzer 0 % (0-5); Neutrophil # 23.02 X10^3/uL (2.7-7.7); Neutrophil % 94.5 % (47-70); POSITIVE DIFFERENTIAL YES; Platelet Count 206 K/mm3 (150-450); RBC Distribution Width CV 14.5 % (11.6-14.6); RBC Distribution Width SD 47.8 fl (35.1-43.9); Red Blood Count 4.64 M/mm3 (4.6-6.2); White Blood Count 24.4 K/mm3 (4.4-11.0)
[2024-02-28 06:37] LABS: Differential Indicated SCAN CRITERIA MET
[2024-02-28 06:54] LABS: AST(SGOT) 15 U/L (15-37); Alanine Aminotransfer ALT/SGPT 19 U/L (16-61); Alkaline Phosphatase 71 U/L (45-117); Anion Gap 4 (5-15); BUN 14 mg/dL (7-18); BUN/Creat Ratio 14.2 RATIO (10-20); Calcium,Total 8.1 mg/dL (8.5-10.1); Chloride 110 mmol/L (98-107); Creatinine, Serum 0.98 mg/dL (0.70-1.30); EST Glomerular Filtration Rate 77 mL/min (>60); Est Glom Filt Rate - Afr Amer 93 mL/min (>60); Globulin 3.1 g/dL (2.2-4.2); Glucose 191 mg/dL (74-106); Magnesium 1.9 mg/dL (1.6-2.6); Phosphorus 3.6 mg/dL (2.5-4.9); Potassium 4.2 mmol/L (3.5-5.1); Protein, Total 6.1 g/dL (6.4-8.2); Sodium Level 139 mmol/L (136-145)
[2024-02-28 07:00] LABS: Troponin-I HS 64 pg/mL (3.0-78.0)
--- NOTE | 2024-02-28 07:39 | PN.HOSP_ITS ---
Reason for Visit Reason for Visit: Diagnoses Sepsis, unspecified organism (02/28/24) Metabolic encephalopathy (02/28/24) Pneumonia, unspecified organism (02/28/24) Chronic obstructive pulmonary disease with (acute) exacerbation (02/28/24) Acute respiratory failure with hypoxia (02/28/24) Severe sepsis with septic shock (02/28/24) Objective Data Objective Data Vital Signs: Vital Signs Temp Pulse Resp BP Pulse Ox O2 Del Method O2 Flow Rate 98.0 F 66 18 117/76 95 Mechanical Ventilator 3 02/28/24 07:00 02/28/24 07:00 02/28/24 07:00 02/28/24 07:00 02/28/24 07:00 02/28/24 07:00 02/27/24 21:20 FiO2 40 02/28/24 07:00 Oxygen Flow Rate (L/min) 3 Oxygen Delivery Method Mechanical Ventilator Weight: 169 lb 12.095 oz Body Mass Index (BMI) 24.3 Intake & Output: Intake and Output for Last 24 Hours 02/26/24 02/27/24 02/28/24 23:59 23:59 23:59 Intake Total 12. / .97 1516.97 / 1516.97 Output Total 375 / 375 Balance 12.97 / 12.97 1141.97 / 1141.97 Lab / Micro Data 02/28/24 06:17 02/28/24 06:17 Labs: Laboratory Results - last 24 hr 02/27/24 21:21: WBC 20.7 H, RBC 4.79, Hgb 13.8, Hct 42.5, MCV 88.7, MCH 28.8, MCHC 32.5, RDW Std Deviation 46.2 H, RDW Coeff of Demetrius 14.3, Plt Count 239, MPV 11.9, Immature Gran % (Auto) 0.900, Neut % (Auto) 89.0 H, Lymph % (Auto) 4.3 L, [place] % (Auto) 5.1, Eos % (Auto) 0.5, Baso % (Auto) 0.2, Absolute Neuts (auto) 18.4 H, Absolute Lymphs (auto) 0.88, Nucleated RBC % 0, Sodium 140, Potassium 3.8, Chloride 105, Carbon Dioxide 31.0, Anion Gap 4 L, BUN 13, Creatinine 0.91, Estim Creat Clear Calc 61.28, Est GFR (MDRD) Af Amer 102, Est GFR (MDRD) Non-Af 84, BUN/Creatinine Ratio 14.3, Glucose 119 H, Calcium 9.0, Total Creatine Kinase 78, Troponin I High Sens 11, B-Natriuretic Peptide 200.8 H, Triglycerides 80 02/27/24 21:30: Urine Color Yellow, Urine Clarity Clear, Urine pH 7.0, Ur Specific [place] 1.010, Urine Protein 15 H, Urine Glucose (UA) Normal, Urine Ketones Negative, Urine Occult Blood 50 H, Urine Nitrite Negative, Urine Bilirubin Negative, Urine Urobilinogen Normal, Ur Leukocyte Esterase Negative, Urine RBC 5-10 SEEN, Urine WBC 0 SEEN, Ur Squamous Epith Cells 0 SEEN, Urine Bacteria 0 SEEN, Urine Mucus 0 SEEN 02/27/24 22:11: Lactic Acid 2.4 H* 02/28/24 02:06: Lactic Acid 0.8 02/28/24 02:52: Lactic Acid 0.6 02/28/24 05:08: POC Glucose 175 H 02/28/24 06:17: WBC 24.4 H, RBC 4.64, Hgb 13.3, Hct 41.8, MCV 90.1, MCH 28.7, M CHC 31.8 L, RDW Std Deviation 47.8 H, RDW Coeff of Demetrius 14.5, Plt Count 206, MPV 11.3, Immature Gran % (Auto) 1.400 H, Neut % (Auto) 94.5 H, Lymph % (Auto) 3.2 L , [place] % (Auto) 0.7, Eos % (Auto) 0.0, Baso % (Auto) 0.2, Absolute Neuts (auto) 23.0 H, Absolute Lymphs (auto) 0.79 L, Nucleated RBC % 0, Sodium 139, Potassium 4.2, Chloride 110 H, Carbon Dioxide 25.0, Anion Gap 4 L, BUN 14, Creatinine 0.98, Estim Creat Clear Calc 56.90, Est GFR (MDRD) Af Amer 93, Est GFR (MDRD) Non-Af 77, BUN/Creatinine Ratio 14.2, Glucose 191 H, Calcium 8.1 L, Phosphorus 3.6, Magnesium 1.9, Total Bilirubin 0.90, AST 15, ALT 19, Alkaline Phosphatase 71, Troponin I High Sens 64, Total Protein 6.1 L, Albumin 3.0 L, Globulin 3.1, Albumin/Globulin Ratio 1.0 Micro: Microbiology 02/28/24 02:53 Urine Catheter - Francis Legionella Antigen - Final 02/28/24 02:53 Urine Catheter - Francis Streptococcus pneumoniae Antigen (M - Final 02/27/24 22:11 Mucosa - Nose SARS-CoV-2, Influenza & RSV (PCR) - Final ABG Data ABG results: ABG 02/27/24 02/28/24 22:29 02:51 Specimen Type ART ART Sample Site R Radial R Radial pH 7.25 L 7.31 L Bicarbonate Actual 21.7 L 21.8 L Total CO2 23 23 Base Excess -6 L -4 L O2 Saturation 99 92 L O2 % 100.0 40.0 ABG pCO2 49.0 H 42.9 ABG pO2 142 H 70 L Loy Test N/A N/A Respiration Rate 18 18 O2 Delivery Device Adult Vent Adult Vent Vent Mode AC AC Tidal Volume 450.0 450.0 POC PEEP 8 8 Radiography Diagnostic Testing: Radiology Impression Chest/Abdomen/Pelvis CT 02/27/24 22:41 IMPRESSION: 1. Bibasilar atelectasis and small bilateral pleural effusions. 2. Right perihilar infiltrate is difficult to exclude. 3. Enlarged pulmonary arteries which may represent pulmonary arterial hypertension. 4. No acute intra-abdominal abnormality. Electronically Signed: Chun Engel, at 0:32 EST Reading Location ID and State: [facility] / [place] Tel , Service support , Physical Exam Narrative Seen and examined Patient is on ventilator. On Versed and fentanyl drip. Low-dose Levophed at 1 mcg/kg getting tapered off. Bander Operator on board. Admitted with sepsis due to pneumonia Physical exam General: Mild lethargy. Opens eyes. Respondswith nodding of head. HEENT: Atraumatic, PERRLA, EOMI, Normocephalic Oral: ET and OG tube Neck: Supple, No JVD, Negative Carotid Bruits Chest wall/Lungs: Air entry diminished in bilateral lung bases. No crepitation/rhonchi Cardiovascular: Irregular rhythm, Normal S1, Normal S2, systolic murmur Abdomen: Bowel Sounds Present, Soft, Non Tender, Non-Distended : No dysuria. No renal angle tenderness. No suprapubic tenderness. Extremities: No edema, Capillary Refill Less than 3 Seconds Skin: No rashes, No breakdown Musculoskeletal: No Tenderness to Palpation of Joints or Extremities, ROM/muscle strength could not be examined Neurological: Neuroexam could not be evaluated Psych/Mental Status: Lethargy. Mildly sedated Assessment & Plan Assessment/Plan (1) Septic shock: (2) Septic encephalopathy: (3) Pneumonia: QUALIFIERS: Laterality: unspecified laterality Lung location: u nspecified part of lung Pneumonia type: due to unspecified organism Qualified Code(s): J18.9 - Pneumonia, unspecified organism (4) Acute exacerbation of COPD with asthma: (5) Acute hypoxic respiratory failure: PLAN: Plan 83-year-old gentleman was admitted with progressive shortness of breath for 1 day with increase in O2 requirement from baseline 3 L to 6 L, agitation and confusion. Denies chest pain. His was sick, admitted in the hospital recently. CT shows bilateral pleural effusion with suspected right perihilar infiltrate. 1. Sepsis due to right perihilar infiltrate, pneumonia: The patient presented with sepsis with clinical indicators of fever 101 F, leukocytosis, tachycardia due to pneumonia with acute sepsis-related organ dysfunction as evidenced by hypotension 81/59, 84/54 hide 89/49, acute on chronic combined respiratory failure requiring intubation/ventilator support, lactic acidosis and encephalopathy. patient is being admitted in the ICU. Patient started on IV vancomycin and cefepime. 2. AE COPD due to pneumonia/sepsis- Patient is being managed on scheduled bronchodilator, IV Solu-Medrol, Mucinex, incentive spirometry and Pep. 3. Acute hypoxic respiratory failure present on admission: ABG consistent with respiratory acidosis with pH of 7.2 5/49/142/21 on AC mode 100%/450/8. Bander Operator on board and is managing the vent setting 4. PAF; not on anticoagulation with RVR: Patient was initially treated with IV Cardizem 20 mg bolus in ER. We will treat with IV digoxin to prevent exacerbating hypotension. Start full-dose Lovenox for CVA prophylaxis. 5. Essential hypertension; on metoprolol - Hold scheduled antihypertensives with patient severely hypotensive on admission. 6. Hyperlipidemia; on simvastatin - Resume statin after extubation. 7. DM-2: Was controlled but elevated on IV Solu-Medrol. Accu-Chek before meals and at bedtime with Humalog sliding scale coverage and hypoglycemia protocol. 8. GERD, PUD with history of GI bleed: Protonix 40 mg IV daily. 9. BPH on tamsulosin: 10. Degenerative joint disease/osteoarthritis: PT and OT ordered. DVTProphylaxis - Patient started on full-dose Lovenox Charges/Coding Visit Charges Inpatient E&M: 05398 [facility] Hosp L3
[2024-02-28 07:58] LABS: Differential Comment SCANNED; Platelet Estimate ADEQUATE (ADEQ); Red Cell Morphology NORM C+C NORMAL (NORM C&C)
[2024-02-28] MEDS: Chlorhexidine 15 ML PO ×2 (09:24→21:02)
[2024-02-28] MEDS: Pantoprazole Sodium 40 MG in 0.9% Normal Saline (100mL MB+) 100 ML 330 MG IV (10:16)
[2024-02-28] MEDS: MethylPREDNISolone 125 MG/2 ML Vial 60 MG IV (10:41)
[2024-02-28] MEDS: 0.9 % NaCl (Sterile) Posiflush 10 mL IV (10:42)
[2024-02-28] MEDS: Doxycycline 100 MG in 0.9% Normal Saline (250mL Bag) 250 ML 250 MG IV ×2 (10:42→22:20)
[2024-02-28] MEDS: CHLORHEXIDINE GLUC 2% CLOTH 1 EACH TOWELETTE TOPICAL (11:30)
[2024-02-28] MEDS: 0.9% Saline Lock 10 ML Syringe IV (14:54)
--- NOTE | 2024-02-28 16:08 | NURSING ---
Fentanyl gtt running slower then expected due to clamp. Patient maintained RASS of -1 and remained comfortable entire time
--- NOTE | 2024-02-28 16:17 | CASEMGMT ---
Social Work- SW spoke with pt dtr Lulu to complete assessment via telephone. SW was previously known to Lulu from working with pt spouse, however, SW introduced self and reason for call/assessment. Pt is intubated and unable to answer questions. Pt has dementia and is unable to answer questions. Admitting dx: Sepsis, septic shock PCP: Carmina Henry Specialists: Park Ng NP [facility] Preferred Pharmacy: [facility] for monthly medications; [facility] [place], [place] for abx, acute medications Insurance: Tl FATIMA: Lulu, dtr. SonFernie. , Catrina has dementia and is currently on MS3 Living arrangements: This week, pt dtr has been moving pt belongings to her home for pt and to reside with her. Last night would have been pt first night in the home. Pt and previously lived independently. Transportation: Pt family DME: pt does not use anything at home, but can only walk a few feet. Pt dtr uses a wheelchair when she takes him to dr appointments. Pt is on 3L of oxygen at home; has asked dr to increase to 4L. Pt has palliative services once/month through [facility]. [facility] has encouraged pt to sign with hospice; pt has been resistant. Prior level of function: slow and wobbly, but able to do most ADL independent. Pt has end-stage COPD so is limited by breathing. Plan: return home with dtr; open to SNF or hospice if needed and pt is agreeable LW/POA: pt dtr will bring Friday. Dtr reports that she would like to review code status with physician. Physician notified. Pt dtr would like to meet with SW to discuss plan of care for both pt and Friday. Pt dtr states no concerns at this time. SW to follow; encouraged pt dtr to reach out with questions or concerns. Lulu agreeable. KVNG Cooney
[2024-02-28] MEDS: Insulin Lispro 100 UNIT/ML INSULN.PEN SC (18:45)
[2024-02-28 19:05] LABS: Bedside Glucose 160 mg/dL (74-106)
[2024-02-28] MEDS: fentaNYL drip 100 ML 10 MCG CONT INF (23:00)
[2024-02-28 23:53] LABS: Bedside Glucose 143 mg/dL (74-106)
[2024-02-29] VITALS (39 sets, daily range): BP systolic 104–176; BP diastolic 54–106; PULSE 53–163; RESP 10–23; TEMP 36.1–37.4; O2SAT 87–100; BMI 25.1
[2024-02-29] MEDS: Vancomycin IV 1,000 MG/200 ML BAG 200 MG IV ×2 (01:04→15:52)
[2024-02-29 02:52] LABS: Absolute Lymphocyte Count 0.85 X10^3/uL (0.83-4.51); Basophil# 0.03 X10^3/uL; Basophil% 0.2 % (0-1); Hematocrit 38.3 % (40-54); Hemoglobin 12.4 g/dL (13.0-16.5); Lymphocyte # 0.85 X10^3/ul (0.83-4.51); Lymphocyte % 6.4 % (19-41); Mean Corp Hgb Conc 32.4 g/dL (32-36); Mean Corpuscular Hgb 28.9 pg (27.0-32.0); Mean Corpuscular Volume 89.3 fL (80-94); Mean Platelet Vol. 11.9 fl (6.2-12.0); Monocyte# 0.43 X10^3/uL; Monocyte% 3.2 % (0-10); NRBC Flagged by Analyzer 0 % (0-5); Neutrophil % 89.8 % (47-70); Platelet Count 206 K/mm3 (150-450); RBC Distribution Width CV 14.7 % (11.6-14.6); RBC Distribution Width SD 47.3 fl (35.1-43.9); Red Blood Count 4.29 M/mm3 (4.6-6.2); White Blood Count 13.4 K/mm3 (4.4-11.0)
[2024-02-29 03:08] LABS: ALB/GLOB Ratio 0.8 RATIO (0.9-2.4); AST(SGOT) 16 U/L (15-37); Alanine Aminotransfer ALT/SGPT 14 U/L (16-61); Albumin, Serum 2.6 g/dL (3.2-5.0); Alkaline Phosphatase 59 U/L (45-117); Anion Gap 6 (5-15); BUN 16 mg/dL (7-18); BUN/Creat Ratio 20.6 RATIO (10-20); Calcium,Total 7.9 mg/dL (8.5-10.1); Chloride 111 mmol/L (98-107); Creatinine, Serum 0.78 mg/dL (0.70-1.30); EST Glomerular Filtration Rate 101 mL/min (>60); Est Glom Filt Rate - Afr Amer 123 mL/min (>60); Globulin 3.1 g/dL (2.2-4.2); Glucose 183 mg/dL (74-106); Potassium 4.5 mmol/L (3.5-5.1); Protein, Total 5.7 g/dL (6.4-8.2); Sodium Level 139 mmol/L (136-145)
--- NOTE | 2024-02-29 04:05 | RAD_ITS ---
EXAM: XR CHEST, 1 VIEW CLINICAL INDICATION: ARF TECHNIQUE: Frontal view of the chest. COMPARISON: 05/03/[address] chest, 05/28/2023. FINDINGS: LUNGS AND PLEURAL SPACES: Left larger than right pleural effusions and patchy pulmonary opacities which may be in part due to edema and/or multifocal pneumonia overall worsened compared to the prior radiograph. Diffuse interstitial prominence and overall hyperinflation consistent with COPD. No pneumothorax. HEART: No significant abnormality. Cardiac silhouette not enlarged. MEDIASTINUM: Central airways and mediastinal contour are unremarkable. BONES/JOINTS: No significant abnormality. No acute fracture. SOFT TISSUES: No significant abnormality. TUBES, LINES AND DEVICES: The endotracheal tube (ETT) is in satisfactory position. Enteric tube extends below the GE junction. RAD/Chest 1 View IMPRESSION: 1. Left larger than right pleural effusions and patchy pulmonary opacities which may be in part due to edema and/or multifocal pneumonia overall worsened compared to the prior radiograph. 2. Tubes and lines as above. 3. Diffuse interstitial prominence and overall hyperinflation consistent with COPD. Electronically Signed: Gurmeet Amaral DO at 7:50 EST ,
[2024-02-29] MEDS: Midodrine HCl 5 MG Tablet 10 MG NG (06:26)
[2024-02-29] MEDS: 0.9% Saline Lock 10 ML Syringe IV (06:26)
[2024-02-29] MEDS: CHLORHEXIDINE GLUC 2% CLOTH 1 EACH TOWELETTE TOPICAL (06:26)
[2024-02-29 06:48] LABS: Bedside Glucose 134 mg/dL (74-106)
--- NOTE | 2024-02-29 09:47 | PN.HOSP_ITS ---
Reason for Visit Reason for Visit: Diagnoses Sepsis, unspecified organism (02/28/24) Metabolic encephalopathy (02/28/24) Pneumonia, unspecified organism (02/28/24) Chronic obstructive pulmonary disease with (acute) exacerbation (02/28/24) Acute respiratory failure with hypoxia (02/28/24) Severe sepsis with septic shock (02/28/24) Objective Data Objective Data Vital Signs: Vital Signs Temp Pulse Resp BP Pulse Ox O2 Del Method O2 Flow Rate 97.9 F 65 18 142/69 H 95 Mechanical Ventilator 3 02/29/24 09:00 02/29/24 09:19 02/29/24 09:19 02/29/24 09:00 02/29/24 09:19 02/29/24 09:00 02/27/24 21:20 FiO2 40 02/29/24 09:19 Oxygen Flow Rate (L/min) 3 Oxygen Delivery Method Mechanical Ventilator Weight: 175 lb 7.807 oz Body Mass Index (BMI) 25.1 Intake & Output: Intake and Output for Last 24 Hours 02/27/24 02/28/24 02/29/24 23:59 23:59 23:59 Intake Total 3751.83 / 3763.83 376 / 376 Output Total 900 / 900 400 / 400 Balance . 2851.83 / 2863.83 - Lab / Micro Data 02/29/24 02:45 02/29/24 02:45 Labs: Laboratory Results - last 24 hr 02/28/24 18:03: POC Glucose 160 H 02/28/24 23:36: POC Glucose 143 H 02/29/24 02:45: WBC 13.4 H, RBC 4.29 L, Hgb 12.4 L, Hct 38.3 L, MCV 89.3, MCH 28.9, MCHC 32.4, RDW Std Deviation 47.3 H, RDW Coeff of Demetrius 14.7 H, Plt Count 206, MPV 11.9, Immature Gran % (Auto) 0.400, Neut % (Auto) 89.8 H, Lymph % (Auto) 6.4 L, [place] % (Auto) 3.2, Eos % (Auto) 0.0, Baso % (Auto) 0.2, Absolute Neuts (auto) 12.0 H, Absolute Lymphs (auto) 0.85, Nucleated RBC % 0, Sodium 139, Potassium 4.5, Chloride 111 H, Carbon Dioxide 23.0, Anion Gap 6, BUN 16, Creatinine 0.78, Estim Creat Clear Calc 69.70, Est GFR (MDRD) Af Amer 123, Est GFR (MDRD) Non-Af 101, BUN/Creatinine Ratio 20.6 H, Glucose 183 H, Calcium 7.9 L , Total Bilirubin 0.60, AST 16, ALT 14 L, Alkaline Phosphatase 59, Total Protein 5.7 L, Albumin 2.6 L, Globulin 3.1, Albumin/Globulin Ratio 0.8 L 02/29/24 06:25: POC Glucose 134 H Micro: Microbiology 02/27/24 21:30 Urine, Clean Catch Urine Culture - Final Mixed Gram Pos & Gram Neg Org 02/28/24 02:53 Urine Catheter - Francis Legionella Antigen - Final 02/28/24 02:53 Urine Catheter - Francis Streptococcus pneumoniae Antigen (M - Final 02/27/24 22:11 Mucosa - Nose SARS-CoV-2, Influenza & RSV (PCR) - Final Radiography Diagnostic Testing: Radiology Impression Chest X-Ray 02/29/24 04:05 IMPRESSION: 1. Left larger than right pleural effusions and patchy pulmonary opacities which may be in part due to edema and/or multifocal pneumonia overall worsened compared to the prior radiograph. 2. Tubes and lines as above. 3. Diffuse interstitial prominence and overall hyperinflation consistent with COPD. Electronically Signed: Gurmeet Amaral, at 7:50 EST , Physical Exam Narrative Seen and examined Patient is on ventilator. On Versed and fentanyl drip. Levophed is off. Admitted with sepsis due to pneumonia Physical exam General: Mild lethargy and sedated. Seems irritable HEENT: Atraumatic, PERRLA, EOMI, Normocephalic Oral: ET and OG tube Neck: Supple, No JVD, Negative Carotid Bruits Chest wall/Lungs: Air entry diminished in bilateral lung bases. No crepitation/rhonchi Cardiovascular: Irregular rhythm, Normal S1, Normal S2, systolic murmur Abdomen: Bowel Sounds Present, Soft, Non Tender, Non-Distended urine is clear and increased. No renal angle tenderness. No suprapubic tenderness. Extremities: No edema, Capillary Refill Less than 3 Seconds Skin: No rashes, No breakdown Musculoskeletal: No Tenderness to Palpation of Joints or Extremities, ROM/muscle strength could not be examined Neurological: Neuro exam could not be evaluated Psych/Mental Status: Lethargy. Mildly sedated Assessment & Plan Assessment/Plan (1) Septic shock: (2) Septic encephalopathy: (3) Pneumonia: QUALIFIERS: Pneumonia type: due to unspecified organism L aterality: unspecified laterality Lung location: unspecified part of lung Q ualified Code(s): J18.9 - Pneumonia, unspecified organism (4) Acute exacerbation of COPD with asthma: (5) Acute hypoxic respiratory failure: PLAN: Plan 83-year-old gentleman was admitted with progressive shortness of breath for 1 day with increase in O2 requirement from baseline 3 L to 6 L, agitation and confusion. Denies chest pain. His was sick, admitted in the hospital recently. CT shows bilateral pleural effusion with suspected right perihilar infiltrate. 1. 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 patient is being admitted in the ICU. Patient started on IV vancomycin and cefepime. 02/28: Patient is off vasopressor. Continue IV antibiotic. She also had decreased urine output in first 4 hours after admission, 70 noticed yesterday morning probably due to sepsis which has improved. Creatinine improved from 0.98-0.78. Does not meet criteria for JACOB. 2. AE COPD due to pneumonia/sepsis- Patient is being managed on scheduled bronchodilator, IV Solu-Medrol, Mucinex, incentive spirometry and Pep. 3. Acute hypoxic respiratory failure present on admission: ABG consistent with respiratory acidosis with pH of 7.2 49/142/21 on AC mode 100%/450/8. [employer] on board and is managing the vent setting 12/29: Patient on 40% FiO2. 4. PAF; not on anticoagulation with RVR: Patient was initially treated with IV Cardizem 20 mg bolus in ER. We will treat with IV digoxin to prevent exacerbating hypotension. Start full-dose Lovenox for CVA prophylaxis. 5. Essential hypertension; on metoprolol - Hold scheduled antihypertensives with patient severely hypotensive on admission. 6. Hyperlipidemia; on simvastatin - Resume statin after extubation. 7. DM-2: Was controlled but elevated on IV Solu-Medrol. Accu-Chek before meals and at bedtime with Humalog sliding scale coverage and hypoglycemia protocol. 8. GERD, PUD with history of GI bleed: Protonix 40 mg IV daily. 9. BPH on tamsulosin: 10. Degenerative joint disease/osteoarthritis: PT and OT ordered. DVT Prophylaxis - Patient started on full-dose Lovenox Charges/Coding Visit Charges Inpatient E&M: 11508 [facility] Hosp L3
[2024-02-29] MEDS: Cefepime HCl 2 GM in 0.9% Normal Saline (100mL MB+) 100 ML IV ×2 (10:10→20:06)
[2024-02-29] MEDS: Doxycycline 100 MG in 0.9% Normal Saline (250mL Bag) 250 ML 250 MG IV ×2 (10:57→20:52)
[2024-02-29 11:55] LABS: Allen Test Positive; Base Excess 1 mmol/L (-2 to +2); Bicarbonate 26.2 mmol/L (22-26); Blood Gas Specimen Type ART; Mode PS; O2 Delivery Device Adult Vent; PEEP 5; PO2 60 mmHG (75-100); SITE L Radial; SO2 90 % (95-99); Total Carbon Dioxide 28 mmol/L; pCO2 43.7 mmHg (35-45); pH 7.39 (7.35-7.45)
[2024-02-29] MEDS: Pantoprazole Sodium 40 MG in 0.9% Normal Saline (100mL MB+) 100 ML 330 MG IV (12:09)
[2024-02-29] MEDS: Enoxaparin 80 MG/0.8 ML Syringe 70 MG SC ×2 (12:10→20:07)
--- NOTE | 2024-02-29 13:16 | PN.CC_ITS ---
Objective Data Objective Data Vital Signs: Vital Signs Last response 3 Temperature 36.6 C 02/29/24 10:00 Temperature Source Core 02/29/24 10:00 Pulse Rate 78 02/29/24 12:14 Pulse Strength Weak (1+) 02/29/24 10:00 Respiratory Rate 11 L 02/29/24 12:14 Respiratory Effort Normal, Non-Labored 02/29/24 08:00 Respiratory Depth Normal 02/29/24 08:00 Respiratory Pattern Normal 02/29/24 12:14 Blood Pressure 145/72 H 02/29/24 10:00 Blood Pressure Mean 96 02/29/24 10:00 Blood Pressure Source Monitor 02/29/24 10:00 Blood Pressure Position Semi-Fowlers 02/29/24 10:00 Blood Pressure Location Left Arm 02/29/24 10:00 Pulse Ox 96 02/29/24 12:14 Oxygen Delivery Method Mechanical Ventilator 02/29/24 10:00 Oxygen Flow Rate (L/min) 3 02/27/24 21:20 Fraction of Inspired Oxygen (FIO2) 40 02/29/24 10:00 I&O: I&O Last 24 Hours 3 02/28/24 02/29/24 02/29/24 23:59 11:59 23:59 Intake Total 1731.50 / 3763.83 500 / 500 Output Total 525 / 900 400 / 400 Balance 1206.50 / 2863.83 100 / 100 I&O: Total Stay 3 02/27/24 21:14 thru 02/29/24 11:00 Intake Total 4264.80 Output Total 1300 Balance 2964.80 Current Meds Ordered / Administered: Current meds ordered / Administered 3 Generic Name Dose Route Start Last Admin Trade Name Freq PRN Reason Stop Dose Admin Chlorhexidine Gluconate 1 each 02/28/24 10:00 02/29/24 06:26 Chlorhexidine Gluc 2% Cloth 1 Each [place] TOPICAL 1 each DAILY MICHEAL Administration Chlorhexidine Gluconate 15 ml 02/28/24 10:00 02/28/24 21:02 Chlorhexidine 15 Ml PO 15 ml BID MICHEAL Administration Enoxaparin Sodium 70 mg 02/28/24 02:45 02/29/24 12:10 Enoxaparin 80 Mg/0.8 Ml Syringe SC 70 mg Q12 MICHEAL Administration Glucagon 1 mg 02/28/24 13:31 Glucagon 1 Mg/Ml Syringe IM X1 PRN Hypoglycemia Protocol Propofol 1,000 mg in 100 mls @ 4.476 mls/hr 02/27/24 21:55 02/29/24 10:10 Diprivan CONT INF Not Given .Q12H MICHEAL Protocol 10 MCG/KG/MIN Fentanyl 100 mls @ 5 mls/hr 02/27/24 22:10 02/29/24 11:00 CONT INF Infused UD MICHEAL Titration Protocol 50 MCG/HR Midazolam HCl 50 mg/ Sodium 100 mls @ 2 mls/hr 02/28/24 00:50 02/29/24 11:00 Chloride CONT INF 0 mg/hr .Q50H MICHEAL 0 mls/hr Titration Protocol 1 MG/HR Pantoprazole Sodium 40 mg/ 110 mls @ 330 mls/hr 02/28/24 10:00 02/29/24 12:09 Sodium Chloride IV 330 mls/hr Q24 MICHEAL Administration Vancomycin IV-PHARMACY TO DOSE 500 mls @ 250 mls/hr 02/28/24 02:38 1 each/ Sodium Chloride IV X1 PRN Rx to Dose Protocol Cefepime HCl 2 gm/ Sodium 100 mls @ 200 mls/hr 02/28/24 10:00 02/29/24 10:40 Chloride IV Infused Q12 MICHEAL Infusion Vancomycin HCl 1,000 mg in 200 mls @ 200 mls/hr 02/28/24 14:00 02/29/24 02:22 Vancomycin IV Infused Q12H MICHEAL Infusion Norepinephrine Bitartrate 8 mg 250 mls @ 9.375 mls/hr 02/28/24 05:15 02/29/24 10:10 / Sodium Chloride CONT INF Not Given .[id number] MICHEAL Protocol 5 MCG/MIN Doxycycline Hyclate 100 mg/ 260 mls @ 250 mls/hr 02/28/24 10:00 02/29/24 10:57 Sodium Chloride IV 03/04/24 11:03 250 mls/hr Q12 MICHEAL Administration Dextrose 250 mls @ 0 mls/hr 02/28/24 13:31 Dextrose 10%-Water IV .Q0M PRN HYPOGLYCEMIA Protocol As Directed Insulin Human Lispro 0 unit 02/28/24 18:00 02/29/24 06:26 Insulin Lispro 100 Unit/Ml Insuln.Pen SC Not Given Q6 MICHEAL Protocol Methylprednisolone 40 mg 02/28/24 14:00 02/29/24 06:26 Methylprednisolone 40 Mg/Ml Vial IV 40 mg Q8 MICHEAL Administration Midodrine 10 mg 02/28/24 06:00 02/29/24 06:26 Midodrine Hcl 5 Mg Tablet NG 10 mg Q8 MICHEAL Administration Sodium Chloride 10 - 40 ml 02/28/24 02:48 02/28/24 10:42 0.9 % Nacl (Sterile) Posiflush 10 Ml IV 10 ml UD PRN Administration Port access or dressing change Sodium Chloride 10 - 40 ml 02/28/24 02:48 02/28/24 14:54 0.9% Saline Lock 10 Ml Syringe IV 10 ml UD PRN Administration Midline Flush Sodium Chloride 10 - 40 ml 02/28/24 02:48 02/29/24 06:26 0.9% Saline Lock 10 Ml Syringe IV 10 ml UD PRN Administration SALINE FLUSH Sodium Chloride 100 ml 02/28/24 21:15 0.9% Normal Saline 100 Ml Iv.Soln. IV PRN PRN IVPB/KVO Vancomycin Protocol 1 lab 02/29/24 11:30 Vancomycin Trough/Random Due MC 02/29/24 15:30 DAILY MICHEAL Lab / Micro Data 02/29/24 02:45 02/29/24 02:45 Labs: Laboratory Results - last 24 hr 02/28/24 18:03: POC Glucose 160 H 02/28/24 23:36: POC Glucose 143 H 02/29/24 02:45: WBC 13.4 H, RBC 4.29 L, Hgb 12.4 L, Hct 38.3 L, MCV 89.3, MCH 28.9, MCHC 32.4, RDW Std Deviation 47.3 H, RDW Coeff of Demetrius 14.7 H, Plt Count 206, MPV 11.9, Immature Gran % (Auto) 0.400, Neut % (Auto) 89.8 H, Lymph % (Auto) 6.4 L, [place] % (Auto) 3.2, Eos % (Auto) 0.0, Baso % (Auto) 0.2, Absolute Neuts (auto) 12.0 H, Absolute Lymphs (auto) 0.85, Nucleated RBC % 0, Sodium 139, Potassium 4.5, Chloride 111 H, Carbon Dioxide 23.0, Anion Gap 6, BUN 16, Creatinine 0.78, Estim Creat Clear Calc 69.70, Est GFR (MDRD) Af Amer 123, Est GFR (MDRD) Non-Af 101, BUN/Creatinine Ratio 20.6 H, Glucose 183 H, Calcium 7.9 L , Total Bilirubin 0.60, AST 16, ALT 14 L, Alkaline Phosphatase 59, Total Protein 5.7 L, Albumin 2.6 L, Globulin 3.1, Albumin/Globulin Ratio 0.8 L 02/29/24 06:25: POC Glucose 134 H Micro: Microbiology 02/27/24 21:30 Urine, Clean Catch Urine Culture - Final Mixed Gram Pos & Gram Neg Org ABG Data ABG results: ABG 02/29/24 11:52 Specimen Type ART Sample Site L Radial pH 7.39 Bicarbonate Actual 26.2 H Total CO2 28 Base Excess 1 O2 Saturation 90 L O2 % 40.0 ABG pCO2 43.7 ABG pO2 60 L Loy Test Positive O2 Delivery Device Adult Vent Vent Mode PS POC PEEP 5 Imaging Radiology Impression Chest X-Ray 02/29/24 04:05 IMPRESSION: 1. Left larger than right pleural effusions and patchy pulmonary opacities which may be in part due to edema and/or multifocal pneumonia overall worsened compared to the prior radiograph. 2. Tubes and lines as above. 3. Diffuse interstitial prominence and overall hyperinflation consistent with COPD. Electronically Signed: Gurmeet Amaral DO at 7:50 EST , Assessment and Plan . Assessment and plan: 83-year-old male with history of COPD, A-fib not on anticoagulation due to GI bleed, recurrent UTIs, diabetes, hyperlipidemia. He presented to the ED tonight for evaluation of shortness of breath and confusion. He has been visiting his in the hospital over the past few days. Due to initial agitation and respiratory distress he required intubation in the ED. Labs significant for WBC count 20 initial ABG 7.2 549/142 with repeat ABG 7.3 /70. Initial lactate 2.4. COVID and flu were negative. CT chest abdomen pelvis obtained showed bibasilar atelectasis, small pleural effusions. Possible right perihilar infiltrate. In the ED he received 2 L fluid, cefepime,Vanc, Solu-Medrol, DuoNebs. 02/29/24 Doing well w/ SAT/SBT HR well controlled NE is off Hope to extubate today EXAM GEN NAD VS as above HEENT AMILCAR NECK supple COR irreg CHEST coarse ABD soft EXT minimal edema SKIN w/d MEHNAZ NF ASSESSMENT # Acute hypercapnic and hypoxemic respiratory failure # Possible pneumonia # Acute exacerbation of COPD # Acute metabolic encephalopathy # A-fib with RVR # Sepsis PLAN -Ventilator reviewed -Continue fentanyl, Versed to maintain ventilator synchrony -Follow ABG and chest x-ray -Broad-spectrum antibiotics vancomycin, cefepime, doxycycline -Follow cultures -Solu-Medrol, DuoNebs -Levophed to keep MAP greater than 65 as needed. Midodrine added Prophylaxis: Protonix, Lovenox Critical Care Time: 50 min The entirety of this encounter was done via Telemedicine
[2024-02-29 13:25] LABS: Bedside Glucose 147 mg/dL (74-106)
[2024-02-29 15:05] LABS: Vancomycin, Trough Level 13.7 ug/mL (5.0-15.0)
[2024-02-29] MEDS: Vancomycin Trough/Random Due 1 LAB MC (15:05)
--- NOTE | 2024-02-29 16:51 | PCM.RX.CS ---
Consult Antibiotic Management Pharmacy has been consulted to manage selected antibiotic: Vancomycin Type of Intervention Type of Consult: Follow-up Suspected Infection Suspected Infection: Sepsis Labs Labs: Sodium 139 mmol/L (136-145) 02/29/24 02:45 Potassium 4.5 mmol/L (3.5-5.1) 02/29/24 02:45 Chloride 111 mmol/L (98-107) H 02/29/24 02:45 Carbon Dioxide 23.0 mmol/L (21.0-32.0) 02/29/24 02:45 Anion Gap 6 (5-15) 02/29/24 02:45 BUN 16 mg/dL (7-18) 02/29/24 02:45 Creatinine 0.78 mg/dL (0.70-1.30) 02/29/24 02:45 Est GFR (MDRD) Af Amer 123 mL/min (>60) 02/29/24 02:45 Est GFR (MDRD) Non-Af 101 mL/min (>60) 02/29/24 02:45 BUN/Creatinine Ratio 20.6 RATIO (10-20) H 02/29/24 02:45 Glucose 183 mg/dL (74-106) H 02/29/24 02:45 Vancomycin Trough 13.7 ug/mL (5.0-15.0) 02/29/24 14:15 Microbiology Microbiology: Microbiology 02/27/24 21:30 Urine, Clean Catch Urine Culture - Final Mixed Gram Pos & Gram Neg Org 02/28/24 02:53 Urine Catheter - Francis Legionella Antigen - Final 02/28/24 02:53 Urine Catheter - Francis Streptococcus pneumoniae Antigen (M - Final 02/27/24 22:11 Mucosa - Nose SARS-CoV-2, Influenza & RSV (PCR) - Final Goal Trough Goal Trough: 15-20 mcg/mL Pharmacy Plan for Drug Dosing Pharmacy Plan for Drug Dosing: VANCOMYCIN LEVEL RECEIVED Current Vancomycin Dose: 1000mg q12h (,) Number of Doses Received: x3 1000mg doses Vancomycin Level: 13.7 Hours Since Last Dose: 13 hours since last 1000mg dose Renal Function: SrCr 0.78 Renal Function Trend: SrCr improving Lab/Micro: Vancomycin Plan/Comments: resulted trough of 13.7 is below the ordered goal trough of 15-20, however the patient may not yet be at steady state. recommend continuing current dose of 1000mg q12h and checking a trough prior to the 4th dose Pending Level: 03/02/24 at 0130 Pharmacy Service will continue to monitor and adjust dosing as required. Follow-Up Labs Follow-Up Labs: Trough: Vancomycin (03/02/24 at 0130)
[2024-02-29] MEDS: Insulin Lispro 100 UNIT/ML INSULN.PEN SC ×2 (17:49→23:25)
[2024-02-29 18:09] LABS: Bedside Glucose 164 mg/dL (74-106)
[2024-02-29] MEDS: Diltiazem 125 MG in Dextrose 5%-Water (100mL Bag) 100 ML IV (19:30)
[2024-02-29] MEDS: Morphine 2 MG/ML Syringe IV (23:21)
[2024-02-29] MEDS: Digoxin 250 MCG/ML Ampul IV (23:21)
[2024-02-29 23:46] LABS: Bedside Glucose 154 mg/dL (74-106)
[2024-03-01] VITALS (25 sets, daily range): BP systolic 117–196; BP diastolic 57–106; PULSE 60–115; RESP 16–24; TEMP 36.6–37.3; O2SAT 86–95; BMI 25.1; BMI 24.6
[2024-03-01] MEDS: Ipratropium 0.5 MG/2.5 ML SOLUTION INHALATION ×2 (01:07→07:11)
[2024-03-01] MEDS: Vancomycin IV 1,000 MG/200 ML BAG 200 MG IV (01:55)
[2024-03-01] MEDS: CHLORHEXIDINE GLUC 2% CLOTH 1 EACH TOWELETTE TOPICAL (01:55)
[2024-03-01] MEDS: 0.9% Saline Lock 10 ML Syringe IV ×2 (03:07→05:19)
[2024-03-01] MEDS: Diltiazem 125 MG in Dextrose 5%-Water (100mL Bag) 100 ML 15 MG IV ×2 (03:09→11:40)
[2024-03-01 03:17] LABS: Absolute Lymphocyte Count 1.06 X10^3/uL (0.83-4.51); Absolute Neutrophil Count 25.3 X10^3/uL (2.0-7.7); Basophil# 0.04 X10^3/uL; Basophil% 0.1 % (0-1); Hematocrit 43.4 % (40-54); Lymphocyte # 1.06 X10^3/ul (0.83-4.51); Lymphocyte % 3.8 % (19-41); Mean Corp Hgb Conc 32.3 g/dL (32-36); Mean Platelet Vol. 11.4 fl (6.2-12.0); Monocyte# 1.18 X10^3/uL; Monocyte% 4.2 % (0-10); NRBC Flagged by Analyzer 0 % (0-5); Neutrophil # 25.29 X10^3/uL (2.7-7.7); Neutrophil % 90.9 % (47-70); POSITIVE DIFFERENTIAL YES; Platelet Count 306 K/mm3 (150-450); RBC Distribution Width CV 15.1 % (11.6-14.6); RBC Distribution Width SD 49.7 fl (35.1-43.9); Red Blood Count 4.82 M/mm3 (4.6-6.2); White Blood Count 27.9 K/mm3 (4.4-11.0)
[2024-03-01 03:28] LABS: Differential Indicated SCAN CRITERIA MET
[2024-03-01 03:32] LABS: ALB/GLOB Ratio 0.9 RATIO (0.9-2.4); AST(SGOT) 26 U/L (15-37); Alanine Aminotransfer ALT/SGPT 18 U/L (16-61); Albumin, Serum 3.3 g/dL (3.2-5.0); Alkaline Phosphatase 64 U/L (45-117); Anion Gap 4 (5-15); BUN 22 mg/dL (7-18); BUN/Creat Ratio 20.2 RATIO (10-20); Calcium,Total 8.8 mg/dL (8.5-10.1); Chloride 112 mmol/L (98-107); Creatinine, Serum 1.09 mg/dL (0.70-1.30); EST Glomerular Filtration Rate 68 mL/min (>60); Est Glom Filt Rate - Afr Amer 83 mL/min (>60); Estimated Creatinine Clearance 51.16 ml/min; Globulin 3.6 g/dL (2.2-4.2); Glucose 167 mg/dL (74-106); Potassium 4.5 mmol/L (3.5-5.1); Protein, Total 6.9 g/dL (6.4-8.2); Sodium Level 142 mmol/L (136-145)
[2024-03-01 04:16] LABS: Differential Comment SCANNED
--- NOTE | 2024-03-01 04:51 | RAD_ITS ---
INDICATION: hypoxia EXAMINATION/TECHNIQUE: X-RAY - XR Chest 1 View COMPARISON: Chest radiograph previous day. Findings: 2 frontal views of the chest. LUNG PARENCHYMA: Severe diffuse bilateral perihilar and lower lung patchy airspace disease, worsened from previous day. Associated interstitial component. PLEURA: No pleural effusion. No pneumothorax. HEART/GREAT VESSELS: Cardiomediastinal silhouette is unremarkable. BONES: Osseous structures are unremarkable for age. RAD/Chest 1 View (Portable) IMPRESSION: Interval worsening of severe diffuse bilateral perihilar and lower lung patchy airspace disease from previous day. Associated interstitial component. Electronically Signed: Zackary Romo MD at 6:52 EST ,
[2024-03-01 05:20] LABS: BNP,B-Type NATRIURETIC PEPTIDE 426.9 pg/mL (0-100)
[2024-03-01 05:36] LABS: Allen Test Positive; Base Excess -3 mmol/L (-2 to +2); Bicarbonate 22.1 mmol/L (22-26); Blood Gas Specimen Type ART; Mode Not entered; O2 Delivery Device HFNC; PO2 59 mmHG (75-100); SITE L Brach; SO2 91 % (95-99); Total Carbon Dioxide 23 mmol/L; pCO2 34.9 mmHg (35-45); pH 7.41 (7.35-7.45)
[2024-03-01 05:39] LABS: Bedside Glucose 133 mg/dL (74-106)
--- NOTE | 2024-03-01 07:47 | PCM.PN.HOSP ---
Reason for Visit Reason for Visit: Diagnoses Sepsis, unspecified organism (02/28/24) Metabolic encephalopathy (02/28/24) Pneumonia, unspecified organism (02/28/24) Chronic obstructive pulmonary disease with (acute) exacerbation (02/28/24) Acute respiratory failure with hypoxia (02/28/24) Severe sepsis with septic shock (02/28/24) Objective Data Objective Data Vital Signs: Vital Signs Temp Pulse Resp BP Pulse Ox O2 Del Method O2 Flow Rate 98.8 F 92 20 H 174/57 H 95 Nasal Cannula 12 03/01/24 07:00 03/01/24 07:14 03/01/24 07:14 03/01/24 07:00 03/01/24 07:16 03/01/24 07:16 03/01/24 07:16 FiO2 40 02/29/24 13:00 Oxygen Flow Rate (L/min) 12 Oxygen Delivery Method Nasal Cannula Weight: 175 lb 7.807 oz Body Mass Index (BMI) 25.1 Intake & Output: Intake and Output for Last 24 Hours 02/28/24 02/29/24 03/01/24 23:59 23:59 23:59 Intake Total 3751.83 / 3763.83 1475.17 / 1490.17 320.00 / 320.00 Output Total 900 / 900 1025 / 1025 250 / 250 Balance 2851.83 / 2863.83 450.17 / 465.17 70.00 / 70.00 Lab / Micro Data 03/01/24 03:10 03/01/24 03:10 Labs: Laboratory Results - last 24 hr 02/29/24 13:07: POC Glucose 147 H 02/29/24 14:15: Vancomycin Trough 13.7 02/29/24 17:47: POC Glucose 164 H 02/29/24 23:25: POC Glucose 154 H 03/01/24 03:10: WBC 27.9 H, RBC 4.82, Hgb 14.0, Hct 43.4, MCV 90.0, MCH 29.0, MCHC 32.3, RDW Std Deviation 49.7 H, RDW Coeff of Demetrius 15.1 H, Plt Count 306, MPV 11.4, Immature Gran % (Auto) 1.000 H, Neut % (Auto) 90.9 H, Lymph % (Auto) 3.8 L, [place] % (Auto) 4.2, Eos % (Auto) 0.0, Baso % (Auto) 0.1, Absolute Neuts (auto) 25.3 H, Absolute Lymphs (auto) 1.06, Nucleated RBC % 0, Differential Comment SCANNED, Sodium 142, Potassium 4.5, Chloride 112 H, Carbon Dioxide 25.0, Anion Gap 4 L, BUN 22 H, Creatinine 1.09, Estim Creat Clear Calc 51.16, Est GFR (MDRD) Af Amer 83, Est GFR (MDRD) Non-Af 68, BUN/Creatinine Ratio 20.2 H, Glucose 167 H, Calcium 8.8, Total Bilirubin 0.80, AST 26, ALT 18, Alkaline Phosphatase 64, Total Protein 6.9, Albumin 3.3, Globulin 3.6, Albumin/Globulin Ratio 0.9 03/01/24 04:55: B-Natriuretic Peptide 426.9 H 03/01/24 05:19: POC Glucose 133 H Micro: Microbiology 02/27/24 21:30 Urine, Clean Catch Urine Culture - Final Mixed Gram Pos & Gram Neg Org 02/28/24 02:53 Urine Catheter - Francis Legionella Antigen - Final 02/28/24 02:53 Urine Catheter - Francis Streptococcus pneumoniae Antigen (M - Final 02/27/24 22:11 Mucosa - Nose SARS-CoV-2, Influenza & RSV (PCR) - Final ABG Data ABG results: ABG 02/29/24 03/01/24 11:52 05:32 Specimen Type ART ART Sample Site L Radial L Brach pH 7.39 7.41 Bicarbonate Actual 26.2 H 22.1 Total CO2 28 23 Base Excess 1 -3 L O2 Saturation 90 L 91 L O2 % 40.0 12.0 ABG pCO2 43.7 34.9 L ABG pO2 60 L 59 L Loy Test Positive Positive O2 Delivery Device Adult Vent HFNC Vent Mode PS Not entered POC PEEP 5 Radiography Diagnostic Testing: Radiology Impression Chest X-Ray 02/29/24 04:05 IMPRESSION: 1. Left larger than right pleural effusions and patchy pulmonary opacities which may be in part due to edema and/or multifocal pneumonia overall worsened compared to the prior radiograph. 2. Tubes and lines as above. 3. Diffuse interstitial prominence and overall hyperinflation consistent with COPD. Electronically Signed: Gurmeet Amaral DO at 7:50 EST , Chest X-Ray 03/01/24 04:51 IMPRESSION: Interval worsening of severe diffuse bilateral perihilar and lower lung patchy airspace disease from previous day. Associated interstitial component. Electronically Signed: Zackary Romo MD at 6:52 EST , Physical Exam Narrative Seen and examined Patient extubated yesterday but is still on 15 L of oxygen. Short of breath. Went into A-fib RVR last night and started on Cardizem drip currently at 15 mg/h. Was given also digoxin. Admitted with sepsis due to pneumonia Physical exam General: Awake, short of breath. Anxious. Disoriented to time. HEENT: Atraumatic, PERRLA, EOMI, Normocephalic Oral: Oral mucosa dry but no inflammation or ulcer. Base of tongue, soft palate and posterior pharyngeal wall seen Neck: Supple, No JVD, Negative Carotid Bruits Chest wall/Lungs: Air entry diminished in bilateral lung bases. No crepitation/rhonchi Cardiovascular: Irregular rhythm, Normal S1, Normal S2, systolic murmur Abdomen: Bowel Sounds Present, Soft, Non Tender, Non-Distended : Francis catheter urine is clear and increased. No renal angle tenderness. No suprapubic tenderness. Extremities: No edema, Capillary Refill Less than 3 Seconds Skin: No rashes, No breakdown Musculoskeletal: No Tenderness to Palpation of Joints or Extremities, ROM/muscle strength could not be examined Neurological: Neuro exam could not be evaluated Psych/Mental Status: Mildly irritable. Assessment & Plan Assessment/Plan (1) Septic shock: (2) Septic encephalopathy: (3) Pneumonia: QUALIFIERS: Laterality: unspecified laterality Lung location: unspecified part of lung Pneumonia type: due to unspecified organism Qualified Code(s): J18.9 - Pneumonia, unspecified organism (4) Acute exacerbation of COPD with asthma: (5) Acute hypoxic respiratory failure: PLAN: Plan 83-year-old gentleman was admitted with progressive shortness of breath for 1 day with increase in O2 requirement from baseline 3 L to 6 L, agitation and confusion. Denies chest pain. His was sick, admitted in the hospital recently. CT shows bilateral pleural effusion with suspected right perihilar infiltrate. 1. 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 patient is being admitted in the ICU. Patient started on IV vancomycin and cefepime. 02/28: Patient is off vasopressor. Continue IV antibiotic. She also had decreased urine output in first 4 hours after admission, 70 noticed yesterday morning probably due to sepsis which has improved. Creatinine improved from 0.98-0.78. Does not meet criteria for JACOB. 03/01: Shock is resolved. 2. AE COPD due to pneumonia/sepsis- Patient is being managed on scheduled bronchodilator, IV Solu-Medrol, Mucinex, incentive spirometry and Pep. 03/01: Patient has leukocytosis probably from IV Solu-Medrol as infection seems controlled. 3. Acute hypoxic respiratory failure present on admission: ABG consistent with respiratory acidosis with pH of 7.2 /142/21 on AC mode 100%/450/8. Land Ac[employer] Analyst on board and is managing the vent setting 02/28: Patient on 40% FiO2. 03/01: Patient is still on 15 L of oxygen. Extubated. 4. PAF; not on anticoagulation with RVR: Patient was initially treated with IV Cardizem 20 mg bolus in ER. We will treat with IV digoxin to prevent exacerbating hypotension. Start full-dose Lovenox for CVA prophylaxis. 03/01: A-fib RVR: On Cardizem drip. On digoxin heart rate is controlled at 90/m. Started on oral metoprolol succinate and Cardizem and try to taper IV Cardizem drip. Metoprolol was on hold as patient was in septic shock 5. Essential hypertension; on metoprolol - Hold scheduled antihypertensives with patient severely hypotensive on admission. 6. Hyperlipidemia; on simvastatin - Resume statin after extubation. 7. DM-2: Was controlled but elevated on IV Solu-Medrol. Accu-Chek before meals and at bedtime with Humalog sliding scale coverage and hypoglycemia protocol. 8. GERD, PUD with history of GI bleed: Protonix 40 mg IV daily. 9. BPH on tamsulosin: 10. Degenerative joint disease/osteoarthritis: PT and OT ordered. DVT Prophylaxis - Patient started on full-dose Lovenox Charges/Coding Visit Charges Inpatient E&M: [id number] [facility] Hosp L3
--- NOTE | 2024-03-01 07:54 | PN.CC_ITS ---
Assessment & Plan Assessment/Plan (1) Acute on chronic respiratory failure with hypoxemia: PLAN: Plan RECOMMENDATIONS: 1. Supplemental oxygen to maintain saturations at or above 90%. 2. Continue antimicrobial therapy. Okay to discontinue doxycycline. 3. Continue scheduled bronchodilators and IV steroids. 4. Continue Cardizem and beta-ricky for rate control. 5. Continue Seroquel for agitation. 6. Encourage incentive spirometer use and mobilize patient as tolerated. 7. Gentle diuresis as ordered. IMPRESSIONS: 1. Acute on chronic hypoxemic respiratory failure Clinical concern for underlying COPD with exacerbation secondary to pneumonia. Although the patient was initially intubated, he was able to be successfully extubated on February 28. His respiratory status, however, remains quite tenuous. The patient will be continued on scheduled bronchodilators, IV steroids and antimicrobials. Given the findings noted on his chest imaging, we will check respiratory viral panel. Will consider gentle diuresis as well today, as tolerated by hemodynamics and renal function. The patient has a baseline oxygen requirement of 3 L/min. 2. Paroxysmal atrial fibrillation Continue Cardizem and beta-ricky regimen for rate control. 3. History of hypertension/hyperlipidemia/diabetes mellitus/tobacco dependency in remission Complicates care, management, recovery and prognosis. Continue home medications as indicated. UPDATE: I met personally with the patient's daughter at the bedside early this afternoon and discussed overall goals of care and prognosis. She engaged her additional siblings in a goals of care discussion and as a group they have elected to pursue referral to hospice care services and initiation of comfort care measures. CODE STATUS has been updated to DNR comfort care, per request. CODE status: Discussed CODE status at length including difference between FULL code, DNR-CCA and DNR-CC status. Following discussions about the differences in these status, patient's children requested DNR comfort care CODE STATUS. Advanced Care Planning Face to Face Time: 18 minutes This note was generated with [employer] dictation software. It may contain incorrect words, spelling, and punctuation that were not noted in checking the note before signing. Subjective Subjective The patient was seen and examined at the bedside this morning. Events from the last 24 hours have been reviewed. The patient currently has a low-grade fever and remains tachycardic and tachypneic on 15 L/min via high flow cannula. The patient was successfully extubated yesterday. He is currently documented to be overall net +3.1 L for the hospitalization. White blood cell count is elevated at 28,000. Creatinine is within normal limits. BNP is elevated at 426. The patient has a known history of advanced age COPD on Trelegy Ellipta as an outpatient along with 3 L/min of supplemental oxygen at all times. He is followed in the pulmonary medicine clinic on an outpatient basis. Over the course of the morning and early afternoon, the patient became increasingly disoriented and hypoxemic. He began pulling at medical devices and attempting to get out of bed. The patient's daughter presented to the bedside. I had a marley discussion with her regarding the patient's prognosis and overall goals of care. She spoke with her additional siblings and they were all in agreement to transition the patient to DNR comfort care, with referral to be placed to hospice care services. Objective Data Objective Data The patient's most recent lab work, culture data and imaging studies have all been personally reviewed. Surface echocardiogram from June 2021 demonstrated normal LV size and function with an ejection fraction of 55%. Infectious workup has been unrevealing to date. Vital Signs: Vital Signs Temp Pulse Resp BP Pulse Ox O2 Del Method O2 Flow Rate 98.8 F 92 20 H 174/57 H 95 Nasal Cannula 12 03/01/24 07:00 03/01/24 07:14 03/01/24 07:14 03/01/24 07:00 03/01/24 07:16 03/01/24 07:16 03/01/24 07:16 FiO2 40 02/29/24 13:00 Oxygen Flow Rate (L/min) 12 Oxygen Delivery Method Nasal Cannula Weight: 175 lb 7.807 oz Body Mass Index (BMI) 25.1 Intake & Output: Intake and Output for Last 24 Hours 02/28/24 02/29/24 03/01/24 23:59 23:59 23:59 Intake Total 3751.83 / 3763.83 1475.17 / 1490.17 320.00 / 320.00 Output Total 900 / 900 1025 / 1025 250 / 250 Balance 2851.83 / 2863.83 450.17 / 465.17 70.00 / 70.00 Lab / Micro Data Attestation: I reviewed the patient's lab results. 03/01/24 03:10 03/01/24 03:10 Labs: Laboratory Results - last 24 hr 12/29/24 13:07: POC Glucose 147 H 02/29/24 14:15: Vancomycin Trough 13.7 02/29/24 17:47: POC Glucose 164 H 02/29/24 23:25: POC Glucose 154 H 03/01/24 03:10: WBC 27.9 H, RBC 4.82, Hgb 14.0, Hct 43.4, MCV 90.0, MCH 29.0, MCHC 32.3, RDW Std Deviation 49.7 H, RDW Coeff of Demetrius 15.1 H, Plt Count 306, MPV 11.4, Immature Gran % (Auto) 1.000 H, Neut % (Auto) 90.9 H, Lymph % (Auto) 3.8 L , [place] % (Auto) 4.2, Eos % (Auto) 0.0, Baso % (Auto) 0.1, Absolute Neuts (auto) 25.3 H, Absolute Lymphs (auto) 1.06, Nucleated RBC % 0, Differential Comment SCANNED, Sodium 142, Potassium 4.5, Chloride 112 H, Carbon Dioxide 25.0, Anion Gap 4 L, BUN 22 H, Creatinine 1.09, Estim Creat Clear Calc 51.16, Est GFR (MDRD) Af Amer 83, Est GFR (MDRD) Non-Af 68, BUN/Creatinine Ratio 20.2 H, Glucose 167 H , Calcium 8.8, Total Bilirubin 0.80, AST 26, ALT 18, Alkaline Phosphatase 64, Total Protein 6.9, Albumin 3.3, Globulin 3.6, Albumin/Globulin Ratio 0.9 03/01/24 04:55: B-Natriuretic Peptide 426.9 H 03/01/24 05:19: POC Glucose 133 H Micro: Microbiology 02/27/24 21:30 Urine, Clean Catch Urine Culture - Final Mixed Gram Pos & Gram Neg Org 02/28/24 02:53 Urine Catheter - Francis Legionella Antigen - Final 02/28/24 02:53 Urine Catheter - Francis Streptococcus pneumoniae Antigen (M - Final 02/27/24 22:11 Mucosa - Nose SARS-CoV-2, Influenza & RSV (PCR) - Final ABG Data ABG results: ABG 02/29/24 03/01/24 11:52 05:32 Specimen Type ART ART Sample Site L Radial L Brach pH 7.39 7.41 Bicarbonate Actual 26.2 H 22.1 Total CO2 28 23 Base Excess 1 -3 L O2 Saturation 90 L 91 L O2 % 40.0 12.0 ABG pCO2 43.7 34.9 L ABG pO2 60 L 59 L Loy Test Positive Positive O2 Delivery Device Adult Vent HFNC Vent Mode PS Not entered POC PEEP 5 Radiography Diagnostic Testing: Radiology Impression Chest X-Ray 03/01/24 04:51 IMPRESSION: Interval worsening of severe diffuse bilateral perihilar and lower lung patchy airspace disease from previous day. Associated interstitial component. Electronically Signed: Zackary Romo MD at 6:52 EST , Physical Exam Const Constitutional Narrative: The patient is disoriented and confused, restless in the bed and pulling at medical devices. HEENT normocephalic and head/scalp atraumatic Eyes EOMs intact bilaterally, conjunctivae normal and no scleral icterus Neck supple General: trachea midline Chest inspection of chest normal Resp Effort and Inspection: tachypneic and labored Auscultation: diminished lung sounds Cardio S1 normal heart sound and S2 normal heart sound Rate: tachycardic Rhythm: abnormal rhythm GI normal to inspection, nondistended, normoactive bowel sounds Extremity General Extremity: edema; Negative for clubbing Skin no rashes or lesions noted Neuro moves all extremities and no focal motor deficits Psych Activity / Motor Behavior: restless Mood & Affect: anxious Charges/Coding Visit Charges Inpatient E&M: 67749 Subs Hosp L3 Procedures Hospitalists Procedures: [id number] Advncd Care Plan 30 Min
[2024-03-01] MEDS: Enoxaparin 80 MG/0.8 ML Syringe 70 MG SC (08:34)
[2024-03-01] MEDS: Cefepime HCl 2 GM in 0.9% Normal Saline (100mL MB+) 100 ML IV (08:34)
[2024-03-01] MEDS: Pantoprazole Sodium 40 MG in 0.9% Normal Saline (100mL MB+) 100 ML 330 MG IV (08:34)
[2024-03-01] MEDS: Metoprolol(XL)Succ 25 MG Tablet PO (10:28)
[2024-03-01] MEDS: Doxycycline 100 MG CAPSULE PO (10:37)
[2024-03-01] MEDS: dilTIAZem 60 MG Tablet PO (10:37)
[2024-03-01] MEDS: QUEtiapine 25 MG Tablet PO (10:37)
[2024-03-01] MEDS: Insulin Lispro 100 UNIT/ML INSULN.PEN SC (11:32)
[2024-03-01 11:50] LABS: Bedside Glucose 177 mg/dL (74-106)
--- NOTE | 2024-03-01 12:07 | CASEMGMT ---
Social Work- SW met with pt dtr, Lulu, and Lulu's to discuss preferences at discharge for pt. Pt dtr reports that they were with him this morning and he is much more oriented than when he was admitted. Pt dtr is realistic that medically there are numerous factors that are still going on and impacting plans for d/c. Pt dtr reports that hospice has been trying for two years to have pt sign from palliative; pt has refused. Pt dtr has concerns about the level of care that pt may need going home. Pt dtr is open to SNF if needed. Pt dtr would like hospice for additional supports and care, but maintains that pt must be agreeable. Pt dtr reports that she did not have the opportunity to go through pt paperwork to see if there is a HCPOA in place. Pt dtr states that there is a trust and legal POA in place; pt dtr would like HCPOA completed. SW provided education that pt must be oriented x 4 and pass a brief cognitive assessment prior to completion. Pt dtr reports understanding. SW reiterated that pt dtr should go through the legal documentation she has to determine if a HCPOA is in place at this time. Pt dtr reports that pt is fully moved in to her home and pt dtr would like pt and pt spouse to be home following SNF with hospice services. Pt dtr is waiting to see if pt improves medically before deciding on a discharge plan. SHREYA remains available to follow. KVNG Cooney
[2024-03-01] MEDS: Furosemide 20 MG/2 ML VIAL IV ×3 (12:36→17:34)
--- NOTE | 2024-03-01 13:00 | NURSING ---
[address] Thacker ABG being obtained airvo placed dr thacker at bedside Pt confused, pulling at wires, hallucinating, becoming more aggressive and threatening Dr. Thacker Spoke with Pts daughter at bedside, Daughter making phone calls with family for ongoing plan of care
[2024-03-01 13:04] LABS: Base Excess -2 mmol/L (-2 to +2); Bicarbonate 23.2 mmol/L (22-26); Blood Gas Specimen Type ART; Comment airvo 45 L; Mode Not entered; O2 Delivery Device Vapotherm; PO2 60 mmHG (75-100); SITE L Radial; SO2 89 % (95-99); Total Carbon Dioxide 25 mmol/L; pCO2 41.5 mmHg (35-45); pH 7.36 (7.35-7.45)
[2024-03-01] MEDS: LORazepam 2 MG/ML Syringe IV ×3 (13:44→23:44)
[2024-03-01] MEDS: Morphine 2 MG/ML Syringe IV ×2 (13:45→17:34)
--- NOTE | 2024-03-01 14:20 | CASEMGMT ---
Addendum entered by Kena Estes 03/01/24 14:59: Social Work Return call from [facility] and referral made. SW requesting pt be evaluated for inpatient unit. [facility] to call pt aisha Lawson and set an appointment to meet. KVNG Cherry Original Note: Social Work SW received referral from physician that after meeting with pt family, referral for hospice has been placed. SW met with pt's dgt Lulu who is at pt bedside. Lulu states that she has spoken with physician and her two brothers and all have made decision for hospice services to be initiated with pt. Pt's brothers are coming to the hospital and will both be here later today. SHREYA educated Lulu to inpatient hospice services and she is understanding and agreeable to this. Lulu requesting hospice out of [facility]. 2 VM's left for [facility] and clinical referral faxed. SW will await return call. KVNG Cherry
--- NOTE | 2024-03-01 15:07 | PCM.CONS.GEN ---
Assessment & Plan Assessment/Plan (1) Pneumonia: QUALIFIERS: Pneumonia type: due to unspecified organism Laterality: unspecified laterality Lung location: unspecified part of lung Qualified Code(s): J18.9 - Pneumonia, unspecified organism PLAN: treat with ceftriaxone 2 g IV daily. Patient is on Solu-Medrol and that could contribute to his leukocytosis. HPI Consult Data Date of Consult: 03/01/24 HPI Narrative Reason for Consultation: Community-acquired pneumonia with respiratory failure HPI Narrative: ANDREA DELUCA, is a 83 M who presents COPD on chronic home O2, lives at home and was brought to the hospital late last week with agitation and worsening respiratory status. Patient was brought to the hospital and was admitted shortly after admission and managed in the ICU. Patient was extubated yesterday and currently on high flow nasal cannula. Generally weak, noncommunicative. History is obtained through review of the records as well as talking to the family members at the bedside. Microbiology data has been nondiagnostic. Chest film reviewed shows bilateral infiltrates. [facility] Medical History Skin lesion of back Diabetes mellitus Wears dentures Low iron History of ulceration History of diverticulitis On home oxygen therapy Former smoker Asthma Shortness of breath on exertion History of echocardiogram History of stress test Cardiology follow-up encounter Paroxysmal atrial fibrillation with RVR Anemia requiring transfusions Lung mass Lung mass Paroxysmal atrial fibrillation Bruit of left carotid artery Type 2 diabetes mellitus Stage 3 severe COPD by GOLD classification Dupuytrens contracture Diverticulitis H/O: pneumonia History of pulmonary aspiration H/O inguinal hernia Type 2 diabetes mellitus without complications GERD (gastroesophageal reflux disease) Neuropathy COPD (chronic obstructive pulmonary disease) Arthritis Anemia Home Medications ?Medication ?Instructions ?Recorded ?Last Taken ?Type ferrous sulfate 325 mg (65 mg 325 mg PO DAILY supplement 12/29/19 Unknown History iron) tablet Handicap placard #1 ea 10/24/22 Unknown Rx blood sugar diagnostic (Blood #100 ea 11/28/22 Unknown Rx Glucose Test strips) lancets 28 gauge (FreeStyle #100 ea 11/28/22 Unknown Rx Lancets) tamsulosin 0.4 mg capsule 0.4 mg PO QHS prostate #90 caps 05/13/23 Unknown Rx albuterol sulfate 2.5 mg/3 mL 2.5 mg (3 mL) inhalation Q4H PRN 08/01/23 Unknown Rx (0.083 %) solution for nebulization shortness of breath or wheezing #180 mL albuterol sulfate 90 mcg/actuation 2 puff inhalation Q6H PRN 08/01/23 Unknown Rx aerosol inhaler shortness of breath or wheezing #3 device miscellaneous medical supply 09/19/23 Unknown History metformin 500 mg tablet See Rx Instructions .Route 09/24/23 Unknown Rx .COMPLEX diabetes #180 tabs pantoprazole 40 mg tablet,delayed 40 mg PO BID reflux #180 tabs 09/24/23 Unknown Rx release cetirizine 10 mg capsule (Zyrtec) 10 mg PO QDAY PRN allergies 11/25/23 Unknown History gabapentin 100 mg capsule 100 mg PO TID nerve pain #270 caps 12/19/23 Unknown Rx metoprolol tartrate 25 mg tablet 12.5 mg (1/2 x 25 mg) PO BID blood 12/19/23 Unknown Rx pressure #90 tabs fluticasone propionate 50 2 spray intranasal DAILY #16 grams 01/27/24 Unknown Rx mcg/actuation nasal spray,suspension simvastatin 40 mg tablet 40 mg PO DAILY cholesterol #90 tabs 02/04/24 Unknown Rx fluticasone fur. 200 mcg-umeclid 1 inh inhalation DAILY PRN 02/28/24 Unknown History 62.5 mcg-vilant 25 mcg breathing inhalat.powder (Trelegy Ellipta) Allergy/AdvReac Type Severity Reaction Status Date / Time Penicillins Allergy Severe Hives Verified 02/18/24 09:28 erythromycin base AdvReac Severe Nausea/Vom/ Verified 02/18/24 09:28 Diarrhea Family History Father Cancer Brother Parkinsons disease Mother Diverticulitis Surgical History History of hand surgery History of hernia repair History of carpal tunnel release Social History household members: spouse Smoking Status: Former smoker Tobacco: How many years used: 40 Electronic Cigarette Use: not used how long ago did patient quit smokin second hand exposure: Yes alcohol intake: never substance use type: does not use caffeine: Yes Type: coffee Number of servings: 1 what type of physical activity do you participate in: none ROS ROS Narrative Patient is noncommunicative Physical Exam Narrative Elderly frail man chronically ill lungs coarse breath sounds heart exam S1-S2 abdomen soft nontender. Indwelling Francis catheter is in place Lab / Micro Data 03/01/24 03:10 03/01/24 03:10 Labs: Laboratory Results - last 24 hr 02/29/24 17:47: POC Glucose 164 H 02/29/24 23:25: POC Glucose 154 H 03/01/24 03:10: WBC 27.9 H, RBC 4.82, Hgb 14.0, Hct 43.4, MCV 90.0, MCH 29.0, MCHC 32.3, RDW Std Deviation 49.7 H, RDW Coeff of Demetrius 15.1 H, Plt Count 306, MPV 11.4, Immature Gran % (Auto) 1.000 H, Neut % (Auto) 90.9 H, Lymph % (Auto) 3.8 L, [place] % (Auto) 4.2, Eos % (Auto) 0.0, Baso % (Auto) 0.1, Absolute Neuts (auto) 25.3 H, Absolute Lymphs (auto) 1.06, Nucleated RBC % 0, Differential Comment SCANNED, Sodium 142, Potassium 4.5, Chloride 112 H, Carbon Dioxide 25.0, Anion Gap 4 L, BUN 22 H, Creatinine 1.09, Estim Creat Clear Calc 51.16, Est GFR (MDRD) Af Amer 83, Est GFR (MDRD) Non-Af 68, BUN/Creatinine Ratio 20.2 H, Glucose 167 H, Calcium 8.8, Total Bilirubin 0.80, AST 26, ALT 18, Alkaline Phosphatase 64, Total Protein 6.9, Albumin 3.3, Globulin 3.6, Albumin/Globulin Ratio 0.9 03/01/24 04:55: B-Natriuretic Peptide 426.9 H 03/01/24 05:19: POC Glucose 133 H 03/01/24 11:31: POC Glucose 177 H Micro: Microbiology 03/01/24 11:10 Mucosa - Nasopharyngeal Respiratory Panel (PCR) - Final 03/01/24 11:20 Nasal Secretion MRSA (PCR) - Final 02/27/24 22:54 Blood Culture (Wb) - Line Draw Blood Culture - Preliminary No growth in 48 hours. 02/27/24 22:35 Blood Culture (Wb) - Line Draw Blood Culture - Preliminary No growth in 48 hours. ABG Data ABG results: ABG 03/01/24 03/01/24 05:32 13:00 Specimen Type ART ART Sample Site L Brach L Radial pH 7.41 7.36 Bicarbonate Actual 22.1 23.2 Total CO2 23 25 Base Excess -3 L -2 O2 Saturation 91 L 89 L O2 % 12.0 80.0 ABG pCO2 34.9 L 41.5 ABG pO2 59 L 60 L Loy Test Positive N/A O2 Delivery Device HFNC Vapotherm Vent Mode Not entered Not entered Clinical Comments airvo 45 L Imaging Radiology Impression Chest X-Ray 03/01/24 04:51 IMPRESSION: Interval worsening of severe diffuse bilateral perihilar and lower lung patchy airspace disease from previous day. Associated interstitial component. Electronically Signed: Zackary Romo MD at 6:52 EST ,
--- NOTE | 2024-03-01 15:13 | CHAPLAIN ---
Type of Pastoral Visit _x__ Initial Visit ___ Follow-up Visit ___ On-call Visit ___ General Patient Visit ___ Spiritual Assessment ___ Family Conference ___ Bereavement ___ Rapid Response ___ Code Blue ___ Other (describe below) Pastoral Care Referral From ___ Patient ___ Family _x__ Nurse ___ Physician ___ Supervisor Mending ___ Traffic Operations Manager ___ Other (describe below) Sacrament/Intervention _x__ Active listening ___ Anointing ___ Christian ___ Bereavement ___ Communion ___ Allie exploration ___ ___ Life review _x__ Prayer ___ Reconciliation ___ Sacrament of Sick _x__ Supportive presence ___ Wedding ___ Other (describe below) Pastoral Comments end of life protocols are in place and this research archaeologist stops in to offer support to family; pt is on a bi-pap and not awake at this time; daughter and son-in-law are in the room; offer of presence and support welcomed along with prayer; daughter indicates that other children and grandchildren are planning to come to the hospital yet today; patient is said to be a member of a local [employer] latter-day and a believer; daughter indicates that the spouse of patient is also admitted to this hospital and is not aware of what is transpiring in the ICU with this patient; family is not telling her as she is not well and unable to understand; prayer given along with offer to be available as needed during this time
--- NOTE | 2024-03-01 17:47 | NURSING ---
Patient's Daughter, Lulu, notified this RN that [facility] called her and stated they are unable to come to this hospital, but they could provide all the equipment and medications and meet them at their house to provide hospice care. Lulu stated I do not want to do that, I want him in a facility, so we will just go with the hospice in [place]. This RN will notify [facility].
--- NOTE | 2024-03-01 18:21 | NURSING ---
voicemail message left for [facility] with unit number and requesting return phone call regarding referral.
--- NOTE | 2024-03-01 18:36 | NURSING ---
just received phone call from Chelsea at Hospice, states she will reach out to family. Chelsea states that it may not be until morning until they are able to see the pt. updated on status
--- NOTE | 2024-03-01 18:51 | NURSING ---
spoke with Nayana in dietary, requesting white russell tray for family
[2024-03-02 00:15] LABS: Bedside Glucose 127 mg/dL (74-106)
[2024-03-02] MEDS: LORazepam 2 MG/ML Syringe IV ×4 (02:07→12:24)
[2024-03-02] MEDS: Furosemide 100 MG/10 ML Vial 80 MG IV (02:48)
[2024-03-02] MEDS: Glycopyrrolate 0.2 MG/ML Vial 0.1 MG IM (02:49)
[2024-03-02 05:08] VITALS: BMI 24.9
[2024-03-02] MEDS: Glycopyrrolate 0.2 MG/ML Vial 0.1 MG IV (07:20)
--- NOTE | 2024-03-02 07:27 | NURSING ---
hospice phoned in and verified they will be meeting with family around [id number]
[2024-03-02 08:26] VITALS: BP 130/83; PULSE 82; RESP 18; TEMP 36.4; O2SAT 92
[2024-03-02] MEDS: Furosemide 20 MG/2 ML VIAL IV (08:38)
[2024-03-02] MEDS: 0.9 % NaCl (Sterile) Posiflush 10 mL IV (08:38)
--- NOTE | 2024-03-02 09:07 | CASEMGMT ---
Social Work- SW printed updated clinicals for hospice nurse. SHREYA remains available to follow. KVNG Cooney
[2024-03-02 09:08] LABS: Bedside Glucose 138 mg/dL (74-106)
--- NOTE | 2024-03-02 10:27 | CASEMGMT ---
Social Work- SW spoke with hospice worker. Pt to be transported to [facility]. Bedside nurse updated. Physician updated. SHREYA printed directions for [facility] for family. SHREYA remains available to follow. KVNG Cooney
[2024-03-02] MEDS: 0.9% Saline Lock 10 ML Syringe IV (12:25)
--- NOTE | 2024-03-02 12:55 | CHAPLAIN ---
Type of Pastoral Visit ___ Initial Visit _x__ Follow-up Visit ___ On-call Visit ___ General Patient Visit ___ Spiritual Assessment ___ Family Conference ___ Bereavement ___ Rapid Response ___ Code Blue ___ Other (describe below) Pastoral Care Referral From ___ Patient ___ Family _x__ Nurse ___ Physician ___ Construction Stonemason ___ Construction Ironworker ___ Other (describe below) Sacrament/Intervention _x__ Active listening ___ Anointing ___ Lutheran ___ Bereavement ___ Communion ___ Allie exploration ___ ___ Life review _x__ Prayer ___ Reconciliation ___ Sacrament of Sick _x__ Supportive presence ___ Wedding ___ Other (describe below) Pastoral Comments this patient is to be transferred soon to [facility] of hospice; two sons and a [id number] are in the room; spouse is also a patient on this floor but has dementia and is not aware of her ; family welcomes the support and time to have a prayer and presence for support; listened to sons express how they were handling the situation; both state that they are doing the best that they can and appreciate the offer of help; offer of continuing support as needed or desired
--- NOTE | 2024-03-02 16:44 | DS.PCM_ITS ---
Providers Date of Admission: 02/28/24 Date of Discharge: 03/02/24 Primary Care Physician: Dr. Carmina Zaidi MD Consultations 02/28/24 02:38 Consult: Agricultural Commodities Inspector / Pulmonary Medicine Routine Consulting Provider: Intensivists/Pulmonary Med Reason for Consult: Septic shock, PNA, AECOPD and acute respiratory failure on ventilator. EMERGENT Consult: No Notified: Yes Date Notified: 02/28/24 Time Notified: 01:43 Method of Notification: Text 03/01/24 12:37 Consult: Infectious Disease Routine Consulting Provider: Konstantin Salguero Reason for Consult: RECOVERED septic shock, pneumonia, vanc+cefepime EMERGENT Consult: No Notified: Yes Date Notified: 03/01/24 Time Notified: 12:37 Method of Notification: Verbal 03/01/24 13:54 Consult: Hospice / Palliative Care Routine Consulting Provider: [facility] Reason for Consult: end stage COPD EMERGENT Consult: No Notified: Yes Date Notified: 03/01/24 Time Notified: 13:54 Method of Notification: Verbal Comments:: [facility] Reason For Visit: SEPSIS WITH SEPTIC SHOCK, SEPTIC ENCEPHALOPATHY Diagnosis Discharge Diagnosis (1) Pneumonia: Status: Acute Code(s): J18.9 - Pneumonia, unspecified organism Qualifiers: Pneumonia type: due to unspecified organism Laterality: unspecified laterality Lung location: unspecified part of lung Qualified Code(s): J18.9 - Pneumonia, unspecified organism Plan 83-year-old gentleman was admitted with progressive shortness of breath for 1 day with increase in O2 requirement from baseline 3 L to 6 L, agitation and confusion. Denies chest pain. His was sick, admitted in the hospital recently. CT shows bilateral pleural effusion with suspected right perihilar infiltrate. 1. 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 patient is being admitted in the ICU. Patient started on IV vancomycin and cefepime. 02/28: Patient is off vasopressor. Continue IV antibiotic. She also had decreased urine output in first 4 hours after admission, 70 noticed yesterday morning probably due to sepsis which has improved. Creatinine improved from 0.98-0.78. Does not meet criteria for JACOB. 03/01: Shock is resolved. 03/02: With prolonged history of intubation, extubation, septic shock, patient irritable and physically and functionally not doing well with impaired ADL, family decided for DNR CC and hospice care. Patient accepted as [facility] admitting discharge. 2. AE COPD due to pneumonia/sepsis- Patient is being managed on scheduled bronchodilator, IV Solu-Medrol, Mucinex, incentive spirometry and Pep. 03/01: Patient has leukocytosis probably from IV Solu-Medrol as infection seems controlled. 3. Acute hypoxic respiratory failure present on admission: ABG consistent with respiratory acidosis with pH of 7.2 /142/21 on AC mode 100%/450/8. Agricultural Commodities Inspector on board and is managing the vent setting 02/28: Patient on 40% FiO2. 03/01: Patient is still on 15 L of oxygen. Extubated. 4. PAF; not on anticoagulation with RVR: Patient was initially treated with IV Cardizem 20 mg bolus in ER. We will treat with IV digoxin to prevent exacerbating hypotension. Start full-dose Lovenox for CVA prophylaxis. 03/01: A-fib RVR: On Cardizem drip. On digoxin heart rate is controlled at 90/m. Started on oral metoprolol succinate and Cardizem and try to taper IV Cardizem drip. Metoprolol was on hold as patient was in septic shock 5. Essential hypertension; on metoprolol - Hold scheduled antihypertensives with patient severely hypotensive on admission. 6. Hyperlipidemia; on simvastatin - Resume statin after extubation. 7. DM-2: Was controlled but elevated on IV Solu-Medrol. Accu-Chek before meals and at bedtime with Humalog sliding scale coverage and hypoglycemia protocol. 8. GERD, PUD with history of GI bleed: Protonix 40 mg IV daily. 9. BPH on tamsulosin: 10. Degenerative joint disease/osteoarthritis: PT and OT ordered. DVT Prophylaxis - Patient started on full-dose Lovenox Discharge to inpatient hospice unit Medications at Discharge Home Medications ferrous sulfate 325 mg (65 mg iron) tablet 325 mg PO DAILY supplement 12/29/19 Handicap placard #1 ea 10/24/22 blood sugar diagnostic (Blood Glucose Test strips) #100 ea 11/28/22 lancets 28 gauge (FreeStyle Lancets) #100 ea 11/28/22 tamsulosin 0.4 mg capsule 0.4 mg PO QHS prostate #90 caps 05/13/23 albuterol sulfate 2.5 mg/3 mL (0.083 %) solution for nebulization 2.5 mg (3 mL) inhalation Q4H PRN shortness of breath or wheezing #180 mL 08/01/23 albuterol sulfate 90 mcg/actuation aerosol inhaler 2 puff inhalation Q6H PRN shortness of breath or wheezing #3 device 08/01/23 miscellaneous medical supply 09/19/23 metformin 500 mg tablet See Rx Instructions .Route .COMPLEX diabetes #180 tabs 09/24/23 pantoprazole 40 mg tablet,delayed release 40 mg PO BID reflux #180 tabs 09/24/23 cetirizine 10 mg capsule (Zyrtec) 10 mg PO QDAY PRN allergies 11/25/23 gabapentin 100 mg capsule 100 mg PO TID nerve pain #270 caps 12/19/23 metoprolol tartrate 25 mg tablet 12.5 mg (1/2 x 25 mg) PO BID blood pressure #90 tabs 12/19/23 fluticasone propionate 50 mcg/actuation nasal spray,suspension 2 spray intranasal DAILY #16 grams 01/27/24 simvastatin 40 mg tablet 40 mg PO DAILY cholesterol #90 tabs 02/04/24 fluticasone fur. 200 mcg-umeclid 62.5 mcg-vilant 25 mcg inhalat.powder (Trelegy Ellipta) 1 inh inhalation DAILY PRN breathing 02/28/24 Physical Exam Narrative Seen and examined Patient on IV Ativan and morphine as per hospice protocol. Patient is sleeping deep. Pupils are dilated. Patient transferred to inpatient hospice unit. Initially admitted in ICU with sepsis due to pneumonia and respiratory failure Physical exam General: Sedated. Unconscious after IV Ativan and morphine. HEENT: Bilateral pupils dilated. It is reactive to light. Atraumatic, EOMI, Normocephalic Oral: Oral mucosa dry but no inflammation or ulcer. Neck: Supple, No JVD, Negative Carotid Bruits Chest wall/Lungs: Air entry diminished in bilateral lung bases. No crepitation/rhonchi Cardiovascular: Irregular rhythm, Normal S1, Normal S2, systolic murmur Abdomen: Bowel Sounds Present, Soft, Non Tender, Non-Distended : Francis catheter urine is clear and increased. No renal angle tenderness. No suprapubic tenderness. Extremities: No edema, Capillary Refill Less than 3 Seconds Skin: No rashes, No breakdown Musculoskeletal: No Tenderness to Palpation of Joints or Extremities, ROM/muscle strength could not be examined Neurological: Neuro exam could not be evaluated Psych/Mental Status: Was irritable. Weight / BMI Weight Weight: 174 lb 2.643 oz Body Mass Index (BMI) 24.9 ABG / Lab / Microbiology Data 03/01/24 03:10 03/01/24 03:10 Laboratory: Laboratory Results - last 24 hr 03/01/24 23:50: POC Glucose 127 H 03/02/24 08:37: POC Glucose 138 H Microbiology: Microbiology 03/01/24 11:10 Mucosa - Nasopharyngeal Respiratory Panel (PCR) - Final 03/01/24 11:20 Nasal Secretion MRSA (PCR) - Final 02/27/24 22:54 Blood Culture (Wb) - Line Draw Blood Culture - Preliminary No growth in 48 hours. 02/27/24 22:35 Blood Culture (Wb) - Line Draw Blood Culture - Preliminary No growth in 48 hours. 02/27/24 21:30 Urine, Clean Catch Urine Culture - Final Mixed Gram Pos & Gram Neg Org 02/28/24 02:53 Urine Catheter - Francis Legionella Antigen - Final 02/28/24 02:53 Urine Catheter - Francis Streptococcus pneumoniae Antigen (M - Final 02/27/24 22:11 Mucosa - Nose SARS-CoV-2, Influenza & RSV (PCR) - Final D/C Instructions DC O2, CPAP, BIPAP Needs PSN CPAP & BiPAP: BiPAP & CPAP Settings per PSN Fraction of Inspired Oxygen ( 80 03/01/24 16:00 FIO2) Home O2 Discharge instructions: No Meaningful Use Info Meaningful Use Meaningful Use Diagnoses (Choose all that apply): None applicable Ischemic Stroke Statin Dosing Therapy Reference: STATIN DOSE THERAPY REFERENCE: * Patients > 75 years receive moderate or high dose statin therapy. * Patients 75 years or YOUNGER should receive HIGH intensity statin dose unless contraindicated. You will be required to document reason for non-treatment if statin daily dose does not meet guidelines. HIGH DOSE STATIN THERAPY DAILY Atorvastatin > than or = to 40 mg Rosuvastatin > than or = to 20 mg Amlodipine + Atorvastatin > than or = to 2.5/40 mg Ezetimibe + Simvastatin 10/80 mg Simvastatin 80mg Discharge Plan Admission Admit Date/Time: 02/28/24 01:38 Attending Provider: Howie Reyes Primary Care Provider: Carmina Zaidi Consulting Providers: Sam Mejia; Konstantin Salguero; Sam Arellano; Mely Orellana; Erna Ta; Carol Boudreaux; Samantha Monsivais NP; Ginger Tobar Discharge Orders/Prescriptions Prescriptions: No Action ferrous sulfate 325 mg (65 mg iron) tablet 325 mg PO DAILY (DME) Handicap placard See Rx Instructions .Route .MEDSUPPLY Qty: 1 0RF Rx Instructions: 5 year RX (DME) miscellaneous medical supply [facility] [place] See Rx Instructions .Route Rx Instructions: As directed Dx-severe COPD, O2 dependent fluticasone propionate 50 mcg/actuation spray,suspension 2 spray intranasal DAILY Qty: 16 3RF Zyrtec 10 mg capsule 10 mg PO QDAY PRN (Reason: allergies ) Trelegy Ellipta 200-62.5-25 mcg blister with device 1 inh inhalation DAILY PRN (Reason: breathing) (DME) Blood Glucose Test Strip See Rx Instructions .ROUTE .MEDSUPPLY Qty: 100 5RF Rx Instructions: Free Style Lite test strips - Use to check blood glucose 3-4 times a day and PRN (DME) lancets [FreeStyle Lancets] 28 gauge [facility] [place] See Rx Instructions .ROUTE .MEDSUPPLY Qty: 100 5RF Rx Instructions: Use to test blood sugar as needed. tamsulosin 0.4 mg capsule 0.4 mg PO QHS Qty: 90 3RF albuterol sulfate 2.5 mg /3 mL (0.083 %) solution for nebulization 2.5 mg inhalation Q4H PRN (Reason: shortness of breath or wheezing) Qty: 180 12RF albuterol sulfate 90 mcg/actuation HFA aerosol inhaler 2 puff inhalation Q6H PRN (Reason: shortness of breath or wheezing) Qty: 3 1RF metformin 500 mg tablet See Rx Instructions .ROUTE .COMPLEX Qty: 180 3RF Dose Instruction: TAKE 1 TABLET TWICE A DAY Rx Instructions: TAKE 1 TABLET TWICE A DAY pantoprazole 40 mg tablet,delayed release (DR/EC) 40 mg PO BID Qty: 180 1RF gabapentin 100 mg capsule 100 mg PO TID Qty: 270 3RF metoprolol tartrate 25 mg tablet 12.5 mg PO BID Qty: 90 3RF simvastatin 40 mg tablet 40 mg PO DAILY Qty: 90 3RF Referrals / Follow Up: Carmina Zaidi MD [Primary Care Provider] - Disposition Disposition (needs filled in before D/C Order can be placed): Hospice in Medical Facility Charges/Coding Visit Charges Inpatient E&M: 46818 Disch Hosp >30min
== END 2024-03-02 12:35 | disposition hospice, inpatient (51) | DRG 871 ==
LOC: ED 02-28 00:44 → ICU 02-28 01:54 → MS3 03-04 16:18
PROVIDERS: Internal Medicine; Admitting Provider Internal Medicine; Emergency Provider Emergency Medicine; PCP Internal Medicine; Visit Provider Internal Medicine
DX: A41.9 Sepsis, unspecified organism (principal); R65.21 Severe sepsis with septic shock; J96.21 Acute and chronic respiratory failure with hypoxia; G93.41 Metabolic encephalopathy; J18.9 Pneumonia, unspecified organism; E87.29 Other acidosis; J44.0 Chronic obstructive pulmonary disease with (acute) lower respiratory infection; J90 Pleural effusion, not elsewhere classified; J44.1 Chronic obstructive pulmonary disease with (acute) exacerbation; E11.40 Type 2 diabetes mellitus with diabetic neuropathy, unspecified; D50.9 Iron deficiency anemia, unspecified; Z66 Do not resuscitate; I10 Essential (primary) hypertension; I48.0 Paroxysmal atrial fibrillation; M19.90 Unspecified osteoarthritis, unspecified site; K21.9 Gastro-esophageal reflux disease without esophagitis; E78.5 Hyperlipidemia, unspecified; N40.0 Benign prostatic hyperplasia without lower urinary tract symptoms; Z79.51 Long term (current) use of inhaled steroids; Z87.891 Personal history of nicotine dependence; Z79.84 Long term (current) use of oral hypoglycemic drugs; Z79.899 Other long term (current) drug therapy
CPT/HCPCS: 31500; 31720; 36600; 51702; 71045; 71260; 74177; 80048; 80053; 80202; 81001; 82550; 82803; 82962; 83605; 83735; 83880; 84100; 84478; 84484; 85025; 87040; 87086; 87088; 87449; 87631; 87633; 87641; 92610; 93005; 94002; 94003; 94640; 94660; 94762; 97802; 99252; 99285; Q9967; A4216; G0463; J1940; J2405